=== PATIENT | male | born 1940 | race Caucasian/White ===

== ENCOUNTER 2020-05-16 08:26 | Outpatient (REF) | payer MEDICARE, SELFPAY ==
[2020-05-16 11:14] LABS: MANUAL DIFF FLAG NO
[2020-05-16 11:29] LABS: Basophils Percent Auto 0.6 % (0-2); Eosinophils Absolute Auto 0.1 X10*3/uL (0.0-0.4); Eosinophils Percent Auto 0.9 % (0-4); Hematocrit 43.1 % (42-52); Hemoglobin 14.4 g/dl (14.0-18.0); Imm Gran Abs Auto 0.02 X10*3/uL (0.00-0.03); Imm Gran Pct Auto 0.3 % (0.0-0.4); Lymphocytes Absolute Auto 1.7 X10*3/uL (1.2-4.9); Lymphocytes Percent Auto 24.9 % (20-40); Mean Corpuscular HGB Conc 33.4 g/dl (31.0-36.0); Mean Corpuscular Hemoglobin 29.8 pg (27.0-33.0); Mean Corpuscular Volume 89.2 fL (80-98); Mean Platelet Volume 11.1 fL (9.4-12.4); Monocytes Absolute Auto 0.8 X10*3/uL (0.1-1.2); Monocytes Percent Auto 11.5 % (2-11); Neutrophils Absolute Auto 4.2 X10*3/uL (2.0-8.3); Neutrophils Percent Auto 61.8 % (45-73); Platelet Count 245 X10*3/uL (160-400); Red Blood Count 4.83 X10*6/uL (4.60-5.80); Red Cell Distribution Width 13.3 % (11.0-16.0); White Blood Count 6.9 X10*3/uL (4.8-10.8)
[2020-05-16 11:38] LABS: Glucose Urine UA NEG (NEG); Leukocyte Esterase Urine NEG (NEG); Nitrite Urine NEG (NEG); Urine Blood NEG (NEG); Urine Ketones 15 MG/DL (NEG); Urine Protein NEG (NEG-TRACE)
[2020-05-16 11:43] LABS: Appearance Urine CLEAR; Color Urine YELLOW
[2020-05-16 11:52] LABS: RBC Urine 0 /HPF (0); WBC Urine 0 /HPF (0-4)
[2020-05-16 11:56] LABS: Alanine Aminotransferase 28 U/L (0-40); Albumin Level 4.3 g/dL (3.5-5.0); Alkaline Phosphatase 64 U/L (39-117); Anion Gap 12 (12-20); Aspartate Amino Transferase 24 U/L (5-37); Bilirubin Total 0.8 mg/dL (0.0-1.0); Blood Urea Nitrogen 17 mg/dL (9-16); Calcium 9.1 mg/dL (8.4-10.2); Carbon Dioxide 28 mmol/L (22-29); Chloride 97 mmol/L (96-108); Cholesterol 128 mg/dL; Estimated Glomerular Filt Rate > 60; Glucose Fasting 154 mg/dL (60-99); HDL Cholesterol 54 mg/dL; LDL Cholesterol Calculated 61 mg/dl; Potassium 4.8 mmol/l (3.3-5.1); Sodium 132 mmol/L (135-145); Total Protein 6.7 g/dL (6.5-8.0); Triglycerides 68 mg/dL
[2020-05-16 11:59] LABS: Creatinine Urine 95.65 mg/dL; Microalbum/Creatinine Ratio Ur 5.2 ug/mg cr
[2020-05-16 12:07] LABS: Thyroid Stimulating Hormone 1.84 uIU/mL (0.32-4.0)
== END 2020-05-16 08:27 | disposition home or self-care (01) ==
LOC: HO.HMGCLDS 08:26
PROVIDERS: PCP Internal Medicine; Visit Provider Internal Medicine
DX: E10.9 Type 1 diabetes mellitus without complications (principal); I10 Essential (primary) hypertension; N40.0 Benign prostatic hyperplasia without lower urinary tract symptoms
CPT/HCPCS: 36415; 80053; 80061; 81001; 82043; 84153; 84443; 85025

== ENCOUNTER → 2020-06-13 08:19 | Outpatient (BNVA) | payer MEDICARE, SELFPAY | PROVIDERS: PCP Internal Medicine; Visit Provider Internal Medicine Endocrinology, Diabetes & Metabolism | DX: E10.42 Type 1 diabetes mellitus with diabetic polyneuropathy (principal); E11.3299 Type 2 diabetes mellitus with mild nonproliferative diabetic retinopathy without macular edema, unspecified eye; E78.5 Hyperlipidemia, unspecified; E87.1 Hypo-osmolality and hyponatremia; I10 Essential (primary) hypertension | CPT/HCPCS: 82947; 99212 ==

== ENCOUNTER 2020-08-28 09:17 | Outpatient (REF) | payer MEDICARE, SELFPAY ==
--- NOTE | 2020-08-28 09:30 | EMG_ITS ---
Bilateral median and ulnar motor and sensory studies were performed. Bilateral radial sensory studies were performed and paraspinal muscles were tested. IMPRESSION: 1. Moderately severe bilateral median neuropathy across carpal tunnel. 2. 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 3. Underlying sensory motor axonal peripheral neuropathy. MD GIL Larios/NITISH / [id number]
== END 2020-08-28 09:18 | disposition home or self-care (01) ==
LOC: HO.NEURO 09:17
PROVIDERS: PCP Internal Medicine; Visit Provider Internal Medicine
DX: G56.03 Carpal tunnel syndrome, bilateral upper limbs (principal)
CPT/HCPCS: 95886; 95911

== ENCOUNTER → 2020-10-14 08:30 | Outpatient (BNVA) | payer MEDICARE, SELFPAY | PROVIDERS: PCP Internal Medicine; Visit Provider Internal Medicine Endocrinology, Diabetes & Metabolism | DX: E11.3299 Type 2 diabetes mellitus with mild nonproliferative diabetic retinopathy without macular edema, unspecified eye (principal); E10.42 Type 1 diabetes mellitus with diabetic polyneuropathy; I10 Essential (primary) hypertension; E78.5 Hyperlipidemia, unspecified; E87.1 Hypo-osmolality and hyponatremia | CPT/HCPCS: 82947; 99212 ==

== ENCOUNTER 2020-10-14 09:24 | Outpatient (REF) | payer MEDICARE, SELFPAY ==
[2020-10-14 10:40] LABS: Alanine Aminotransferase 29 U/L (0-40); Alkaline Phosphatase 79 U/L (39-117); Anion Gap 15 (12-20); Aspartate Amino Transferase 22 U/L (5-37); Bilirubin Total 0.9 mg/dL (0.0-1.0); Blood Urea Nitrogen 17 mg/dL (9-16); Calcium 9.6 mg/dL (8.4-10.2); Carbon Dioxide 25 mmol/L (22-29); Chloride 102 mmol/L (96-108); Estimated Glomerular Filt Rate > 60; Glucose Random 165 mg/dL (60-115); Potassium 4.7 mmol/L (3.3-5.1); Sodium 137 mmol/L (135-145); Total Protein 6.4 g/dL (6.5-8.0)
[2020-10-14 10:53] LABS: Microalbumin Urine < 5.0 mg/L; Protein/Creatinine Ratio, Ur 0.08 (<0.2); Total Protein Urine Random 9 mg/dL (<12)
== END 2020-10-14 09:25 | disposition home or self-care (01) ==
LOC: HO.10HDL 09:24
PROVIDERS: Visit Provider Internal Medicine Endocrinology, Diabetes & Metabolism
DX: E10.9 Type 1 diabetes mellitus without complications (principal)
CPT/HCPCS: 36415; 80053; 82043; 84156

== ENCOUNTER → 2021-01-13 08:48 | Outpatient (BNVA) | payer MEDICARE, SELFPAY | PROVIDERS: PCP Internal Medicine; Visit Provider Internal Medicine Endocrinology, Diabetes & Metabolism | DX: E10.3293 Type 1 diabetes mellitus with mild nonproliferative diabetic retinopathy without macular edema, bilateral (principal); E10.42 Type 1 diabetes mellitus with diabetic polyneuropathy; I10 Essential (primary) hypertension; E78.5 Hyperlipidemia, unspecified; Z79.4 Long term (current) use of insulin; Z96.41 Presence of insulin pump (external) (internal) | CPT/HCPCS: 82947; 99212 ==

== ENCOUNTER 2021-02-04 08:27 | Outpatient (REF) | payer MEDICARE, SELFPAY ==
[2021-02-04 11:16] LABS: MANUAL DIFF FLAG NO
[2021-02-04 11:24] LABS: Basophils Absolute Auto 0.1 X10*3/uL (0.0-0.2); Basophils Percent Auto 0.7 % (0-2); Eosinophils Absolute Auto 0.1 X10*3/uL (0.0-0.4); Eosinophils Percent Auto 1.5 % (0-4); Hematocrit 41.9 % (42-52); Imm Gran Abs Auto 0.02 X10*3/uL (0.00-0.03); Imm Gran Pct Auto 0.3 % (0.0-0.4); Lymphocytes Absolute Auto 2.2 X10*3/uL (1.2-4.9); Lymphocytes Percent Auto 30.3 % (20-40); Mean Corpuscular HGB Conc 33.4 g/dl (31.0-36.0); Mean Corpuscular Hemoglobin 29.4 pg (27.0-33.0); Mean Corpuscular Volume 87.8 fL (80-98); Mean Platelet Volume 11.4 fL (9.4-12.4); Monocytes Absolute Auto 0.9 X10*3/uL (0.1-1.2); Monocytes Percent Auto 11.8 % (2-11); Neutrophils Absolute Auto 4.1 X10*3/uL (2.0-8.3); Neutrophils Percent Auto 55.4 % (45-73); Platelet Count 218 X10*3/uL (160-400); Red Blood Count 4.77 X10*6/uL (4.60-5.80); Red Cell Distribution Width 13.2 % (11.0-16.0); White Blood Count 7.4 X10*3/uL (4.8-10.8)
[2021-02-04 11:27] LABS: Glucose Urine UA NEG (NEG); Leukocyte Esterase Urine NEG (NEG); Nitrite Urine NEG (NEG); Urine Blood NEG (NEG); Urine Ketones NEG (NEG); Urine Protein NEG (NEG-TRACE)
[2021-02-04 11:32] LABS: Appearance Urine CLEAR; Color Urine YELLOW
[2021-02-04 11:35] LABS: Alanine Aminotransferase 26 U/L (0-40); Alkaline Phosphatase 74 U/L (39-117); Anion Gap 13 (12-20); Aspartate Amino Transferase 22 U/L (5-37); Bilirubin Total 0.8 mg/dL (0.0-1.0); Blood Urea Nitrogen 20 mg/dL (9-16); Calcium 9.1 mg/dL (8.4-10.2); Carbon Dioxide 25 mmol/L (22-29); Chloride 98 mmol/L (96-108); Cholesterol 111 mg/dL; Estimated Glomerular Filt Rate > 60; Glucose Fasting 166 mg/dL (60-99); HDL Cholesterol 44 mg/dL; LDL Cholesterol Calculated 53 mg/dl; Potassium 4.5 mmol/L (3.3-5.1); Sodium 131 mmol/L (135-145); Total Protein 6.5 g/dL (6.5-8.0); Triglycerides 70 mg/dL
[2021-02-04 11:54] LABS: RBC Urine 0-2 /HPF (0); WBC Urine 0 /HPF (0-4)
[2021-02-04 11:55] LABS: Estimated Average Glucose 183 mg/dL
[2021-02-04 11:57] LABS: Thyroid Stimulating Hormone 2.42 uIU/mL (0.32-4.0); Vitamin D 25-OH Total 41.9 ng/mL (>30)
[2021-02-04 12:02] LABS: Creatinine Urine 74.05 mg/dL; Microalbumin Urine < 5.0 mg/L
== END 2021-02-04 08:28 | disposition home or self-care (01) ==
LOC: HO.HMGCLDS 08:27
PROVIDERS: PCP Internal Medicine; Visit Provider Internal Medicine
DX: E10.9 Type 1 diabetes mellitus without complications (principal); I10 Essential (primary) hypertension; N40.0 Benign prostatic hyperplasia without lower urinary tract symptoms
CPT/HCPCS: 36415; 80053; 80061; 81001; 82043; 82306; 83036; 84443; 85025

== ENCOUNTER 2021-05-03 21:45 | Emergency (ER) | payer MEDICARE, SELFPAY ==
--- NOTE | ~2021-05-03 | XR_ITS ---
EXAMINATION: XR CHEST CLINICAL INFORMATION: Dizziness. Nausea. COMPARISON: Most recent chest radiograph dated 06/16/2018. TECHNIQUE: Frontal view of the chest was obtained. FINDINGS: No new airspace consolidation. No pleural effusion or pneumothorax. Stable cardiomediastinal silhouette. XR/XR chest 1V IMPRESSION: No acute cardiopulmonary findings.
--- NOTE | ~2021-05-03 | CT_ITS ---
EXAMINATION: CT HEAD WITHOUT CONTRAST CLINICAL INFORMATION: Dizziness, headache, nausea and vomiting. COMPARISON: CT brain dated 12/10/2016. TECHNIQUE: Contiguous axial imaging was performed from the skull base to vertex without intravenous administration of contrast. This CT examination was performed using dose optimization techniques as appropriate, variously including the following: *Automated exposure control. *Adjustment of mA and/or kV according to patient size (this includes techniques or standardized protocols for targeted exams where dose is matched to indication/reason for exam; i.e. extremities or head). *Use of iterative reconstruction technique. DLP: 696 mGy-cm FINDINGS: There is no evidence of acute intracranial hemorrhage or territorial infarction. No abnormal mass effect or midline shift is seen. [id number] matter differentiation is well preserved. No extra-axial fluid collections are identified. The ventricles are normal in size. There is no abnormal attenuation within the brain parenchyma. The osseous structures and soft tissues are normal. Complete opacification of the right maxillary sinus is unchanged. Otherwise, the mastoid air cells and visualized portions of the paranasal sinuses are well aerated. CT/CT head/brain wo con IMPRESSION: No acute intracranial hemorrhage or mass effect.
[2021-05-03 21:57] VITALS: BP 167/64; PULSE 60; RESP 18; TEMP 36.7; O2SAT 99; BMI 29.0
--- NOTE | 2021-05-03 22:25 | ECG_ITS ---
Test Reason : WEAK Blood Pressure : / mmHG Vent. Rate : 060 BPM Atrial Rate : 060 BPM P-R Int : 218 ms QRS Dur : 090 ms QT Int : 458 ms P-R-T Axes : -12 -60 086 degrees QTc Int : 458 ms Sinus rhythm with 1st degree A-V block Left axis deviation Nonspecific T wave abnormality Abnormal ECG When compared with ECG of 10-DEC-2016 00:28, T wave amplitude has decreased in Anterolateral leads Referred By: Jenn Metcalf Electronically Signed By:PRIETO MCRAE MD
--- NOTE | 2021-05-03 22:54 | ED.GENADULT ---
HPI - General Adult General Chief complaint: General Medical Stated complaint: dehyration Time Seen by Provider: 05/03/21 22:17 Source: patient Mode of arrival: ambulatory History of Present Illness HPI narrative: 80-year-old male with a past medical history of diabetes, hyperlipidemia, hypertension, presenting to the ED complaining of dizziness described as eyes moving back and forth worse with position changes, headache, nausea, vomiting, & generalized fatigue/weakness since this morning. Reports unable to tolerate p.o. without vomiting. Admits to similar symptoms in the past when he was dehydrated. Denies fever, chills, chest pain, shortness of breath, vision change/loss, numbness, tingling, weakness, abdominal pain Related Data Home Medications Medication Instructions Recorded Confirmed amlodipine 5 mg tablet 5 mg PO DAILY 06/13/20 01/13/21 atorvastatin 40 mg tablet 40 mg PO DAILY 06/13/20 01/13/21 finasteride 5 mg tablet 5 mg PO DAILY 06/13/20 01/13/21 sertraline 50 mg tablet 50 mg PO DAILY 06/13/20 01/13/21 losartan 50 mg tablet 50 mg PO DAILY tab 10/14/20 01/13/21 tamsulosin 0.4 mg capsule 0.4 mg PO DAILY cap 10/14/20 01/13/21 hydrochlorothiazide 25 mg tablet 25 mg PO QAM 01/13/21 01/13/21 Previous Rx's Medication Instructions Recorded Lyumjev U-100 Insulin 100 unit/mL See Rx Instructions SUBCUT DAILY 01/13/21 subcutaneous solution (insulin 90 Days #90 ml NS [facility]) meclizine 25 mg tablet 25 mg PO TID PRN #14 tab 05/04/21 Allergies Allergy/AdvReac Type Severity Reaction Status Date / Time penicillin V Allergy Unknown Rash Verified 05/03/21 23:02 Penicillins [PENICILLINS] Allergy Unknown UNKNOWN Verified 05/03/21 23:02 Review of Systems Review of Systems: Constitutional: No Fever, No Chills, + Fatigue, + Malaise ENT/Mouth: No Ear Pain, No Nasal Congestion, No Hoarseness, No sore throat Eyes: No Eye Pain, No Swelling, No Redness, No Vision Changes Cardiovascular: No Chest Pain, No SOB, No Edema, No Palpitations Respiratory: No Cough, No Sputum, No Dyspnea Gastrointestinal: + Nausea, + Vomiting, No Diarrhea, No Constipation, No Abdominal pain Genitourinary: No Dysuria, No Urinary Frequency, No Hematuria, No Urinary Incontinence, No Urgency, No Flank Pain Musculoskeletal: No joint pain, No Myalgias, No Joint Swelling Skin: No Skin Lesions, No rash Neuro: + Weakness, No Numbness, No Paresthesias, No Loss of Consciousness, + Dizziness, + Headache Yes all other systems are reviewed and are negative Neurologic: Denies Abnormal speech present COUNT INCLUDES THE [facility] Past Medical History Attestation statement: The following information was validated with the patient. 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 Dyslipidemia Hypertension Hyponatremia Mild non proliferative diabetic retinopathy Surgical History (Updated 06/12/20 @ 09:20 by Cristel Holland LPN) Hx of cataract removal with insertion of prosthetic lens Hx of hand surgery Hx of right inguinal hernia repair Family History Family History (Updated 06/12/20 @ 09:18 by Cristel Holland LPN) Father CVD (cardiovascular disease) Mother Hypertension Maternal Grandmother Diabetes Social History Social History (Updated 06/12/20 @ 09:18 by Cristel Holland LPN) Advance Directives: No Advance Directives Information Provided: No Advance Directives on File: No Physical Exam Vital Signs: Vital Signs: Last Vital Signs Temp 98.0 F 05/03/21 21:57 Pulse 67 05/04/21 00:26 Resp 18 05/03/21 21:57 BP 124/52 L 05/04/21 00:26 Pulse Ox 99 05/03/21 21:57 Body Mass Index 29.0 Const: General: cooperative Orientation/consciousness: patient oriented x3 Limitations: no limitations HENMT: Head: Yes normal to inspection Ears: hearing grossly normal bilaterally General nose exam: Normal external nose present Face and sinus: Yes normal facial exam Eyes: General: appearance normal, both eyes and all related structures Pupils: Equal, round and reactive pupils present EOM: EOMs intact bilaterally Neck: Neck: Yes normal visual inspection and Yes no meningeal signs Resp: Effort & Inspection: normal respiratory effort Auscultation: clear to auscultation bilaterally, no rales, no rhonchi and no wheezes Cardio: Rate: regular rate Heart sounds: S1 normal heart sound present and S2 normal heart sound present GI: Inspection: Yes normal to inspection Palpation (GI): Soft to palpation, nontender, no guarding and not rigid Skin: Rashes: no rashes Wounds: no wounds Neuro: General: patient oriented x3, tone normal, moves all extremities, no meningeal signs, no focal motor deficits and CN's II-XI intact bilaterally Cranial nerves: Yes CN's II-XII intact bilaterally, Yes Equal, round and reactive pupils present, Yes Bilaterally intact EOM present and Yes Nystagmus not present Cognition (Neuro): normal cognition Speech: No Abnormal speech present Gait exam (Neuro): Normal gait present Motor exam (neuro): 5/5 motor strength present throughout, Pronator motor function not present and no tremor noted Coordination: [id number]-ug-[id number] test normal Romberg Test: Negative Extrem: General: Yes normal to inspection and Yes no pedal edema Course Course Course Narrative: 2340--mild leukocytosis of 11.4, acute on chronic hyponatremia, labs otherwise unremarkable. Glucose 221 -Troponin 12.3 > will obtain 3 hour repeat XR chest 1V IMPRESSION: No acute cardiopulmonary findings CT head/brain wo con IMPRESSION: No acute intracranial hemorrhage or mass effect. -0015--On re-evaluation patient reports symptomatic improvement. Will try ambulation trial -orthostatic vital signs negative. UA negative -0111--repeat troponin equivocal, CO unlikely. Patient ambulated safely and ED with steady gait without dizziness. On re-evaluation patient reports symptomatic improvement, asymptomatic now, denies dizziness at present. Discussed with patient worrisome signs and symptoms and strict return precautions including needed follow-up with PCP/ENT. Will send Meclizine to pharmacy as needed. He verbalized understanding feel safe for discharge home at this time Medical Decision Making MDM Narrative Medical decision making narrative: 80-year-old male with a past medical history of diabetes, hyperlipidemia, hypertension, presenting to the ED complaining of dizziness described as eyes moving back and forth worse with position changes, headache, nausea, vomiting, & generalized fatigue/weakness since this morning. On exam vital signs stable, NAD, dizziness elicited on position change/sitting up, no focal neuro deficits, lungs CTA, no pedal edema. Concern for BPPV vs ?CVA > patient is not tPA candidate as is out of the window and low NIHSS. Concern for metabolic abnormalities, rule out ACS vs hyper or hypoglycemia Plan: EKG, labs, UA, CXR, head CT, IVF, symptomatic treatment, re-evaluate Lab Data Result diagrams: 05/03/21 22:54 05/03/21 22:54 Labs: Lab Results 05/03/21 05/03/21 05/03/21 Range/Units 22:54 22:54 22:54 WBC 11.4 H (4.8-10.8) X10*3/uL RBC 4.67 (4.60-5.80) X10*6/uL Hgb 14.2 (14.0-18.0) g/dl Hct 40.4 L (42.0-52.0) % MCV 86.5 (80.0-98.0) fL MCH 30.4 (27.0-33.0) pg MCHC 35.1 (31.0-36.0) g/dl RDW 12.8 (11.0-16.0) % Plt Count 199 (160-400) X10*3/uL MPV 10.7 (9.4-12.4) fL Immature Gran % (Auto) 0.3 (0.0-0.4) % Neut % (Auto) 86.5 H (45-73) % Lymph % (Auto) 7.7 L (20-40) % [place] % (Auto) 5.2 (2-11) % Eos % (Auto) 0.1 (0-4) % Baso % (Auto) 0.2 (0-2) % Lymph # (Auto) 0.9 L (1.2-4.9) X10*3/uL [place] # (Auto) 0.6 (0.1-1.2) X10*3/uL Eos # (Auto) 0.0 (0.0-0.4) X10*3/uL Baso # (Auto) 0.0 (0.0-0.2) X10*3/uL Abs Immat Gran (auto) 0.03 (0.00-0.03) X10*3/uL Absolute Neuts (auto) 9.89 H (2.0-8.3) x10*3/uL Absolute Nucleated RBC 0.000 (0.0-0.012) X10*3/uL Nucleated RBC % (auto) 0.0 (0.0-0.2) /100WBC Sodium 130 L (135-145) mmol/L Potassium 3.9 (3.3-5.1) mmol/L Chloride 95 L (96-108) mmol/L Carbon Dioxide 24 (22-29) mmol/L Anion Gap 15 (12-20) BUN 14 (9-16) mg/dL Creatinine 0.78 (0.5-1.4) mg/dL Estim Creat Clear Calc 77.0 Estimated GFR > 60 POC Glucose (60-115) mg/dL Random Glucose 237 H D (60-115) mg/dL Calcium 9.0 (8.4-10.2) mg/dL Magnesium 1.9 (1.6-2.6) mg/dL Total Bilirubin 0.9 (0.0-1.0) mg/dL Direct Bilirubin 0.3 (0.0-0.5) mg/dL AST 24 (5-37) U/L ALT 25 (0-40) U/L Alkaline Phosphatase 67 (39-117) U/L Troponin I High Sens 12.3 (<3.5-35.0) ng/L Total Protein 6.5 (6.5-8.0) g/dL Albumin 4.0 (3.5-5.0) g/dL Urine Color Urine Appearance Urine pH (5.0-8.0) Ur Specific [place] (1.005-1.025) Urine Protein (NEG-TRACE) MG/DL Urine Glucose (UA) (NEG) MG/DL Urine Ketones (NEG) MG/DL Urine Blood (NEG) Urine Nitrite (NEG) Ur Leukocyte Esterase (NEG) 05/03/21 05/04/21 05/04/21 Range/Units 22:55 00:35 00:35 WBC (4.8-10.8) X10*3/uL RBC (4.60-5.80) X10*6/uL Hgb (14.0-18.0) g/dl Hct (42.0-52.0) % MCV (80.0-98.0) fL MCH (27.0-33.0) pg MCHC (31.0-36.0) g/dl RDW (11.0-16.0) % Plt Count (160-400) X10*3/uL MPV (9.4-12.4) fL Immature Gran % (Auto) (0.0-0.4) % Neut % (Auto) (45-73) % Lymph % (Auto) (20-40) % [place] % (Auto) (2-11) % Eos % (Auto) (0-4) % Baso % (Auto) (0-2) % Lymph # (Auto) (1.2-4.9) X10*3/uL [place] # (Auto) (0.1-1.2) X10*3/uL Eos # (Auto) (0.0-0.4) X10*3/uL Baso # (Auto) (0.0-0.2) X10*3/uL Abs Immat Gran (auto) (0.00-0.03) X10*3/uL Absolute Neuts (auto) (2.0-8.3) x10*3/uL Absolute Nucleated RBC (0.0-0.012) X10*3/uL Nucleated RBC % (auto) (0.0-0.2) /100WBC Sodium (135-145) mmol/L Potassium (3.3-5.1) mmol/L Chloride (96-108) mmol/L Carbon Dioxide (22-29) mmol/L Anion Gap (12-20) BUN (9-16) mg/dL Creatinine (0.5-1.4) mg/dL Estim Creat Clear Calc Estimated GFR POC Glucose 221 H (60-115) mg/dL Random Glucose (60-115) mg/dL Calcium (8.4-10.2) mg/dL Magnesium (1.6-2.6) mg/dL Total Bilirubin (0.0-1.0) mg/dL Direct Bilirubin (0.0-0.5) mg/dL AST (5-37) U/L ALT (0-40) U/L Alkaline Phosphatase (39-117) U/L Troponin I High Sens 13.4 (<3.5-35.0) ng/L Total Protein (6.5-8.0) g/dL Albumin (3.5-5.0) g/dL Urine Color YELLOW Urine Appearance CLEAR Urine pH 6.0 (5.0-8.0) Ur Specific [place] 1.025 (1.005-1.025) Urine Protein NEG (NEG-TRACE) MG/DL Urine Glucose (UA) 100 H (NEG) MG/DL Urine Ketones 40 (NEG) MG/DL Urine Blood NEG (NEG) Urine Nitrite NEG (NEG) Ur Leukocyte Esterase NEG (NEG) ECG Data Attestation: I personally reviewed and interpreted this ECG as follows: Prior ECG tracings: available for review Interpretation: EKG sinus rhythm with 1st degree AV block. Rate of 60. Nonischemic-no STEMI. QTC 458 Discharge Plan Discharge Clinical Impression: Dizziness Nausea & vomiting Qualifiers: Vomiting type: unspecified Vomiting Intractability: non-intractable Qualified Code(s): R11.2 - Nausea with vomiting, unspecified Patient Disposition: Home, Self-Care Instructions: Acute Nausea and Vomiting (ED), Dizziness (ED) Additional Instructions: Your blood work was reassuring You head CT and chest x-ray were unremarkable Meclizine will help with dizziness, take as needed Please follow-up with her primary care doctor in the next 1-2 days If her symptoms persist, recur, you develop headache, persistent nausea/vomiting, chest pain or shortness of breath, or visual changes please return to the ED Prescriptions: New meclizine 25 mg tablet 25 mg PO TID PRN (Reason: dizziness) Qty: 14 RF: 0 No Action finasteride 5 mg tablet 5 mg PO DAILY RF: 0 amlodipine 5 mg tablet 5 mg PO DAILY RF: 0 sertraline 50 mg tablet 50 mg PO DAILY RF: 0 atorvastatin 40 mg tablet 40 mg PO DAILY RF: 0 losartan 50 mg tablet 50 mg PO DAILY RF: 0 tamsulosin 0.4 mg capsule 0.4 mg PO DAILY RF: 0 hydrochlorothiazide 25 mg tablet 25 mg PO QAM RF: 0 Lyumjev U-100 Insulin 100 unit/mL solution See Rx Instructions subcut DAILY 90 Days Qty: 90 RF: 2 Referrals: Srinivasa Vasquez MD, DO [Primary Care Provider] - 2 days Julio Henson [Physician] - 5 days
[2021-05-03 22:59] LABS: Glucose, Whole Blood 221 mg/dL (60-115)
[2021-05-03] MEDS: ondansetron HCL 4 MG/2 ML VIAL IVPUSH (23:02)
[2021-05-03] MEDS: 0.9 % Sodium Chloride 1,000 ML 999 ML IVCONT (23:03)
[2021-05-03] MEDS: Meclizine HCl 25 MG TABLET PO (23:03)
[2021-05-03 23:04] LABS: MANUAL DIFF FLAG NO
[2021-05-03 23:05] LABS: Basophils Percent Auto 0.2 % (0-2); Eosinophils Percent Auto 0.1 % (0-4); Hematocrit 40.4 % (42.0-52.0); Hemoglobin 14.2 g/dl (14.0-18.0); Imm Gran Abs Auto 0.03 X10*3/uL (0.00-0.03); Imm Gran Pct Auto 0.3 % (0.0-0.4); Lymphocytes Absolute Auto 0.9 X10*3/uL (1.2-4.9); Lymphocytes Percent Auto 7.7 % (20-40); Mean Corpuscular HGB Conc 35.1 g/dl (31.0-36.0); Mean Corpuscular Hemoglobin 30.4 pg (27.0-33.0); Mean Corpuscular Volume 86.5 fL (80.0-98.0); Mean Platelet Volume 10.7 fL (9.4-12.4); Monocytes Absolute Auto 0.6 X10*3/uL (0.1-1.2); Monocytes Percent Auto 5.2 % (2-11); Neutrophils Absolute Auto 9.89 x10*3/uL (2.0-8.3); Neutrophils Percent Auto 86.5 % (45-73); Platelet Count 199 X10*3/uL (160-400); Red Blood Count 4.67 X10*6/uL (4.60-5.80); Red Cell Distribution Width 12.8 % (11.0-16.0); White Blood Count 11.4 X10*3/uL (4.8-10.8)
[2021-05-03 23:24] LABS: Alanine Aminotransferase 25 U/L (0-40); Alkaline Phosphatase 67 U/L (39-117); Anion Gap 15 (12-20); Aspartate Amino Transferase 24 U/L (5-37); Bilirubin Direct 0.3 mg/dL (0.0-0.5); Bilirubin Total 0.9 mg/dL (0.0-1.0); Blood Urea Nitrogen 14 mg/dL (9-16); Carbon Dioxide 24 mmol/L (22-29); Chloride 95 mmol/L (96-108); Estimated Glomerular Filt Rate > 60; Glucose Random 237 mg/dL (60-115); Magnesium 1.9 mg/dL (1.6-2.6); Potassium 3.9 mmol/L (3.3-5.1); Sodium 130 mmol/L (135-145); Total Protein 6.5 g/dL (6.5-8.0); Troponin-I High Sensitivity 12.3 ng/L (<3.5-35.0)
[2021-05-04 00:26] VITALS: BP 124/52; BP 136/55; BP 141/60; PULSE 60; PULSE 65; PULSE 67
[2021-05-04 00:45] LABS: Appearance Urine CLEAR; Color Urine YELLOW; Glucose Urine UA 100 MG/DL (NEG); Leukocyte Esterase Urine NEG (NEG); Nitrite Urine NEG (NEG); Specific Gravity - Urine 1.025 (1.005-1.025); Urine Blood NEG (NEG); Urine Ketones 40 MG/DL (NEG); Urine Protein NEG (NEG-TRACE)
[2021-05-04 01:01] LABS: Troponin-I High Sensitivity 13.4 ng/L (<3.5-35.0)
== END 2021-05-04 01:35 | disposition home or self-care (01) ==
PROVIDERS: Physician Assistant; Emergency Provider Internal Medicine; PCP Internal Medicine
DX: R42 Dizziness and giddiness (principal); R11.2 Nausea with vomiting, unspecified; E10.9 Type 1 diabetes mellitus without complications; I10 Essential (primary) hypertension; E78.5 Hyperlipidemia, unspecified; Z79.899 Other long term (current) drug therapy; Z79.4 Long term (current) use of insulin
CPT/HCPCS: 36415; 70450; 71045; 80048; 80076; 81003; 82947; 83735; 84484; 85025; 93005; 96361; 96374; 99284; J2405

== ENCOUNTER → 2021-05-20 10:00 | Outpatient (BNVA) | payer MEDICARE, SELFPAY | PROVIDERS: PCP Internal Medicine; Visit Provider Nurse Practitioner Gerontology | DX: E10.3293 Type 1 diabetes mellitus with mild nonproliferative diabetic retinopathy without macular edema, bilateral (principal); E10.42 Type 1 diabetes mellitus with diabetic polyneuropathy; E66.3 Overweight; E78.5 Hyperlipidemia, unspecified; I10 Essential (primary) hypertension | CPT/HCPCS: 82947; 83036; 99212 ==

== ENCOUNTER → 2021-06-16 07:52 | Outpatient (BNVA) | payer MEDICARE, SELFPAY | PROVIDERS: PCP Internal Medicine; Visit Provider Registered Nurse Diabetes Educator | DX: E10.42 Type 1 diabetes mellitus with diabetic polyneuropathy (principal); Z96.41 Presence of insulin pump (external) (internal); Z79.4 Long term (current) use of insulin | CPT/HCPCS: 99211 ==

== ENCOUNTER → 2021-07-14 07:57 | Outpatient (BNVA) | payer MEDICARE, SELFPAY | PROVIDERS: PCP Internal Medicine; Visit Provider Registered Nurse Diabetes Educator | DX: E10.42 Type 1 diabetes mellitus with diabetic polyneuropathy (principal); Z79.4 Long term (current) use of insulin; Z96.41 Presence of insulin pump (external) (internal) | CPT/HCPCS: 99211 ==

== ENCOUNTER → 2021-08-14 07:57 | Outpatient (BNVA) | payer MEDICARE, SELFPAY | PROVIDERS: PCP Internal Medicine; Visit Provider Registered Nurse Diabetes Educator | DX: E10.42 Type 1 diabetes mellitus with diabetic polyneuropathy (principal); Z79.4 Long term (current) use of insulin; Z96.41 Presence of insulin pump (external) (internal) | CPT/HCPCS: 99211 ==

== ENCOUNTER → 2021-09-04 08:47 | Outpatient (BNVA) | payer MEDICARE, SELFPAY | PROVIDERS: PCP Internal Medicine; Visit Provider Nurse Practitioner Gerontology | DX: E10.42 Type 1 diabetes mellitus with diabetic polyneuropathy (principal); E10.3293 Type 1 diabetes mellitus with mild nonproliferative diabetic retinopathy without macular edema, bilateral; E78.5 Hyperlipidemia, unspecified; E66.3 Overweight; I10 Essential (primary) hypertension; Z79.4 Long term (current) use of insulin; Z96.41 Presence of insulin pump (external) (internal); Z68.28 Body mass index [BMI] 28.0-28.9, adult | CPT/HCPCS: 82947; 83036; 99212 ==

== ENCOUNTER → 2021-09-21 07:59 | Outpatient (BNVA) | payer MEDICARE, SELFPAY | PROVIDERS: PCP Internal Medicine; Visit Provider Registered Nurse Diabetes Educator | DX: E10.42 Type 1 diabetes mellitus with diabetic polyneuropathy (principal); Z79.4 Long term (current) use of insulin; Z46.81 Encounter for fitting and adjustment of insulin pump | CPT/HCPCS: 99211 ==

== ENCOUNTER 2021-10-14 07:57 | Outpatient (REF) | payer MEDICARE, SELFPAY ==
[2021-10-14 11:15] LABS: MANUAL DIFF FLAG NO
[2021-10-14 11:30] LABS: Basophils Absolute Auto 0.1 X10*3/uL (0.0-0.2); Basophils Percent Auto 0.6 % (0-2); Eosinophils Absolute Auto 0.1 X10*3/uL (0.0-0.4); Hematocrit 41.5 % (42.0-52.0); Hemoglobin 13.9 g/dl (14.0-18.0); Imm Gran Abs Auto 0.03 X10*3/uL (0.00-0.03); Imm Gran Pct Auto 0.4 % (0.0-0.4); Lymphocytes Percent Auto 25.9 % (20-40); Mean Corpuscular HGB Conc 33.5 g/dl (31.0-36.0); Mean Corpuscular Hemoglobin 29.9 pg (27.0-33.0); Mean Corpuscular Volume 89.2 fL (80.0-98.0); Mean Platelet Volume 11.6 fL (9.4-12.4); Monocytes Absolute Auto 0.9 X10*3/uL (0.1-1.2); Monocytes Percent Auto 11.8 % (2-11); Neutrophils Absolute Auto 4.6 x10*3/uL (2.0-8.3); Neutrophils Percent Auto 60.3 % (45-73); Platelet Count 212 X10*3/uL (160-400); Red Blood Count 4.65 X10*6/uL (4.60-5.80); Red Cell Distribution Width 13.3 % (11.0-16.0); White Blood Count 7.7 X10*3/uL (4.8-10.8)
[2021-10-14 11:57] LABS: Alanine Aminotransferase 22 U/L (0-40); Albumin Level 3.9 g/dL (3.5-5.0); Alkaline Phosphatase 69 U/L (39-117); Anion Gap 13 (12-20); Aspartate Amino Transferase 19 U/L (5-37); Bilirubin Total 1.1 mg/dL (0.0-1.0); Blood Urea Nitrogen 20 mg/dL (9-16); Calcium 9.7 mg/dL (8.4-10.2); Carbon Dioxide 26 mmol/L (22-29); Chloride 102 mmol/L (96-108); Cholesterol 114 mg/dL; Estimated Glomerular Filt Rate > 60; Glucose Fasting 105 mg/dL (60-99); HDL Cholesterol 45 mg/dL; LDL Cholesterol Calculated 55 mg/dl; Potassium 4.7 mmol/L (3.3-5.1); Sodium 136 mmol/L (135-145); Total Protein 6.5 g/dL (6.5-8.0); Triglycerides 73 mg/dL
[2021-10-14 12:06] LABS: Creatinine Urine 73.25 mg/dL; Microalbumin Urine < 5.0 mg/L
[2021-10-14 12:15] LABS: Estimated Average Glucose 183 mg/dL
[2021-10-14 12:21] LABS: Thyroid Stimulating Hormone 2.81 uIU/mL (0.32-4.0); Vitamin D 25-OH Total 38.4 ng/mL (>30)
[2021-10-14 18:59] LABS: Appearance Urine CLEAR; Color Urine YELLOW; Glucose Urine UA NEG (NEG); Leukocyte Esterase Urine NEG (NEG); Nitrite Urine NEG (NEG); Specific Gravity - Urine 1.015 (1.005-1.025); Urine Blood NEG (NEG); Urine Ketones NEG (NEG); Urine Protein NEG (NEG-TRACE)
[2021-10-14 19:04] LABS: RBC Urine 0 /HPF (0); WBC Urine 0 /HPF (0-4)
== END 2021-10-14 07:58 | disposition home or self-care (01) ==
LOC: HO.HMGCLDS 07:57
PROVIDERS: PCP Internal Medicine; Visit Provider Internal Medicine
DX: E10.9 Type 1 diabetes mellitus without complications (principal); I10 Essential (primary) hypertension
CPT/HCPCS: 36415; 80053; 80061; 81001; 82043; 82306; 83036; 84443; 85025

== ENCOUNTER → 2021-12-07 08:22 | Outpatient (BNVA) | payer MEDICARE, SELFPAY | PROVIDERS: PCP Internal Medicine; Visit Provider Nurse Practitioner Gerontology | DX: E10.3293 Type 1 diabetes mellitus with mild nonproliferative diabetic retinopathy without macular edema, bilateral (principal); E10.42 Type 1 diabetes mellitus with diabetic polyneuropathy; I10 Essential (primary) hypertension; E78.5 Hyperlipidemia, unspecified; E66.3 Overweight; Z79.4 Long term (current) use of insulin; Z68.29 Body mass index [BMI] 29.0-29.9, adult; Z96.41 Presence of insulin pump (external) (internal) | CPT/HCPCS: 82947; 99212 ==

== ENCOUNTER → 2022-01-25 07:55 | Outpatient (BNVA) | payer MEDICARE, SELFPAY | PROVIDERS: PCP Internal Medicine; Visit Provider Registered Nurse Diabetes Educator | DX: Z46.81 Encounter for fitting and adjustment of insulin pump (principal); E10.42 Type 1 diabetes mellitus with diabetic polyneuropathy | CPT/HCPCS: 99211 ==

== ENCOUNTER → 2022-03-22 07:57 | Outpatient (BNVA) | payer MEDICARE, SELFPAY | PROVIDERS: PCP Internal Medicine; Visit Provider Registered Nurse Diabetes Educator | DX: Z46.81 Encounter for fitting and adjustment of insulin pump (principal); E10.42 Type 1 diabetes mellitus with diabetic polyneuropathy | CPT/HCPCS: 99211 ==

== ENCOUNTER → 2022-04-08 10:51 | Outpatient (BNVA) | payer MEDICARE, SELFPAY | PROVIDERS: PCP Internal Medicine; Visit Provider Internal Medicine Endocrinology, Diabetes & Metabolism | DX: Z46.81 Encounter for fitting and adjustment of insulin pump (principal); E10.3293 Type 1 diabetes mellitus with mild nonproliferative diabetic retinopathy without macular edema, bilateral; Z79.4 Long term (current) use of insulin | CPT/HCPCS: 82947; 83036; 99212 ==

== ENCOUNTER 2022-04-15 07:53 | Outpatient (REF) | payer MEDICARE, SELFPAY ==
[2022-04-15 10:57] LABS: MANUAL DIFF FLAG NO
[2022-04-15 11:10] LABS: Basophils Absolute Auto 0.1 X10*3/uL (0.0-0.2); Basophils Percent Auto 0.7 % (0-2); Eosinophils Absolute Auto 0.1 X10*3/uL (0.0-0.4); Eosinophils Percent Auto 1.7 % (0-4); Hematocrit 43.1 % (42.0-52.0); Hemoglobin 14.4 g/dl (14.0-18.0); Imm Gran Abs Auto 0.02 X10*3/uL (0.00-0.03); Imm Gran Pct Auto 0.3 % (0.0-0.4); Lymphocytes Absolute Auto 2.4 X10*3/uL (1.2-4.9); Lymphocytes Percent Auto 33.9 % (20-40); Mean Corpuscular HGB Conc 33.4 g/dl (31.0-36.0); Mean Corpuscular Hemoglobin 29.3 pg (27.0-33.0); Mean Corpuscular Volume 87.8 fL (80.0-98.0); Mean Platelet Volume 11.2 fL (9.4-12.4); Monocytes Absolute Auto 0.9 X10*3/uL (0.1-1.2); Monocytes Percent Auto 13.1 % (2-11); Neutrophils Absolute Auto 3.5 x10*3/uL (2.0-8.3); Neutrophils Percent Auto 50.3 % (45-73); Platelet Count 209 X10*3/uL (160-400); Red Blood Count 4.91 X10*6/uL (4.60-5.80); Red Cell Distribution Width 13.2 % (11.0-16.0)
[2022-04-15 11:19] LABS: Estimated Average Glucose 174 mg/dL; Hemoglobin A1c % 7.7 %
[2022-04-15 11:48] LABS: Alanine Aminotransferase 23 U/L (0-40); Alkaline Phosphatase 67 U/L (39-117); Anion Gap 14 (12-20); Aspartate Amino Transferase 24 U/L (5-37); Bilirubin Total 0.8 mg/dL (0.0-1.0); Blood Urea Nitrogen 21 mg/dL (9-16); Calcium 9.2 mg/dL (8.4-10.2); Carbon Dioxide 26 mmol/L (22-29); Chloride 98 mmol/L (96-108); Cholesterol 123 mg/dL; Estimated Glomerular Filt Rate > 60; Glucose Fasting 161 mg/dL (60-99); HDL Cholesterol 46 mg/dL; LDL Cholesterol Calculated 60 mg/dl; Potassium 4.3 mmol/L (3.3-5.1); Sodium 134 mmol/L (135-145); Total Protein 6.4 g/dL (6.5-8.0); Triglycerides 85 mg/dL
== END 2022-04-15 07:54 | disposition home or self-care (01) ==
LOC: HO.HMGCLDS 07:53
PROVIDERS: PCP Internal Medicine; Visit Provider Internal Medicine
DX: E10.9 Type 1 diabetes mellitus without complications (principal); I10 Essential (primary) hypertension
CPT/HCPCS: 36415; 80053; 80061; 83036; 85025

== ENCOUNTER 2022-04-17 09:06 | Outpatient (REF) | payer MEDICARE, SELFPAY ==
[2022-04-17 11:49] LABS: Appearance Urine Clear; Color Urine Yellow; Glucose Urine UA Negative (Negative); Leukocyte Esterase Urine Negative (Negative); Nitrite Urine Negative (Negative); Specific Gravity - Urine 1.015 (1.005-1.025); Urine Blood Negative (Negative); Urine Ketones Negative (Negative); Urine Protein Negative (Neg-Trace)
[2022-04-17 11:55] LABS: Bacteria Urine None Seen (None Seen); Hyaline Casts Urine 0-2 /LPF (0-2); RBC Urine 0-2 /HPF (0-2); Squamous Epithelial Cell Urine 0-2 /HPF (0-2); WBC Urine 0-5 /HPF (0-5)
[2022-04-17 12:21] LABS: Creatinine Urine 82.17 mg/dL; Microalbum/Creatinine Ratio Ur 12.1 ug/mg cr
== END 2022-04-17 09:07 | disposition home or self-care (01) ==
LOC: HO.HMGCLDS 09:06
PROVIDERS: PCP Internal Medicine; Visit Provider Internal Medicine
DX: E10.9 Type 1 diabetes mellitus without complications (principal)
CPT/HCPCS: 81001; 82043

== ENCOUNTER → 2022-05-24 07:55 | Outpatient (BNVA) | payer MEDICARE, SELFPAY | PROVIDERS: PCP Internal Medicine; Visit Provider Registered Nurse Diabetes Educator | DX: Z46.81 Encounter for fitting and adjustment of insulin pump (principal); E10.42 Type 1 diabetes mellitus with diabetic polyneuropathy; Z79.4 Long term (current) use of insulin | CPT/HCPCS: 99211 ==

== ENCOUNTER 2022-06-02 04:46 | Emergency (ER) | payer MEDICARE, SELFPAY ==
--- NOTE | ~2022-06-02 | CT_ITS ---
EXAMINATION: NONCONTRAST HEAD CT NONCONTRAST CERVICAL SPINE CT INDICATION INFORMATION: Fall with pain COMPARISON: 05/03/2021 TECHNIQUE: Separate noncontrast CT examinations of the head and cervical spine were performed. Coronal head CT images and coronal and sagittal cervical spine images were created at the technologist workstation. DLP: 1259 mGy-cm DOSE LOWERING TECHNIQUES: This CT examination was performed using dose optimization techniques as appropriate, variously including the following: - Automated exposure control - Adjustment of mA and/or kV according to patient size (this includes techniques or standardized protocols for targeted exams were dose is matched to indication/reason for exam; i.e. extremities or head) - Use of iterative reconstruction technique FINDINGS: Head: There is no evidence of acute intracranial hemorrhage or territorial infarction. No abnormal mass-effect or midline shift is seen. Thomas to white matter differentiation is well preserved. No extra-axial fluid collections are identified. The ventricles are normal in size. Mild volume loss is noted. No acute fracture is seen. Posterior left scalp soft tissue swelling is noted. The mastoid air cells are well-aerated. There is chronic complete opacification of the right maxillary sinus. There is also opacification of the left frontal sinus and anterior ethmoid air cells which is new from prior. Cervical spine: There is anatomic alignment of the vertebral bodies and posterior elements. Vertebral body heights are maintained. There is disc space narrowing throughout the mid and lower cervical spine with associated endplate osteophytes. There is degenerative change at the atlantodens articulation. No evidence of acute fracture. No prevertebral soft tissue swelling. Visualized portions of the lung apices are unremarkable. The thyroid gland is unremarkable. CT/CT cervical spine wo IV con IMPRESSION: HEAD: No acute intracranial findings. Posterior left scalp soft tissue swelling. CERVICAL SPINE: No acute findings identified. Degenerative changes as noted above.
--- NOTE | 2022-06-02 06:13 | ED.FALL ---
HPI - Fall General Chief Complaint: Fall <Felix Thurman MD - Last Filed: 06/02/22 17:39> Time Seen by Provider: 06/02/22 05:50 <Felix Thurman MD - Last Filed: 06/02/22 17:39> Source: patient and family <Felix Thurman MD - Last Filed: 06/02/22 17:39> Mode of arrival: EMS <Felix Thurman MD - Last Filed: 06/02/22 17:39> Limitations: no limitations <Felix Thurman MD - Last Filed: 06/02/22 17:39> History of Present Illness HPI Narrative: Patient history of diabetes, hypertension on insulin pump woke up from the sleep as cell phone alarm went off for low blood sugar recheck it was 70 patient had some apple juice ate some pancakes went to bathroom and passed out later on it was noticed that his blood sugar was less than 40 patient hit his head to the ground has lasted her top of the head. Patient denies any chest pain or palpitation recheck blood sugar was more than 100 <Felix Thurman MD - Last Filed: 06/02/22 17:39> Related Data Home Medications: Home Medications Medication Instructions Recorded Confirmed atorvastatin 40 mg tablet 40 mg PO DAILY 06/13/20 05/20/21 finasteride 5 mg tablet 5 mg PO DAILY 06/13/20 09/04/21 sertraline 50 mg tablet 50 mg PO DAILY 06/13/20 05/20/21 losartan 50 mg tablet 50 mg PO DAILY 10/14/20 09/04/21 tamsulosin 0.4 mg capsule 0.4 mg PO DAILY 10/14/20 05/20/21 hydrochlorothiazide 25 mg tablet 25 mg PO QAM 01/13/21 09/04/21 cholecalciferol (vitamin D3) 50 50 mcg PO DAILY 05/20/21 09/04/21 mcg (2,000 unit) capsule multivitamin 1 tab PO DAILY 05/20/21 05/20/21 blood-glucose meter,continuous 04/08/22 (Dexcom G6 Renal Case Manager misc) blood-glucose sensor (Dexcom G6 04/08/22 Sensor device) blood-glucose transmitter (Dexcom 04/08/22 G6 Transmitter device) Previous Rx's Medication Instructions Recorded meclizine 25 mg tablet 25 mg PO TID PRN dizziness #14 tabs 05/04/21 lancets 28 gauge (FreeStyle #200 ea 05/20/21 Lancets) blood sugar diagnostic (FreeStyle #300 ea 05/21/21 Lite Strips) blood-glucose meter (FreeStyle #1 ea 05/21/21 Lite Meter kit) Linn U-100 Insulin 100 unit/mL See Rx Instructions subcut DAILY 12/08/21 subcutaneous solution (insulin 90 days #90 mL lispro-[facility]) <Felix Thurman MD - Last Filed: 06/02/22 17:39> Allergies/Adverse Reactions: Allergies Allergy/AdvReac Type Severity Reaction Status Date / Time penicillin V Allergy Unknown Rash Verified 04/08/22 11:01 Penicillins [PENICILLINS] Allergy Unknown UNKNOWN Verified 04/08/22 11:01 <Felix Thurman MD - Last Filed: 06/02/22 17:39> Review of Systems Review of Systems: Yes all other systems are reviewed and are negative <Felix Thurman MD - Last Filed: 06/02/22 17:39> [facility] Past Medical History Medical History: Medical History Diabetes type 1, controlled Diabetic polyneuropathy associated with type 1 diabetes mellitus Dyslipidemia Hypertension Hyponatremia Mild non proliferative diabetic retinopathy Overweight <Felix Thurman MD - Last Filed: 06/02/22 17:39> Surgical History: Surgical History Hx of cataract removal with insertion of prosthetic lens Hx of hand surgery Hx of right inguinal hernia repair <Felix Thurman MD - Last Filed: 06/02/22 17:39> Family History Family History: Family History Father CVD (cardiovascular disease) Mother Hypertension Maternal Grandmother Diabetes <Felix Thurman MD - Last Filed: 06/02/22 17:39> Social History Social History: Social History Household Members: Spouse Alcohol intake: current Alcohol intake frequency: a few times a week Alcohol type: wine Patient Tobacco Use Status: Never used Tobacco Advance Directives: No Advance Directives Information Provided: Yes <Felix Thurman MD - Last Filed: 06/02/22 17:39> Physical Exam Vital Signs: Vital Signs: Last Vital Signs Pulse 69 06/02/22 09:07 Resp 16 06/02/22 09:07 BP 121/46 L 06/02/22 09:07 Pulse Ox 95 06/02/22 09:07 O2 Del Method 06/02/22 09:07 <Felix Thurman MD - Last Filed: 06/02/22 17:39> Vital Signs: Last Vital Signs Pulse 69 06/02/22 09:07 Resp 16 06/02/22 09:07 BP 121/46 L 06/02/22 09:07 Pulse Ox 95 06/02/22 09:07 O2 Del Method 06/02/22 09:07 <Christina Andrew NP - Last Filed: 06/02/22 17:22> Appearance: Alert. Oriented X3. No acute distress. Eyes: PERRLA, No Nystagmus HEENT: Pharynx normal. Oral Mucosa moist cervical collar in place 5 cm laceration at the top of the occipital area Neck: Normal inspection. Neck supple. CVS: Normal heart rate and rhythm. Pulses normal. Respiratory: No respiratory distress. Equal air entry bilateral, no wheezing/rales/rhonchi Abdomen: Soft and nontender. Bowel sounds are present, no mass palpable, no CVA tenderness Skin: Skin warm and dry. Normal skin color. Normal skin turgor. Extremities: No lower extremity edema. No calf tenderness Neuro: Oriented X 3. No motor deficit. No sensory deficit.No cerebellar signs , cranial nerves II-XII intact <Felix Thurman MD - Last Filed: 06/02/22 17:39> Procedures Laceration Laceration 1: Site: scalp (posterior) <Christina Andrew NP - Last Filed: 06/02/22 17:22> Side (If applicable): left <Christina Andrew NP - Last Filed: 06/02/22 17:22> Description: irregular and clean <Christina Andrew NP - Last Filed: 06/02/22 17:22> Depth: simple, single layer <Christina Andrew PHOTOVOLTAIC SOLAR CELL DESIGNER - Last Filed: 06/02/22 17:22> Local Anesthetic: lidocaine 1% <Christina Andrew PHOTOVOLTAIC SOLAR CELL DESIGNER - Last Filed: 06/02/22 17:22> Skin layer closed with: nylon <Christina Andrew PHOTOVOLTAIC SOLAR CELL DESIGNER - Last Filed: 06/02/22 17:22> Size (cm): 3-0 (3) and 5-0 (2) <Christina Andrew PHOTOVOLTAIC SOLAR CELL DESIGNER - Last Filed: 06/02/22 17:22> Number of sutures: 5 <Christina Andrew PHOTOVOLTAIC SOLAR CELL DESIGNER - Last Filed: 06/02/22 17:22> Technique: simple, interrupted <Christina Andrew PHOTOVOLTAIC SOLAR CELL DESIGNER - Last Filed: 06/02/22 17:22> Number of sutures: 2 <Christina Andrew PHOTOVOLTAIC SOLAR CELL DESIGNER - Last Filed: 06/02/22 17:22> MDM - Fall MDM Narrative Medical decision making narrative: Patient diabetic on insulin pump had hypoglycemic episode felt dizzy and passed out fell improved after glucose during stay patient alert oriented x3 no focal deficit CT head and C-spine negative labs are stable will discharge patient home <Felix Thurman MD - Last Filed: 06/02/22 17:39> Lab Data Attestation: I reviewed the patient's lab results. <Felix Thurman MD - Last Filed: 06/02/22 17:39> Result diagrams: : 06/02/22 05:10 06/02/22 05:10 <Felix Thurman MD - Last Filed: 06/02/22 17:39> Labs: Lab Results 06/02/22 06/02/22 06/02/22 Range/Units 05:10 05:10 05:10 WBC 9.9 (4.8-10.8) X10*3/uL RBC 4.48 L (4.60-5.80) X10*6/uL Hgb 13.5 L (14.0-18.0) g/dl Hct 39.4 L (42.0-52.0) % MCV 87.9 (80.0-98.0) fL MCH 30.1 (27.0-33.0) pg MCHC 34.3 (31.0-36.0) g/dl RDW 13.2 (11.0-16.0) % Plt Count 188 (160-400) X10*3/uL MPV 11.0 (9.4-12.4) fL Immature Gran % (Auto) 0.5 H (0.0-0.4) % Neut % (Auto) 67.0 (45-73) % Lymph % (Auto) 19.7 L (20-40) % Hood % (Auto) 11.3 H (2-11) % Eos % (Auto) 1.0 (0-4) % Baso % (Auto) 0.5 (0-2) % Lymph # (Auto) 1.9 (1.2-4.9) X10*3/uL Hood # (Auto) 1.1 (0.1-1.2) X10*3/uL Eos # (Auto) 0.1 (0.0-0.4) X10*3/uL Baso # (Auto) 0.1 (0.0-0.2) X10*3/uL Abs Immat Gran (auto) 0.05 H (0.00-0.03) X10*3/uL Absolute Neuts (auto) 6.6 (2.0-8.3) x10*3/uL Absolute Nucleated RBC 0.000 (0.0-0.012) X10*3/uL Nucleated RBC % (auto) 0.0 (0.0-0.2) /100WBC Sodium 138 (135-145) mmol/L Potassium 4.7 (3.3-5.1) mmol/L Chloride 103 (96-108) mmol/L Carbon Dioxide 22 (22-29) mmol/L Anion Gap 18 (12-20) BUN 19 H (9-16) mg/dL Creatinine 0.84 (0.5-1.4) mg/dL Estim Creat Clear Calc TNP Estimated GFR > 60 POC Glucose 151 H (60-115) mg/dL Random Glucose 135 H D (60-115) mg/dL Calcium 9.3 (8.4-10.2) mg/dL Total Bilirubin 0.8 (0.0-1.0) mg/dL AST 28 (5-37) U/L ALT 22 (0-40) U/L Alkaline Phosphatase 64 (39-117) U/L Total Protein 6.6 (6.5-8.0) g/dL Albumin 3.8 (3.5-5.0) g/dL <Felix Thurman MD - Last Filed: 06/02/22 17:39> Lab Results 06/02/22 06/02/22 06/02/22 Range/Units 05:10 05:10 05:10 WBC 9.9 (4.8-10.8) X10*3/uL RBC 4.48 L (4.60-5.80) X10*6/uL Hgb 13.5 L (14.0-18.0) g/dl Hct 39.4 L (42.0-52.0) % MCV 87.9 (80.0-98.0) fL MCH 30.1 (27.0-33.0) pg MCHC 34.3 (31.0-36.0) g/dl RDW 13.2 (11.0-16.0) % Plt Count 188 (160-400) X10*3/uL MPV 11.0 (9.4-12.4) fL Immature Gran % (Auto) 0.5 H (0.0-0.4) % Neut % (Auto) 67.0 (45-73) % Lymph % (Auto) 19.7 L (20-40) % Hood % (Auto) 11.3 H (2-11) % Eos % (Auto) 1.0 (0-4) % Baso % (Auto) 0.5 (0-2) % Lymph # (Auto) 1.9 (1.2-4.9) X10*3/uL Hood # (Auto) 1.1 (0.1-1.2) X10*3/uL Eos # (Auto) 0.1 (0.0-0.4) X10*3/uL Baso # (Auto) 0.1 (0.0-0.2) X10*3/uL Abs Immat Gran (auto) 0.05 H (0.00-0.03) X10*3/uL Absolute Neuts (auto) 6.6 (2.0-8.3) x10*3/uL Absolute Nucleated RBC 0.000 (0.0-0.012) X10*3/uL Nucleated RBC % (auto) 0.0 (0.0-0.2) /100WBC Sodium 138 (135-145) mmol/L Potassium 4.7 (3.3-5.1) mmol/L Chloride 103 (96-108) mmol/L Carbon Dioxide 22 (22-29) mmol/L Anion Gap 18 (12-20) BUN 19 H (9-16) mg/dL Creatinine 0.84 (0.5-1.4) mg/dL Estim Creat Clear Calc TNP Estimated GFR > 60 POC Glucose 151 H (60-115) mg/dL Random Glucose 135 H D (60-115) mg/dL Calcium 9.3 (8.4-10.2) mg/dL Total Bilirubin 0.8 (0.0-1.0) mg/dL AST 28 (5-37) U/L ALT 22 (0-40) U/L Alkaline Phosphatase 64 (39-117) U/L Total Protein 6.6 (6.5-8.0) g/dL Albumin 3.8 (3.5-5.0) g/dL <Christina Andrew NP - Last Filed: 06/02/22 17:22> Discharge Plan Discharge Clinical Impression: Head injury, Hypoglycemia, Laceration of scalp <Felix Thurman MD - Last Filed: 06/02/22 17:39> Patient Disposition: Home, Self-Care <Felix Thurman MD - Last Filed: 06/02/22 17:39> Instructions: Laceration (ED), Hypoglycemia in a Person with Diabetes (ED), Head Injury (ED) <Felix Thurman MD - Last Filed: 06/02/22 17:39> Additional Instructions: Suture removal in 10 days Local care as advised Watch your diet and blood sugar as advised <Felix Thurman MD - Last Filed: 06/02/22 17:39> Prescriptions: No Action (DME) FreeStyle Lite Strips Strip See Rx Instructions .ROUTE .MEDSUPPLY Qty: 300 3RF Rx Instructions: As directed three times a day (DME) blood-glucose meter [FreeStyle Lite Meter] Kit See Rx Instructions .ROUTE .MEDSUPPLY Qty: 1 0RF Rx Instructions: As directed 3 x/day Lyumjev U-100 Insulin 100 unit/mL solution See Rx Instructions subcut DAILY 90 Days Qty: 90 2RF Rx Instructions: Up to 100 units via insulin pump subcut daily; meclizine 25 mg tablet 25 mg PO TID PRN (Reason: dizziness) Qty: 14 0RF finasteride 5 mg tablet 5 mg PO DAILY sertraline 50 mg tablet 50 mg PO DAILY atorvastatin 40 mg tablet 40 mg PO DAILY losartan 50 mg tablet 50 mg PO DAILY tamsulosin 0.4 mg capsule 0.4 mg PO DAILY hydrochlorothiazide 25 mg tablet 25 mg PO QAM multivitamin Tablet 1 tab PO DAILY cholecalciferol (vitamin D3) 50 mcg (2,000 unit) capsule 50 mcg PO DAILY (DME) lancets [FreeStyle Lancets] 28 gauge misc See Rx Instructions .ROUTE .MEDSUPPLY Qty: 200 11RF Rx Instructions: 4 times a day (DME) Dexcom G6 Renal Case Manager Misc See Rx Instructions .ROUTE Rx Instructions: As directed (DME) Dexcom G6 Sensor Device See Rx Instructions .ROUTE Rx Instructions: As directed (DME) Dexcom G6 Transmitter Device See Rx Instructions .ROUTE Rx Instructions: As directed <Felix Thurman MD - Last Filed: 06/02/22 17:39> Interventions: ED Discharge Assessment Last Done: 06/02/22 09:33 <Felix Thurman MD - Last Filed: 06/02/22 17:39> Discharge Date/Time: 06/02/22 09:33 <Felix Thurman MD - Last Filed: 06/02/22 17:39>
[2022-06-02 06:20] LABS: MANUAL DIFF FLAG NO
[2022-06-02 06:34] LABS: Basophils Absolute Auto 0.1 X10*3/uL (0.0-0.2); Basophils Percent Auto 0.5 % (0-2); Eosinophils Absolute Auto 0.1 X10*3/uL (0.0-0.4); Hematocrit 39.4 % (42.0-52.0); Hemoglobin 13.5 g/dl (14.0-18.0); Imm Gran Abs Auto 0.05 X10*3/uL (0.00-0.03); Imm Gran Pct Auto 0.5 % (0.0-0.4); Lymphocytes Absolute Auto 1.9 X10*3/uL (1.2-4.9); Lymphocytes Percent Auto 19.7 % (20-40); Mean Corpuscular HGB Conc 34.3 g/dl (31.0-36.0); Mean Corpuscular Hemoglobin 30.1 pg (27.0-33.0); Mean Corpuscular Volume 87.9 fL (80.0-98.0); Monocytes Absolute Auto 1.1 X10*3/uL (0.1-1.2); Monocytes Percent Auto 11.3 % (2-11); Neutrophils Absolute Auto 6.6 x10*3/uL (2.0-8.3); Platelet Count 188 X10*3/uL (160-400); Red Blood Count 4.48 X10*6/uL (4.60-5.80); Red Cell Distribution Width 13.2 % (11.0-16.0); White Blood Count 9.9 X10*3/uL (4.8-10.8)
[2022-06-02 06:53] VITALS: BP 140/55; PULSE 60; RESP 16; O2SAT 97
[2022-06-02 06:54] LABS: Glucose, Whole Blood 151 mg/dL (60-115)
[2022-06-02 07:10] LABS: Alanine Aminotransferase 22 U/L (0-40); Albumin Level 3.8 g/dL (3.5-5.0); Alkaline Phosphatase 64 U/L (39-117); Anion Gap 18 (12-20); Aspartate Amino Transferase 28 U/L (5-37); Bilirubin Total 0.8 mg/dL (0.0-1.0); Blood Urea Nitrogen 19 mg/dL (9-16); Calcium 9.3 mg/dL (8.4-10.2); Carbon Dioxide 22 mmol/L (22-29); Chloride 103 mmol/L (96-108); Estimated Glomerular Filt Rate > 60; Glucose Random 135 mg/dL (60-115); Potassium 4.7 mmol/L (3.3-5.1); Sodium 138 mmol/L (135-145); Total Protein 6.6 g/dL (6.5-8.0)
[2022-06-02 09:07] VITALS: BP 121/46; PULSE 69; RESP 16; O2SAT 95
--- NOTE | 2022-06-02 12:13 | ECG_ITS ---
Test Reason : SYNCOPE Blood Pressure : / mmHG Vent. Rate : 054 BPM Atrial Rate : 054 BPM P-R Int : 228 ms QRS Dur : 090 ms QT Int : 484 ms P-R-T Axes : 000 018 083 degrees QTc Int : 458 ms Sinus bradycardia with 1st degree A-V block Otherwise normal ECG When compared to the previous EKG of No significant changes seen Referred By: Felix Thurman Electronically Signed By:Garry Mendez
== END 2022-06-02 09:33 | disposition home or self-care (01) ==
PROVIDERS: Emergency Provider Internal Medicine
DX: E10.649 Type 1 diabetes mellitus with hypoglycemia without coma (principal); S01.01XA Laceration without foreign body of scalp, initial encounter; S09.90XA Unspecified injury of head, initial encounter; W17.89XA Other fall from one level to another, initial encounter; I10 Essential (primary) hypertension; E78.5 Hyperlipidemia, unspecified; Y93.9 Activity, unspecified; Y92.039 Unspecified place in apartment as the place of occurrence of the external cause; Y99.9 Unspecified external cause status; Z79.4 Long term (current) use of insulin; Z96.41 Presence of insulin pump (external) (internal); Z79.02 Long term (current) use of antithrombotics/antiplatelets; Z79.899 Other long term (current) drug therapy
CPT/HCPCS: 12002; 36415; 70450; 72125; 80053; 82947; 85025; 93005; 99282; 99284

== ENCOUNTER → 2022-07-14 09:01 | Outpatient (BNVA) | payer MEDICARE, SELFPAY | PROVIDERS: PCP Internal Medicine; Visit Provider Internal Medicine Endocrinology, Diabetes & Metabolism | DX: E10.3293 Type 1 diabetes mellitus with mild nonproliferative diabetic retinopathy without macular edema, bilateral (principal) | CPT/HCPCS: 82947; 83036; 99212 ==

== ENCOUNTER 2022-08-17 08:36 | Outpatient (REF) | payer MEDICARE, SELFPAY ==
[2022-08-17 11:28] LABS: MANUAL DIFF FLAG NO
[2022-08-17 11:29] LABS: Basophils Absolute Auto 0.1 X10*3/uL (0.0-0.2); Basophils Percent Auto 0.9 % (0-2); Eosinophils Absolute Auto 0.2 X10*3/uL (0.0-0.4); Eosinophils Percent Auto 2.2 % (0-4); Hematocrit 41.1 % (42.0-52.0); Hemoglobin 13.9 g/dl (14.0-18.0); Imm Gran Abs Auto 0.02 X10*3/uL (0.00-0.03); Imm Gran Pct Auto 0.3 % (0.0-0.4); Lymphocytes Absolute Auto 2.2 X10*3/uL (1.2-4.9); Lymphocytes Percent Auto 32.1 % (20-40); Mean Corpuscular HGB Conc 33.8 g/dl (31.0-36.0); Mean Corpuscular Hemoglobin 29.9 pg (27.0-33.0); Mean Corpuscular Volume 88.4 fL (80.0-98.0); Mean Platelet Volume 11.3 fL (9.4-12.4); Monocytes Absolute Auto 0.9 X10*3/uL (0.1-1.2); Monocytes Percent Auto 12.6 % (2-11); Neutrophils Absolute Auto 3.6 x10*3/uL (2.0-8.3); Neutrophils Percent Auto 51.9 % (45-73); Platelet Count 216 X10*3/uL (160-400); Red Blood Count 4.65 X10*6/uL (4.60-5.80); White Blood Count 6.9 X10*3/uL (4.8-10.8)
[2022-08-17 12:03] LABS: Alanine Aminotransferase 25 U/L (0-40); Albumin Level 3.8 g/dL (3.5-5.0); Alkaline Phosphatase 81 U/L (39-117); Anion Gap 15 (12-20); Aspartate Amino Transferase 21 U/L (5-37); Bilirubin Total 0.7 mg/dL (0.0-1.0); Blood Urea Nitrogen 20 mg/dL (9-16); Calcium 9.4 mg/dL (8.4-10.2); Carbon Dioxide 26 mmol/L (22-29); Chloride 99 mmol/L (96-108); Estimated Glomerular Filt Rate > 60; Glucose Random 166 mg/dL (60-115); Potassium 4.8 mmol/L (3.3-5.1); Sodium 135 mmol/L (135-145); Total Protein 6.1 g/dL (6.5-8.0)
== END 2022-08-17 08:37 | disposition home or self-care (01) ==
LOC: HO.HMGCLDS 08:36
PROVIDERS: PCP Internal Medicine; Visit Provider Internal Medicine
DX: E10.9 Type 1 diabetes mellitus without complications (principal); I10 Essential (primary) hypertension; N40.0 Benign prostatic hyperplasia without lower urinary tract symptoms; F41.9 Anxiety disorder, unspecified; R06.02 Shortness of breath
CPT/HCPCS: 36415; 80053; 85025

== ENCOUNTER → 2022-11-01 11:02 | Outpatient (BNVA) | payer MEDICARE, SELFPAY | PROVIDERS: PCP Internal Medicine; Visit Provider Registered Nurse Diabetes Educator | DX: Z46.81 Encounter for fitting and adjustment of insulin pump (principal); E10.42 Type 1 diabetes mellitus with diabetic polyneuropathy | CPT/HCPCS: 99211 ==

== ENCOUNTER → 2022-11-16 13:41 | Outpatient (BNVA) | payer MEDICARE, SELFPAY | PROVIDERS: PCP Internal Medicine; Visit Provider Internal Medicine Endocrinology, Diabetes & Metabolism | DX: E10.42 Type 1 diabetes mellitus with diabetic polyneuropathy (principal); E10.3293 Type 1 diabetes mellitus with mild nonproliferative diabetic retinopathy without macular edema, bilateral; E78.5 Hyperlipidemia, unspecified; Z79.4 Long term (current) use of insulin; Z96.41 Presence of insulin pump (external) (internal); Z46.81 Encounter for fitting and adjustment of insulin pump; Z96.1 Presence of intraocular lens | CPT/HCPCS: 82947; 83036; 99212 ==

== ENCOUNTER 2022-12-28 12:37 | Outpatient (REF) | payer MEDICARE, SELFPAY ==
[2022-12-28 14:15] LABS: MANUAL DIFF FLAG NO
[2022-12-28 14:23] LABS: Basophils Absolute Auto 0.1 X10*3/uL (0.0-0.2); Basophils Percent Auto 0.8 % (0-2); Eosinophils Absolute Auto 0.1 X10*3/uL (0.0-0.4); Eosinophils Percent Auto 0.6 % (0-4); Hematocrit 41.6 % (42.0-52.0); Hemoglobin 13.6 g/dl (14.0-18.0); Imm Gran Abs Auto 0.02 X10*3/uL (0.00-0.03); Imm Gran Pct Auto 0.2 % (0.0-0.4); Lymphocytes Absolute Auto 2.1 X10*3/uL (1.2-4.9); Lymphocytes Percent Auto 23.8 % (20-40); Mean Corpuscular HGB Conc 32.7 g/dl (31.0-36.0); Mean Corpuscular Hemoglobin 29.8 pg (27.0-33.0); Mean Platelet Volume 11.6 fL (9.4-12.4); Monocytes Absolute Auto 0.8 X10*3/uL (0.1-1.2); Monocytes Percent Auto 9.7 % (2-11); Neutrophils Absolute Auto 5.6 x10*3/uL (2.0-8.3); Neutrophils Percent Auto 64.9 % (45-73); Platelet Count 227 X10*3/uL (160-400); Red Blood Count 4.57 X10*6/uL (4.60-5.80); Red Cell Distribution Width 13.6 % (11.0-16.0); White Blood Count 8.6 X10*3/uL (4.8-10.8)
[2022-12-28 14:26] LABS: Appearance Urine Clear; Color Urine Yellow; Glucose Urine UA Negative (Negative); Leukocyte Esterase Urine Negative (Negative); Nitrite Urine Negative (Negative); PH 5.5 (5.0-9.0); Specific Gravity - Urine 1.025 (1.005-1.025); Urine Blood Negative (Negative); Urine Ketones Trace mg/dL (Negative); Urine Protein Negative (Neg-Trace)
[2022-12-28 14:35] LABS: Alanine Aminotransferase 24 U/L (0-40); Albumin Level 3.9 g/dL (3.5-5.0); Alkaline Phosphatase 70 U/L (39-117); Anion Gap 13 (12-20); Aspartate Amino Transferase 23 U/L (5-37); Bilirubin Total 0.8 mg/dL (0.0-1.0); Blood Urea Nitrogen 25 mg/dL (9-16); C Reactive Protein < 0.10 mg/dL (< or = 0.50); Carbon Dioxide 27 mmol/L (22-29); Chloride 106 mmol/L (96-108); Estimated Glomerular Filt Rate > 60; Glucose Random 246 mg/dL (60-115); Potassium 4.9 mmol/L (3.3-5.1); Sodium 141 mmol/L (135-145); Total Protein 6.5 g/dL (6.5-8.0)
[2022-12-28 15:04] LABS: Erythrocyte Sedimentation Rate 6 MM/HR (0-15)
[2022-12-28 15:23] LABS: Estimated Average Glucose 186 mg/dL; Hemoglobin A1c % 8.1 %
[2022-12-30 10:03] LABS: Lyme Abs Screen <0.90 index
== END 2022-12-28 12:38 | disposition home or self-care (01) ==
LOC: HO.HMGCLDS 12:37
PROVIDERS: PCP Internal Medicine; Visit Provider Internal Medicine
DX: E10.9 Type 1 diabetes mellitus without complications (principal); I10 Essential (primary) hypertension; N40.0 Benign prostatic hyperplasia without lower urinary tract symptoms; F41.9 Anxiety disorder, unspecified; R41.3 Other amnesia
CPT/HCPCS: 36415; 80053; 81003; 83036; 85025; 85652; 86140; 86617; 86618

== ENCOUNTER 2022-12-31 18:58 | Outpatient (REF) | payer MEDICARE, SELFPAY | END 2022-12-31 18:59 | disposition home or self-care (01) | LOC: HO.MRI 18:58 | PROVIDERS: PCP Internal Medicine; Visit Provider Internal Medicine | DX: R46.89 Other symptoms and signs involving appearance and behavior (principal); R41.3 Other amnesia | CPT/HCPCS: 70551 ==

== ENCOUNTER 2023-01-31 16:25 | Emergency (ER) | payer MEDICARE, SELFPAY ==
--- NOTE | ~2023-01-31 | XR_ITS ---
EXAMINATION: CHEST 2 VIEWS CLINICAL INFORMATION: pain. COMPARISON: 05/03/2021. TECHNIQUE: PA and lateral views of the chest obtained. FINDINGS: The lungs are well expanded. No focal infiltrate, effusion, edema, or pneumothorax. Cardiac and mediastinal silhouettes are within normal limits for technique. No acute bony abnormality seen XR/XR chest 2V IMPRESSION: No evidence of acute disease
--- NOTE | ~2023-01-31 | CT_ITS ---
EXAMINATION: CT HEAD WITHOUT CONTRAST CLINICAL INFORMATION: Trauma COMPARISON: CT 06/02/2022 TECHNIQUE: Contiguous axial imaging was performed from the skull base to vertex without intravenous administration of contrast. This CT examination was performed using dose optimization techniques as appropriate, variously including the following: *Automated exposure control *Adjustment of mA and/or kV according to patient size (this includes techniques or standardized protocols for targeted exams where dose is matched to indication/reason for exam; i.e. extremities or head) *Use of iterative reconstruction technique DLP: 620 mGy-cm FINDINGS: There is no evidence of acute intracranial hemorrhage or territorial infarction. No abnormal mass effect or midline shift is seen. Thomas to white matter differentiation is well preserved. No extra-axial fluid collections are identified. Mild cerebral volume loss with sulcal and ventricular prominence.. There is dilatation of the ventricles, appearing asymmetrically prominent as compared to the sulci. This overall appears similar as compared to the prior CT of 06/02/2022. Redemonstrated is complete right maxillary and left frontal and anterior ethmoid sinus opacification.Mastoid air cells are well-aerated. No acute calvarial fracture. Left posterior scalp soft tissue swelling/soft tissue hematoma. CT/CT head/brain wo IV con IMPRESSION: No CT evidence of acute intracranial hemorrhage or edematous territorial infarction. Cerebral volume loss. Ventricular prominence, appearing similar as compared to previous, with possible component of normal pressure hydrocephalus, clinically correlate. Redemonstrated is complete right maxillary and left frontal sinus opacification.
[2023-01-31 16:47] LABS: Glucose, Whole Blood 89 mg/dL (60-115)
[2023-01-31 16:51] VITALS: BP 148/71; BP 167/56; PULSE 50; PULSE 56; RESP 16; TEMP 36.5; O2SAT 95; BMI 27.5
--- NOTE | 2023-01-31 16:53 | ECG_ITS ---
Test Reason : PAIN Blood Pressure : / mmHG Vent. Rate : 053 BPM Atrial Rate : 053 BPM P-R Int : 214 ms QRS Dur : 084 ms QT Int : 474 ms P-R-T Axes : -01 -48 049 degrees QTc Int : 444 ms Sinus bradycardia with 1st degree A-V block with occasional Premature ventricular complexes Left axis deviation Abnormal ECG When compared with ECG of 02-JUN-2022 05:18, Premature ventricular complexes are now Present Referred By: Chester Hitchcock Electronically Signed By:ILIA ARELLANO
--- NOTE | 2023-01-31 17:20 | ED.GENADULT ---
HPI - General Adult General Chief complaint: Fall Stated complaint: fall w/ head strike Time Seen by Provider: 01/31/23 16:34 Source: patient, EMS, RN notes reviewed and old records reviewed Mode of arrival: ambulatory Limitations: no limitations History of Present Illness HPI narrative: 82-year-old male past medical history significant for type 1 diabetes presents for evaluation after a reported syncopal episode Patient reports he does not remember the last few hours He remembers having a shake when he woke up for breakfast early this morning 89 out for a late breakfast/lunch around noon with his He murmurs any had a [place] roll and to eggs over easy He remembers after he got home he went outside to work in the yard He does number what time this was but he was found around 4:00 p.m. via by standard on a sidewalk about 1/4 mi away from his house He had a laceration to the back of his head. Per EMS the patient's glucometer was lagging that he was hypoglycemic several times in the last half an hour before he was found The patient reports he was unaware of this EMS found the patient's blood glucose to be 100 and he was given some oral glucagon. On arrival to the emergency department his blood sugar was 89 He denies any recent changes to his insulin Related Data Home Medications Medication Instructions Recorded Confirmed atorvastatin 40 mg tablet 40 mg PO DAILY 06/13/20 07/14/22 finasteride 5 mg tablet 5 mg PO DAILY 06/13/20 07/14/22 sertraline 50 mg tablet 50 mg PO DAILY 06/13/20 07/14/22 losartan 50 mg tablet 50 mg PO DAILY 10/14/20 07/14/22 tamsulosin 0.4 mg capsule 0.4 mg PO DAILY 10/14/20 07/14/22 hydrochlorothiazide 25 mg tablet 25 mg PO QAM 01/13/21 07/14/22 cholecalciferol (vitamin D3) 50 50 mcg PO DAILY 05/20/21 07/14/22 mcg (2,000 unit) capsule multivitamin 1 tab PO DAILY 05/20/21 07/14/22 blood-glucose meter,continuous 04/08/22 07/14/22 (Sojeans G6 Rehabilitation Program Coordinator) blood-glucose sensor (Sojeans G6 04/08/22 07/14/22 Sensor device) blood-glucose transmitter (Dexcom 04/08/22 07/14/22 G6 Transmitter device) donepezil 10 mg tablet 10 mg PO DAILY 07/14/22 07/14/22 memantine 10 mg tablet 10 mg PO BID 11/16/22 Previous Rx's Medication Instructions Recorded meclizine 25 mg tablet 25 mg PO TID PRN dizziness #14 tabs 05/04/21 lancets 28 gauge (FreeStyle #200 ea 05/20/21 Lancets) blood sugar diagnostic (FreeStyle #300 ea 05/21/21 Lite Strips) blood-glucose meter (FreeStyle #1 ea 05/21/21 Lite Meter kit) Lyumjev U-100 Insulin 100 unit/mL See Rx Instructions subcut DAILY 12/09/22 subcutaneous solution (insulin 90 days #90 mL lispro-[facility]) Allergies Allergy/AdvReac Type Severity Reaction Status Date / Time penicillin V Allergy Unknown Rash Verified 09/16/22 16:03 Penicillins [PENICILLINS] Allergy Unknown UNKNOWN Verified 09/16/22 16:03 Review of Systems Constitutional: Constitutional: Denies chills, Denies fever(s) and Denies headache(s) Eyes: Eyes: Denies blurry vision ENT: Denies headache(s) and Denies neck pain Cardiovascular: Cardiovascular: Denies chest pain and Denies dyspnea Respiratory: Respiratory: Denies cough and Denies dyspnea Gastrointestinal: Gastrointestinal: Denies abdominal pain, Denies nausea and Denies vomiting Musculoskeletal: Musculoskeletal: Denies back pain and Denies neck pain Integumentary/Breasts: Skin/Breast: Reports wounds Neurologic: Denies headache(s) Psychiatric: Psychiatric: Denies anxiety [facility] Past Medical History Medical History Diabetes type 1, controlled Diabetic polyneuropathy associated with type 1 diabetes mellitus Dyslipidemia Hypertension Hyponatremia Mild non proliferative diabetic retinopathy Overweight Surgical History Hx of cataract removal with insertion of prosthetic lens Hx of hand surgery Hx of right inguinal hernia repair Family History Family History Father CVD (cardiovascular disease) Mother Hypertension Maternal Grandmother Diabetes Social History Social History Household Members: Spouse Alcohol intake: current Alcohol intake frequency: a few times a week Alcohol type: wine Patient Tobacco Use Status: Never used Tobacco Smoked in Last 30 Days: No Use of substances other than those prescribed or required for medical reasons: No Advance Directives: No Advance Directives Information Provided: No Physical Exam ED Vital Signs: Vital Signs - 24 hr 01/31/23 16:51 01/31/23 19:19 01/31/23 19:20 Temperature 97.7 F Pulse Rate 50 51 54 Respiratory Rate 16 Blood Pressure 167/56 H 180/56 H 161/51 H Pulse Oximetry 95 Oxygen Delivery Method Room Air 01/31/23 19:22 Temperature Pulse Rate 52 Respiratory Rate Blood Pressure 172/63 H Pulse Oximetry Oxygen Delivery Method BMI result Body Mass Index 27.5 Const General: healthy appearing, comfortable, no acute distress, alert and awake Nutritional Appearance: well nourished Orientation/consciousness: patient oriented x3 HENMT Other: Patient has a skin tear to the left occipital scalp. He has a small, 1 cm linear laceration in the center of the skin tear. There is minimal active bleeding Eyes Eyelids: Yes eyelids normal Conjunctivae: conjunctivae normal Sclerae: sclerae normal Corneas: corneas normal Pupils: Equal, round and reactive pupils present EOM: EOMs intact bilaterally Neck Neck: Yes full ROM Resp Effort & Inspection: normal respiratory effort, able to speak in complete sentences and not labored Cardio Rate: regular rate Rhythm: regular rhythm GI Inspection: No distended Palpation (GI): Soft to palpation, not firm, nontender, no guarding and not rigid Auscultation: normoactive bowel sounds Skin General skin exam: no rashes or lesions noted and elasticity normal Neuro General: patient oriented x3 Cranial nerves: Yes CN's II-XII intact bilaterally, Yes Equal, round and reactive pupils present and Yes Bilaterally intact EOM present Cognition (Neuro): normal cognition Extrem Other: Moving all extremities well without any obvious deformities Course Reevaluation(s) Reevaluation #1: Patient is low risk for serious outcome via separate discussed syncope rules. Will get orthostatics as he reports feeling slightly dizzy. However his workup was largely unremarkable. Source of his syncope was likely hypoglycemia Time: 19:05 Procedures Laceration Laceration 1: Site: scalp Side (If applicable): left Size (cm): 1 Description: linear (With surrounding abrasion) Pre-repair: wound explored Skin layer closed with: other (Dermabond adhesive tissue) Medical Decision Making Medical Decision Making [facility] Narrative: 82-year-old male history of type 1 diabetes, hyponatremia presents for evaluation of a syncopal episode. He was found the street about 1/4 mi from his home. 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 The patient states that he then remembers that he walked down the street to cut a vine that was hanging over a sidewalk. He still does not remember how he ended up on the ground. It is likely that his blood sugar was low based on his glucometer readings and that his sugar was only 89 on arrival despite receiving general glucagon. Will follow closely. Will get a CT scan of brain given the head trauma get an EKG and labs. Differential Diagnosis Differential Diagnoses: The differential diagnosis associated with the presentation includes Syncope Hyperglycemia Orthostasis Intracranial hemorrhage Calvarial fracture Lab Data [facility] Lab Attestation statement: I reviewed the patient's lab results. No leukocytosis, very mild anemia with a normal hemoglobin and a slightly low hematocrit of 40.9. Sodium just below normal at 134 with a potassium of 5.2. Chloride and CO2 normal, BUN just above normal at 27. Creatinine normal at 0.96. 01/31/23 17:16 01/31/23 17:16 Labs: Lab Results 01/31/23 01/31/23 01/31/23 Range/Units 16:43 17:16 17:16 WBC 9.9 (4.8-10.8) X10*3/uL RBC 4.63 (4.60-5.80) X10*6/uL Hgb 14.0 (14.0-18.0) g/dl Hct 40.9 L (42.0-52.0) % MCV 88.3 (80.0-98.0) fL MCH 30.2 (27.0-33.0) pg MCHC 34.2 (31.0-36.0) g/dl RDW 13.2 (11.0-16.0) % Plt Count 207 (160-400) X10*3/uL MPV 11.5 (9.4-12.4) fL Immature Gran % (Auto) 0.9 H (0.0-0.4) % Neut % (Auto) 69.9 (45-73) % Lymph % (Auto) 16.5 L (20-40) % [place] % (Auto) 11.4 H (2-11) % Eos % (Auto) 0.9 (0-4) % Baso % (Auto) 0.4 (0-2) % Lymph # (Auto) 1.6 (1.2-4.9) X10*3/uL [place] # (Auto) 1.1 (0.1-1.2) X10*3/uL Eos # (Auto) 0.1 (0.0-0.4) X10*3/uL Baso # (Auto) 0.0 (0.0-0.2) X10*3/uL Abs Immat Gran (auto) 0.09 H (0.00-0.03) X10*3/uL Absolute Neuts (auto) 6.9 (2.0-8.3) x10*3/uL Absolute Nucleated RBC 0.000 (0.0-0.012) X10*3/uL Nucleated RBC % (auto) 0.0 (0.0-0.2) /100WBC Sodium 134 L (135-145) mmol/L Potassium 5.2 H (3.3-5.1) mmol/L Chloride 101 (96-108) mmol/L Carbon Dioxide 23 (22-29) mmol/L Anion Gap 15 (12-20) BUN 27 H (9-16) mg/dL Creatinine 0.96 (0.5-1.4) mg/dL Estim Creat Clear Calc 58.3 Estimated GFR > 60 POC Glucose 89 (60-115) mg/dL Random Glucose 126 H (60-115) mg/dL Calcium 9.7 (8.4-10.2) mg/dL Total Bilirubin 0.4 (0.0-1.0) mg/dL AST 23 (5-37) U/L ALT 21 (0-40) U/L Alkaline Phosphatase 64 (39-117) U/L Troponin I High Sens (<3.5-35.0) ng/L Total Protein 6.9 (6.5-8.0) g/dL Albumin 4.0 (3.5-5.0) g/dL Lipase 35 (8-78) U/L Urine Color Urine Appearance Urine pH (5.0-9.0) Ur Specific [place] (1.005-1.025) Urine Protein (Neg-Trace) mg/dL Urine Glucose (UA) (Negative) mg/dL Urine Ketones (Negative) mg/dL Urine Blood (Negative) Urine Nitrite (Negative) Ur Leukocyte Esterase (Negative) Urine RBC (0-2) /HPF Urine WBC (0-5) /HPF Ur Squamous Epith Cells (0-2) /HPF Urine Bacteria (None Seen) Hyaline Casts (0-2) /LPF 01/31/23 01/31/23 Range/Units 17:16 18:39 WBC (4.8-10.8) X10*3/uL RBC (4.60-5.80) X10*6/uL Hgb (14.0-18.0) g/dl Hct (42.0-52.0) % MCV (80.0-98.0) fL MCH (27.0-33.0) pg MCHC (31.0-36.0) g/dl RDW (11.0-16.0) % Plt Count (160-400) X10*3/uL MPV (9.4-12.4) fL Immature Gran % (Auto) (0.0-0.4) % Neut % (Auto) (45-73) % Lymph % (Auto) (20-40) % [place] % (Auto) (2-11) % Eos % (Auto) (0-4) % Baso % (Auto) (0-2) % Lymph # (Auto) (1.2-4.9) X10*3/uL [place] # (Auto) (0.1-1.2) X10*3/uL Eos # (Auto) (0.0-0.4) X10*3/uL Baso # (Auto) (0.0-0.2) X10*3/uL Abs Immat Gran (auto) (0.00-0.03) X10*3/uL Absolute Neuts (auto) (2.0-8.3) x10*3/uL Absolute Nucleated RBC (0.0-0.012) X10*3/uL Nucleated RBC % (auto) (0.0-0.2) /100WBC Sodium (135-145) mmol/L Potassium (3.3-5.1) mmol/L Chloride (96-108) mmol/L Carbon Dioxide (22-29) mmol/L Anion Gap (12-20) BUN (9-16) mg/dL Creatinine (0.5-1.4) mg/dL Estim Creat Clear Calc Estimated GFR POC Glucose (60-115) mg/dL Random Glucose (60-115) mg/dL Calcium (8.4-10.2) mg/dL Total Bilirubin (0.0-1.0) mg/dL AST (5-37) U/L ALT (0-40) U/L Alkaline Phosphatase (39-117) U/L Troponin I High Sens 8.3 (<3.5-35.0) ng/L Total Protein (6.5-8.0) g/dL Albumin (3.5-5.0) g/dL Lipase (8-78) U/L Urine Color Yellow Urine Appearance Clear Urine pH 7.0 (5.0-9.0) Ur Specific [place] 1.020 (1.005-1.025) Urine Protein Negative (Neg-Trace) mg/dL Urine Glucose (UA) Negative (Negative) mg/dL Urine Ketones Negative (Negative) mg/dL Urine Blood Negative (Negative) Urine Nitrite Negative (Negative) Ur Leukocyte Esterase Negative (Negative) Urine RBC 0-2 (0-2) /HPF Urine WBC 0-5 (0-5) /HPF Ur Squamous Epith Cells 0-2 (0-2) /HPF Urine Bacteria None Seen (None Seen) Hyaline Casts 0-2 (0-2) /LPF Independent Interpretation I performed an independent interpretation of an: EKG (Sinus rhythm with first-degree AV block with a rate of 53 beats per minute. Unchanged from previous May of 2022) and CT Scan (No acute intracranial hemorrhage) Radiology Impression Discussion of test interpretation with radiology: I have reviewed the radiologist's reading. (Sinusitis without evidence of acute intracranial hemorrhage) Discharge Plan Discharge Clinical Impression: Syncope, Laceration of scalp Patient Disposition: Home, Self-Care Instructions: Laceration (ED), Syncope (ED) Additional Instructions: Your workup in the emergency from today was reassuring. Your syncopal episode was likely related to low blood sugar Your CT scan of your brain did not show any severe traumatic injuries Your blood work did not show any significant abnormalities to explain your symptoms today You had Dermabond glue applied to a wound to the back of her scalp to help prevent further bleeding Follow-up with your primary doctor Prescriptions: No Action (DME) FreeStyle Lite Strips Strip See Rx Instructions .ROUTE .MEDSUPPLY Qty: 300 3RF Rx Instructions: As directed three times a day (DME) blood-glucose meter [FreeStyle Lite Meter] Kit See Rx Instructions .ROUTE .MEDSUPPLY Qty: 1 0RF Rx Instructions: As directed 3 x/day Lyumjev U-100 Insulin 100 unit/mL solution See Rx Instructions subcut DAILY 90 Days Qty: 90 2RF Rx Instructions: Up to 100 units via insulin pump subcut daily; meclizine 25 mg tablet 25 mg PO TID PRN (Reason: dizziness) Qty: 14 0RF finasteride 5 mg tablet 5 mg PO DAILY sertraline 50 mg tablet 50 mg PO DAILY atorvastatin 40 mg tablet 40 mg PO DAILY losartan 50 mg tablet 50 mg PO DAILY tamsulosin 0.4 mg capsule 0.4 mg PO DAILY hydrochlorothiazide 25 mg tablet 25 mg PO QAM multivitamin Tablet 1 tab PO DAILY cholecalciferol (vitamin D3) 50 mcg (2,000 unit) capsule 50 mcg PO DAILY (DME) lancets [FreeStyle Lancets] 28 gauge misc See Rx Instructions .ROUTE .MEDSUPPLY Qty: 200 11RF Rx Instructions: 4 times a day memantine 10 mg tablet 10 mg PO BID (DME) Dexcom G6 Rehabilitation Program Coordinator Misc See Rx Instructions .Route Rx Instructions: As directed (DME) Dexcom G6 Sensor Device See Rx Instructions .Route Rx Instructions: As directed (DME) Dexcom G6 Transmitter Device See Rx Instructions .Route Rx Instructions: As directed donepezil 10 mg tablet 10 mg PO DAILY
[2023-01-31 17:39] LABS: MANUAL DIFF FLAG NO
[2023-01-31 17:55] LABS: Alanine Aminotransferase 21 U/L (0-40); Alkaline Phosphatase 64 U/L (39-117); Anion Gap 15 (12-20); Aspartate Amino Transferase 23 U/L (5-37); Bilirubin Total 0.4 mg/dL (0.0-1.0); Blood Urea Nitrogen 27 mg/dL (9-16); Calcium 9.7 mg/dL (8.4-10.2); Carbon Dioxide 23 mmol/L (22-29); Chloride 101 mmol/L (96-108); Creatinine Clr Calc Pharmacy 58.3; Estimated Glomerular Filt Rate > 60; Glucose Random 126 mg/dL (60-115); Lipase 35 U/L (8-78); Potassium 5.2 mmol/L (3.3-5.1); Sodium 134 mmol/L (135-145); Total Protein 6.9 g/dL (6.5-8.0)
[2023-01-31 18:02] LABS: Troponin-I High Sensitivity 8.3 ng/L (<3.5-35.0)
--- OUTSIDE RECORDS SUMMARY | 2023-01-31 18:03 | XMS_ITS ---
Author Name Srinivasa Vasquez Address [address], [place] [id number] Organization Srinivasa Vasquez DO [facility] Address [address], [place] [id number] Care Team Providers Care Roll Scale Man Name Role Phone Srinivasa Vasquez Unavailable [phone] PROBLEMS Type Condition ICD9-CM Code HZY85-DL Code Onset Dates Condition Status SNOMED Code Problem Benign prostatic hyperplasia without lower urinary tract symptoms, prostatic enlargement of unspecified morphology N40.0 Active 608807834 Problem Essential hypertension I10 Active 09413641 Problem Type 1 diabetes mellitus without complication E10.9 Active 295307129 Problem Difficulty balancing when standing R26.89 Active 804268972 Problem Memory loss R41.3 Active 44768915 Problem SOB (shortness of breath) on exertion R06.02 Active 693389981 Problem Right inguinal hernia K40.90 Active 543594845 Problem Anxiety F41.9 Active 76794725 Problem Bilateral carpal tunnel syndrome G56.03 Active [id number] 28691 ALLERGIES Substance Reaction Event Type Date Status Penicillin rash Drug Allergy Jan, Active ENCOUNTERS Encounter Location Date Diagnosis Srinivasa Vasquez DO, [facility] [address], [place] [id number] Jan, Srinivasa Vasquez DO, [address] [id number] Jan, Behavioral change R46.89 ; Memory loss R41.3 ; Difficulty balancing when standing R26.89 ; Type 1 diabetes mellitus without complication E10.9 ; Essential hypertension I10 ; Benign prostatic hyperplasia without lower urinary tract symptoms, prostatic enlargement of unspecified morphology N40.0 and Anxiety F41.9 Srinivasa Vasquez DO, [address] [id number] Jan, Srinivasa Vasquez DO, [address] [id number] Dec, Srinivasa Vasquez DO, [address] [id number] Dec, Behavioral change R46.89 ; Type 1 diabetes mellitus without complication E10.9 ; Essential hypertension I10 ; Benign prostatic hyperplasia without lower urinary tract symptoms, prostatic enlargement of unspecified morphology N40.0 ; Anxiety F41.9 and Memory loss R41.3 Srinivasa Vasquez DO, [address] [id number] Dec, Srinivasa Vasquez DO [address] [id number] Dec, Srinivasa Vasquez DO, [address] [id number] Dec, Benign prostatic hyperplasia without lower urinary tract symptoms, prostatic enlargement of unspecified morphology N40.0 Srinivasa Vasquez DO, [address] [id number] Oct, Type 1 diabetes mellitus without complication E10.9 ; Essential hypertension I10 ; Benign prostatic hyperplasia without lower urinary tract symptoms, prostatic enlargement of unspecified morphology N40.0 ; Anxiety F41.9 ; Memory loss R41.3 and Difficulty balancing when standing R26.89 Srinivasa Vasquez DO, [address] [id number] Oct, Srinivasa Vasquez DO, [address] [id number] Oct, Srinivasa Vasquez DO [address] [id number] Oct, Srinivasa Vasquez DO [address] [id number] Oct, Srinivasa Vasquez DO [address] [id number] Jul, Type 1 diabetes mellitus without complication E10.9 ; Essential hypertension I10 ; Benign prostatic hyperplasia without lower urinary tract symptoms, prostatic enlargement of unspecified morphology N40.0 ; SOB (shortness of breath) on exertion R06.02 ; Anxiety F41.9 and Difficulty balancing R29.818 Srinivasa Vasquez DO, [address] [id number] May, Srinivasa Vasquez DO, [address] [id number] Apr, Type 1 diabetes mellitus without complication E10.9 ; Essential hypertension I10 ; Benign prostatic hyperplasia without lower urinary tract symptoms, prostatic enlargement of unspecified morphology N40.0 ; Anxiety F41.9 ; Difficulty balancing when standing R26.89 and Memory loss R41.3 Srinivasa Vasquez DO, [address] [id number] Apr, Type 1 diabetes mellitus without complication E10.9 Srinivasa Vasquez DO [address] [id number] November, Srinivasa Vasquez DO [address] [id number] Oct, Type 1 diabetes mellitus without complication E10.9 ; Essential hypertension I10 ; Benign prostatic hyperplasia without lower urinary tract symptoms, prostatic enlargement of unspecified morphology N40.0 and Anxiety F41.9 Srinivasa Vasquez DO, [address] [id number] Oct, Type 1 diabetes mellitus without complication E10.9 and Essential hypertension I10 Srinivasa Vasquez DO [address] [id number] Sep, Srinivasa Vasquez DO [address] [id number] Aug, Srinivasa Vasquez DO [address] [id number] May, Srinivasa Vasquez DO [address] [id number] Apr, Encounter for general adult medical examination without abnormal findings Z00.00 ; Type 1 diabetes mellitus without complication E10.9 ; Essential hypertension I10 ; Benign prostatic hyperplasia without lower urinary tract symptoms, prostatic enlargement of unspecified morphology N40.0 and Anxiety F41.9 Srinivasa Vasquez DO [address] [id number] Mar, Srinivasa Vasquez DO [address] [id number] Feb, Srinivasa Vasquez DO, [facility] [address], [place] [id number] Feb, Type 1 diabetes mellitus without complication E10.9 ; Essential hypertension I10 ; Benign prostatic hyperplasia without lower urinary tract symptoms, prostatic enlargement of unspecified morphology N40.0 and Anxiety F41.9 Srinivasa Vasquez DO, [address] [id number] Dec, Type 1 diabetes mellitus without complication E10.9 ; Essential hypertension I10 and Benign prostatic hyperplasia without lower urinary tract symptoms, prostatic enlargement of unspecified morphology N40.0 Srinivasa Vasquez DO, [address] [id number] Oct, Srinivasa Vasquez DO, [address] [id number] Oct, Srinivasa Vasquez DO, [address] [id number] Sep, Srinivasa Vasquez DO, [address] [id number] Aug, Type 1 diabetes mellitus without complication E10.9 ; Benign prostatic hyperplasia without lower urinary tract symptoms, prostatic enlargement of unspecified morphology N40.0 ; Essential hypertension I10 and Anxiety F41.9 Srinivasa Vasquez DO, [address] [id number] Jul, Bilateral carpal tunnel syndrome G56.03 Srinivasa Vasquez DO, [address] [id number] Jul, Bilateral carpal tunnel syndrome G56.03 Srinivasa Vasquez DO, [address] [id number] May, Type 1 diabetes mellitus without complication E10.9 ; Essential hypertension I10 ; Anxiety F41.9 and Benign prostatic hyperplasia without lower urinary tract symptoms, prostatic enlargement of unspecified morphology N40.0 Srinivasa Vasquez DO, [address] [id number] May, Type 1 diabetes mellitus without complication E10.9 ; Essential hypertension I10 and Benign prostatic hyperplasia without lower urinary tract symptoms, prostatic enlargement of unspecified morphology N40.0 Srinivasa Vasquez DO, [address] [id number] Feb, Type 1 diabetes mellitus without complication E10.9 Srinivasa Vasquez DO, [address] [id number] Dec, Srinivasa Vasquez DO, [address] [id number] November, Type 1 diabetes mellitus without complication E10.9 ; Essential hypertension I10 ; Benign prostatic hyperplasia without lower urinary tract symptoms, prostatic enlargement of unspecified morphology N40.0 and Anxiety F41.9 Srinivasa Vasquez DO [address] [id number] November, Srinivasa Vasquez DO [address] [id number] Aug, Type 1 diabetes mellitus without complication E10.9 ; Benign prostatic hyperplasia without lower urinary tract symptoms, prostatic enlargement of unspecified morphology N40.0 ; Essential hypertension I10 ; Anxiety F41.9 and Encounter for general adult medical examination without abnormal findings Z00.00 Srinivasa Vasquez DO [address] [id number] Jul, Benign prostatic hyperplasia without lower urinary tract symptoms, prostatic enlargement of unspecified morphology N40.0 Srinivasa Vasquez DO [address] [id number] May, Srinivasa Vasquez DO, [address] [id number] Apr, Encounter for general adult medical examination without abnormal findings Z00.00 ; Type 1 diabetes mellitus without complication E10.9 ; Essential hypertension I10 ; Benign prostatic hyperplasia without lower urinary tract symptoms, prostatic enlargement of unspecified morphology N40.0 and Anxiety F41.9 Srinivasa Vasquez DO [address] [id number] Apr, Srinivasa Vasquez DO [address] [id number] Mar, Srinivasa Vasquez DO [address] [id number] Mar, Anxiety F41.9 and Benign prostatic hyperplasia without lower urinary tract symptoms, prostatic enlargement of unspecified morphology N40.0 Srinivasa Vasquez DO [address] [id number] Feb, Srinivasa Vasquez DO [address] [id number] Oct, Type 1 diabetes mellitus without complication E10.9 ; Essential hypertension I10 ; Anxiety F41.9 and Benign prostatic hyperplasia without lower urinary tract symptoms, prostatic enlargement of unspecified morphology N40.0 Srinivasa Vasquez DO, [address] [id number] Oct, Type 1 diabetes mellitus without complication E10.9 Srinivasa Vasquez DO, [address] [id number] Aug, Srinivasa Vasquez DO, [address] [id number] Jul, Type 1 diabetes mellitus without complication E10.9 Srinivasa Vasquez DO, [address] [id number] Jul, Srinivasa Vasquez DO, [address] [id number] Jul, Anxiety F41.9 ; Type 1 diabetes mellitus without complication E10.9 ; Essential hypertension I10 and Benign prostatic hyperplasia without lower urinary tract symptoms, prostatic enlargement of unspecified morphology N40.0 Srinivasa Vasquez DO, [address] [id number] Jul, Srinivasa Vasquez DO, [address] [id number] Jul, Type 1 diabetes mellitus without complication E10.9 ; Essential hypertension I10 and Benign prostatic hyperplasia without lower urinary tract symptoms, prostatic enlargement of unspecified morphology N40.0 Srinivasa Vasquez DO, [address] [id number] Jun, Srinivasa Vasquez DO, [address] [id number] Jun, Type 1 diabetes mellitus without complication E10.9 ; Essential hypertension I10 ; Benign prostatic hyperplasia without lower urinary tract symptoms, prostatic enlargement of unspecified morphology N40.0 ; Anxiety F41.9 ; Right inguinal hernia K40.90 and SOB (shortness of breath) on exertion R06.02 Srinivasa Vasquez DO, [address] [id number] Jun, Type 1 diabetes mellitus without complication E10.9 and Essential hypertension I10 Srinivasa Vasquez DO, [address] [id number] Apr, Srinivasa Vasquez DO, [address] [id number] Apr, Type 1 diabetes mellitus without complication E10.9 ; Essential hypertension I10 ; Benign prostatic hyperplasia without lower urinary tract symptoms, prostatic enlargement of unspecified morphology N40.0 and Stiffness of right shoulder joint M25.611 Srinivasa Vasquez DO, [address] [id number] Feb, Srinivasa Vasquez DO, [address] [id number] Feb, Srinivasa Vasquez DO, [address] [id number] Jan, Type 1 diabetes mellitus without complication E10.9 ; Essential hypertension I10 and Benign prostatic hyperplasia without lower urinary tract symptoms, prostatic enlargement of unspecified morphology N40.0 Srinivasa Vasquez DO, [address] [id number] Dec, Srinivasa Vasquez DO [address] [id number] November, Srinivasa Vasquez DO, [address] [id number] Oct, Srinivasa Vasquez DO [address] [id number] Oct, Srinivasa Vasquez DO, [address] [id number] Oct, Weight loss R63.4 ; Type 1 diabetes mellitus without complication E10.9 ; Essential hypertension I10 and Benign prostatic hyperplasia without lower urinary tract symptoms, prostatic enlargement of unspecified morphology N40.0 Srinivasa Vasquez DO, [address] [id number] Oct, Srinivasa Vasquez DO [address] [id number] Sep, Srinivasa Vasquez DO [address] [id number] Jul, Srinivasa Vasquez DO, [address] [id number] Jul, Srinivasa Vasquez DO, [address] [id number] Jun, Encounter for general adult medical examination without abnormal findings Z00.00 ; Type 1 diabetes mellitus without complication E10.9 ; Essential hypertension I10 and Benign prostatic hyperplasia without lower urinary tract symptoms, prostatic enlargement of unspecified morphology N40.0 Srinivasa Vasquez DO, [address] [id number] Jun, Srinivasa Vasquez DO [address] [id number] Jun, Type 1 diabetes mellitus without complication E10.9 Srinivasa Vasquez DO, [address] [id number] May, Srinivasa Vasquez DO, [address] [id number] May, Srinivasa Vasquez DO, [address] [id number] May, Srinivasa Vasquez DO, [address] [id number] May, Srinivasa Vasquez DO, [address] [id number] Apr, Srinivasa Vasquez DO, [address] [id number] Apr, Srinivasa Vasquez DO, [address] [id number] Apr, Srinivasa Vasquez DO, [address] [id number] Apr, Type 1 diabetes mellitus without complication E10.9 ; Essential hypertension I10 and Benign prostatic hyperplasia without lower urinary tract symptoms, prostatic enlargement of unspecified morphology N40.0 Srinivasa Vasquez DO, [address] [id number] Apr, Srinivasa Vasquez DO, [address] [id number] Apr, Srinivasa Vasquez DO, [address] [id number] Mar, Type 1 diabetes mellitus without complication E10.9 ; Essential hypertension I10 and Benign prostatic hyperplasia without lower urinary tract symptoms, prostatic enlargement of unspecified morphology N40.0 Srinivasa Vasquez DO, [address] [id number] Mar, Srinivasa Vasquez DO, [address] [id number] Mar, Srinivasa Vasquez DO, [address] [id number] Feb, Srinivasa Vasquez DO, [address] [id number] Feb, Srinivasa Vasquez DO, [address] [id number] Feb, Srinivasa Vasquez DO, [address] [id number] Jan, Essential hypertension I10 Srinivasa Vasquez DO, [address] [id number] Jan, Essential hypertension I10 Srinivasa Vasquez DO, [address] [id number] Jan, Benign prostatic hyperplasia without lower urinary tract symptoms, prostatic enlargement of unspecified morphology N40.0 Srinivasa Vasquez DO, [address] [id number] Jan, Type 1 diabetes mellitus without complication E10.9 Srinivasa Vasquez DO, [address] [id number] Dec, Type 1 diabetes mellitus without complication E10.9 ; Essential hypertension I10 and Benign prostatic hyperplasia without lower urinary tract symptoms, prostatic enlargement of unspecified morphology N40.0 Srinivasa Vasquez DO, [address] [id number] Dec, Type 1 diabetes mellitus without complication E10.9 ; Essential hypertension I10 and Benign prostatic hyperplasia without lower urinary tract symptoms, prostatic enlargement of unspecified morphology N40.0 Srinivasa Vasquez DO, [address] [id number] November, Essential hypertension I10 Srinivasa Vasquez DO, [address] [id number] Jul, Srinivasa Vasquez DO, [address] [id number] Jun, Type 1 diabetes mellitus without complication E10.9 ; Essential hypertension I10 and Benign prostatic hyperplasia without lower urinary tract symptoms, prostatic enlargement of unspecified morphology N40.0 Srinivasa Vasquez DO, [address] [id number] May, Type 1 diabetes mellitus without complication E10.9 Srinivasa Vasquez DO, [address] [id number] Mar, Type 1 diabetes mellitus without complication E10.9 ; Essential hypertension I10 ; Benign prostatic hyperplasia without lower urinary tract symptoms, prostatic enlargement of unspecified morphology N40.0 and Bronchitis J40 Srinivasa Vasquez DO, [address] [id number] Mar, Srinivasa Vasquez DO, [address] [id number] Mar, Type 1 diabetes mellitus without complication E10.9 and Essential hypertension I10 Srinivasa Vasquez DO [address] [id number] Mar, Srinivasa Vasquez DO, [address] [id number] Mar, Srinivasa Kole OscarPedro DO, [address] [id number] Feb, Bronchitis J40 Srinivasa Oscarman DO, [address] [id number] Feb, Srinivasa Kole OscarPedro DO, [address] [id number] Feb, Srinivasa Oscarman DO, [address] [id number] Feb, Srinivasa Kole OscarPedro DO, [address] [id number] Jan, Srinivasa Oscarman DO, [address] [id number] Jan, Srinivasa Oscarman DO, [address] [id number] November, Srinivasa Vasquez DO, [address] [id number] November, Type 1 diabetes mellitus without complication E10.9 Srinivasa Oscarman DO, [address] [id number] November, Type 1 diabetes mellitus without complication E10.9 ; Essential hypertension I10 and Benign prostatic hyperplasia without lower urinary tract symptoms, prostatic enlargement of unspecified morphology N40.0 Srinivasa Vasquez DO, [address] [id number] November, Srinivasa Vasquez DO, [address] [id number] Sep, Srinivasa Vasquez DO, [address] [id number] Sep, Srinivasa Oscarman DO, [address] [id number] Sep, Srinivasa Oscarman DO, [address] [id number] Sep, Abnormal chest x-ray R93.8 Srinivasa Vasuqez DO, [address] [id number] Aug, Type 1 diabetes mellitus without complication E10.9 ; Essential hypertension I10 ; Benign prostatic hyperplasia without lower urinary tract symptoms, prostatic enlargement of unspecified morphology N40.0 and WRAY (dyspnea on exertion) R06.09 Srinivasa Vasquez DO, [address] [id number] May, Type 1 diabetes mellitus without complication E10.9 ; Essential hypertension I10 and Benign prostatic hyperplasia without lower urinary tract symptoms, prostatic enlargement of unspecified morphology N40.0 Srinivasa Vasquez DO [address] [id number] Apr, Type 1 diabetes mellitus without complication E10.9 Srinivasa Vasquez DO [address] [id number] Feb, Srinivasa Vasquez DO [address] [id number] Feb, Diabetes mellitus Type I 250.01 Srinivasa Vasquez DO [address] [id number] Feb, Diabetes mellitus Type I 250.01 ; Hypertension 401.9 ; Hamstring tightness of both lower extremities 728.9 ; Erectile dysfunction 607.84 and Benign prostatic hypertrophy 600.00 Srinivasa Vasquez DO [address] [id number] Dec, Srinivasa Vasquez DO [address] [id number] Dec, Srinivasa Vasquez DO [address] [id number] November, Diabetes mellitus Type I 250.01 Srinivasa Vasquez DO [address] [id number] November, Diabetes mellitus Type I 250.01 Srinivasa Vasquez DO [address] [id number] Oct, Srinivasa Vasquez DO [address] [id number] Oct, Diabetes mellitus Type I 250.01 ; Hypertension 401.9 ; Decreased hearing 389.9 ; Hamstring tightness of both lower extremities 728.9 and Erectile dysfunction 607.84 Srinivasa Vasquez DO [address] [id number] Sep, Srinivasa Vasquez DO [address] [id number] Jul, Routine general medical examination at a health care facility V70.0 ; Diabetes mellitus Type I 250.01 and Hypertension 401.9 Srinivasa Vasquez DO [address] [id number] Jul, Srinivasa Vasquez DO [address] [id number] Jun, Hypertension 401.9 and Diabetes mellitus Type I 250.01 Srinivasa Vasquez DO, [facility] [address], [place] [id number] Mar, Diabetes mellitus Type I 250.01 and Hypertension 401.9 Srinivasa Vasquez DO, [facility] [address], [place] [id number] Feb, Acute bronchitis 466.0 ; Diabetes mellitus Type I 250.01 and Hypertension 401.9 Srinivasa Vasquez DO, [facility] [address], [place] [id number] Feb, Srinivasa Vasquez DO, [facility] [address] [place] [id number] Jan, Diabetes mellitus Type I 250.01 and Hypertension 401.9 Srinivasa Vasquez DO, [address] [id number] Jan, Srinivasa Vasquez DO, [address] [id number] November, Srinivasa Vasquez DO, [address] [id number] Oct, Srinivasa Vasquez DO, [facility] [address] [place] [address] [id number] Oct, Diabetes mellitus Type I 250.01 and Hypertension 401.9 Srinivasa Vasquez DO, [address] [id number] Jul, Srinivasa Vasquez DO, [facility] [address], [place] [id number] Jul, Diabetes mellitus Type I 250.01 ; Hypertension 401.9 and Sarcoidosis of lung 135 Srinivasa Vasquez DO, [facility] [address], [place] [id number] Apr, Diabetes mellitus Type I 250.01 ; Hypertension 401.9 and Sarcoidosis of lung 135 IMMUNIZATIONS Vaccine Route Administration Date Status Influenza High Dose IM Intramuscular Feb 18, 2020 Admi nistered Shingrix Unknown Jun 19, 2019 Administered COVID-19 Pfizer BioNTech Unknown Aug 06, 2020 Adm inistered Influnza High Dose Quad Unknown Apr 16, 2021 Admi nistered COVID-19 Pfizer Bivalent Unknown Apr 07, 2022 Adm inistered Influenza High Dose IM Intramuscular Mar 14, 2017 Adm inistered Influnza High Dose Quad Unknown Apr 09, 2022 Admi nistered Influenza High Dose IM Intramuscular Mar 10, 2018 Adm inistered COVID-19 Pfizer BioNTech Unknown October 26, 2021 A dministered Influenza High Dose IM Intramuscular Apr 09, 2019 Admi nistered Influenza Unknown Apr 26, 2013 Administered COVID-19 Pfizer BioNTech Unknown Apr 01, 2021 Ad ministered Shingrix Unknown Mar 07, 2019 Administered COVID-19 Pfizer BioNTech Unknown Aug 27, 2020 Adm inistered Influenza High Dose IM Intramuscular Apr 03, 2016 Admi nistered PCV 13 IM Intramuscular May 13, 2015 Administere d TDaP IM Intramuscular Apr 08, 2015 Administere d Influenza High Dose IM Intramuscular Apr 08, 2015 Admi nistered Zoster Vaccine Unknown October 03, 2006 Administere d Pneumococcal - PPSV23 Unknown January 09, 2007 Admin istered Td (adult) Unknown Jun 03, 2006 Administered Influenza Unknown Mar 20, 2014 Administered SOCIAL HISTORY Qualifiers Date Never Smoker REASON FOR REFERRAL FUNCTIONAL STATUS PLAN OF CARE Activity Details VITAL SIGNS Weight 192 lbs 2023-01-26 Weight 186 lbs 2022-12-28 Weight 182 lbs 2022-10-26 Weight 188 lbs 2022-07-21 Weight 187 lbs 2022-04-21 Weight 185 lbs 2021-10-21 Weight 183 lbs 2021-04-21 Weight 180 lbs 2021-02-11 Weight 177 lbs 2020-08-22 Weight 178 lbs 2020-05-23 Weight 177 lbs 2019-11-20 Weight 179 lbs 2019-08-07 Weight 180 lbs 2019-04-23 Weight 172 lbs 2018-10-18 Weight 164 lbs 2018-07-18 Weight 170 lbs 2018-06-13 Weight 167 lbs 2018-04-03 Weight 170 lbs 2018-01-06 Weight 173 lbs 2017-10-04 Weight 180 lbs 2017-06-24 Weight 181 lbs 2017-03-31 Weight 181 lbs 2016-12-22 Weight 180 lbs 2016-06-23 Weight 179 lbs 2016-03-23 Weight 181 lbs 2016-03-03 Weight 183 lbs 2015-11-14 Weight 185 lbs 2015-09-01 Weight 186 lbs 2015-05-13 Weight 185 lbs 2015-02-04 Weight 181 lbs 2014-10-07 Weight 178 lbs 2014-07-08 Weight 181 lbs 2014-03-26 Weight 181 lbs 2014-02-08 Weight 182 lbs 2013-10-22 Weight 181 lbs 2013-07-18 Weight 182 lbs 2013-05-03 Height 66.25 in 2023-01-26 Height 66.25 in 2022-12-28 Height 66.25 in 2022-10-26 Height 66.25 in 2022-07-21 Height 66.25 in 2022-04-21 Height 66.25 in 2021-10-21 Height 66.25 in 2021-04-21 Height 69 in 2021-02-11 Height 66.75 in 2020-08-22 Height 66.75 in 2020-05-23 Height 66.75 in 2019-11-20 Height 66.75 in 2019-08-07 Height 66.75 in 2019-04-23 Height 67 in 2018-10-18 Height 67 in 2018-07-18 Height 67 in 2018-06-13 Height 67 in 2018-04-03 Height 67 in 2018-01-06 Height 67 in 2017-10-04 Height 67 in 2017-06-24 Height 67.25 in 2017-03-31 Height 67.25 in 2016-12-22 Height 67.25 in 2016-06-23 Height 67.25 in 2016-03-23 Height 67.25 in 2016-03-03 Height 67.25 in 2015-11-14 Height 67.25 in 2015-09-01 Height 67.25 in 2015-05-13 Height 67.25 in 2015-02-04 Height 67.25 in 2014-10-07 Height 67.25 in 2014-07-08 Height 67.25 in 2014-03-26 Height 67.25 in 2014-02-08 Height N/A in 2013-10-22 Height N/A in 2013-07-18 Height 67.25 in 2013-05-03 BMI 30.75 kg/m2 2023-01-26 BMI 29.79 kg/m2 2022-12-28 BMI 29.15 kg/m2 2022-10-26 BMI 30.11 kg/m2 2022-07-21 BMI 29.95 kg/m2 2022-04-21 BMI 29.63 kg/m2 2021-10-21 BMI 29.31 kg/m2 2021-04-21 BMI 26.58 kg/m2 2021-02-11 BMI 27.93 kg/m2 2020-08-22 BMI 28.08 kg/m2 2020-05-23 BMI 27.93 kg/m2 2019-11-20 BMI 28.24 kg/m2 2019-08-07 BMI 28.40 kg/m2 2019-04-23 BMI 26.94 kg/m2 2018-10-18 BMI 25.68 kg/m2 2018-07-18 BMI 26.62 kg/m2 2018-06-13 BMI 26.15 kg/m2 2018-04-03 BMI 26.62 kg/m2 2018-01-06 BMI 27.09 kg/m2 2017-10-04 BMI 28.19 kg/m2 2017-06-24 BMI 28.14 kg/m2 2017-03-31 BMI 28.14 kg/m2 2016-12-22 BMI 27.98 kg/m2 2016-06-23 BMI 27.82 kg/m2 2016-03-23 BMI 28.14 kg/m2 2016-03-03 BMI 28.45 kg/m2 2015-11-14 BMI 28.76 kg/m2 2015-09-01 BMI 28.91 kg/m2 2015-05-13 BMI 28.76 kg/m2 2015-02-04 BMI 28.14 kg/m2 2014-10-07 BMI 27.67 kg/m2 2014-07-08 BMI 28.14 kg/m2 2014-03-26 BMI 28.14 kg/m2 2014-02-08 BMI 28.29 kg/m2 2013-10-22 BMI 28.14 kg/m2 2013-07-18 BMI 28.29 kg/m2 2013-05-03 Heart Rate 64 /min 2021-02-11 Blood pressure systolic 120 mm Hg Blood pressure diastolic 62 mm Hg 2023-01 MEDICATIONS Medication Instructions Dosage Frequency Start Date End Date Duration Status PreserVision AREDS 2 - Orally Twice a day 1 capsule 12h Active Sertraline HCl 50 MG Orally Once a day 1 tablet 24h Active Losartan Potassium 50 MG Orally Twice a day 1 tablet 12h Active Tamsulosin HCl 0.4 MG Orally Once a day 2 capsules 24h Active Finasteride 5 MG Orally Once a day 1 tablet 24h Active Albuterol Sulfate HFA 108 (90 Base) MCG/ACT Inhalation every 4 hrs 1 puff as needed 4h Active Atorvastatin Calcium 40 MG Orally Once a day 1 tablet 24h Active hydroCHLOROthiazide 25 MG Orally Once a day 1 tablet in the morning 24h Active Vitamin D (Cholecalciferol) 50 MCG (2000 UT) Orally Once a day 1 capsule 24h Active Glucagon Emergency 1 MG Injection Once as directed Feb, Active PROCEDURES Procedure Date Ordered Result Body Site DOC MEDS VERIFIED W/PT OR RE Mar 23, 2016 -ELECTROCARDIOGRAM, COMPLETE Jul 21, 2022 FLU IMMUNIZE ORDER/ADMIN Sep 01, 2015 HG A1C LEVEL 7.0-9.0% Jun 23, 2016 BMI<30 AND >=22 CALC & DOCU October 22, 2013 HG A1C LEVEL 7.0-9.0% December 22, 2016 DOC MEDS VERIFIED W/PT OR RE Jun 13, 2018 DOC MEDS VERIFIED W/PT OR RE Apr 08, 2017 FLU IMMUNIZE ORDER/ADMIN Apr 03, 2018 COLORECTAL CA SCREEN DOC REV Feb 08, 2014 DOC MEDS VERIFIED W/PT OR RE Mar 03, 2016 HG A1C LEVEL 7.0-9.0% Mar 31, 2017 DOC MEDS VERIFIED W/PT OR RE November 14, 2015 FLU IMMUNIZE ORDER/ADMIN October 04, 2017 FLU IMMUNIZE ORDER/ADMIN Mar 26, 2014 DOC MEDS VERIFIED W/PT OR RE Jul 18, 2018 HG A1C LEVEL 7.0-9.0% Jul 08, 2014 HG A1C LEVEL 7.0-9.0% October 07, 2014 Imms Admin May 13, 2015 DOC MEDS VERIFIED W/PT OR RE January 06, 2018 BMI<30 AND >=22 CALC & DOCU December 22, 2016 TOBACCO NON-USER Jul 08, 2014 LDL-C <100 MG/DL Mar 26, 2014 TOBACCO NON-USER Jun 23, 2016 COLORECTAL CA SCREEN DOC REV December 22, 2016 BMI<30 AND >=22 CALC & DOCU May 13, 2015 FLU IMMUNIZE ORDER/ADMIN Jun 24, 2017 HG A1C LEVEL 7.0-9.0% Feb 04, 2015 FLU IMMUNIZE ORDER/ADMIN Jun 23, 2016 PNEUMOC IMM ORDER/ADMIN October 04, 2017 FLU IMMUNIZE ORDER/ADMIN Jul 08, 2014 PNEUMOC IMM ORDER/ADMIN Mar 31, 2017 DOC MEDS VERIFIED W/PT OR RE October 22, 2013 FLU IMMUNIZE ORDER/ADMIN Mar 31, 2017 TOBACCO NON-USER October 22, 2013 TOBACCO NON-USER December 22, 2016 TOBACCO NON-USER Jun 24, 2017 COLORECTAL CA SCREEN DOC REV October 07, 2014 DOC MEDS VERIFIED W/PT OR RE May 13, 2015 BMI<30 AND >=22 CALC & DOCU Mar 26, 2014 TOBACCO NON-USER May 13, 2015 LDL-C <100 MG/DL Jul 08, 2014 DOC MEDS VERIFIED W/PT OR RE December 22, 2016 FLU IMMUNIZE ORDER/ADMIN October 07, 2014 PNEUMOC IMM ORDER/ADMIN Mar 26, 2014 DOC MEDS VERIFIED W/PT OR RE Feb 08, 2014 PNEUMOC IMM ORDER/ADMIN Apr 03, 2018 PNEUMOC IMM ORDER/ADMIN Sep 01, 2015 TOBACCO NON-USER January 06, 2018 TOBACCO NON-USER Jul 18, 2018 FLU IMMUNIZE ORDER/ADMIN May 13, 2015 DOC MEDS VERIFIED W/PT OR RE Mar 26, 2014 TOBACCO NON-USER Apr 03, 2018 BMI<30 AND >=22 CALC & DOCU Jun 23, 2016 LDL-C <100 MG/DL October 22, 2013 TOBACCO NON-USER October 04, 2017 BMI<30 AND >=22 CALC & DOCU Jun 24, 2017 PNEUMOC IMM ORDER/ADMIN December 22, 2016 BMI<30 AND >=22 CALC & DOCU Feb 08, 2014 DOC MEDS VERIFIED W/PT OR RE October 04, 2017 TOBACCO NON-USER Feb 04, 2015 FLU IMMUNIZE ORDER/ADMIN December 22, 2016 BMI<30 AND >=22 CALC & DOCU Sep 01, 2015 COLORECTAL CA SCREEN DOC REV Jun 23, 2016 DOC MEDS VERIFIED W/PT OR RE Apr 03, 2018 BMI<30 AND >=22 CALC & DOCU Jul 08, 2014 BMI<30 AND >=22 CALC & DOCU October 07, 2014 HG A1C LEVEL 7.0-9.0% October 22, 2013 PNEUMOCOCCAL VACC 13 FATMATA IM May 13, 2015 ANNUAL [facility] VST; PERSNL PPS INIT Jul 08, 2014 DOC MEDS VERIFIED W/PT OR RE Sep 01, 2015 TOBACCO NON-USER Mar 26, 2014 DOC MEDS VERIFIED W/PT OR RE October 07, 2014 TOBACCO NON-USER Mar 31, 2017 DOC MEDS VERIFIED W/PT OR RE Jul 08, 2014 PNEUMOC IMM ORDER/ADMIN May 13, 2015 FLU IMMUNIZE ORDER/ADMIN October 22, 2013 DOC MEDS VERIFIED W/PT OR RE Jun 23, 2016 BMI<30 AND >=22 CALC & DOCU Mar 31, 2017 HG A1C LEVEL 7.0-9.0% Mar 26, 2014 PNEUMOC IMM ORDER/ADMIN October 07, 2014 TOBACCO NON-USER Feb 08, 2014 PNEUMOC IMM ORDER/ADMIN Jun 23, 2016 BMI<30 AND >=22 CALC & DOCU Apr 03, 2018 HG A1C LEVEL 7.0-9.0% May 13, 2015 PNEUMOC IMM ORDER/ADMIN Jun 24, 2017 BMI<30 AND >=22 CALC & DOCU Feb 04, 2015 COLORECTAL CA SCREEN DOC REV Mar 26, 2014 BMI<30 AND >=22 CALC & DOCU October 04, 2017 COLORECTAL CA SCREEN DOC REV Sep 01, 2015 DOC MEDS VERIFIED W/PT OR RE Jun 24, 2017 TOBACCO NON-USER October 07, 2014 TOBACCO NON-USER Sep 01, 2015 COLORECTAL CA SCREEN DOC REV May 13, 2015 HG A1C LEVEL 7.0-9.0% Jun 24, 2017 DOC MEDS VERIFIED W/PT OR RE Feb 04, 2015 ANNUAL [facility] VST; PPS SUBSQT VST Jun 24, 2017 DOC MEDS VERIFIED W/PT OR RE Mar 31, 2017 COLORECTAL CA SCREEN DOC REV Jun 24, 2017 RESULTS Name Result Date Reference Range MR head/brain wo con 2022-12-31 Complete Blood Count Auto Diff 2022-12-28 White Blood Count 8.6 4.8-10.8 Red Blood Count 4.57 4.60-5.80 Hemoglobin 13.6 14.0-18.0 Hematocrit 41.6 42.0-52.0 Mean Corpuscular Volume 91.0 80.0 -98.0 Mean Corpuscular Hemoglobin 29.8 27.0-33.0 Mean Corpuscular HGB Conc 32.7 31 .0-36.0 Red Cell Distribution Width 13.6 11.0-16.0 Platelet Count 227 160-400 Mean Platelet Volume 11.6 9.4-12. 4 Neutrophils Percent Auto 64.9 45- 73 Imm Gran Pct Auto 0.2 0.0-0.4 Lymphocytes Percent Auto 23.8 20- 40 Monocytes Percent Auto 9.7 2-11 Eosinophils Percent Auto 0.6 0-4 Basophils Percent Auto 0.8 0-2 NRBC Pct Auto 0.0 0.0-0.2 Neutrophils Absolute Auto 5.6 2. 0-8.3 Imm Gran Abs Auto 0.02 0.00-0.03 Lymphocytes Absolute Auto 2.1 1. 2-4.9 Monocytes Absolute Auto 0.8 0.1- 1.2 Eosinophils Absolute Auto 0.1 0. 0-0.4 Basophils Absolute Auto 0.1 0.0- 0.2 NRBC Abs Auto 0.000 0.0-0.012 Erythrocyte Sedimentation Rate 2022-12-28 Erythrocyte Sedimentation Rate 6 0-15 Urinalysis 2022-12-28 Color Urine Yellow Appearance Urine Clear PH 5.5 5.0-9.0 Glucose Urine UA Negative Negative Urine Blood Negative Negative Specific [place] - Urine 1.025 1.0 05-1.025 Urine Protein Negative Neg-Trace Urine Ketones Trace Negative Nitrite Urine Negative Negative Leukocyte Esterase Urine Negative Neg ative Comprehensive Met. Panel 2022-12-28 Sodium 141 135-145 Potassium 4.9 3.3-5.1 Chloride 106 96-108 Carbon Dioxide 27 22-29 Anion Gap 13 12-20 Blood Urea Nitrogen 25 9-16 Creatinine 0.84 0.5-1.4 Estimated Glomerular Filt Rate >60 Glucose Random 246 60-115 Calcium 10.0 8.4-10.2 Bilirubin Total 0.8 0.0-1.0 Aspartate Amino Transferase 23 5-37 Alanine Aminotransferase 24 0-4 0 Total Protein 6.5 6.5-8.0 Albumin Level 3.9 3.5-5.0 Alkaline Phosphatase 70 39-117 C Reactive Protein 2022-12-28 C Reactive Protein < 0.10 < or = 0. 50 Lyme IgG/IgM w/reflex to WB 2022-12-28 Lyme Abs Screen <0.90 Lyme Blot TNP Hemoglobin A1c 2022-12-28 Hemoglobin A1c % 8.1 Estimated Average Glucose 186 Glucose, Whole Blood 2022-11-16 Glucose, Whole Blood 244 60-115 Complete Blood Count Auto Diff 2022-08-17 White Blood Count 6.9 4.8-10.8 Red Blood Count 4.65 4.60-5.80 Hemoglobin 13.9 14.0-18.0 Hematocrit 41.1 42.0-52.0 Mean Corpuscular Volume 88.4 80.0 -98.0 Mean Corpuscular Hemoglobin 29.9 27.0-33.0 Mean Corpuscular HGB Conc 33.8 31 .0-36.0 Red Cell Distribution Width 13.0 11.0-16.0 Platelet Count 216 160-400 Mean Platelet Volume 11.3 9.4-12. 4 Neutrophils Percent Auto 51.9 45- 73 Imm Gran Pct Auto 0.3 0.0-0.4 Lymphocytes Percent Auto 32.1 20- 40 Monocytes Percent Auto 12.6 2-11 Eosinophils Percent Auto 2.2 0-4 Basophils Percent Auto 0.9 0-2 NRBC Pct Auto 0.0 0.0-0.2 Neutrophils Absolute Auto 3.6 2. 0-8.3 Imm Gran Abs Auto 0.02 0.00-0.03 Lymphocytes Absolute Auto 2.2 1. 2-4.9 Monocytes Absolute Auto 0.9 0.1- 1.2 Eosinophils Absolute Auto 0.2 0. 0-0.4 Basophils Absolute Auto 0.1 0.0- 0.2 NRBC Abs Auto 0.000 0.0-0.012 Comprehensive Met. Panel 2022-08-17 Sodium 135 135-145 Potassium 4.8 3.3-5.1 Chloride 99 96-108 Carbon Dioxide 26 22-29 Anion Gap 15 12-20 Blood Urea Nitrogen 20 9-16 Creatinine 0.83 0.5-1.4 Estimated Glomerular Filt Rate >60 Glucose Random 166 60-115 Calcium 9.4 8.4-10.2 Bilirubin Total 0.7 0.0-1.0 Aspartate Amino Transferase 21 5-37 Alanine Aminotransferase 25 0-4 0 Total Protein 6.1 6.5-8.0 Albumin Level 3.8 3.5-5.0 Alkaline Phosphatase 81 39-117 Electrocardiogram (EKG) - IH 2022-07-21 Glucose, Whole Blood 2022-07-14 Glucose, Whole Blood 158 60-115 Urinalysis and Microscopic 2022-04-17 Color Urine Yellow Appearance Urine Clear PH 6.0 5.0-9.0 Glucose Urine UA Negative Negative Urine Blood Negative Negative Specific [place] - Urine 1.015 1.0 05-1.025 Urine Protein Negative Neg-Trace Urine Ketones Negative Negative Nitrite Urine Negative Negative Leukocyte Esterase Urine Negative Neg ative RBC Urine 0-2 0-2 WBC Urine 0-5 0-5 Squamous Epithelial Cell Urine 0-2 0-2 Bacteria Urine None Seen None Seen Hyaline Casts Urine 0-2 0-2 Microalbumin, Random 2022-04-17 Creatinine Urine 82.17 Microalbumin Urine 10.0 Microalbum/Creatinine Ratio Ur 12.1 Complete Blood Count Auto Diff 2022-04-15 White Blood Count 7.0 4.8-10.8 Red Blood Count 4.91 4.60-5.80 Hemoglobin 14.4 14.0-18.0 Hematocrit 43.1 42.0-52.0 Mean Corpuscular Volume 87.8 80.0 -98.0 Mean Corpuscular Hemoglobin 29.3 27.0-33.0 Mean Corpuscular HGB Conc 33.4 31 .0-36.0 Red Cell Distribution Width 13.2 11.0-16.0 Platelet Count 209 160-400 Mean Platelet Volume 11.2 9.4-12. 4 Neutrophils Percent Auto 50.3 45- 73 Imm Gran Pct Auto 0.3 0.0-0.4 Lymphocytes Percent Auto 33.9 20- 40 Monocytes Percent Auto 13.1 2-11 Eosinophils Percent Auto 1.7 0-4 Basophils Percent Auto 0.7 0-2 NRBC Pct Auto 0.0 0.0-0.2 Neutrophils Absolute Auto 3.5 2. 0-8.3 Imm Gran Abs Auto 0.02 0.00-0.03 Lymphocytes Absolute Auto 2.4 1. 2-4.9 Monocytes Absolute Auto 0.9 0.1- 1.2 Eosinophils Absolute Auto 0.1 0. 0-0.4 Basophils Absolute Auto 0.1 0.0- 0.2 NRBC Abs Auto 0.000 0.0-0.012 Comprehensive [place]. Panel Fast 2022-04-15 Sodium 134 135-145 Potassium 4.3 3.3-5.1 Chloride 98 96-108 Carbon Dioxide 26 22-29 Anion Gap 14 12-20 Blood Urea Nitrogen 21 9-16 Creatinine 0.84 0.5-1.4 Estimated Glomerular Filt Rate >60 Glucose Fasting 161 60-99 Calcium 9.2 8.4-10.2 Bilirubin Total 0.8 0.0-1.0 Aspartate Amino Transferase 24 5-37 Alanine Aminotransferase 23 0-4 0 Total Protein 6.4 6.5-8.0 Albumin Level 4.0 3.5-5.0 Alkaline Phosphatase 67 39-117 Lipid Panel 2022-04-15 Triglycerides 85 Cholesterol 123 LDL Cholesterol Calculated 60 HDL Cholesterol 46 Hemoglobin A1c 2022-04-15 Hemoglobin A1c % 7.7 Estimated Average Glucose 174 Glucose, Whole Blood 2022-04-08 Glucose, Whole Blood 174 60-115 Glucose, Whole Blood 2021-12-07 Glucose, Whole Blood 217 60-115 Complete Blood Count Auto Diff 2021-10-14 White Blood Count 7.7 4.8-10.8 Red Blood Count 4.65 4.60-5.80 Hemoglobin 13.9 14.0-18.0 Hematocrit 41.5 42.0-52.0 Mean Corpuscular Volume 89.2 80.0 -98.0 Mean Corpuscular Hemoglobin 29.9 27.0-33.0 Mean Corpuscular HGB Conc 33.5 31 .0-36.0 Red Cell Distribution Width 13.3 11.0-16.0 Platelet Count 212 160-400 Mean Platelet Volume 11.6 9.4-12. 4 Neutrophils Percent Auto 60.3 45- 73 Imm Gran Pct Auto 0.4 0.0-0.4 Lymphocytes Percent Auto 25.9 20- 40 Monocytes Percent Auto 11.8 2-11 Eosinophils Percent Auto 1.0 0-4 Basophils Percent Auto 0.6 0-2 NRBC Pct Auto 0.0 0.0-0.2 Neutrophils Absolute Auto 4.6 2. 0-8.3 Imm Gran Abs Auto 0.03 0.00-0.03 Lymphocytes Absolute Auto 2.0 1. 2-4.9 Monocytes Absolute Auto 0.9 0.1- 1.2 Eosinophils Absolute Auto 0.1 0. 0-0.4 Basophils Absolute Auto 0.1 0.0- 0.2 NRBC Abs Auto 0.000 0.0-0.012 Urinalysis and Microscopic 2021-10-14 Color Urine YELLOW Appearance Urine CLEAR PH 6.0 5.0-8.0 Glucose Urine UA NEG NEG Urine Blood NEG NEG Specific [place] - Urine 1.015 1.0 05-1.025 Urine Protein NEG NEG-TRACE Urine Ketones NEG NEG Nitrite Urine NEG NEG Leukocyte Esterase Urine NEG NEG RBC Urine 0 0 WBC Urine 0 0-4 Squamous Epithelial Cell Urine NONE Bacteria Urine NONE Comprehensive [place]. Panel Fast 2021-10-14 Sodium 136 135-145 Potassium 4.7 3.3-5.1 Chloride 102 96-108 Carbon Dioxide 26 22-29 Anion Gap 13 12-20 Blood Urea Nitrogen 20 9-16 Creatinine 0.81 0.5-1.4 Estimated Glomerular Filt Rate >60 Glucose Fasting 105 60-99 Calcium 9.7 8.4-10.2 Bilirubin Total 1.1 0.0-1.0 Aspartate Amino Transferase 19 5-37 Alanine Aminotransferase 22 0-4 0 Total Protein 6.5 6.5-8.0 Albumin Level 3.9 3.5-5.0 Alkaline Phosphatase 69 39-117 Lipid Panel 2021-10-14 Triglycerides 73 Cholesterol 114 LDL Cholesterol Calculated 55 HDL Cholesterol 45 Vitamin D 25-OH Total 2021-10-14 Vitamin D 25-OH Total 38.4 >30 Thyroid Stimulating Hormone 2021-10-14 Thyroid Stimulating Hormone 2.81 0.32-4.0 Microalbumin, Random 2021-10-14 Creatinine Urine 73.25 Microalbumin Urine < 5.0 Microalbum Creatinine Ratio Ur TNP Hemoglobin A1c 2021-10-14 Hemoglobin A1c % 8.0 Estimated Average Glucose 183 Glucose, Whole Blood 2021-09-04 Glucose, Whole Blood 350 60-115 Glucose, Whole Blood 2021-05-20 Glucose, Whole Blood 139 60-115 Troponin-I High Sensitivity 2021-05-04 Troponin-I High Sensitivity 13.4 <3.5-35.0 UA CC w/rflx Micro + Cult 2021-05-04 Color Urine YELLOW Appearance Urine CLEAR PH 6.0 5.0-8.0 Glucose Urine UA 100 NEG Urine Blood NEG NEG Specific [place] - Urine 1.025 1.0 05-1.025 Urine Protein NEG NEG-TRACE Urine Ketones 40 NEG Nitrite Urine NEG NEG Leukocyte Esterase Urine NEG NEG Complete Blood Count Auto Diff 2021-05-03 White Blood Count 11.4 4.8-10.8 Red Blood Count 4.67 4.60-5.80 Hemoglobin 14.2 14.0-18.0 Hematocrit 40.4 42.0-52.0 Mean Corpuscular Volume 86.5 80.0 -98.0 Mean Corpuscular Hemoglobin 30.4 27.0-33.0 Mean Corpuscular HGB Conc 35.1 31 .0-36.0 Red Cell Distribution Width 12.8 11.0-16.0 Platelet Count 199 160-400 Mean Platelet Volume 10.7 9.4-12. 4 Neutrophils Percent Auto 86.5 45- 73 Imm Gran Pct Auto 0.3 0.0-0.4 Lymphocytes Percent Auto 7.7 20- 40 Monocytes Percent Auto 5.2 2-11 Eosinophils Percent Auto 0.1 0-4 Basophils Percent Auto 0.2 0-2 NRBC Pct Auto 0.0 0.0-0.2 Neutrophils Absolute Auto 9.89 2. 0-8.3 Imm Gran Abs Auto 0.03 0.00-0.03 Lymphocytes Absolute Auto 0.9 1. 2-4.9 Monocytes Absolute Auto 0.6 0.1- 1.2 Eosinophils Absolute Auto 0.0 0. 0-0.4 Basophils Absolute Auto 0.0 0.0- 0.2 NRBC Abs Auto 0.000 0.0-0.012 Liver Panel 2021-05-03 Bilirubin Total 0.9 0.0-1.0 Bilirubin Direct 0.3 0.0-0.5 Aspartate Amino Transferase 24 5-37 Alanine Aminotransferase 25 0-4 0 Total Protein 6.5 6.5-8.0 Albumin Level 4.0 3.5-5.0 Alkaline Phosphatase 67 39-117 Basic Metabolic Panel 2021-05-03 Sodium 130 135-145 Potassium 3.9 3.3-5.1 Chloride 95 96-108 Carbon Dioxide 24 22-29 Anion Gap 15 12-20 Blood Urea Nitrogen 14 9-16 Creatinine 0.78 0.5-1.4 Creatinine Clr Calc Pharmacy 77.0 Estimated Glomerular Filt Rate >60 Glucose Random 237 60-115 Calcium 9.0 8.4-10.2 Magnesium 2021-05-03 Magnesium 1.9 1.6-2.6 Troponin-I High Sensitivity 2021-05-03 Troponin-I High Sensitivity 12.3 <3.5-35.0 Glucose, Whole Blood 2021-05-03 Glucose, Whole Blood 221 60-115 Complete Blood Count Auto Diff 2021-02-04 White Blood Count 7.4 4.8-10.8 Red Blood Count 4.77 4.60-5.80 Hemoglobin 14.0 14.0-18.0 Hematocrit 41.9 42-52 Mean Corpuscular Volume 87.8 80-9 8 Mean Corpuscular Hemoglobin 29.4 27.0-33.0 Mean Corpuscular HGB Conc 33.4 31 .0-36.0 Red Cell Distribution Width 13.2 11.0-16.0 Platelet Count 218 160-400 Mean Platelet Volume 11.4 9.4-12. 4 Neutrophils Percent Auto 55.4 45- 73 Imm Gran Pct Auto 0.3 0.0-0.4 Lymphocytes Percent Auto 30.3 20- 40 Monocytes Percent Auto 11.8 2-11 Eosinophils Percent Auto 1.5 0-4 Basophils Percent Auto 0.7 0-2 NRBC Pct Auto 0.0 0.0-0.2 Neutrophils Absolute Auto 4.1 2. 0-8.3 Imm Gran Abs Auto 0.02 0.00-0.03 Lymphocytes Absolute Auto 2.2 1. 2-4.9 Monocytes Absolute Auto 0.9 0.1- 1.2 Eosinophils Absolute Auto 0.1 0. 0-0.4 Basophils Absolute Auto 0.1 0.0- 0.2 NRBC Abs Auto 0.000 0.0-0.012 Urinalysis and Microscopic 2021-02-04 Color Urine YELLOW Appearance Urine CLEAR PH 6.0 5.0-8.0 Glucose Urine UA NEG NEG Urine Blood NEG NEG Specific [place] - Urine 1.010 1.0 05-1.025 Urine Protein NEG NEG-TRACE Urine Ketones NEG NEG Nitrite Urine NEG NEG Leukocyte Esterase Urine NEG NEG RBC Urine 0-2 0 WBC Urine 0 0-4 Squamous Epithelial Cell Urine NONE Bacteria Urine NONE Comprehensive [place]. Panel Fast 2021-02-04 Sodium 131 135-145 Potassium 4.5 3.3-5.1 Chloride 98 96-108 Carbon Dioxide 25 22-29 Anion Gap 13 12-20 Blood Urea Nitrogen 20 9-16 Creatinine 0.92 0.5-1.4 Estimated Glomerular Filt Rate >60 Glucose Fasting 166 60-99 Calcium 9.1 8.4-10.2 Bilirubin Total 0.8 0.0-1.0 Aspartate Amino Transferase 22 5-37 Alanine Aminotransferase 26 0-4 0 Total Protein 6.5 6.5-8.0 Albumin Level 4.0 3.5-5.0 Alkaline Phosphatase 74 39-117 Lipid Panel 2021-02-04 Triglycerides 70 Cholesterol 111 LDL Cholesterol Calculated 53 HDL Cholesterol 44 Vitamin D 25-OH Total 2021-02-04 Vitamin D 25-OH Total 41.9 >30 Thyroid Stimulating Hormone 2021-02-04 Thyroid Stimulating Hormone 2.42 0.32-4.0 Microalbumin, Random 2021-02-04 Creatinine Urine 74.05 Microalbumin Urine < 5.0 Microalbum Creatinine Ratio Ur TNP Hemoglobin A1c 2021-02-04 Hemoglobin A1c % 8.0 Estimated Average Glucose 183 Glucose, Whole Blood 2021-01-13 Glucose, Whole Blood 166 60-115 Glucose, Whole Blood 2020-10-14 Glucose, Whole Blood 141 60-115 HEMOGLOBIN A1C 2020-03-14 HEMOGLOBIN A1C POC 7.5 LIPOPROTEIN FRACTIONATION (LIPID PANEL) 2 CHOLESTEROL 123 TRIGLYCERIDE 83 HDL 49 LDL CALCULATED 58 FREE T4 (FT4) 2019-09-03 FREE T4 1.07 0.71-1.85 HEMATOCRIT (HCT) 2019-09-03 HEMATOCRIT 43.7 42-52 HEMOGLOBIN (HGB) 2019-09-03 HEMOGLOBIN 14.8 14.0-18.0 LDL CHOLESTEROL (DIRECT) 2019-09-03 LDL CHOLESTEROL (DIRECT) 54 <10 0 PROFILE, RANDOM 2019-09-03 NA 141 135-145 K 5.1 3.3-5.1 CL 102 96-108 CO2 29 22-29 ANION GAP 15 12-20 GLUCOSE,RANDOM 146 60-115 BUN 23 9-16 CREATININE 0.85 0.5-1.4 ESTIMATED GFR >60 PROTEIN, TOTAL 6.8 6.5-8.0 ALBUMIN 4.4 3.5-5.0 BILIRUBIN, TOTAL 0.6 0.0-1.0 CALCIUM 10.2 8.4-10.2 ALK. PHOS. 76 39-117 GOT 20 5-37 GPT 25 0-40 TSH (THYROID STIMULATING HORMONE) 2019-09 TSH 1.90 0.32-4.0 VITAMIN D 25-OH TOTAL 2019-09-03 VITAMIN D 25-OH TOTAL 37.9 >30 HEMOGLOBIN A1C 2019-09-03 HEMOGLOBIN A1C POC 7.3 LIPOPROTEIN FRACTIONATION (LIPID PANEL) 2 CHOLESTEROL 122 TRIGLYCERIDE 58 HDL 54 LDL CALCULATED 57 CBC w DIFF 2019-05-01 WBC 6.7 4.8-10.8 ABSOLUTE NEUTROPHIL COUNT 4.1 2. 2-7.9 RBC 4.72 4.60-5.80 HEMOGLOBIN 14.5 14.0-18.0 HEMATOCRIT 42.2 42-52 MCV 89.3 80-98 MCH 30.8 27.0-33.0 MCHC 34.5 31.0-36.0 PLATELET COUNT 227 160-400 RDW 12.1 11.0-16.0 NEUTROPHILS 61.0 45-73 LYMPHOCYTES 25.6 20-40 MONOCYTES 10.3 2-11 EOSINOPHILS 1.9 0-4 BASOPHILS 1.1 0-2 MICROALBUMIN, RANDOM 2019-05-01 MICALB/CRE RATIO RANDOM URINE Test not performed MICROALBUMIN, RANDOM URINE < 5.0 CREATININE, RANDOM URINE 51.39 PROFILE, FASTING 2019-05-01 NA 137 135-145 K 5.3 3.3-5.1 CL 100 96-108 CO2 29 22-29 ANION GAP 13 12-20 FASTING BLOOD SUGAR 144 60-99 BUN 19 9-16 CREATININE 0.84 0.5-1.4 ESTIMATED GFR >60 PROTEIN, TOTAL 6.6 6.5-8.0 ALBUMIN 4.3 3.5-5.0 BILIRUBIN, TOTAL 0.8 0.0-1.0 CALCIUM 9.7 8.4-10.2 ALK. PHOS. 78 39-117 GOT 23 5-37 GPT 30 0-40 HEMOGLOBIN A1C 2019-03-06 HEMOGLOBIN A1C POC 7.3 HEMOGLOBIN A1C 2018-11-23 HEMOGLOBIN A1C POC 7.3 HEMOGLOBIN A1C (GLYCOHEMOGLOBIN) HEMOGLOBIN A1C % (HH) 7.2 ESTIMATED AVG GLUCOSE 160 BASIC METABOLIC PROFILE FAST 2018-10-10 NA 140 135-145 K 4.5 3.3-5.1 CL 105 96-108 CO2 26 22-29 ANION GAP 14 12-20 FASTING BLOOD SUGAR 117 60-99 BUN 20 9-16 CREATININE 0.83 0.5-1.4 ESTIMATED GFR >60 CALCIUM 9.4 8.4-10.2 PSA, TOTAL 2018-08-01 PSA, TOTAL 2.36 <0.05-4.00 HEMOGLOBIN A1C (GLYCOHEMOGLOBIN) HEMOGLOBIN A1C % (HH) 8.5 ESTIMATED AVG GLUCOSE 197 ELECTROLYTES 2018-07-13 NA 130 135-145 K 4.8 3.3-5.1 CL 97 96-108 CO2 23 22-29 ANION GAP 15 12-20 GLUCOSE,WHOLE BLOOD 2018-07-13 GLUCOSE,WHOLE BLOOD 329 60-115 HEMOGLOBIN A1C (GLYCOHEMOGLOBIN) HEMOGLOBIN A1C % (HH) 8.2 ESTIMATED AVG GLUCOSE 189 LIPOPROTEIN FRACTIONATION (LIPID PANEL) 2 CHOLESTEROL 115 TRIGLYCERIDE 60 HDL 49 LDL CALCULATED 54 CBC w DIFF 2018-07-11 WBC 7.5 4.8-10.8 ABSOLUTE NEUTROPHIL COUNT 4.6 2. 2-7.9 RBC 4.77 4.60-5.80 HEMOGLOBIN 14.7 14.0-18.0 HEMATOCRIT 42.7 42-52 MCV 89.6 80-98 MCH 30.9 27.0-33.0 MCHC 34.5 31.0-36.0 PLATELET COUNT 224 160-400 RDW 11.6 11.0-16.0 NEUTROPHILS 61.5 45-73 LYMPHOCYTES 25.7 20-40 MONOCYTES 10.8 2-11 EOSINOPHILS 1.1 0-4 BASOPHILS 0.9 0-2 MICROALBUMIN, RANDOM 2018-07-11 MICALB/CRE RATIO RANDOM URINE 6.3 MICROALBUMIN, RANDOM URINE 6.0 CREATININE, RANDOM URINE 94.24 PROFILE, FASTING 2018-07-11 NA 128 135-145 K 4.5 3.3-5.1 CL 95 96-108 CO2 23 22-29 ANION GAP 15 12-20 FASTING BLOOD SUGAR 246 60-99 BUN 14 9-16 CREATININE 0.90 0.5-1.4 ESTIMATED GFR >60 PROTEIN, TOTAL 6.3 6.5-8.0 ALBUMIN 4.0 3.5-5.0 BILIRUBIN, TOTAL 1.0 0.0-1.0 CALCIUM 9.0 8.4-10.2 ALK. PHOS. 71 39-117 GOT 19 5-37 GPT 27 0-40 TSH (THYROID STIMULATING HORMONE) 2018-07 TSH 2.22 0.32-4.0 URINALYSIS + MICROSCOPIC 2018-07-11 COLOR YELLOW APPEARANCE,(UA) CLEAR SPECIFIC GRAVITY 1.010 1.005-1.025 LEUKOCYTES NEG NEG NITRITE NEG NEG PROTEIN,QUALITATIVE NEG NEG - TR RISHABH PH 7.0 5.0-8.0 URINE BLOOD NEG NEG KETONES 15 NEG GLUCOSE NEG NEG MICROSCOPIC WBC 0 0-4 MICROSCOPIC RBC 0 0 EPITHELIAL CELLS NONE BACTERIA NONE MUCUS 1+ CHEST 2 VIEWS [id number] 2018-06-17 BASIC METABOLIC PROFILE RANDOM 2018-05-24 NA 136 135-145 K 5.0 3.3-5.1 CL 100 96-108 CO2 29 22-29 ANION GAP 12 12-20 GLUCOSE,RANDOM 238 60-115 BUN 21 9-16 CREATININE 0.96 0.5-1.4 ESTIMATED GFR >60 CALCIUM 9.9 8.4-10.2 HEMOGLOBIN A1C (GLYCOHEMOGLOBIN) HEMOGLOBIN A1C % (HH) 7.3 ESTIMATED AVG GLUCOSE 163 LIPOPROTEIN FRACTIONATION (LIPID PANEL) 2 CHOLESTEROL 132 TRIGLYCERIDE 78 HDL 52 LDL CALCULATED 65 BASIC METABOLIC PROFILE FAST 2018-03-21 NA 135 135-145 K 4.9 3.3-5.1 CL 101 96-108 CO2 24 22-29 ANION GAP 15 12-20 FASTING BLOOD SUGAR 239 60-99 BUN 18 9-16 CREATININE 0.92 0.5-1.4 ESTIMATED GFR >60 CALCIUM 9.7 8.4-10.2 MICROALBUMIN, RANDOM 2018-03-21 MICALB/CRE RATIO RANDOM URINE 6.1 MICROALBUMIN, RANDOM URINE 7.0 CREATININE, RANDOM URINE 113.69 HEMOGLOBIN A1C 2018-01-25 HEMOGLOBIN A1C POC 7.8 BASIC METABOLIC PROFILE FAST 2017-12-15 NA 138 135-145 K 4.2 3.3-5.1 CL 105 96-108 CO2 23 22-29 ANION GAP 14 1220 FASTING BLOOD SUGAR 142 60-99 BUN 15 9-16 CREATININE 0.83 0.5-1.4 ESTIMATED GFR >60 CALCIUM 9.4 8.4-10.2 C-PEPTIDE 2017-12-15 C-PEPTIDE <0.10 0.80-3.85 GLUTAMIC ACID DECARBOXYLASE AB (JAMIE) 2017 GLUTAMIC ACID DECARBOXYLASE AB 63 <5 HEMOGLOBIN A1C (GLYCOHEMOGLOBIN) HEMOGLOBIN A1C % (HH) 8.4 ESTIMATED AVG GLUCOSE 194 LIPOPROTEIN FRACTIONATION (LIPID PANEL) 2 CHOLESTEROL 149 TRIGLYCERIDE 97 HDL 52 LDL CALCULATED 78 CBC w DIFF 2017-10-04 WBC 10.7 4.8-10.8 ABSOLUTE NEUTROPHIL COUNT 7.9 2. 2-7.9 RBC 4.72 4.60-5.80 HEMOGLOBIN 14.5 14.0-18.0 HEMATOCRIT 43.4 42-52 MCV 91.9 80-98 MCH 30.8 27.0-33.0 MCHC 33.5 31.0-36.0 PLATELET COUNT 235 160-400 RDW 13.2 11.0-16.0 NEUTROPHILS 73.7 45-73 LYMPHOCYTES 15.6 20-40 MONOCYTES 9.2 2-11 EOSINOPHILS 0.8 0-4 BASOPHILS 0.7 0-2 CRP 2017-10-04 CRP 0.33 < OR = 0.50 LIPASE 2017-10-04 LIPASE 25 8-78 MICROALBUMIN, RANDOM 2017-10-04 MICALB/CRE RATIO RANDOM URINE 5.4 MICROALBUMIN, RANDOM URINE 9.0 CREATININE, RANDOM URINE 166.13 PROFILE, FASTING 2017-10-04 NA 136 135-145 K 5.0 3.3-5.1 CL 100 96-108 CO2 23 22-29 ANION GAP 18 12-20 FASTING BLOOD SUGAR 290 60-99 BUN 18 9-16 CREATININE 1.02 0.5-1.4 ESTIMATED GFR >60 PROTEIN, TOTAL 6.5 6.5-8.0 ALBUMIN 4.2 3.5-5.0 BILIRUBIN, TOTAL 0.9 0.0-1.0 CALCIUM 9.8 8.4-10.2 ALK. PHOS. 71 39-117 GOT 22 5-37 GPT 33 0-40 PSA, TOTAL 2017-10-04 PSA, TOTAL 2.99 <0.05-4.00 SED RATE (ESR) 2017-10-04 SED RATE 2 0-15 TSH (THYROID STIMULATING HORMONE) 2017-10 TSH 1.91 0.32-4.0 URINALYSIS + MICROSCOPIC 2017-10-04 COLOR YELLOW APPEARANCE,(UA) CLEAR SPECIFIC GRAVITY 1.025 1.005-1.025 LEUKOCYTES NEG NEG NITRITE NEG NEG PROTEIN,QUALITATIVE NEG NEG - TR RISHABH PH 6.0 5.0-8.0 URINE BLOOD NEG NEG KETONES 40 NEG GLUCOSE 250 NEG MICROSCOPIC WBC 0 0-4 MICROSCOPIC RBC 0-2 0 EPITHELIAL CELLS NONE BACTERIA NONE MUCUS 4+ NUC GASTRIC ANTRUM EMPTYING 2017-08-02 HEMOGLOBIN A1C (GLYCOHEMOGLOBIN) HEMOGLOBIN A1C % (HH) 7.7 ESTIMATED AVG GLUCOSE 174 PROFILE, FASTING 2017-06-21 NA 135 135-145 K 5.1 3.3-5.1 CL 101 96-108 CO2 24 22-29 ANION GAP 15 12-20 FASTING BLOOD SUGAR 251 60-99 BUN 16 9-16 CREATININE 0.93 0.5-1.4 ESTIMATED GFR >60 PROTEIN, TOTAL 6.5 6.5-8.0 ALBUMIN 4.0 3.5-5.0 BILIRUBIN, TOTAL 1.0 0.0-1.0 CALCIUM 9.2 8.4-10.2 ALK. PHOS. 77 39-117 GOT 23 5-37 GPT 28 0-40 HEMOGLOBIN A1C (GLYCOHEMOGLOBIN) HEMOGLOBIN A1C % (HH) 7.9 ESTIMATED AVG GLUCOSE 180 LIPOPROTEIN FRACTIONATION (LIPID PANEL) CHOLESTEROL 123 TRIGLYCERIDE 55 HDL 45 LDL CALCULATED 67 CBC w DIFF 2017-03-22 WBC 7.2 4.8-10.8 ABSOLUTE NEUTROPHIL COUNT 4.4 2. 2-7.9 RBC 4.80 4.60-5.80 HEMOGLOBIN 14.9 14.0-18.0 HEMATOCRIT 44.0 42-52 MCV 91.6 80-98 MCH 31.1 27.0-33.0 MCHC 33.9 31.0-36.0 PLATELET COUNT 206 160-400 RDW 12.7 11.0-16.0 NEUTROPHILS 61.4 45-73 LYMPHOCYTES 24.4 20-40 MONOCYTES 11.1 2-11 EOSINOPHILS 2.3 0-4 BASOPHILS 0.9 0-2 MICROALBUMIN, RANDOM 2017-03-22 MICALB/CRE RATIO RANDOM URINE 8.3 MICROALBUMIN, RANDOM URINE 9.0 CREATININE, RANDOM URINE 107.19 PROFILE, FASTING 2017-03-22 NA 136 135-145 K 4.7 3.3-5.1 CL 105 96-108 CO2 25 22-29 ANION GAP 11 12-20 FASTING BLOOD SUGAR 244 60-99 BUN 22 9-16 CREATININE 0.95 0.5-1.4 ESTIMATED GFR >60 PROTEIN, TOTAL 6.1 6.5-8.0 ALBUMIN 3.8 3.5-5.0 BILIRUBIN, TOTAL 0.7 0.0-1.0 CALCIUM 9.6 8.4-10.2 ALK. PHOS. 78 39-117 GOT 18 5-37 GPT 19 0-40 PSA, TOTAL 2017-03-22 PSA, TOTAL 2.61 <0.05-4.00 TSH (THYROID STIMULATING HORMONE) 2017-03 TSH 2.08 0.32-4.0 URINALYSIS + MICROSCOPIC 2017-03-22 COLOR YELLOW APPEARANCE,(UA) CLEAR SPECIFIC GRAVITY 1.020 1.005-1.025 LEUKOCYTES NEG NEG NITRITE NEG NEG PROTEIN,QUALITATIVE NEG NEG - TR RISHABH PH 6.0 5.0-8.0 URINE BLOOD NEG NEG KETONES NEG NEG GLUCOSE 250 NEG MICROSCOPIC WBC 0 0-4 MICROSCOPIC RBC 0 0 EPITHELIAL CELLS NONE BACTERIA NONE VITAMIN D 25-OH TOTAL 2017-03-22 VITAMIN D 25-OH TOTAL 30.0 >30 [address] SINUS NO CONTRAST 2017-01-31 GLUCOSE,WHOLE BLOOD 2016-12-10 GLUCOSE,WHOLE BLOOD 226 60-115 CBC w DIFF 2016-12-10 WBC 13.6 4.8-10.8 ABSOLUTE NEUTROPHIL COUNT 11.0 2. 2-7.9 RBC 5.10 4.60-5.80 HEMOGLOBIN 15.5 14.0-18.0 HEMATOCRIT 46.1 42-52 MCV 90.4 80-98 MCH 30.4 27.0-33.0 MCHC 33.6 31.0-36.0 PLATELET COUNT 242 160-400 RDW 12.4 11.0-16.0 NEUTROPHILS 81.4 45-73 LYMPHOCYTES 11.8 20-40 MONOCYTES 5.6 2-11 EOSINOPHILS 0.2 0-4 BASOPHILS 0.9 0-2 CHEM 7 PROFILE 2016-12-10 NA 139 135-145 K 5.0 3.3-5.1 CL 105 96-108 CO2 26 22-29 ANION GAP 13 12-20 GLUCOSE,RANDOM 99 60-115 BUN 19 9-16 CREATININE 0.84 0.5-1.4 ESTIMATED GFR >60 ESTIMATED CrCl 75.9 CPK 2016-12-10 CPK 101 38-174 ETHANOL 2016-12-10 ETHANOL < 10 LIVER PROFILE 2016-12-10 PROTEIN, TOTAL 6.8 6.5-8.0 ALBUMIN 4.3 3.5-5.0 BILIRUBIN, TOTAL 0.5 0.0-1.0 BILIRUBIN, DIRECT 0.2 0.0-0.5 ALK. PHOS. 70 39-117 GOT 20 5-37 GPT 24 0-40 MAGNESIUM 2016-12-10 MAGNESIUM 2.5 1.6-2.6 PARTIAL THROMBOPLASTIN TIME (PTT) 2016-12 PARTIAL THROMBOPLASTIN TIME 33.3 24.2-37.7 PROTHROMBIN TIME (PT, INR) 2016-12-10 INTERNATIONAL NORM. RATIO 0.9 SE E NOTE PROTHROMBIN TIME 10.9 10.1-13.8 URINALYSIS - CLEAN CATCH (UA) 2016-12-10 COLOR YELLOW APPEARANCE,(UA) CLEAR SPECIFIC GRAVITY >= 1.030 1.005-1.025 LEUKOCYTES NEG NEG NITRITE NEG NEG PROTEIN,QUALITATIVE NEG NEG - TR RISHABH PH 5.5 5.0-8.0 URINE BLOOD NEG NEG KETONES 15 NEG GLUCOSE NEG NEG GLUCOSE,WHOLE BLOOD 2016-12-10 GLUCOSE,WHOLE BLOOD 91 60-115 TROPONIN-I 2016-12-10 TROPONIN-I < 0.03 < [address]03 CT BRAIN NO CONTRAST 2016-12-10 XR CHEST 1 VIEW 2016-12-10 HEMOGLOBIN A1C (GLYCOHEMOGLOBIN) HEMOGLOBIN A1C % (HH) 7.5 ESTIMATED AVG GLUCOSE 169 LIPOPROTEIN FRACTIONATION (LIPID PANEL) 2 CHOLESTEROL 124 TRIGLYCERIDE 62 HDL 47 LDL CALCULATED 65 CBC w DIFF 2016-12-14 WBC 7.3 4.8-10.8 ABSOLUTE NEUTROPHIL COUNT 4.2 2. 2-7.9 RBC 4.87 4.60-5.80 HEMOGLOBIN 15.0 14.0-18.0 HEMATOCRIT 43.5 42-52 MCV 89.4 80-98 MCH 30.8 27.0-33.0 MCHC 34.4 31.0-36.0 PLATELET COUNT 218 160-400 RDW 12.5 11.0-16.0 NEUTROPHILS 56.7 45-73 LYMPHOCYTES 29.4 20-40 MONOCYTES 10.5 2-11 EOSINOPHILS 2.4 0-4 BASOPHILS 1.1 0-2 MICROALBUMIN, RANDOM 2016-12-14 MICALB/CRE RATIO RANDOM URINE 12.9 MICROALBUMIN, RANDOM URINE 12.0 CREATININE, RANDOM URINE 92.88 PROFILE, FASTING 2016-12-14 NA 134 135-145 K 4.6 3.3-5.1 CL 105 96-108 CO2 22 22-29 ANION GAP 12 12-20 FASTING BLOOD SUGAR 255 60-99 BUN 16 9-16 CREATININE 0.87 0.5-1.4 ESTIMATED GFR >60 PROTEIN, TOTAL 6.1 6.5-8.0 ALBUMIN 3.8 3.5-5.0 BILIRUBIN, TOTAL 0.9 0.0-1.0 CALCIUM 8.9 8.4-10.2 ALK. PHOS. 67 39-117 GOT 22 5-37 GPT 25 0-40 PSA, TOTAL 2016-12-14 PSA, TOTAL 2.98 <0.05-4.00 TSH (THYROID STIMULATING HORMONE) 2016-12 TSH 2.48 0.32-4.0 URINALYSIS + MICROSCOPIC 2016-12-14 COLOR YELLOW APPEARANCE,(UA) HAZY SPECIFIC GRAVITY 1.015 1.005-1.025 LEUKOCYTES NEG NEG NITRITE NEG NEG PROTEIN,QUALITATIVE NEG NEG - TR RISHABH PH 6.0 5.0-8.0 URINE BLOOD NEG NEG KETONES NEG NEG GLUCOSE NEG NEG MICROSCOPIC WBC 0 0-4 MICROSCOPIC RBC 0-2 0 EPITHELIAL CELLS NONE BACTERIA NONE VITAMIN D 25-OH TOTAL 2016-12-14 VITAMIN D 25-OH TOTAL 29.7 >30 Diabetic eye exam HEMOGLOBIN A1C (GLYCOHEMOGLOBIN) HEMOGLOBIN A1C % (HH) 7.3 ESTIMATED AVG GLUCOSE 163 CHEST 2 VIEWS [id number] 2016-03-26 CRP 2016-03-25 CRP < 0.30 < OR = 0.50 GLUCOSE,RANDOM 2016-03-25 GLUCOSE,RANDOM 121 60-115 HEMOGLOBIN A1C (GLYCOHEMOGLOBIN) HEMOGLOBIN A1C % (HH) 8.1 ESTIMATED AVG GLUCOSE 186 LIPOPROTEIN FRACTIONATION (LIPID PANEL) 2 CHOLESTEROL 135 TRIGLYCERIDE 70 HDL 46 LDL CALCULATED 75 CBC w DIFF 2016-03-16 WBC 8.2 4.8-10.8 ABSOLUTE NEUTROPHIL COUNT 5.4 2. 2-7.9 RBC 4.82 4.60-5.80 HEMOGLOBIN 14.5 14.0-18.0 HEMATOCRIT 42.9 42-52 MCV 88.8 80-98 MCH 30.0 27.0-33.0 MCHC 33.7 31.0-36.0 PLATELET COUNT 327 160-400 RDW 12.6 11.0-16.0 NEUTROPHILS 66.7 45-73 LYMPHOCYTES 23.8 20-40 MONOCYTES 7.1 2-11 EOSINOPHILS 1.6 0-4 BASOPHILS 0.8 0-2 MICROALBUMIN, RANDOM 2016-03-16 MICALB/CRE RATIO RANDOM URINE 10.3 MICROALBUMIN, RANDOM URINE 7.0 CREATININE, RANDOM URINE 67.74 PROFILE, FASTING 2016-03-16 NA 133 135-145 K 4.8 3.3-5.1 CL 100 96-108 CO2 23 22-29 ANION GAP 15 12-20 FASTING BLOOD SUGAR 388 60-99 BUN 19 9-16 CREATININE 0.93 0.5-1.4 ESTIMATED GFR >60 PROTEIN, TOTAL 6.0 6.5-8.0 ALBUMIN 3.9 3.5-5.0 BILIRUBIN, TOTAL 1.1 0.0-1.0 CALCIUM 9.0 8.4-10.2 ALK. PHOS. 79 39-117 GOT 15 5-37 GPT 15 0-40 CHEST 2 VIEWS [id number] 2016-03-04 CBC w DIFF 2016-03-04 WBC 12.1 4.8-10.8 ABSOLUTE NEUTROPHIL COUNT 8.7 2. 2-7.9 RBC 4.98 4.60-5.80 HEMOGLOBIN 14.4 14.0-18.0 HEMATOCRIT 43.0 42-52 MCV 86.3 80-98 MCH 28.9 27.0-33.0 MCHC 33.5 31.0-36.0 PLATELET COUNT 305 160-400 RDW 12.3 11.0-16.0 NEUTROPHILS 72.4 45-73 LYMPHOCYTES 15.0 20-40 MONOCYTES 9.0 2-11 EOSINOPHILS 2.5 0-4 BASOPHILS 1.1 0-2 CRP 2016-03-04 CRP 17.72 < OR = 0.50 PROFILE, RANDOM 2016-03-04 NA 138 135-145 K 4.3 3.3-5.1 CL 102 96-108 CO2 27 22-29 ANION GAP 13 12-20 GLUCOSE,RANDOM 196 60-115 BUN 13 9-16 CREATININE 0.78 0.5-1.4 ESTIMATED GFR >60 PROTEIN, TOTAL 6.5 6.5-8.0 ALBUMIN 3.8 3.5-5.0 BILIRUBIN, TOTAL 0.4 0.0-1.0 CALCIUM 9.5 8.4-10.2 ALK. PHOS. 111 39-117 GOT 22 5-37 GPT 29 0-40 HEMOGLOBIN A1C (GLYCOHEMOGLOBIN) HEMOGLOBIN A1C % (HH) 7.5 ESTIMATED AVG GLUCOSE 169 US ABD 2015-12-05 MYOCARDIAL PERF MULTIPLE [id number] 2015-10-08 BRAIN NATRIURETIC PEPTIDE (BNP) 2015-09-03 8 BRAIN NATRIURETIC PEPTIDE 55 < 100 HEMOGLOBIN A1C (GLYCOHEMOGLOBIN) HEMOGLOBIN A1C % (HH) 8.1 ESTIMATED AVG GLUCOSE 186 FASTING BLOOD SUGAR (FBS, GLUCOSE) 3-08 FASTING BLOOD SUGAR 130 60-99 MICROALBUMIN, RANDOM 2015-09-09 MICALB/CRE RATIO RANDOM URINE 7.7 MICROALBUMIN, RANDOM URINE 10.0 CREATININE, RANDOM URINE 128.26 URINALYSIS + MICROSCOPIC 2015-09-09 COLOR YELLOW APPEARANCE,(UA) HAZY SPECIFIC GRAVITY 1.015 1.005-1.025 LEUKOCYTES NEG NEG NITRITE NEG NEG PROTEIN,QUALITATIVE NEG NEG - TR RISHABH PH 6.0 5.0-8.0 URINE BLOOD NEG NEG KETONES NEG NEG GLUCOSE 100 NEG MICROSCOPIC WBC 0 0-4 MICROSCOPIC RBC 0-2 0 EPITHELIAL CELLS NONE BACTERIA NONE CASTS NONE MUCUS TRACE CT CHEST WITH CONTRAST 2015-09-11 CHEST 2 VIEWS [id number] 2015-09-04 PFT WITH DLCO Echocardiogram Ejection Fraction LIPOPROTEIN FRACTIONATION (LIPID PANEL) 2 016-02-23 CHOLESTEROL 129 TRIGLYCERIDE 65 HDL 49 LDL 67 CBC w DIFF 2015-08-26 WBC 8.1 4.8-10.8 ABSOLUTE NEUTROPHIL COUNT 5.4 2. 2-7.9 RBC 4.98 4.60-5.80 HEMOGLOBIN 15.3 14.0-18.0 HEMATOCRIT 45.5 42-52 MCV 91.3 80-98 MCH 30.8 27.0-33.0 MCHC 33.8 31.0-36.0 PLATELET COUNT 229 160-400 RDW 13.1 11.0-16.0 NEUTROPHILS 66.7 45-73 LYMPHOCYTES 24.7 20-40 MONOCYTES 6.5 2-11 EOSINOPHILS 1.2 0-4 BASOPHILS 0.9 0-2 PROFILE, FASTING 2015-08-26 NA 137 135-145 K 4.5 3.3-5.1 CL 102 96-108 CO2 26 22-29 ANION GAP 14 12-20 FASTING BLOOD SUGAR 222 60-99 BUN 15 9-16 CREATININE 0.8 0.5-1.4 ESTIMATED GFR >60 PROTEIN, TOTAL 6.1 6.5-8.0 ALBUMIN 4.0 3.5-5.0 BILIRUBIN, TOTAL 0.6 0.0-1.0 CALCIUM 9.3 8.4-10.2 ALK. PHOS. 79 39-117 GOT 16 5-37 GPT 18 0-40 PSA, TOTAL 2015-08-26 PSA, TOTAL 2.88 <0.05-4.00 VITAMIN D 25-OH TOTAL 2015-08-26 VITAMIN D 25-OH TOTAL 46.8 >30 HEMOGLOBIN A1C (GLYCOHEMOGLOBIN) HEMOGLOBIN A1C % (HH) 7.2 ESTIMATED AVG GLUCOSE 160 MICROALBUMIN, RANDOM 2015-05-06 MICALB/CRE RATIO RANDOM URINE 6.8 MICROALBUMIN, RANDOM URINE 8.0 CREATININE, RANDOM URINE 116.63 HEMOGLOBIN A1C (GLYCOHEMOGLOBIN) HEMOGLOBIN A1C % (HH) 7.9 ESTIMATED AVG GLUCOSE 180 HEMOGLOBIN A1C (GLYCOHEMOGLOBIN) HEMOGLOBIN A1C % (HH) 8.0 ESTIMATED AVG GLUCOSE 183 PROFILE, FASTING 2014-10-01 NA 137 135-145 K 5.4 3.3-5.1 CL 103 96-108 CO2 23 22-29 ANION GAP 16 12-20 FASTING BLOOD SUGAR 144 60-99 BUN 15 9-16 CREATININE 0.85 0.5-1.4 ESTIMATED GFR >60 PROTEIN, TOTAL 6.4 6.5-8.0 ALBUMIN 3.9 3.5-5.0 BILIRUBIN, TOTAL 0.7 0.0-1.0 CALCIUM 9.6 8.4-10.2 ALK. PHOS. 73 39-117 GOT 20 5-37 GPT 21 0-40 HEMOGLOBIN A1C (GLYCOHEMOGLOBIN) HEMOGLOBIN A1C % (HH) 8.2 ESTIMATED AVG GLUCOSE 189 LIPOPROTEIN FRACTIONATION (LIPID PANEL) 2 CHOLESTEROL 119 TRIGLYCERIDE 47 HDL 47 LDL 63 CBC w DIFF 2014-06-25 WBC 8.2 4.8-10.8 ABSOLUTE NEUTROPHIL COUNT 5.2 2. 2-7.9 RBC 4.80 4.60-5.80 HEMOGLOBIN 14.3 14.0-18.0 HEMATOCRIT 42.1 42-52 MCV 87.6 80-98 MCH 29.8 27.0-33.0 MCHC 34.0 31.0-36.0 PLATELET COUNT 198 160-400 RDW 12.3 11.0-16.0 NEUTROPHILS 63.4 45-73 LYMPHOCYTES 24.2 20-40 MONOCYTES 10.8 2-11 EOSINOPHILS 0.8 0-4 BASOPHILS 0.9 0-2 MICROALBUMIN, RANDOM 2014-06-25 MICROALBUMIN, RANDOM URINE 9.8 MICROALBUMIN, RANDOM URINE 12.0 CREATININE, RANDOM URINE 122.23 PROFILE, FASTING 2014-06-25 NA 139 135-145 K 5.2 3.3-5.1 CL 103 96-108 CO2 27 22-29 ANION GAP 14 12-20 FASTING BLOOD SUGAR 176 60-99 BUN 17 9-16 CREATININE 0.77 0.5-1.4 ESTIMATED GFR >60 PROTEIN, TOTAL 6.3 6.5-8.0 ALBUMIN 3.9 3.5-5.0 BILIRUBIN, TOTAL 0.9 0.0-1.0 CALCIUM 9.3 8.4-10.2 ALK. PHOS. 75 39-117 GOT 20 5-37 GPT 17 0-40 TSH (THYROID STIMULATING HORMONE) 2014-06 TSH 1.86 0.32-4.0 URINALYSIS + MICROSCOPIC 2014-06-25 COLOR YELLOW APPEARANCE,(UA) CLEAR SPECIFIC GRAVITY 1.025 1.005-1.025 LEUKOCYTES NEG NEG NITRITE NEG NEG PROTEIN,QUALITATIVE NEG NEG - TR RISHABH PH 6.0 5.0-8.0 URINE BLOOD NEG NEG KETONES 15 NEG GLUCOSE NEG NEG MICROSCOPIC WBC 0 0-4 MICROSCOPIC RBC 0 0 EPITHELIAL CELLS NONE BACTERIA NONE RENAL EPITHELIAL CELLS NONE CASTS NONE HEMOGLOBIN A1C (GLYCOHEMOGLOBIN) HEMOGLOBIN A1C % (HH) 8.1 ESTIMATED AVG GLUCOSE 186 LIPOPROTEIN FRACTIONATION (LIPID PANEL) 2 CHOLESTEROL 135 TRIGLYCERIDE 81 HDL 52 LDL 67 CBC w DIFF 2014-03-05 WBC 7.2 4.8-10.8 ABSOLUTE NEUTROPHIL COUNT 3.6 2. 2-7.9 RBC 4.91 4.60-5.80 HEMOGLOBIN 14.9 14.0-18.0 HEMATOCRIT 43.6 42-52 MCV 88.8 80-98 MCH 30.3 27.0-33.0 MCHC 34.2 31.0-36.0 PLATELET COUNT 217 160-400 RDW 12.5 11.0-16.0 NEUTROPHILS 50.5 45-73 LYMPHOCYTES 35.8 20-40 MONOCYTES 9.4 2-11 EOSINOPHILS 3.0 0-4 BASOPHILS 1.3 0-2 MICROALBUMIN, RANDOM 2014-03-05 MICROALBUMIN, RANDOM URINE 6.1 MICROALBUMIN, RANDOM URINE 8.0 CREATININE, RANDOM URINE 130.01 PROFILE, FASTING 2014-03-05 NA 137 135-145 K 4.5 3.3-5.1 CL 103 96-108 CO2 27 22-29 ANION GAP 12 12-20 FASTING BLOOD SUGAR 240 60-99 BUN 21 9-16 CREATININE 0.86 0.5-1.4 ESTIMATED GFR >60 PROTEIN, TOTAL 6.2 6.5-8.0 ALBUMIN 3.8 3.5-5.0 BILIRUBIN, TOTAL 0.9 0.0-1.0 CALCIUM 9.2 8.4-10.2 ALK. PHOS. 69 39-117 GOT 15 <3-37 GPT 19 <6-40 TSH (THYROID STIMULATING HORMONE) 2014-03 TSH 2.03 0.32-4.0 URINALYSIS + MICROSCOPIC 2014-03-05 COLOR YELLOW APPEARANCE,(UA) CLEAR SPECIFIC GRAVITY 1.025 1.005-1.025 LEUKOCYTES NEG NEG NITRITE NEG NEG PROTEIN,QUALITATIVE NEG NEG - TR RISHABH PH 6.0 5.0-8.0 URINE BLOOD NEG NEG KETONES NEG NEG GLUCOSE NEG NEG MICROSCOPIC WBC 0-2 0-4 MICROSCOPIC RBC 0-2 0 EPITHELIAL CELLS NONE BACTERIA NONE RENAL EPITHELIAL CELLS NONE CASTS NONE GI BIOPSY 2013-12-26 G.I. BIOPSY Colonoscopy HEMOGLOBIN A1C (GLYCOHEMOGLOBIN) HEMOGLOBIN A1C % (HH) 7.6 ESTIMATED AVG GLUCOSE 171 LIPOPROTEIN FRACTIONATION (LIPID PANEL) 2 CHOLESTEROL 134 TRIGLYCERIDE 71 HDL 51 LDL 69 CBC w DIFF 2013-06-19 WBC 6.4 4.8-10.8 ABSOLUTE NEUTROPHIL COUNT 3.1 2. 2-7.9 RBC 5.02 4.60-5.80 HEMOGLOBIN 14.8 14.0-18.0 HEMATOCRIT 43.1 42-52 MCV 85.7 80-98 MCH 29.5 27.0-33.0 MCHC 34.4 31.0-36.0 PLATELET COUNT 250 160-400 RDW 12.0 11.0-16.0 NEUTROPHILS 48.3 45-73 LYMPHOCYTES 36.3 20-40 MONOCYTES 11.8 2-11 EOSINOPHILS 2.4 0-4 BASOPHILS 1.2 0-2 MICROALBUMIN, RANDOM 2013-06-19 MICROALBUMIN, RANDOM URINE 5.7 MICROALBUMIN, RANDOM URINE 9.0 CREATININE, RANDOM URINE 155.24 PROFILE, FASTING 2013-06-19 NA 138 135-145 K 4.4 3.3-5.1 CL 103 96-108 CO2 26 22-29 ANION GAP 13 12-20 FASTING BLOOD SUGAR 159 60-99 BUN 17 9-16 CREATININE 0.84 0.5-1.4 ESTIMATED GFR >60 PROTEIN, TOTAL 6.5 6.5-8.0 ALBUMIN 4.0 3.5-5.0 BILIRUBIN, TOTAL 1.3 0.0-1.0 CALCIUM 9.4 8.4-10.2 ALK. PHOS. 75 39-117 GOT 21 <3-37 GPT 22 <6-40 TSH (THYROID STIMULATING HORMONE) 2013-06 TSH 2.98 0.32-4.0 URINALYSIS + MICROSCOPIC 2013-06-19 COLOR YELLOW APPEARANCE,(UA) CLEAR SPECIFIC GRAVITY 1.025 1.005-1.025 LEUKOCYTES NEG NEG NITRITE NEG NEG PROTEIN,QUALITATIVE NEG NEG - TR RISHABH PH 5.5 5.0-8.0 URINE BLOOD TRACE NEG KETONES 15 NEG GLUCOSE NEG NEG MICROSCOPIC WBC 0 0-4 MICROSCOPIC RBC 0-2 0 EPITHELIAL CELLS NONE BACTERIA NONE RENAL EPITHELIAL CELLS NONE CASTS NONE MUCUS TRACE COLOR YELLOW APPEARANCE,(UA) CLEAR SPECIFIC GRAVITY 1.025 1.005-1.025 LEUKOCYTES NEG NEG NITRITE NEG NEG PROTEIN,QUALITATIVE NEG NEG - TR RISHABH PH 5.5 5.0-8.0 URINE BLOOD TRACE NEG KETONES 15 NEG GLUCOSE NEG NEG MICROSCOPIC WBC 0 0-4 MICROSCOPIC RBC 0-2 0 EPITHELIAL CELLS NONE BACTERIA NONE RENAL EPITHELIAL CELLS NONE CASTS NONE MUCUS TRACE VITAMIN D 25-OH TOTAL 2013-06-19 VITAMIN D 25-OH TOTAL 43.2 >30 REASON FOR VISIT 2 month f/u, FYI, 1 month f/u, Follow up Behavioral change, Memory loss, FYI only, FYI, behavioral change, Needs call back from office, Needs call back from MD, Refill, Follow up type I diabetes mellitus, now on an insulin pump and CGM, hypertension, physical, Message, Needs call back from MD, Needs call back from office, Needs call back from MD, Follow up type I diabetes mellitus, now on an insulin pump and CGM, Anxiety, Needs call back from MD, 6 month f/u, Follow up type I diabetes mellitus,now on an insulin pump and CGM, Message, Refill and message, 6 month f/u, Follow up type I diabetesmellitus, now on an insulin pump and CGM, Message, Needs call back from MD, Needs call back from MD, Message, annual visit, Needs call back from MD, Needs call back from office, Follow up type I diabetes mellitus, now on an insulin pump and CGM, Message, Refill and message, Needs call back from MD,Needs call back from MD, 3 month f/u, Follow up type I diabetes mellitus, now on an insulin pump, benign prostatic hyperplasia (BPH), Anxiety, Message, Needs call back from MD, 6 month f/u, Follow uptype I diabetes mellitus, now on an insulin pump, Message, Refill, swelling, left foot, Message, 3 month f/u, Follow up type I diabetes mellitus, now on an insulin pump, Needs call back from MD, Follow up type I diabetes mellitus, now on an insulin pump, benign prostatic hyperplasia (BPH), 3 month f/u, Refill, Needs call back from MD, physical, annual visit, Needs call back from office, Needs call back from MD, Refills, 3 month f/u, Follow up type I diabetes mellitus, Message, Needs call back from MD, Message, Refills, Follow up type I diabetes mellitus, benign prostatic hyperplasia (BPH), Needs call back from MD, Needs call back from office, Message to self, anxiety, Message, nutrition follow up, 3 month f/u, Follow up type I diabetes mellitus, nutrition follow up, Refills, Follow up type I diabetes mellitus, nutrition follow, nutrition follow up, Nutrition follow up, FYI, Needs call back from MD, weight loss, Follow up type I diabetes mellitus, Message, 6 month f/u, nutrition followup, Nutrition follow up, Message, annual visit, Nutrition follow up, Message, nutr follow up, Messag e, Message, nutrition, Met with patient again today. Please see full note in patient docs section, Pt going to consider a dexcom sensor, Understands the need to check fingersticks 4x/day; more than that will result in inadequate supplies but less could affect the coverage of the dexcom sensor, nutrition follow up, Follow up DM nutrition visit, nutrition assessment, Follow up type I diabetes mellitus, Message, Nutrition follow up at [address] [place] [address] drive, Follow up type I diabetes mellitus, 3 month f/u, Initial Nutrition Assessment, DM/nutrition eval, Nurse navigation visit, Message, diabetic/nutritional counseling, Refill, Refills, Refill, Refill, Follow up type I diabetes mellitus, Message, Refills, Refill, Follow up type I diabetes mellitus, 3 month f/u, Message, Follow up type I diabetes mellitus, Message, Message, Refills, Refill, URI, cough, Needs call back from MD, Needs call back from office, 3 month f/u, Refill, Message, Refills, Refill, Message, Follow up type I diabetes mellitus, hypertension, Refills, 3 month f/u, Echocardiogram Results, Needs call back from MD, Needs call back from MD, Follow up type I diabetes mellitus, hypertension, 3 month f/u, 3 month f/u, Follow up type I diabetes mellitus, Message, Refill and message, Message, Follow up type I diabetes mellitus, Refills, Message, refill, refill, Needs referral, 3 month f/u, Follow up type I diabetes mellitus, Needs call back from office, 3 month f/u, annual visit, Follow up type I diabetes mellitus, hypertension, Refills, Message, Follow up type I diabetes mellitus, hypertension, urgent visit, wants to see you, Message, Refills, Needs call back from MD, refills, f/u visit, f/u visit, new patient Insurance Providers Health Insurance Type Health Plan Insurance Address Health Plan Insurance Phone Health Plan Insurance Name Health Plan Coverage Dates Member ID Patient Relationship to Subscriber Patient Address Patient Phone Patient Name Patient Date of Subscriber ID Subscriber Name Subscriber Date of Group No BLUE CROSS BLUE CARD [address] [facility] [address] BLUE CROSS BLUE CARD self Beni loredo [id number] [employer] [address] [facility] [address] Access Plus self Beni loredo [id number] [id number] [employer]ET[employer] [address] [facility] [address] [employer] self Beni loredo [id number] [employer] [address] [facility] [address] [employer] self Beni loredo [id number] MEDICARE [address] [place] [address] MEDICARE self Beni loredo [id number]
[2023-01-31 18:44] LABS: Basophils Percent Auto 0.4 % (0-2); Eosinophils Absolute Auto 0.1 X10*3/uL (0.0-0.4); Eosinophils Percent Auto 0.9 % (0-4); Hematocrit 40.9 % (42.0-52.0); Imm Gran Abs Auto 0.09 X10*3/uL (0.00-0.03); Imm Gran Pct Auto 0.9 % (0.0-0.4); Lymphocytes Absolute Auto 1.6 X10*3/uL (1.2-4.9); Lymphocytes Percent Auto 16.5 % (20-40); Mean Corpuscular HGB Conc 34.2 g/dl (31.0-36.0); Mean Corpuscular Hemoglobin 30.2 pg (27.0-33.0); Mean Corpuscular Volume 88.3 fL (80.0-98.0); Mean Platelet Volume 11.5 fL (9.4-12.4); Monocytes Absolute Auto 1.1 X10*3/uL (0.1-1.2); Monocytes Percent Auto 11.4 % (2-11); Neutrophils Absolute Auto 6.9 x10*3/uL (2.0-8.3); Neutrophils Percent Auto 69.9 % (45-73); Platelet Count 207 X10*3/uL (160-400); Red Blood Count 4.63 X10*6/uL (4.60-5.80); Red Cell Distribution Width 13.2 % (11.0-16.0); White Blood Count 9.9 X10*3/uL (4.8-10.8)
[2023-01-31 18:57] LABS: Appearance Urine Clear; Color Urine Yellow; Glucose Urine UA Negative (Negative); Leukocyte Esterase Urine Negative (Negative); Nitrite Urine Negative (Negative); Urine Blood Negative (Negative); Urine Ketones Negative (Negative); Urine Protein Negative (Neg-Trace)
[2023-01-31 19:02] LABS: Bacteria Urine None Seen (None Seen); Hyaline Casts Urine 0-2 /LPF (0-2); RBC Urine 0-2 /HPF (0-2); Squamous Epithelial Cell Urine 0-2 /HPF (0-2); WBC Urine 0-5 /HPF (0-5)
[2023-01-31 19:19] VITALS: BP 180/56; PULSE 51
[2023-01-31 19:20] VITALS: BP 161/51; PULSE 54
[2023-01-31 19:22] VITALS: BP 172/63; PULSE 52
== END 2023-01-31 19:35 | disposition home or self-care (01) ==
PROVIDERS: Physician Assistant; Emergency Provider Internal Medicine; PCP Internal Medicine
DX: R55 Syncope and collapse (principal); S01.01XA Laceration without foreign body of scalp, initial encounter; W19.XXXA Unspecified fall, initial encounter; E87.1 Hypo-osmolality and hyponatremia; E10.9 Type 1 diabetes mellitus without complications; I10 Essential (primary) hypertension; E78.5 Hyperlipidemia, unspecified; Y93.9 Activity, unspecified; Y92.410 Unspecified street and highway as the place of occurrence of the external cause; Y99.9 Unspecified external cause status; Z79.4 Long term (current) use of insulin; Z79.899 Other long term (current) drug therapy
CPT/HCPCS: 12001; 36415; 70450; 71046; 80053; 81001; 82947; 83690; 84484; 85025; 93005; 99284

== ENCOUNTER → 2023-01-31 16:53 | Outpatient (BNV) | payer MEDICARE, SELFPAY | PROVIDERS: Emergency Provider Internal Medicine; PCP Internal Medicine; Visit Provider Internal Medicine | DX: I44.0 Atrioventricular block, first degree (principal); R94.31 Abnormal electrocardiogram [ECG] [EKG] | CPT/HCPCS: 93010 ==

== ENCOUNTER 2023-02-07 10:53 | Outpatient (AMB) | payer MEDICARE, SELFPAY ==
--- NOTE | 2023-02-07 11:33 | MHC.AMDMED ---
Intake Intake Visit Reasons: DM Allergies penicillin V Allergy (Unknown, Verified 09/16/22 16:03) Rash Penicillins [PENICILLINS] Allergy (Unknown, Verified 09/16/22 16:03) UNKNOWN HPI Comprehensive Diabetes Asmnt Most Recent Diabetes Results: Creatinine 0.96 mg/dL (0.5-1.4) 01/31/23 Blood Urea Nitrogen 27 mg/dL (9-16) H 01/31/23 Sodium 134 mmol/L (135-145) L 01/31/23 Potassium 5.2 mmol/L (3.3-5.1) H 01/31/23 Chloride 101 mmol/L (96-108) 01/31/23 Carbon Dioxide 23 mmol/L (22-29) 01/31/23 Calcium 9.7 mg/dL (8.4-10.2) 01/31/23 AST 23 U/L (5-37) 01/31/23 ALT 21 U/L (0-40) 01/31/23 Total Protein 6.9 g/dL (6.5-8.0) 01/31/23 Albumin 4.0 g/dL (3.5-5.0) 01/31/23 PFSH Medical History Diabetes type 1, controlled Diabetic polyneuropathy associated with type 1 diabetes mellitus Dyslipidemia Hypertension Hyponatremia Mild non proliferative diabetic retinopathy Overweight Surgical History Hx of cataract removal with insertion of prosthetic lens Hx of hand surgery Hx of right inguinal hernia repair Family History Father CVD (cardiovascular disease) Mother Hypertension Maternal Grandmother Diabetes Social History Household Members: Spouse Alcohol intake: current Alcohol intake frequency: a few times a week Alcohol type: wine Patient Tobacco Use Status: Never used Tobacco Assessment & Plan Assessment & Plan (1) Diabetic polyneuropathy associated with type 1 diabetes mellitus: Code(s): E10.42 - Type 1 diabetes mellitus with diabetic polyneuropathy Plan: Patient presents for pump training for control IQ with Dexcom G6 The following topics were reviewed today: - Inserting infusion set or Pod site rotation - setting alerts and alarms on pump, cellphone, and cellphone in follow joby Patient's is concerned because she gets alerts on patient's glucose is over 300 mg/dL, patient has high alerts off on both cellphone and in insulin pump ??? High Alert: off ??? Low Alert: 80 mg/dl? ?patient's average glucose in the last 2 weeks 172 mg/dL ?patient above target 35% ?at target 64% ?below target 1% Patient continues to have postprandial hyperglycemia after lunch and supper.? Reviewed with patient the importance of accurate carb counting, also using exercise to assist with hyperglycemia. Patient reports he recently fell during a hard work and has a scrape on the back of his head. Patient denies this is related to hypoglycemia Evening insulin to carb ratio changed see below Patient given the opportunity to ask questions about pump function Setting verified by [facility] Changes made to settings at today's Basal rate(s) (units/hour) : 12 Am? to 4 AM? 0.4 units / hr?? ?4 AM to 7:30 AM? 0.375units / hr 7:30 AM? to 9 AM ? 0.5 units / hr 9 AM to 5 PM? 0.7 units / hr 5 PM to 9 PM? 0.6.5 units / hr 9 PM to 12 AM 0.6 units / hr Bolus setting Insulin Carbohydrate Ratio (s) 12 AM? to 9 AM ? 1:7 9 AM to 12 PM? 1:5 12 PM? to 5 PM?1:5.5? ?5 PM to 9 PM? ? 1:6.5 New ?5 PM to 7 PM? ? 1:6 9 PM to 12 AM? 1:8 Coding Level of Care Code Est Pt Level 1 (04404) Diagnoses Diabetic polyneuropathy associated with type 1 diabetes mellitus E10.42
== END 2023-02-07 11:45 | disposition home or self-care (01) ==
PROVIDERS: PCP Internal Medicine; Visit Provider Registered Nurse Diabetes Educator
DX: E10.42 Type 1 diabetes mellitus with diabetic polyneuropathy (principal)

== ENCOUNTER → 2023-02-07 10:53 | Outpatient (BNVA) | payer MEDICARE, SELFPAY | PROVIDERS: Visit Provider Registered Nurse Diabetes Educator | DX: Z46.81 Encounter for fitting and adjustment of insulin pump (principal); E10.42 Type 1 diabetes mellitus with diabetic polyneuropathy | CPT/HCPCS: 99211 ==

== ENCOUNTER → 2023-02-09 10:58 | Outpatient (REF) | payer MEDICARE, SELFPAY | LOC: HO.SL 10:58 | PROVIDERS: PCP Internal Medicine; Visit Provider Psychiatry & Neurology Neurology | DX: G47.33 Obstructive sleep apnea (adult) (pediatric) (principal) | CPT/HCPCS: 95806 ==

== ENCOUNTER → 2023-02-09 19:00 | Outpatient (BNV) | payer MEDICARE, SELFPAY | PROVIDERS: PCP Internal Medicine; Visit Provider Internal Medicine | DX: G47.33 Obstructive sleep apnea (adult) (pediatric) (principal) | CPT/HCPCS: 95806 ==

== ENCOUNTER 2023-03-10 09:00 | Outpatient (AMB) | payer MEDICARE, SELFPAY ==
--- NOTE | 2023-03-10 09:02 | MHC.OFFVIS ---
Intake Vital Signs 03/10/23 09:09 Height 5 ft 8 in Weight 194 lb 3.636 oz BMI 29.5 BP 128/82 Blood Pressure Location Rt brachial Position Sitting Pulse 59 Pulse Source Pulse Oximeter Intake Visit Reasons: DM Intake Note: Patient presents today to follow up on Type Diabetes Mellitus. Patient receives DME supplies through: Last Diabetic Eye exam: 07/2022 Last Podiatry Visit: 07/2022 Random Glucose:148 mg/dl HgA1C:7.9% General Intern Required: No Accompanied by: Self / Same As Patient Allergies penicillin V Allergy (Unknown, Verified 03/10/23 09:11) Rash Penicillins [PENICILLINS] Allergy (Unknown, Verified 03/10/23 09:11) UNKNOWN Medication List - Last Reconciled 03/10/23 by Srinivasa Walker MD atorvastatin 40 mg PO DAILY blood sugar diagnostic (FreeStyle Lite Strips) As directed three times a day blood-glucose meter (FreeStyle Lite Meter kit) As directed 3 x/day blood-glucose meter,continuous (Dexcom G6 Steel Heater) As directed blood-glucose sensor (Dexcom G6 Sensor device) As directed blood-glucose transmitter (Dexcom G6 Transmitter device) As directed cholecalciferol (vitamin D3) 50 mcg PO DAILY donepezil 5 mg PO DAILY finasteride 5 mg PO DAILY hydrochlorothiazide 25 mg PO QAM lancets (FreeStyle Lancets) 4 times a day losartan 50 mg PO DAILY Lyumjev U-100 Insulin (insulin lispro-aabc) Up to 100 units via insulin pump subcut daily; 90 days NS multivitamin 1 tab PO DAILY sertraline 50 mg PO DAILY tamsulosin 0.4 mg PO DAILY HPI HPI Comments History of Present Illness Details Patient is 82-year-old male with DM type 1 diagnosed in his 20s who presents for management of diabetes. his sensor integrated with his pump so that he may use control IQ. 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 Past medical history: Dm1, HTN, Dyslipidemia Micro and macrovascular complications: + retinopathy, + neuropathy, Diabetes medications: Lyumjev via pump Tandem Control IQ (Control IQ in use 97%) Total daily insulin use is 46.3 units per day 41% basal 8% correction bolus Cartridge/tubing change every 3.7 days. Site/cannula change every 3.7 days Pump settings Basal rate(s) (units/hour) : 12 Am? to 4 AM? 0.4 units / hr?? ?4 AM to 7:30 AM? 0.375units / hr 7:30 AM? to 9 AM ? 0.5 units / hr 9 AM to 5 PM? 0.7 units / hr 5 PM to 9 PM? 0.6.5 units / hr 9 PM to 12 AM 0.6 units / hr Bolus setting Insulin Carbohydrate Ratio (s) 12 AM? to 9 AM ? 1:7 9 AM to 12 PM? 1:5 12 PM? to 5 PM?1:5.5? ?5 PM to 7 PM? ? 1:6.0 7 OM to 9 PM 1 :6.5 9 PM to 12 AM? 1:8 CGM: 93% in use <80mg/dl, <1% 80-180, 56% >180, 13.7 days in use. , 173 bg average GMI of 7,4. 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/2022 Saw optho : saw 09/3022 Laboratory Tests 09/04/21 10/14/21 10/14/21 08:33 08:10 08:10 Creatinine 0.81 Estimated GFR > 60 Hgb A1c (Clinic) 8.4 H Hemoglobin A1c % Triglycerides 73 Cholesterol 114 LDL Cholesterol, C alc 55 HDL Cholesterol 45 25-OH Vitamin D To figueroa 38.4 TSH 2.81 Microalb/Creat Rat io TNP 10/14/21 08:10 Creatinine Estimated GFR Hgb A1c (Clinic) Hemoglobin A1c % 8.0 Triglycerides Cholesterol LDL Cholesterol, C alc HDL Cholesterol 25-OH Vitamin D To figueroa TSH Microalb/Creat Rat io 05/20/21 10:34 Hgb A1c (Clinic) 7.9 H 02/04/21 02/04/21 02/04/21 08:35 08:35 08:35 Creatinine Estimated GFR Hemoglobin A1c % 8.0 Triglycerides 70 Cholesterol 111 LDL Cholesterol, C alc 53 HDL Cholesterol 44 25-OH Vitamin D To figueroa 41.9 TSH 2.42 Microalb/Creat Rat io TNP 05/03/21 22:54 Creatinine 0.78 Estimated GFR > 60 Hemoglobin A1c % Triglycerides Cholesterol LDL Cholesterol, C alc HDL Cholesterol 25-OH Vitamin D To figueroa TSH Microalb/Creat Rat io PFSH Medical History Diabetes type 1, controlled Diabetic polyneuropathy associated with type 1 diabetes mellitus Dyslipidemia Hypertension Hyponatremia Mild non proliferative diabetic retinopathy Overweight Surgical History Hx of right inguinal hernia repair Hx of cataract removal with insertion of prosthetic lens Hx of hand surgery Family History Father CVD (cardiovascular disease) Mother Hypertension Maternal Grandmother Diabetes Social History Household Members: Spouse Alcohol intake: current Alcohol intake frequency: a few times a week Alcohol type: wine Patient Tobacco Use Status: Never used Tobacco Physical Exam Vital Signs: Last Vital Signs Pulse 59 03/10/23 09:09 BP 128/82 03/10/23 09:09 BMI result Body Mass Index 29.5 Absence of Cushingoid features. Absence of acromegalic features. Neck exam reveals nl size thyroid about 15 gms. No thyroid nodules palpable. No carotid bruits present. Lungs CTA. Heart S1 S2, Reg R/R. No M/R/ G. Skin exam reveals absence of vitiligo or acanthosis nigricans. Abdominal exam reveals Soft NT/ND with NA BS. No organomegaly present. Extrem Other: Visual exam of foot performed. No ulcerations or open lesions. No onchomycosis, no callouses.Pulses 2 + distally. Sensation intact to monofilament exam. Vibratory sensation sensed 10 seconds is decresed right, 10 seconds in left with 128 Hz tuning fork Results AMB Hemoglobin A1c AMB Hemoglobin A1c 7.9 % Last Edit by Goldie Majano on 03/10/23 09:44 Results Reviewed Results Reviewed: 03/10/23 09:18 Glucose, Whole Blood Routine Laboratory Last Values Glucose (Clinic) 148 mg/dL (60-115) H 03/10/23 09:18 Hgb A1c (Clinic) 7.9 % (4.0-6.0) H 03/10/23 09:27 Assessment & Plan Assessment & Plan (1) Diabetes type 1, controlled: Code(s): E10.9 - Type 1 diabetes mellitus without complications Qualifiers: Diabetes mellitus complication detail: with diabetic retinopathy Diabetes mellitus complication status: with ophthalmic complications Diabetes mellitus macular edema: without macular edema Diabetic retinopathy severity: with mild nonproliferative retinopathy Laterality: bilateral Qualified Code(s): E10.3293 - Type 1 diabetes mellitus with mild nonproliferative diabetic retinopathy without macular edema, bilateral Plan: This is an 82-year-old white male with a history of type 1 diabetes being controlled with a T-slim X 2 control IQ with Dexcom with good improved glycemic control and known microvascular complications namely neuropathy and retinopathy. Plan is to continue present management . Patient is a optimal glycemic control considering his age and comorbidities. Will check lipid profile. Also, patient had complained about neuropathic numbness in lower extremities I gave him information regarding Metanx and natural food FDA approved treatment for diabetic neuropathic pain. He is going to get back to me about this. Orders: Orders Lipid Panel Today E10.9 - Type 1 diabetes mellitus without complications AMB Hemoglobin A1c Today E10.9 - Type 1 diabetes mellitus without complications Coding Level of Care Code Est Pt Level 4 (36486) Diagnoses Controlled type 1 diabetes mellitus with both eyes affected by mild nonproliferative retinopathy without macular edema E10.3293 Diabetes mellitus complication detail: with diabetic retinopathy Diabetes mellitus complication status: with ophthalmic complications Diabetes mellitus macular edema: without macular edema Diabetic retinopathy severity: with mild nonproliferative retinopathy Laterality: bilateral
[2023-03-10 09:09] VITALS: BP 128/82; PULSE 59; BMI 29.5
[2023-03-10 09:22] LABS: Glucose, Whole Blood 148 mg/dL (60-115)
== END 2023-03-10 09:43 | disposition home or self-care (01) ==
PROVIDERS: PCP Internal Medicine; Visit Provider Internal Medicine Endocrinology, Diabetes & Metabolism
DX: E10.9 Type 1 diabetes mellitus without complications (principal); E10.3293 Type 1 diabetes mellitus with mild nonproliferative diabetic retinopathy without macular edema, bilateral
CPT/HCPCS: 99214

== ENCOUNTER → 2023-03-10 09:00 | Outpatient (BNVA) | payer MEDICARE, SELFPAY | PROVIDERS: PCP Internal Medicine; Visit Provider Internal Medicine Endocrinology, Diabetes & Metabolism | DX: E10.9 Type 1 diabetes mellitus without complications (principal); E10.42 Type 1 diabetes mellitus with diabetic polyneuropathy; E10.3293 Type 1 diabetes mellitus with mild nonproliferative diabetic retinopathy without macular edema, bilateral; Z79.4 Long term (current) use of insulin; Z96.41 Presence of insulin pump (external) (internal) | CPT/HCPCS: 82947; 83036; 99212 ==

== ENCOUNTER 2023-04-25 14:29 | Outpatient (AMB) | payer MEDICARE, SELFPAY ==
[2023-04-25 14:33] VITALS: BP 110/64; PULSE 54; O2SAT 95; BMI 29.2
--- NOTE | 2023-04-25 14:33 | A.OFFVIS_ITS ---
Intake Vital Signs 04/25/23 14:33 Height 5 ft 8 in Weight 192 lb BMI 29.2 BP 110/64 Blood Pressure Location Lt brachial Position Sitting Pulse 54 Pulse Source Pulse Oximeter Pulse Oximetry (%) 95 Oxygen Delivery Method Room Air Intake Visit Reasons: Obstructive sleep apnea Intake Note: pt is here for as new patient follow up of sleep study and would like to discuss results. 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 Allergies penicillin V Allergy (Unknown, Verified 04/25/23 15:44) Rash Penicillins [PENICILLINS] Allergy (Unknown, Verified 04/25/23 15:44) UNKNOWN Medication List - Last Reconciled 04/25/23 by Mckayla Elizabeth MD atorvastatin 40 mg PO DAILY blood sugar diagnostic (FreeStyle Lite Strips) As directed three times a day blood-glucose meter (FreeStyle Lite Meter kit) As directed 3 x/day blood-glucose meter,continuous (Dexcom G6 Vascular Neurologist) As directed blood-glucose sensor (Dexcom G6 Sensor device) As directed blood-glucose transmitter (Dexcom G6 Transmitter device) As directed cholecalciferol (vitamin D3) 50 mcg PO DAILY donepezil 5 mg PO DAILY finasteride 5 mg PO DAILY hydrochlorothiazide 25 mg PO QAM lancets (FreeStyle Lancets) 4 times a day losartan 50 mg PO DAILY Lyumjev U-100 Insulin (insulin lispro-[facility]) Up to 100 units via insulin pump subcut daily; 90 days NS multivitamin 1 tab PO DAILY sertraline 50 mg PO DAILY tamsulosin 0.4 mg PO DAILY Do you need a note to return to daycare/school/sports/work: No HPI Obstructive sleep apnea HPI Details 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 He had a recent home-based, sleep study which has shown that he has rather severe obstructive sleep apnea, and needs the treatment. Thus he was referred to be seen by me. The patient tells me that he sleeps well and he does not feel that he has any sleep problem. This he has hard time to understand how could he have sleep apnea. He say is his has noticed that he snores during sleep, He denies any excessive daytime sleepiness. He also has not been overly obese, though lately he has gained some weight especially in the belly. His BMI is in the range of 28-30. 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 He was treated with triple therapy for 1 year. 1 cushion maker hand had told him at that javier e that he may have sarcoidosis, but it was not performed by any test. Anyway he never had any active symptoms of pulmonary tuberculosis. He completed the treatment for 1 year and after that has been okay. He retired about 10 years ago and had moved to this [place] area. Since about a year ago he was having some memory impairment, and has been under care of neurologist Dr.M.Ali Marks . He treated him for Alzheimer disease , with Donepezil 10 mg daily and he had significant improvement, Then a 2nd drug was added( he does not know the name of ) which caused lot of side effects. He became somewhat confused and with some behavior changes. . Thus the 2nd drug was stopped Sleep study was ordered by Dr. Marks , which was done only a few weeks ago. PMH. Includes longstanding diabetes mellitus, type 1, and he has been insulin dependent. Now he is on insulin pump He also has BPH with nocturia , about twice per. Night which wakes him up He has chronic depression and is on sertraline 50 mg daily He is also being treated for mild hypertension and hyperlipidemia, [facility], [facility] Medical History (Updated 04/25/23 @ 16:12 by Mckayla Elizabeth MD) ODILIA (obstructive sleep apnea) Retrognathia Overweight Hyponatremia Dyslipidemia Hypertension Diabetic polyneuropathy associated with type 1 diabetes mellitus Mild non proliferative diabetic retinopathy Diabetes type 1, controlled Surgical History Hx of right inguinal hernia repair Hx of cataract removal with insertion of prosthetic lens Hx of hand surgery Family History Father CVD (cardiovascular disease) Mother Hypertension Maternal Grandmother Diabetes Social History Household Members: Spouse Alcohol intake: current Alcohol intake frequency: a few times a week Alcohol type: wine Patient Tobacco Use Status: Never used Tobacco Review of Systems Const Denies body aches, Denies chills, Denies fatigue, Denies fever(s) and Denies headache(s) Eyes Denies blurry vision, Denies irritation, Denies itchy eyes and Denies loss of vision ENT Denies dysphagia, Denies vertigo, Denies headache(s), Denies epistaxis, Denies nasal congestion, Denies nasal discharge, Denies nasal obstruction and Denies sinus pain Card Denies chest pain, Denies rapid heart rate, Denies irregular heart rhythm, Denies dyspnea on exertion and Denies slow heart rate Resp Reports as per HPI and Denies dyspnea on exertion GI Denies bloating, Denies change in bowel habits, Denies change in stool character, Denies dysphagia, Denies heartburn, Reports nausea and Denies vomiting Reports nocturia and Denies urinary incontinence Musc Denies abnormal gait, Denies back pain, Denies myalgias, Denies arthralgias, Denies muscle weakness and Denies stiffness Skin/Breast Reports system reviewed and no additional complaints, except as documented Neuro Denies abnormal gait, Denies vertigo, Denies headache(s), Denies focal weakness, Denies loss of vision, Reports memory loss, Denies restless legs and Denies tremor(s) Psych Reports depression and Reports memory loss Endo Reports no additional complaints, Denies fatigue and Reports other (Insulin- dependent diabetes mellitus) Franklyn/Lymph Reports no additional complaints Aller/Immun Reports no additional complaints and Denies itchy eyes Physical Exam Vital Signs: Last Vital Signs Pulse 54 04/25/23 14:33 BP 110/64 04/25/23 14:33 Pulse Ox 95 04/25/23 14:33 Oxygen Delivery Method Room Air 04/25/23 14:33 BMI result Body Mass Index 29.2 Generally healthy looking, he is only says moderately overweight Const General: healthy appearing, comfortable, no acute distress, alert and awake Orientation/consciousness: patient oriented x3 HEENT Head: Yes normal to inspection General nose exam: No nasal polyps present and No nasal discharge present Face and sinus: Yes sinuses nontender Mouth: oropharynx abnormals (Tongue is placed back, oropharynx is narrow, Mallampati class 4) Teeth and gingiva: other (RETROGANTHIA of the lower jaw ( overbite ) ) Throat: Yes posterior oropharynx normal Eyes General: appearance normal, both eyes and all related structures Neck Neck: Yes normal visual inspection, Yes no lymphadenopathy, Yes trachea midline, Yes no JVD and Yes other (Neck circumference 16-1/2 inch) Thyroid: Thyroid normal Chest Chest palpation & inspection: normal inspection of the chest, normal palpation of entire chest wall and no tenderness Resp Effort & Inspection: normal respiratory effort Auscultation: clear to auscultation bilaterally, no crackles and no wheezes Cardio Palpation: normal PMI Rate: regular rate Rhythm: regular rhythm Heart sounds: no gallops and no murmurs Peripheral pulses: Peripheral pulses 2+ throughout GI Palpation (GI): Soft to palpation, nontender, No hepatosplenomegaly present and no masses Auscultation: normal bowel sounds Back/Spine/Pelvis Thoracic/Lumbar Spine: thoracic and lumbar spine normal to inspection Skin General skin exam: no rashes or lesions noted Neuro General: patient oriented x3 and no focal motor deficits Cranial nerves: Yes CN's II-XII intact bilaterally Extrem General: Yes normal to inspection, Yes no clubbing, cyanosis or edema and Yes no calf tenderness Psych Appearance: grossly normal and well kempt Speech and movement: Normal speech and movement present Results Reviewed Results Reviewed: CHEST X-RAY ON 01/31/2023, WAS REPORTED TO BE NORMAL. NO RESIDUAL SCAR OR CALCIFICIFICATION WAS DESCRIBED . HOME-BASED SLEEP STUDY ON 02/09/2023 . IS GROSSLY ABNORMAL TOTAL SLEEP TIME AHI 32, SUPINE POSITION AHI 49 LATERAL POSITION AHI 24 SNORING FOR 15% OF THE SLEEP TIME. 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 I pointed it out to him and he tells me that yes he is aware of the fact that he has had an overbite. This is a chronic fixed defect and would not be correctable. Code(s): M26.19 - Other specified anomalies of jaw-cranial base relationship (2) ODILIA (obstructive sleep apnea): Comment: Patient does have obstructive sleep apnea which is relatively severe with total sleep time AHI 32. Because of this the severity, he should be on a definite it treatment. The gold standard treatment at this time would be says use of CPAP. We had a lengthy discussion, and finally he did understand that he does have obstructive sleep apnea, contributed by his chronic Xiao dental defect and moderate obesity. He was reluctant to accept the treatment. However after full explanation, and when I told him that this may be contributing to his memory loss, depression, and poor control of diabetes mellitus, he agreed to try CPAP With the condition that if he does not find any benefit from the use of CPAP he would like to discontinue it. I a.m. ordering CPAP with Auto Pap mode , pressure setting 6-20 cm, using his soft full face mask . He is mouth breather, and hence the nasal mask would not be good for him. Advised that it will benefit if he loses little bit weight such as about 5-10 lb . He will be checked in 6 weeks ( about 4 weeks after he starts using the CPAP ) Code(s): G47.33 - Obstructive sleep apnea (adult) (pediatric) Coding Level of Care Code New Pt Level 4 (70813) Diagnoses Retrognathia M26.19 ODILIA (obstructive sleep apnea) G47.33
== END 2023-04-25 15:36 | disposition home or self-care (01) ==
PROVIDERS: PCP Internal Medicine; Referring Provider Internal Medicine; Visit Provider Internal Medicine
DX: G47.33 Obstructive sleep apnea (adult) (pediatric) (principal); M26.19 Other specified anomalies of jaw-cranial base relationship
CPT/HCPCS: 99214

== ENCOUNTER → 2023-04-25 14:29 | Outpatient (BNVA) | payer MEDICARE, SELFPAY | PROVIDERS: PCP Internal Medicine; Visit Provider Internal Medicine | DX: G47.33 Obstructive sleep apnea (adult) (pediatric) (principal); M26.19 Other specified anomalies of jaw-cranial base relationship | CPT/HCPCS: 99212 ==

== ENCOUNTER 2023-05-25 08:34 | Outpatient (REF) | payer MEDICARE, SELFPAY ==
[2023-05-25 11:58] LABS: MANUAL DIFF FLAG NO
[2023-05-25 12:02] LABS: Appearance Urine Clear; Color Urine Yellow; Glucose Urine UA Negative (Negative); Leukocyte Esterase Urine Negative (Negative); Nitrite Urine Negative (Negative); PH 5.5 (5.0-9.0); Urine Blood Negative (Negative); Urine Ketones Negative (Negative); Urine Protein Negative (Neg-Trace)
[2023-05-25 12:05] LABS: Bacteria Urine None Seen (None Seen); Hyaline Casts Urine 0-2 /LPF (0-2); RBC Urine 0-2 /HPF (0-2); Squamous Epithelial Cell Urine 0-2 /HPF (0-2); WBC Urine 0-5 /HPF (0-5)
[2023-05-25 12:13] LABS: Basophils Absolute Auto 0.1 X10*3/uL (0.0-0.2); Basophils Percent Auto 0.7 % (0-2); Eosinophils Absolute Auto 0.2 X10*3/uL (0.0-0.4); Eosinophils Percent Auto 2.4 % (0-4); Hematocrit 41.2 % (42.0-52.0); Hemoglobin 13.4 g/dl (14.0-18.0); Imm Gran Abs Auto 0.02 X10*3/uL (0.00-0.03); Imm Gran Pct Auto 0.3 % (0.0-0.4); Lymphocytes Absolute Auto 1.8 X10*3/uL (1.2-4.9); Lymphocytes Percent Auto 26.4 % (20-40); Mean Corpuscular HGB Conc 32.5 g/dl (31.0-36.0); Mean Corpuscular Hemoglobin 29.5 pg (27.0-33.0); Mean Corpuscular Volume 90.7 fL (80.0-98.0); Mean Platelet Volume 11.5 fL (9.4-12.4); Monocytes Percent Auto 14.8 % (2-11); Neutrophils Absolute Auto 3.8 x10*3/uL (2.0-8.3); Neutrophils Percent Auto 55.4 % (45-73); Platelet Count 198 X10*3/uL (160-400); Red Blood Count 4.54 X10*6/uL (4.60-5.80); Red Cell Distribution Width 13.7 % (11.0-16.0); White Blood Count 6.9 X10*3/uL (4.8-10.8)
[2023-05-25 12:20] LABS: Estimated Average Glucose 174 mg/dL; Hemoglobin A1c % 7.7 % (<6.0)
[2023-05-25 12:26] LABS: Alanine Aminotransferase 24 U/L (0-40); Alkaline Phosphatase 70 U/L (39-117); Anion Gap 10 (12-20); Aspartate Amino Transferase 23 U/L (5-37); Bilirubin Total 0.5 mg/dL (0.0-1.0); Blood Urea Nitrogen 26 mg/dL (9-16); Calcium 9.6 mg/dL (8.4-10.2); Carbon Dioxide 28 mmol/L (22-29); Chloride 105 mmol/L (96-108); Cholesterol 115 mg/dL (<200); Estimated Glomerular Filt Rate > 60; Glucose Fasting 109 mg/dL (60-99); HDL Cholesterol 51 mg/dL (>40); LDL Cholesterol Calculated 54 mg/dL (<100); Potassium 4.4 mmol/L (3.3-5.1); Sodium 139 mmol/L (135-145); Total Protein 6.8 g/dL (6.5-8.0); Triglycerides 52 mg/dL (<150)
[2023-05-25 12:34] LABS: Creatinine Urine 127.84 mg/dL
== END 2023-05-25 08:35 | disposition home or self-care (01) ==
LOC: HO.HMGCLDS 08:34
PROVIDERS: PCP Internal Medicine; Visit Provider Internal Medicine
DX: E10.9 Type 1 diabetes mellitus without complications (principal); I10 Essential (primary) hypertension; N40.0 Benign prostatic hyperplasia without lower urinary tract symptoms
CPT/HCPCS: 36415; 80053; 80061; 81001; 82043; 82570; 83036; 85025

== ENCOUNTER 2023-06-09 11:20 | Outpatient (AMB) | payer MEDICARE, SELFPAY ==
--- NOTE | 2023-06-09 11:24 | A.OFFVIS_ITS ---
Intake Vital Signs 06/09/23 11:27 Height 5 ft 8 in Weight 191 lb BMI 29.0 BP 130/50 L Blood Pressure Location Lt brachial Position Sitting Pulse 62 Pulse Source Pulse Oximeter Pulse Oximetry (%) 97 Oxygen Delivery Method Room Air Intake Visit Reasons: Obstructive sleep apnea Intake Note: pt is here for follow up of starting cpap, his machine is still saying 10-20 events a night,will he have to use this his whole life? 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 Allergies penicillin V Allergy (Unknown, Verified 06/09/23 11:51) Rash Penicillins [PENICILLINS] Allergy (Unknown, Verified 06/09/23 11:51) UNKNOWN Medication List - Last Reconciled 06/09/23 by Mckayla Elizabeth MD atorvastatin 40 mg PO DAILY blood sugar diagnostic (FreeStyle Lite Strips) As directed three times a day blood-glucose meter (FreeStyle Lite Meter kit) As directed 3 x/day blood-glucose meter,continuous (Dexcom G6 Analytical Clerk) As directed blood-glucose sensor (Dexcom G6 Sensor device) As directed blood-glucose transmitter (Dexcom G6 Transmitter device) As directed cholecalciferol (vitamin D3) 50 mcg PO DAILY donepezil 5 mg PO DAILY finasteride 5 mg PO DAILY hydrochlorothiazide 25 mg PO QAM lancets (FreeStyle Lancets) 4 times a day losartan 50 mg PO DAILY Lyumjev U-100 Insulin (insulin lispro-aabc) Up to 100 units via insulin pump subcut daily; 90 days NS multivitamin 1 tab PO DAILY sertraline 50 mg PO DAILY tamsulosin 0.4 mg PO DAILY Do you need a note to return to daycare/school/sports/work: No HPI Obstructive sleep apnea HPI Details THIS 82 YEARS OLD GENTLEMAN RELATIVELY YOUNGER LOOKING, RECENTLY DIAGNOSED TO HAVE OBSTRUCTIVE SLEEP APNEA HAS BEEN STARTED ON CPAP THERAPY. HE LOVES HIS CPAP DEVICE, AND LIKES TO USE FULL FACE MASK ( DREAM WEAR ) WHICH IS QUITE COMFORTABLE. HE SLEEPS MUCH BETTER, AT LEAST 6 HOURS PER NIGHT, WAKES UP MORE REFRESHED., AND DENIES ANY DAYTIME SLEEPINESS OR FATIGUE. HE CHECKS THE COMPLIANCE DATA ON A DAILY BASIS AND SEES THAT MACHINE HAS RECORDED SOME EVENTS, HE WAS CONCERNED ABOUT THIS BUT AFTER I EXPLAINED TO HIM HE FEELS FINE. HIS COMPLIANCE DATA SHOWS THAT HE DOES HAVE SOME DEGREE OF TREATMENT EMERGENT CENTRAL EVENTS, BUT THEY ARE NOT SIGNIFICANT. HE CONTINUES TO BE WELL MOTIVATED TO USE THE CPAP EVERY NIGHT. 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 Mild non proliferative diabetic retinopathy Diabetes type 1, controlled Surgical History Hx of right inguinal hernia repair Hx of cataract removal with insertion of prosthetic lens Hx of hand surgery Family History Father CVD (cardiovascular disease) Mother Hypertension Maternal Grandmother Diabetes Social History Household Members: Spouse Alcohol intake: current Alcohol intake frequency: a few times a week Alcohol type: wine Patient Tobacco Use Status: Never used Tobacco Review of Systems Const Denies body aches, Denies chills, Denies fatigue, Denies fever(s) and Denies headache(s) Eyes Denies blurry vision, Denies irritation, Denies itchy eyes and Denies loss of vision ENT Denies dysphagia, Denies vertigo, Denies headache(s), Denies epistaxis, Denies nasal congestion, Denies nasal discharge, Denies nasal obstruction and Denies sinus pain Card Denies chest pain, Denies rapid heart rate, Denies irregular heart rhythm, Denies dyspnea on exertion and Denies slow heart rate Resp Reports as per HPI and Denies dyspnea on exertion GI Denies bloating, Denies change in bowel habits, Denies change in stool character, Denies dysphagia, Denies heartburn, Reports nausea and Denies vomiting Reports nocturia and Denies urinary incontinence Musc Denies abnormal gait, Denies back pain, Denies myalgias, Denies arthralgias, Denies muscle weakness and Denies stiffness Skin/Breast Reports system reviewed and no additional complaints, except as documented Neuro Denies abnormal gait, Denies vertigo, Denies headache(s), Denies focal weakness, Denies loss of vision, Reports memory loss, Denies restless legs and Denies tremor(s) Psych Reports depression and Reports memory loss Endo Reports no additional complaints, Denies fatigue and Reports other (Insulin- dependent diabetes mellitus) Franklyn/Lymph Reports no additional complaints Aller/Immun Reports no additional complaints and Denies itchy eyes Physical Exam Vital Signs: Last Vital Signs Pulse 62 06/09/23 11:27 BP 130/50 L 06/09/23 11:27 Pulse Ox 97 06/09/23 11:27 Oxygen Delivery Method Room Air 06/09/23 11:27 BMI result Body Mass Index 29.0 Generally healthy looking, he is only says moderately overweight Const General: healthy appearing, comfortable, no acute distress, alert and awake Orientation/consciousness: patient oriented x3 HEENT Head: Yes normal to inspection General nose exam: No nasal polyps present and No nasal discharge present Face and sinus: Yes sinuses nontender Mouth: oropharynx abnormals (Tongue is placed back, oropharynx is narrow, Mallampati class 4) Teeth and gingiva: other (RETROGANTHIA of the lower jaw ( overbite ) ) Throat: Yes posterior oropharynx normal Eyes General: appearance normal, both eyes and all related structures Neck Neck: Yes normal visual inspection, Yes no lymphadenopathy, Yes trachea midline, Yes no JVD and Yes other (Neck circumference 16-1/2 inch) Thyroid: Thyroid normal Chest Chest palpation & inspection: normal inspection of the chest, normal palpation of entire chest wall and no tenderness Resp Effort & Inspection: normal respiratory effort Auscultation: clear to auscultation bilaterally, no crackles and no wheezes Cardio Palpation: normal PMI Rate: regular rate Rhythm: regular rhythm Heart sounds: no gallops and no murmurs Peripheral pulses: Peripheral pulses 2+ throughout GI Palpation (GI): Soft to palpation, nontender, No hepatosplenomegaly present and no masses Auscultation: normal bowel sounds Back/Spine/Pelvis Thoracic/Lumbar Spine: thoracic and lumbar spine normal to inspection Skin General skin exam: no rashes or lesions noted Neuro General: patient oriented x3 and no focal motor deficits Cranial nerves: Yes CN's II-XII intact bilaterally Extrem General: Yes normal to inspection, Yes no clubbing, cyanosis or edema and Yes no calf tenderness Psych Appearance: grossly normal and well kempt Speech and movement: Normal speech and movement present Results Reviewed Results Reviewed: COMPLIANCE REPORT IS REVIEWED. HE HAS USED 90% OF THE NIGHTS, MISSED USING A FEW NIGHTS BECAUSE [place] WAS [place]. AVERAGE USAGE 6 HOURS 56 MINUTES PER NIGHT. PRESSURE USED MOSTLY 14-16 CM. . THERE IS NO SIGNIFICANT AIR LEAK RESIDUAL AHI IS STILL 15.1, ABOUT HALF OF THAT IS DUE TO TREATMENT EMERGENT CENTRAL APNEAS , I EXPLAINED TO HIM THAT THIS WILL RESOLVE SLOWLY. Assessment & Plan Assessment & Plan (1) ODILIA (obstructive sleep apnea): Comment: OBSTRUCTIVE SLEEP APNEA, SEVERE, RESPONDING VERY WELL TO THE USE OF CPAP. HE IS VERY COMPLIANT AND DEFINITELY BENEFITING. SLEEP QUALITY AND QUANTITY OR BOTH IMPROVED AND HE DENIES. ANY DAYTIME SLEEPINESS I EXPLAINED TO HIM THE FINDINGS OF COMPLIANCE REPORT, COMMENDED HIM FOR GOOD USAGE. EXPLAINED THAT THE CENTRAL APNEAS OR EXPECTED TO RESOLVE SLOWLY. 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 I pointed it out to him and he tells me that yes he is aware of the fact that he has had an overbite. This is a chronic fixed defect and would not be correctable. Code(s): M26.19 - Other specified anomalies of jaw-cranial base relationship Plan: ABOVE Coding Level of Care Code Est Pt Level 3 (76713) Diagnoses ODILIA (obstructive sleep apnea) G47.33 Retrognathia M26.19
[2023-06-09 11:27] VITALS: BP 130/50; PULSE 62; O2SAT 97; BMI 29.0
== END 2023-06-09 11:50 | disposition home or self-care (01) ==
PROVIDERS: PCP Internal Medicine; Visit Provider Internal Medicine
DX: G47.33 Obstructive sleep apnea (adult) (pediatric) (principal); M26.19 Other specified anomalies of jaw-cranial base relationship
CPT/HCPCS: 99213

== ENCOUNTER → 2023-06-09 11:20 | Outpatient (BNVA) | payer MEDICARE, SELFPAY | PROVIDERS: PCP Internal Medicine; Visit Provider Internal Medicine | DX: G47.33 Obstructive sleep apnea (adult) (pediatric) (principal); M26.19 Other specified anomalies of jaw-cranial base relationship | CPT/HCPCS: 99212 ==

== ENCOUNTER 2023-09-06 10:57 | Outpatient (AMB) | payer MEDICARE, SELFPAY ==
--- NOTE | 2023-09-06 11:02 | MHC.OFFVIS ---
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 HIS HOME-BASED SLEEP STUDY ON 02/09/2023, SHOWED SEVERE OBSTRUCTIVE SLEEP APNEA, WITH TOTAL SLEEP TIME AHI 32. IT WAS P.O. OBSTRUCTIVE SLEEP APNEA. HE IS BEING TREATED FOR MIXED SLEEP APNEA, WITH AUTO PAP MODE. FOLLOWING THE USE OF CPAP DEVICE, HE CLAIMS THAT HIS SLEEP HAS DEFINITELY IMPROVED. HE CAN SLEEP AT LEAST 6 HOURS EVERY NIGHT UN-INTERRUPTED, AND HE DENIES DAYTIME SLEEPINESS THE COMPLIANCE REPORTS SHOW THAT HE HAS TREATMENT EMERGENT CENTRAL SLEEP APNEA, IN ADDITION TO RESIDUAL OBSTRUCTIVE COMPONENT. HE STILL HAS HIGH RESIDUAL AHI OF 15-16 PER HOUR. HE IS WELL EDUCATED, HE WANTS TO KNOW THE REASON, AND WE HAD A GOOD DISCUSSION TODAY. Allergies penicillin V Allergy (Unknown, Verified 09/06/23 11:44) Rash Penicillins [PENICILLINS] Allergy (Unknown, Verified 09/06/23 11:44) UNKNOWN Medication List - Last Reconciled 09/06/23 by Mckayla Elizabeth MD atorvastatin 40 mg PO DAILY blood sugar diagnostic (FreeStyle Lite Strips) As directed three times a day blood-glucose meter (FreeStyle Lite Meter kit) As directed 3 x/day blood-glucose meter,continuous (Dexcom G6 Control Room Supervisor) As directed blood-glucose sensor (Dexcom G6 Sensor device) As directed blood-glucose transmitter (Dexcom G6 Transmitter device) As directed cholecalciferol (vitamin D3) 50 mcg PO DAILY donepezil 5 mg PO DAILY finasteride 5 mg PO DAILY hydrochlorothiazide 25 mg PO QAM insulin pump cart,auto,BT-cntr (Omnipod 5 G6 Intro Kit (Gen 5) subcutaneous cartridge with controller) As directed lancets (FreeStyle Lancets) 4 times a day losartan 50 mg PO DAILY Lyumjev U-100 Insulin (insulin lispro-aabc) Up to 100 units via insulin pump subcut daily; 90 days NS multivitamin 1 tab PO DAILY sertraline 50 mg PO DAILY tamsulosin 0.4 mg PO DAILY Do you need a note to return to daycare/school/sports/work: No [facility] Medical History (Updated 09/06/23 @ 11:52 by Mckayla Elizabeth MD) Central sleep apnea ODILIA (obstructive sleep apnea) Retrognathia Overweight Hyponatremia Dyslipidemia Hypertension Diabetic polyneuropathy associated with type 1 diabetes mellitus Mild non proliferative diabetic retinopathy Diabetes type 1, controlled Surgical History Hx of right inguinal hernia repair Hx of cataract removal with insertion of prosthetic lens Hx of hand surgery Family History Father CVD (cardiovascular disease) Mother Hypertension Maternal Grandmother Diabetes Social History Household Members: Spouse Alcohol intake: current Alcohol intake frequency: a few times a week Alcohol type: wine Patient Tobacco Use Status: Never used Tobacco Review of Systems Const Denies body aches, Denies chills, Denies fatigue, Denies fever(s) and Denies headache(s) Eyes Denies blurry vision, Denies irritation, Denies itchy eyes and Denies loss of vision ENT Denies dysphagia, Denies vertigo, Denies headache(s), Denies epistaxis, Denies nasal congestion, Denies nasal discharge, Denies nasal obstruction and Denies sinus pain Card Denies chest pain, Denies rapid heart rate, Denies irregular heart rhythm, Denies dyspnea on exertion and Denies slow heart rate Resp Reports as per HPI and Denies dyspnea on exertion GI Denies bloating, Denies change in bowel habits, Denies change in stool character, Denies dysphagia, Denies heartburn, Reports nausea and Denies vomiting Reports nocturia and Denies urinary incontinence Musc Denies abnormal gait, Denies back pain, Denies myalgias, Denies arthralgias, Denies muscle weakness and Denies stiffness Skin/Breast Reports system reviewed and no additional complaints, except as documented Neuro Denies abnormal gait, Denies vertigo, Denies headache(s), Denies focal weakness, Denies loss of vision, Reports memory loss, Denies restless legs and Denies tremor(s) Psych Reports depression and Reports memory loss Endo Reports no additional complaints, Denies fatigue and Reports other (Insulin-dependent diabetes mellitus) Franklyn/Lymph Reports no additional complaints Aller/Immun Reports no additional complaints and Denies itchy eyes Physical Exam Vital Signs: Last Vital Signs Pulse 60 09/06/23 11:03 Resp 14 09/06/23 11:03 BP 130/62 09/06/23 11:03 Pulse Ox 98 09/06/23 11:03 Oxygen Delivery Method Room Air 09/06/23 11:03 BMI result Body Mass Index 36.7 Generally healthy looking, he is only says moderately overweight Const General: healthy appearing, comfortable, no acute distress, alert and awake Orientation/consciousness: patient oriented x3 HEENT Head: Yes normal to inspection General nose exam: No nasal polyps present and No nasal discharge present Face and sinus: Yes sinuses nontender Mouth: oropharynx abnormals (Tongue is placed back, oropharynx is narrow, Mallampati class 4) Teeth and gingiva: other (RETROGANTHIA of the lower jaw ( overbite ) ) Throat: Yes posterior oropharynx normal Eyes General: appearance normal, both eyes and all related structures Neck Neck: Yes normal visual inspection, Yes no lymphadenopathy, Yes trachea midline, Yes no JVD and Yes other (Neck circumference 16-1/2 inch) Thyroid: Thyroid normal Chest Chest palpation & inspection: normal inspection of the chest, normal palpation of entire chest wall and no tenderness Resp Effort & Inspection: normal respiratory effort Auscultation: clear to auscultation bilaterally, no crackles and no wheezes Cardio Palpation: normal PMI Rate: regular rate Rhythm: regular rhythm Heart sounds: no gallops and no murmurs Peripheral pulses: Peripheral pulses 2+ throughout GI Palpation (GI): Soft to palpation, nontender, No hepatosplenomegaly present and no masses Auscultation: normal bowel sounds Back/Spine/Pelvis Thoracic/Lumbar Spine: thoracic and lumbar spine normal to inspection Skin General skin exam: no rashes or lesions noted Neuro General: patient oriented x3 and no focal motor deficits Cranial nerves: Yes CN's II-XII intact bilaterally Extrem General: Yes normal to inspection, Yes no clubbing, cyanosis or edema and Yes no calf tenderness Psych Appearance: grossly normal and well kempt Speech and movement: Normal speech and movement present Results Reviewed Results Reviewed: COMPLIANCE REPORT FOR THE LAST 30 NIGHTS, SHOWS THAT HE HAS USED 28/30 NIGHTS, 93%. AVERAGE USE IT PER NIGHT. 6 HOURS 50 MINUTES PRESSURE USED MOSTLY 15-17 CM. RESIDUAL AHI 16 , MOSTLY DUE TO RESIDUAL OBSTRUCTIVE HYPOPNEAS. HE DOES HAVE CENTRAL APNEAS 9.1 PER HOUR, MOSTLY TREATMENT EMERGENT Assessment & Plan Assessment & Plan (1) ODILIA (obstructive sleep apnea): Comment: OBSTRUCTIVE SLEEP APNEA, SEVERE, RESPONDING VERY WELL TO THE USE OF CPAP. HE IS VERY COMPLIANT AND DEFINITELY BENEFITING. SLEEP QUALITY AND QUANTITY OR BOTH IMPROVED AND HE DENIES. ANY DAYTIME SLEEPINESS HE STILL HAS SIGNIFICANT RESIDUAL OBSTRUCTIVE EVENTS, WITH AHI 16. Code(s): G47.33 - Obstructive sleep apnea (adult) (pediatric) Plan: I DISCUSSED WITH HIM THE FINDINGS OF COMPLIANCE REPORT. I TOLD HIM THAT EVEN THOUGH HE STILL HAS SOME RESIDUAL OBSTRUCTIVE ACTIVITY, CLINICALLY HE IS DOING MUCH BETTER. BECAUSE OF RESIDUAL ACTIVITY I THINK , WE SHOULD CHANGE HIS PRESSURE SETTING TO A BILEVEL PRESSURE.( 20/12 ) AND THEN MONITOR THE RESULTS. 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 I pointed it out to him and he tells me that yes he is aware of the fact that he has had an overbite. This is a chronic fixed defect and would not be correctable. Code(s): M26.19 - Other specified anomalies of jaw-cranial base relationship Plan: ABOVE (3) Central sleep apnea: Comment: HE HAS TREATMENT EMERGENT CENTRAL SLEEP APNEA WITH CENTRAL APNEA INDEX 9.1. Code(s): G47.31 - Primary central sleep apnea Plan: HOPEFULLY CHANGING TO BIPAP SETTING, WE CAN MINIMIZE THE CENTRAL SLEEP APNEA., AND IF IT DOES NOT WORK THEN WE MAY HAVE TO GO TO ASV MODE. Coding Level of Care Code Est Pt Level 3 (51513) Diagnoses ODILIA (obstructive sleep apnea) G47.33 Retrognathia M26.19 Central sleep apnea G47.31
[2023-09-06 11:03] VITALS: BP 130/62; PULSE 60; RESP 14; O2SAT 98; BMI 36.7
== END 2023-09-06 11:39 | disposition home or self-care (01) ==
PROVIDERS: PCP Internal Medicine; Visit Provider Internal Medicine
DX: G47.33 Obstructive sleep apnea (adult) (pediatric) (principal); M26.19 Other specified anomalies of jaw-cranial base relationship; G47.31 Primary central sleep apnea
CPT/HCPCS: 99213

== ENCOUNTER → 2023-09-06 10:57 | Outpatient (BNVA) | payer MEDICARE, SELFPAY | PROVIDERS: PCP Internal Medicine; Visit Provider Internal Medicine | DX: G47.33 Obstructive sleep apnea (adult) (pediatric) (principal); G47.31 Primary central sleep apnea; M26.19 Other specified anomalies of jaw-cranial base relationship | CPT/HCPCS: 99212 ==

== ENCOUNTER → 2023-11-18 19:30 | Outpatient (REF) | payer MEDICARE, SELFPAY | LOC: HO.SL 19:30 | PROVIDERS: PCP Internal Medicine; Visit Provider Internal Medicine | DX: G47.33 Obstructive sleep apnea (adult) (pediatric) (principal); G47.31 Primary central sleep apnea | CPT/HCPCS: 95811 ==

== ENCOUNTER 2023-11-23 07:42 | Outpatient (REF) | payer MEDICARE, SELFPAY ==
[2023-11-23 10:11] LABS: MANUAL DIFF FLAG NO
[2023-11-23 10:21] LABS: Appearance Urine Clear; Color Urine Yellow; Glucose Urine UA Negative (Negative); Leukocyte Esterase Urine Trace (Negative); Nitrite Urine Negative (Negative); PH 6.5 (5.0-9.0); UMIC TRIGGER UA YES; Urine Blood Negative (Negative); Urine Ketones Negative (Negative); Urine Protein Negative (Neg-Trace)
[2023-11-23 10:22] LABS: Basophils Absolute Auto 0.1 X10*3/uL (0.0-0.2); Basophils Percent Auto 0.7 % (0-2); Eosinophils Absolute Auto 0.1 X10*3/uL (0.0-0.4); Eosinophils Percent Auto 1.3 % (0-4); Hemoglobin 13.6 g/dl (14.0-18.0); Imm Gran Abs Auto 0.02 X10*3/uL (0.00-0.03); Imm Gran Pct Auto 0.3 % (0.0-0.4); Lymphocytes Absolute Auto 2.6 X10*3/uL (1.2-4.9); Lymphocytes Percent Auto 37.4 % (20-40); Mean Corpuscular HGB Conc 33.2 g/dl (31.0-36.0); Mean Corpuscular Hemoglobin 29.8 pg (27.0-33.0); Mean Corpuscular Volume 89.9 fL (80.0-98.0); Mean Platelet Volume 11.6 fL (9.4-12.4); Monocytes Absolute Auto 0.9 X10*3/uL (0.1-1.2); Monocytes Percent Auto 12.6 % (2-11); Neutrophils Absolute Auto 3.3 x10*3/uL (2.0-8.3); Neutrophils Percent Auto 47.7 % (45-73); Platelet Count 217 X10*3/uL (160-400); Red Blood Count 4.56 X10*6/uL (4.60-5.80); Red Cell Distribution Width 13.5 % (11.0-16.0); White Blood Count 6.9 X10*3/uL (4.8-10.8)
[2023-11-23 10:24] LABS: Bacteria Urine None Seen (None Seen); Hyaline Casts Urine 0-2 /LPF (0-2); RBC Urine 0-2 /HPF (0-2); Squamous Epithelial Cell Urine 0-2 /HPF (0-2); WBC Urine 0-5 /HPF (0-5)
[2023-11-23 10:56] LABS: Estimated Average Glucose 180 mg/dL; Hemoglobin A1c % 7.9 % (<6.0)
[2023-11-23 11:10] LABS: Alanine Aminotransferase 39 U/L (0-40); Albumin Level 3.9 g/dL (3.5-5.0); Alkaline Phosphatase 76 U/L (39-117); Anion Gap 14 (12-20); Aspartate Amino Transferase 32 U/L (5-37); Bilirubin Total 0.9 mg/dL (0.0-1.0); Blood Urea Nitrogen 19 mg/dL (9-16); Calcium 9.5 mg/dL (8.4-10.2); Carbon Dioxide 24 mmol/L (22-29); Chloride 104 mmol/L (96-108); Cholesterol 108 mg/dL (<200); Estimated Glomerular Filt Rate > 60; Glucose Fasting 164 mg/dL (60-99); HDL Cholesterol 48 mg/dL (>40); LDL Cholesterol Calculated 50 mg/dL (<100); Potassium 4.5 mmol/L (3.3-5.1); Sodium 137 mmol/L (135-145); Thyroid Stimulating Hormone 3.18 uIU/mL (0.32-4.0); Total Protein 6.6 g/dL (6.5-8.0); Triglycerides 52 mg/dL (<150)
[2023-11-23 11:12] LABS: Creatinine Urine 109.46 mg/dL; Microalbum/Creatinine Ratio Ur 8.2 ug/mg cr (<30)
== END 2023-11-23 07:43 | disposition home or self-care (01) ==
LOC: HO.HMGCLDS 07:42
PROVIDERS: PCP Internal Medicine; Visit Provider Internal Medicine
DX: E10.9 Type 1 diabetes mellitus without complications (principal); I10 Essential (primary) hypertension
CPT/HCPCS: 36415; 80053; 80061; 81001; 82043; 82570; 83036; 84443; 85025

== ENCOUNTER 2023-12-08 11:17 | Outpatient (AMB) | payer MEDICARE, SELFPAY ==
[2023-12-08 11:22] VITALS: BP 140/70; PULSE 77; O2SAT 97; BMI 29.8
--- NOTE | 2023-12-08 11:22 | A.OFFVIS_ITS ---
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 Allergies penicillin V Allergy (Unknown, Verified 12/08/23 11:27) Rash Penicillins [PENICILLINS] Allergy (Unknown, Verified 12/08/23 11:27) UNKNOWN Medication List - Last Reconciled 12/08/23 by Mckayla Elizabeth MD atorvastatin 40 mg PO DAILY blood sugar diagnostic (FreeStyle Lite Strips) As directed three times a day blood-glucose meter (FreeStyle Lite Meter kit) As directed 3 x/day blood-glucose meter,continuous (Dexcom G6 Production Machine Shop Supervisor) As directed blood-glucose sensor (Dexcom G6 Sensor device) As directed blood-glucose transmitter (Dexcom G6 Transmitter device) As directed cholecalciferol (vitamin D3) 50 mcg PO DAILY donepezil 5 mg PO DAILY finasteride 5 mg PO DAILY hydrochlorothiazide 25 mg PO QAM insulin pump cart,auto,BT-cntr (Omnipod 5 G6 Intro Kit (Gen 5) subcutaneous cartridge with controller) As directed lancets (FreeStyle Lancets) 4 times a day losartan 50 mg PO DAILY Lyumjev U-100 Insulin (insulin lispro-aabc) Up to 100 units via insulin pump subcut daily; 90 days NS multivitamin 1 tab PO DAILY sertraline 50 mg PO DAILY tamsulosin 0.4 mg PO DAILY Do you need a note to return to daycare/school/sports/work: No HPI HPI Obstructive sleep apnea: Details: MR. 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 LATELY HE HAS DEVELOPED TREATMENT EMERGENT CENTRAL SLEEP APNEA. HE SLEEPS WELL WITH THE CPAP, WAKES UP REFRESHED, AND DENIES ANY EXTRA DAYTIME SLEEPINESS. HOWEVER HIS COMPLIANCE REPORT , WELL LAURA ON HIS IPHONE, HAD BEEN INDICATING LOT OF .CENTRAL SLEEP APNEA FINALLY HE HAS UNDERGONE CPAP TITRATION, IN THE SLEEP LAB. AND CENTRAL SLEEP APNEA COULD NOT BE ELIMINATED WITH CPAP OR BIPAP MODE, BUT RESPONDED WELL TO ASV MODE. HE IS HERE TO DISCUSS THE FINDINGS OF THE SLEEP STUDY AND MOVE ON TO THE [facility] MO DE OF TREATMENT. [facility] Medical History Central sleep apnea ODILIA (obstructive sleep apnea) Retrognathia Overweight Hyponatremia Dyslipidemia Hypertension Diabetic polyneuropathy associated with type 1 diabetes mellitus Mild non proliferative diabetic retinopathy Diabetes type 1, controlled Surgical History Hx of right inguinal hernia repair Hx of cataract removal with insertion of prosthetic lens Hx of hand surgery Family History Father CVD (cardiovascular disease) Mother Hypertension Maternal Grandmother Diabetes Social History Household Members: Spouse Alcohol intake: current Alcohol intake frequency: a few times a week Alcohol type: wine Patient Tobacco Use Status: Never used Tobacco Review of Systems Const Denies body aches, Denies chills, Denies fatigue, Denies fever(s) and Denies headache(s) Eyes Denies blurry vision, Denies irritation, Denies itchy eyes and Denies loss of vision ENT Denies dysphagia, Denies vertigo, Denies headache(s), Denies epistaxis, Denies nasal congestion, Denies nasal discharge, Denies nasal obstruction and Denies sinus pain Card Denies chest pain, Denies rapid heart rate, Denies irregular heart rhythm, Denies dyspnea on exertion and Denies slow heart rate Resp Reports as per HPI and Denies dyspnea on exertion GI Denies bloating, Denies change in bowel habits, Denies change in stool character, Denies dysphagia, Denies heartburn, Reports nausea and Denies vomi ting Reports nocturia and Denies urinary incontinence Musc Denies abnormal gait, Denies back pain, Denies myalgias, Denies arthralgias, Denies muscle weakness and Denies stiffness Skin/Breast Reports system reviewed and no additional complaints, except as documented Neuro Denies abnormal gait, Denies vertigo, Denies headache(s), Denies focal weakness, Denies loss of vision, Reports memory loss, Denies restless legs and Denies tremor(s) Psych Reports depression and Reports memory loss Endo Reports no additional complaints, Denies fatigue and Reports other (Insulin- dependent diabetes mellitus) Franklyn/Lymph Reports no additional complaints Aller/Immun Reports no additional complaints and Denies itchy eyes Physical Exam Generally healthy looking, he is only says moderately overweight Const General: healthy appearing, comfortable, no acute distress, alert and awake Orientation/consciousness: patient oriented x3 HEENT Head: Yes normal to inspection General nose exam: No nasal polyps present and No nasal discharge present Face and sinus: Yes sinuses nontender Mouth: oropharynx abnormals (Tongue is placed back, oropharynx is narrow, Mallampati class 4) Teeth and gingiva: other (RETROGANTHIA of the lower jaw ( overbite ) ) Throat: Yes posterior oropharynx normal Eyes General: appearance normal, both eyes and all related structures Neck Neck: Yes normal visual inspection, Yes no lymphadenopathy, Yes trachea midline, Yes no JVD and Yes other (Neck circumference 16-1/2 inch) Thyroid: Thyroid normal Chest Chest palpation & inspection: normal inspection of the chest, normal palpation of entire chest wall and no tenderness Resp Effort & Inspection: normal respiratory effort Auscultation: clear to auscultation bilaterally, no crackles and no wheezes Cardio Palpation: normal PMI Rate: regular rate Rhythm: regular rhythm Heart sounds: no gallops and no murmurs Peripheral pulses: Peripheral pulses 2+ throughout GI Palpation (GI): Soft to palpation, nontender, No hepatosplenomegaly present and no masses Auscultation: normal bowel sounds Back/Spine/Pelvis Thoracic/Lumbar Spine: thoracic and lumbar spine normal to inspection Skin General skin exam: no rashes or lesions noted Neuro General: patient oriented x3 and no focal motor deficits Cranial nerves: Yes CN's II-XII intact bilaterally Extrem General: Yes normal to inspection, Yes no clubbing, cyanosis or edema and Yes no calf tenderness Psych Appearance: grossly normal and well kempt Speech and movement: Normal speech and movement present Assessment & Plan Assessment & Plan (1) ODILIA (obstructive sleep apnea): Comment: OBSTRUCTIVE SLEEP APNEA, SEVERE, RESPONDING VERY WELL TO THE USE OF CPAP. HE IS VERY COMPLIANT AND DEFINITELY BENEFITING. SLEEP QUALITY AND QUANTITY OR BOTH IMPROVED AND HE DENIES ANY DAYTIME SLEEPINESS HE STILL HAS SIGNIFICANT RESIDUAL OBSTRUCTIVE EVENTS, WITH AHI 16. Code(s): G47.33 - Obstructive sleep apnea (adult) (pediatric) Category: Medical Plan: BECAUSE OF SIGNIFICANT RESIDUAL APNEA COUNT, AHI HIGH 16, HE HAD A CPAP TITRATION STUDY IN THE SLEEP LAB, WHICH HAS SHOWN TREATMENT EMERGENT CENTRAL SLEEP APNEA. DISCUSSED UNDER THE CENTRAL SLEEP APNEA. (2) Central sleep apnea: Comment: HE HAS TREATMENT EMERGENT CENTRAL SLEEP APNEA WITH CENTRAL APNEA INDEX 9.1., AND TOTAL RESIDUAL AHI OF 16. Code(s): G47.31 - Primary central sleep apnea Category: Medical Plan: CPAP TITRATION IN THE SLEEP LAB REQUIRED ASV MODE, WHICH WAS EFFECTIVE AND ELIMINATED THE OBSTRUCTIVE WELL CENTRAL APNEAS. NEW CPAP DEVICE WITH ASV MODE HAS BEEN ORDERED. 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 I pointed it out to him and he tells me that yes he is aware of the fact that he has had an overbite. This is a chronic fixed defect and would not be correctable. Code(s): M26.19 - Other specified anomalies of jaw-cranial base relationship Category: Medical Plan: THIS DEFECT CAN NOT BE CORRECTED. THAT IS WHY HE IS GOING TO NEED NIVS FOR REST OF HIS LIFE. Coding Level of Care Code Est Pt Level 3 (73821) Diagnoses ODILIA (obstructive sleep apnea) G47.33 Central sleep apnea G47.31 Retrognathia M26.19
== END 2023-12-08 11:55 | disposition home or self-care (01) ==
PROVIDERS: PCP Internal Medicine; Visit Provider Internal Medicine
DX: G47.33 Obstructive sleep apnea (adult) (pediatric) (principal); G47.31 Primary central sleep apnea; M26.19 Other specified anomalies of jaw-cranial base relationship
CPT/HCPCS: 99213

== ENCOUNTER → 2023-12-08 11:17 | Outpatient (BNVA) | payer MEDICARE, SELFPAY | PROVIDERS: PCP Internal Medicine; Visit Provider Internal Medicine | DX: G47.33 Obstructive sleep apnea (adult) (pediatric) (principal); G47.31 Primary central sleep apnea; M26.19 Other specified anomalies of jaw-cranial base relationship | CPT/HCPCS: 99212 ==

== ENCOUNTER 2024-01-09 06:27 | Day surgery (SDC) | payer MEDICARE, SELFPAY ==
[2024-01-09 06:39] VITALS: BMI 29.9
[2024-01-09 06:45] VITALS: BP 164/51; PULSE 47; RESP 15; TEMP 36.1; O2SAT 98
[2024-01-09 07:04] LABS: Glucose, Whole Blood 185 mg/dL (60-115)
[2024-01-09] MEDS: Lactated Ringers 1,000 ML 50 ML IVCONT (07:07)
--- NOTE | 2024-01-09 07:09 | HO.ANESPROP2 ---
HPI - Anesthesia Eval Consult details Narrative: 83 yo M presenting for colonoscopy. HR in the 40s-50s in pre-op. Reports having low HR at baseline. [facility] Active Problems Active Problems: All Active Problems Encounter for removal of sutures (Acute) Central sleep apnea (Acute) ODILIA (obstructive sleep apnea) (Acute) Retrognathia (Acute) Overweight (Acute) Hyponatremia (Acute) Dyslipidemia (Acute) Hypertension (Acute) Diabetic polyneuropathy associated with type 1 diabetes mellitus (Acute) Mild non proliferative diabetic retinopathy (Acute) Diabetes type 1, controlled (Acute) Past Medical History Medical History Central sleep apnea ODILIA (obstructive sleep apnea) Retrognathia Overweight Hyponatremia Dyslipidemia Hypertension Diabetic polyneuropathy associated with type 1 diabetes mellitus Mild non proliferative diabetic retinopathy Diabetes type 1, controlled Family History Family History Father CVD (cardiovascular disease) Mother Hypertension Maternal Grandmother Diabetes Family history of problems with anesthesia: No Surgical History Surgical History (Updated 01/09/24 @ 06:38 by Licha Bennett RN) History of esophagogastroduodenoscopy (EGD) H/O colonoscopy Hx of right inguinal hernia repair Hx of cataract removal with insertion of prosthetic lens Hx of hand surgery History of Problems with Anesthesia: No Social History Social History Household Members: Spouse Alcohol intake: current Alcohol intake frequency: a few times a week Alcohol type: wine Patient Tobacco Use Status: Never used Tobacco Use of substances other than those prescribed or required for medical reasons: No Are you DNR?: No Advance Directives: No Advance Directives Information Provided: Yes Meds Allergies Allergy/AdvReac Type Severity Reaction Status Date / Time penicillin V Allergy Unknown Rash Verified 01/09/24 06:38 Penicillins [PENICILLINS] Allergy Unknown UNKNOWN Verified 01/09/24 06:38 Active Medications: Current Medications Lactated Ringer's (Lr) 1,000 mls @ 50 mls/hr IVCONT .Q20H CAROLE Last Admin: 01/09/24 07:07 Dose: 50 mls/hr Sodium Biphosphate/Sodium Phosphate (Sodium Phosphate,[place]-Dibasic 133 Ml Enema) 133 ml SD ONCE PRN PRN Reason: Poor Colonoscopy Prep Results Home Medications ?Medication ?Instructions ?Recorded ?Confirmed ?Last Taken ?Type atorvastatin 40 mg tablet 40 mg PO DAILY 06/13/20 01/09/24 Unknown History finasteride 5 mg tablet 5 mg PO DAILY 06/13/20 01/09/24 Unknown History sertraline 50 mg tablet 50 mg PO DAILY 06/13/20 01/09/24 Unknown History losartan 50 mg tablet 50 mg PO DAILY 10/14/20 01/09/24 Unknown History tamsulosin 0.4 mg capsule 0.4 mg PO DAILY 10/14/20 01/09/24 Unknown History hydrochlorothiazide 25 mg tablet 25 mg PO QAM 01/13/21 01/09/24 Unknown History cholecalciferol (vitamin D3) 50 50 mcg PO DAILY 05/20/21 01/09/24 Unknown History mcg (2,000 unit) capsule multivitamin 1 tab PO DAILY 05/20/21 01/09/24 Unknown History blood-glucose meter,continuous 04/08/22 01/09/24 Unknown History (Dexcom G6 Cattle And Wheat Farmer) blood-glucose sensor (Dexcom G6 04/08/22 01/09/24 Unknown History Sensor device) blood-glucose transmitter (Dexcom 04/08/22 01/09/24 Unknown History G6 Transmitter device) donepezil 10 mg tablet 5 mg PO DAILY 03/10/23 01/09/24 Unknown History insulin pump cartridge,automated #1 ea 09/06/23 01/09/24 Unknown History dose,BT with controller subcutaneous (Omnipod 5 G6 Intro Kit (Gen 5) subcutaneous cartridge with controller) Exam Exam Date and Time: January 09, 2024704 Height,Weight and Vital Signs: Height 5 ft 7 in Weight 86.545 kg Last Vital Signs Temp 97.0 F 01/09/24 06:45 Pulse 47 L 01/09/24 06:45 Resp 15 01/09/24 06:45 BP 164/51 H 01/09/24 06:45 Pulse Ox 98 01/09/24 06:45 O2 Del Method Room Air 01/09/24 06:45 Pertinent Lab Results Pertinent Lab Results: Laboratory Tests 01/09/24 06:54 POC Glucose 185 H Airway Mallampati Class: II TM Dist: <=3cm Neck ROM: Full Loose/Missing/Broken Teeth: No (patient denies loose or missing teeth) Heart: S1S2 Lungs: CTAB Assessment and Plan Assessment Anesthesia Assessment: Anesthesia Plan Discussed and Chart Reviewed Final Anesthetic Review Family History of Problems with Anesthesia: No History of Problems with Anesthesia: No NPO: Yes ASA Class: III Final Preanesthetic Review: No Changes in Pt Med Stat, Meds/Allgs Chart Reviewed, Consent Obtained/Reviewed and Anes Risks/Benef Reviewed Patient Risk: Intermediate Procedure Risk: Low Anesthetic Plan Anesthetic Plan: MAC: and Agree w/ Assess. and Plan Disposition: Standard PACU
[2024-01-09 08:30] VITALS: BP 109/48; PULSE 45; RESP 16; TEMP 36.3; O2SAT 97
[2024-01-09 08:35] VITALS: BP 105/46; PULSE 45; RESP 16; O2SAT 96
--- NOTE | 2024-01-09 08:36 | PM.OP ---
Brief Operative Note Date of Service: 01/09/24 Pre-op diagnosis: Change in BM's Post-op diagnosis: other (Diverticulosis) Procedure: Colonoscopy to the cecum Surgeon: Srinivasa Kuo MD Anesthesia: MAC Was an Sharepoint Application Architect used for this Procedure?: No Estimated blood loss (mL): 0 Pathology: none sent Condition: stable Disposition: PACU
[2024-01-09 08:40] VITALS: BP 106/48; PULSE 48; RESP 18; O2SAT 97
[2024-01-09 08:45] VITALS: BP 130/53; PULSE 50; RESP 18; TEMP 36.9; O2SAT 97
[2024-01-09 09:00] VITALS: BP 130/58; PULSE 50; RESP 18; TEMP 36.6; O2SAT 97
--- NOTE | 2024-01-09 09:30 | OP_ITS ---
DATE OF SERVICE: 01/09/2024 SURGEON: Srinivasa Kuo MD INDICATIONS: The patient presents for evaluation of change in bowel habits and family history of rectal cancer. Full consent has been obtained from him for this, including risks of bleeding and perforation. PREOPERATIVE DIAGNOSIS: POSTOPERATIVE DIAGNOSIS: PROCEDURE PERFORMED: Colonoscopy to the cecum. ESTIMATED BLOOD LOSS: COMPLICATIONS: ANESTHESIA: Monitored anesthesia care. ASSISTANTS: SPECIMENS: PREOPERATIVE DIAGNOSES: Change in bowel habits and family history of rectal cancer. POSTOPERATIVE DIAGNOSES: Change in bowel habits and family history of rectal cancer, diverticulosis, and internal hemorrhoids. DESCRIPTION OF PROCEDURE: The patient was placed in the left lateral decubitus position. The digital rectal exam revealed no abnormalities. The Olympus video pediatric colonoscope was entered into the rectum and advanced easily to the cecum. Once in the cecum, I did identify normal-appearing cecal pouch with appendiceal orifice and a normal-appearing ileocecal valve. The entire cecum and ileocecal valve appeared normal. There was transillumination of light deep in the right lower quadrant. The scope was then slowly withdrawn assessing all mucosal surfaces carefully. Preparation was excellent. I did not visualize any sign of polyps, colitis, nor angiodysplasia. There was a mild amount of sigmoid diverticulosis. In the rectum, scope was retroflexed visualizing internal hemorrhoids, but no other pathology. The rectal mucosa appeared normal. Scope was straightened and withdrawn from the patient. He tolerated the procedure well and was returned to the recovery area in stable condition. IMPRESSION: 1. Diverticulosis. 2. Internal hemorrhoids. PLAN: Given today's negative exam and his age, I do not think he would not need any further screening colonoscopies. He does describe occasional episodes of urgency, but describes that as occurring only about once every couple of weeks. The rest of the time, his bowel movements are normal. At this point, I did advise him to observe things and try to avoid any particular foods that bother him. I did advise him to increase Imodium as needed. He will see me on a p.r.n. basis. This has been discussed with his . MD GUILLERMO [place]/NITISH / [phone]
--- NOTE | 2024-01-09 10:10 | PC.NURSE ---
24hr update documented on paper
== END 2024-01-09 09:40 | disposition home or self-care (01) ==
PROVIDERS: PCP Internal Medicine; Visit Provider Internal Medicine
PROC: 0DJD8ZZ Inspection of Lower Intestinal Tract, Via Natural or Artificial Opening Endoscopic (ICD-10-PCS; CPT 45378; principal; 2024-01-09 07:30)
DX: K57.30 Diverticulosis of large intestine without perforation or abscess without bleeding (principal); K64.8 Other hemorrhoids; R19.4 Change in bowel habit; Z80.0 Family history of malignant neoplasm of digestive organs; Z86.010 Personal history of colon polyps; E10.9 Type 1 diabetes mellitus without complications; I10 Essential (primary) hypertension; E78.5 Hyperlipidemia, unspecified; G47.33 Obstructive sleep apnea (adult) (pediatric); Z96.41 Presence of insulin pump (external) (internal); Z79.4 Long term (current) use of insulin; Z79.02 Long term (current) use of antithrombotics/antiplatelets; Z79.899 Other long term (current) drug therapy
CPT/HCPCS: G0105; 82947; J2704

== ENCOUNTER → 2024-01-26 20:30 | Outpatient (REF) | payer MEDICARE, SELFPAY | LOC: HO.SL 20:30 | PROVIDERS: Visit Provider Internal Medicine | DX: G47.33 Obstructive sleep apnea (adult) (pediatric) (principal); G47.31 Primary central sleep apnea | CPT/HCPCS: 95810 ==

== ENCOUNTER → 2024-01-26 22:58 | Outpatient (BNV) | payer MEDICARE, SELFPAY | PROVIDERS: Visit Provider Internal Medicine | DX: G47.33 Obstructive sleep apnea (adult) (pediatric) (principal); G47.31 Primary central sleep apnea | CPT/HCPCS: 95810 ==

== ENCOUNTER 2024-02-09 10:53 | Outpatient (AMB) | payer MEDICARE, SELFPAY ==
[2024-02-09 11:02] VITALS: BP 124/59; PULSE 55; O2SAT 95; BMI 29.0
--- NOTE | 2024-02-09 11:02 | A.OFFVIS_ITS ---
Vital Signs 02/09/24 11:02 Height 5 ft 8 in Weight 191 lb BMI 29.0 BP 124/59 L Blood Pressure Location Lt brachial Position Sitting Pulse 55 Pulse Source Doppler Pulse Oximetry (%) 95 Oxygen Delivery Method Room Air Intake Visit Reasons: Obstructive sleep apnea Intake Note: Patient is here today for sleep study results and treatment . Allergies penicillin V Allergy (Unknown, Verified 02/09/24 14:24) Rash Penicillins [PENICILLINS] Allergy (Unknown, Verified 02/09/24 14:24) UNKNOWN Medication List - Last Reconciled 02/09/24 by Mckayla Elizabeth MD atorvastatin 40 mg PO DAILY blood sugar diagnostic (FreeStyle Lite Strips) As directed three times a day blood-glucose meter (FreeStyle Lite Meter kit) As directed 3 x/day blood-glucose meter,continuous (Dexcom G6 Web Communications Specialist) As directed blood-glucose sensor (Dexcom G6 Sensor device) As directed blood-glucose transmitter (Dexcom G6 Transmitter device) As directed cholecalciferol (vitamin D3) 50 mcg PO DAILY donepezil 5 mg PO DAILY finasteride 5 mg PO DAILY hydrochlorothiazide 25 mg PO QAM insulin pump cart,auto,BT-cntr (Omnipod 5 G6 Intro Kit (Gen 5) subcutaneous cartridge with controller) As directed lancets (FreeStyle Lancets) 4 times a day losartan 50 mg PO DAILY Lyumjev U-100 Insulin (insulin lispro-aabc) Up to 100 units via insulin pump subcut daily; 90 days NS multivitamin 1 tab PO DAILY sertraline 50 mg PO DAILY tamsulosin 0.4 mg PO DAILY Do you need a note to return to daycare/school/sports/work: No HPI HPI Obstructive sleep apnea: Details: 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 He is a known case of mixed sleep apnea. We have tried to treat him with planed CPAP therapy which failed. Then he was tried on BiPAP therapy which also failed, because he continue to have lot of residual central apnea events. He continues to have excessive daytime sleepiness and fatigue. Sleep remains somewhat fragmented. He also has cognitive impairment which continues to bother him, in spite of taking Donepezil 10 mg daily, and he is also on sertraline 50 mg daily. RECENTLY HE UNDERWENT CPAP TITRATION WITH ASV MODE, AND IT DID ELIMINATE ALL HIS OBSTRUCTIVE WELL CENTRAL APNEAS. HE COMES HERE TODAY TO DISCUSS THE RESULTS AND TO DISCUSS ABOUT THE NEXT STEP. [facility] Medical History Central sleep apnea ODILIA (obstructive sleep apnea) Retrognathia Overweight Hyponatremia Dyslipidemia Hypertension Diabetic polyneuropathy associated with type 1 diabetes mellitus Mild non proliferative diabetic retinopathy Diabetes type 1, controlled Surgical History History of esophagogastroduodenoscopy (EGD) H/O colonoscopy Hx of right inguinal hernia repair Hx of cataract removal with insertion of prosthetic lens Hx of hand surgery Family History Father CVD (cardiovascular disease) Mother Hypertension Maternal Grandmother Diabetes Social History Household Members: Spouse Alcohol intake: current Alcohol intake frequency: a few times a week Alcohol type: wine Patient Tobacco Use Status: Never used Tobacco Review of Systems Const Denies body aches, Denies chills, Denies fatigue, Denies fever(s) and Denies headache(s) Eyes Denies blurry vision, Denies irritation, Denies itchy eyes and Denies loss of vision ENT Denies dysphagia, Denies vertigo, Denies headache(s), Denies epistaxis, Denies nasal congestion, Denies nasal discharge, Denies nasal obstruction and Denies sinus pain Card Denies chest pain, Denies rapid heart rate, Denies irregular heart rhythm, Denies dyspnea on exertion and Denies slow heart rate Resp Reports as per HPI and Denies dyspnea on exertion GI Denies bloating, Denies change in bowel habits, Denies change in stool character, Denies dysphagia, Denies heartburn, Reports nausea and Denies vomiting Reports nocturia and Denies urinary incontinence Musc Denies abnormal gait, Denies back pain, Denies myalgias, Denies arthralgias, Denies muscle weakness and Denies stiffness Skin/Breast Reports system reviewed and no additional complaints, except as documented Neuro Denies abnormal gait, Denies vertigo, Denies headache(s), Denies focal weakness, Denies loss of vision, Reports memory loss, Denies restless legs and Denies tremor(s) Psych Reports depression and Reports memory loss Endo Reports no additional complaints, Denies fatigue and Reports other (Insulin- dependent diabetes mellitus) Franklyn/Lymph Reports no additional complaints Aller/Immun Reports no additional complaints and Denies itchy eyes Physical Exam Vital Signs: Last Vital Signs Pulse 55 02/09/24 11:02 BP 124/59 L 02/09/24 11:02 Pulse Ox 95 02/09/24 11:02 Oxygen Delivery Method Room Air 02/09/24 11:02 BMI result Body Mass Index 29.0 Generally healthy looking, he is only says moderately overweight Const General: healthy appearing, comfortable, no acute distress, alert and awake Orientation/consciousness: patient oriented x3 HEENT Head: Yes normal to inspection General nose exam: No nasal polyps present and No nasal discharge present Face and sinus: Yes sinuses nontender Mouth: oropharynx abnormals (Tongue is placed back, oropharynx is narrow, Mallampati class 4) Teeth and gingiva: other (RETROGANTHIA of the lower jaw ( overbite ) ) Throat: Yes posterior oropharynx normal Eyes General: appearance normal, both eyes and all related structures Neck Neck: Yes normal visual inspection, Yes no lymphadenopathy, Yes trachea midline, Yes no JVD and Yes other (Neck circumference 16-1/2 inch) Thyroid: Thyroid normal Chest Chest palpation & inspection: normal inspection of the chest, normal palpation of entire chest wall and no tenderness Resp Effort & Inspection: normal respiratory effort Auscultation: clear to auscultation bilaterally, no crackles and no wheezes Cardio Palpation: normal PMI Rate: regular rate Rhythm: regular rhythm Heart sounds: no gallops and no murmurs Peripheral pulses: Peripheral pulses 2+ throughout GI Palpation (GI): Soft to palpation, nontender, No hepatosplenomegaly present and no masses Auscultation: normal bowel sounds Back/Spine/Pelvis Thoracic/Lumbar Spine: thoracic and lumbar spine normal to inspection Skin General skin exam: no rashes or lesions noted Neuro General: patient oriented x3 and no focal motor deficits Cranial nerves: Yes CN's II-XII intact bilaterally Extrem General: Yes normal to inspection, Yes no clubbing, cyanosis or edema and Yes no calf tenderness Psych Appearance: grossly normal and well kempt Speech and movement: Normal speech and movement present Results Reviewed Results Reviewed: CPAP TITRATION STUDY WITH THE ASV MODE WAS REVIEWED WITH THE PATIENT THE OPTIMAL RESULTS WERE OBTAINED WITH IPAP OF 12, EPAP OF 7 CM AND MAXIMUM PRESSURE 15 CM MINIMUM PRESSURE 3 CM. ALL EXPLAINED TO THE PATIENT AND HE UNDERSTANDS WELL. Assessment & Plan Assessment & Plan (1) ODILIA (obstructive sleep apnea): Comment: OBSTRUCTIVE SLEEP APNEA, SEVERE, RESPONDING VERY WELL TO THE USE OF CPAP. HE IS VERY COMPLIANT BUT CONTINUES TO HAVE RESIDUAL APNEAS AND CONTINUES TO HAVE DAYTIME SLEEPINESS. HE HAD CPAP TITRATION WITH ASV MODE WITH GOOD RESULTS. Code(s): G47.33 - Obstructive sleep apnea (adult) (pediatric) Category: Medical Plan: PATIENT WILL BE STARTED ON ASV MODE VENTILATORY SUPPORT. WITH IPAP 12/EPAP 7 ,PS MINIMAL 3 AND MAXIMUM 15 CMS (2) Central sleep apnea: Comment: HE HAS TREATMENT EMERGENT CENTRAL SLEEP APNEA WITH CENTRAL APNEA INDEX 9.1., AND TOTAL RESIDUAL AHI OF 16. NOW WITH THE USE OF ASV MODE ALL THE CENTRAL WELL OBSTRUCTIVE EVENTS WERE ELIMINATED. 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 I pointed it out to him and he tells me that yes he is aware of the fact that he has had an overbite. This is a chronic fixed defect and would not be correctable. Code(s): M26.19 - Other specified anomalies of jaw-cranial base relationship Category: Medical Plan: PATIENT HAS BEEN EDUCATED ABOUT ALL THIS . Coding Level of Care Code Tele Est Pt Level 3 (45895) Diagnoses ODILIA (obstructive sleep apnea) G47.33 Central sleep apnea G47.31 Retrognathia M26.19
== END 2024-02-09 11:28 | disposition home or self-care (01) ==
PROVIDERS: PCP Internal Medicine; Visit Provider Internal Medicine
DX: G47.33 Obstructive sleep apnea (adult) (pediatric) (principal); G47.31 Primary central sleep apnea; M26.19 Other specified anomalies of jaw-cranial base relationship
CPT/HCPCS: 99213

== ENCOUNTER → 2024-02-09 10:53 | Outpatient (BNVA) | payer MEDICARE, SELFPAY | PROVIDERS: PCP Internal Medicine; Visit Provider Internal Medicine | CPT/HCPCS: 99212 ==

== ENCOUNTER 2024-04-18 14:42 | Outpatient (AMB) | payer MEDICARE, SELFPAY ==
[2024-04-18 14:54] VITALS: BP 120/62; PULSE 56; O2SAT 96; BMI 28.9
--- NOTE | 2024-04-18 14:54 | A.OFFVIS_ITS ---
Vital Signs 04/18/24 14:54 Height 5 ft 8 in Weight 190 lb BMI 28.9 BP 120/62 Blood Pressure Location Lt brachial Position Sitting Pulse 56 Pulse Source Pulse Oximeter Pulse Oximetry (%) 96 Oxygen Delivery Method Room Air Intake Visit Reasons: jaiden Intake Note: pt is here for follow up and states he is feeling better with ventilator. pt is having an issue with air blowing out the side of the mask, full face mask. Environmental Economist Required: No Allergies penicillin V Allergy (Unknown, Verified 04/18/24 15:03) Rash Penicillins [PENICILLINS] Allergy (Unknown, Verified 04/18/24 15:03) UNKNOWN Medication List - Last Reconciled 04/18/24 by Mckayla Elizabeth MD atorvastatin 40 mg PO DAILY blood sugar diagnostic (FreeStyle Lite Strips) As directed three times a day blood-glucose meter (FreeStyle Lite Meter kit) As directed 3 x/day blood-glucose meter,continuous (Dexcom G6 Top Lift Nailer) As directed blood-glucose sensor (Dexcom G6 Sensor device) As directed blood-glucose transmitter (Dexcom G6 Transmitter device) As directed cholecalciferol (vitamin D3) 50 mcg PO DAILY donepezil 10 mg PO DAILY finasteride 5 mg PO DAILY hydrochlorothiazide 25 mg PO QAM insulin pump cart,auto,BT-cntr (Omnipod 5 G6 Intro Kit (Gen 5) subcutaneous cartridge with controller) As directed lancets (FreeStyle Lancets) 4 times a day losartan 50 mg PO DAILY Lyumjev U-100 Insulin (insulin lispro-aabc) Up to 100 units via insulin pump subcut daily; 90 days NS multivitamin 1 tab PO DAILY sertraline 50 mg PO DAILY tamsulosin 0.4 mg PO DAILY Do you need a note to return to daycare/school/sports/work: No HPI HPI jaiden: Details: 83 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 HE HAS COMPLEX SLEEP APNEA, WHICH COULD NOT BE TREATED WITH ROUTINE CPAP THERAPY. SO WE HAD TO PUT HIM ON HOME RESPIRATOR WITH ASV MODE. HE IS VERY HAPPY WITH THE ASV RESPIRATOR, USING FULLFACE MASK ( DREAMWEAR ) HE SLEEPS MUCH BETTER AND WAKES UP MORE REFRESHED. ONLY PROBLEM IS THAT HE DOES HAVE SOME AIR LEAK AT NIGHT, WITH SWISHING SOUND. HE TOLD ME TODAY THAT BACK IN 1999 WHEN HE WAS IN [place], HE WAS TREATED FOR ATYPICAL MYCOBACTERIUM COMPLEX. BIOPSY OF A MASK IN LEFT LOWER LOBE WAS POSITIVE FOR GRANULOMA, AND FINAL CULTURES INDICATED THAT THIS WAS MYCOBACTERIUM COMPLEX. HE WAS TREATED WITH TRIPLE THERAPY FOR 1 YEAR. HE NEVER HAD ANY ACTIVE SYMPTOMS LIKE COUGH OR EXPECTORATION. HE HAS HAD SHORTNESS OF BREATH ON EXERTION ALL ALONG. NOW IT IS SOMEWHAT MORE PROMINENT AND HE LIKES TO HAVE PULMONARY FUNCTION TEST FOR EVALUATION. [facility] Medical History (Updated 04/18/24 @ 15:39 by Mckayla Elizabeth MD) Dyspnea on exertion Central sleep apnea JAIDEN (obstructive sleep apnea) Retrognathia Overweight Hyponatremia Dyslipidemia Hypertension Diabetic polyneuropathy associated with type 1 diabetes mellitus Mild non proliferative diabetic retinopathy Diabetes type 1, controlled Surgical History History of esophagogastroduodenoscopy (EGD) H/O colonoscopy Hx of right inguinal hernia repair Hx of cataract removal with insertion of prosthetic lens Hx of hand surgery Family History Father CVD (cardiovascular disease) Mother Hypertension Maternal Grandmother Diabetes Social History Household Members: Spouse Alcohol intake: current Alcohol intake frequency: a few times a week Alcohol type: wine Patient Tobacco Use Status: Never used Tobacco Review of Systems Const Denies body aches, Denies chills, Denies fatigue, Denies fever(s) and Denies headache(s) Eyes Denies blurry vision, Denies irritation, Denies itchy eyes and Denies loss of vision ENT Denies dysphagia, Denies vertigo, Denies headache(s), Denies epistaxis, Denies nasal congestion, Denies nasal discharge, Denies nasal obstruction and Denies sinus pain Card Denies chest pain, Denies rapid heart rate, Denies irregular heart rhythm, Denies dyspnea on exertion and Denies slow heart rate Resp Reports as per HPI and Denies dyspnea on exertion GI Denies bloating, Denies change in bowel habits, Denies change in stool character, Denies dysphagia, Denies heartburn, Reports nausea and Denies vomiting Reports nocturia and Denies urinary incontinence Musc Denies abnormal gait, Denies back pain, Denies myalgias, Denies arthralgias, Denies muscle weakness and Denies stiffness Skin/Breast Reports system reviewed and no additional complaints, except as documented Neuro Denies abnormal gait, Denies vertigo, Denies headache(s), Denies focal weakness, Denies loss of vision, Reports memory loss, Denies restless legs and Denies tremor(s) Psych Reports depression and Reports memory loss Endo Reports no additional complaints, Denies fatigue and Reports other (Insulin- dependent diabetes mellitus) Franklyn/Lymph Reports no additional complaints Aller/Immun Reports no additional complaints and Denies itchy eyes Physical Exam Vital Signs: Last Vital Signs Pulse 56 04/18/24 14:54 BP 120/62 04/18/24 14:54 Pulse Ox 96 04/18/24 14:54 Oxygen Delivery Method Room Air 04/18/24 14:54 BMI result Body Mass Index 28.9 Generally healthy looking, he is only says moderately overweight Const General: healthy appearing, comfortable, no acute distress, alert and awake Orientation/consciousness: patient oriented x3 HEENT Head: Yes normal to inspection General nose exam: No nasal polyps present and No nasal discharge present Face and sinus: Yes sinuses nontender Mouth: oropharynx abnormals (Tongue is placed back, oropharynx is narrow, Mallampati class 4) Teeth and gingiva: other (RETROGANTHIA of the lower jaw ( overbite ) ) Throat: Yes posterior oropharynx normal Eyes General: appearance normal, both eyes and all related structures Neck Neck: Yes normal visual inspection, Yes no lymphadenopathy, Yes trachea midline, Yes no JVD and Yes other (Neck circumference 16-1/2 inch) Thyroid: Thyroid normal Chest Chest palpation & inspection: normal inspection of the chest, normal palpation of entire chest wall and no tenderness Resp Effort & Inspection: normal respiratory effort Auscultation: clear to auscultation bilaterally, no crackles and no wheezes Cardio Palpation: normal PMI Rate: regular rate Rhythm: regular rhythm Heart sounds: no gallops and no murmurs Peripheral pulses: Peripheral pulses 2+ throughout GI Palpation (GI): Soft to palpation, nontender, No hepatosplenomegaly present and no masses Auscultation: normal bowel sounds Back/Spine/Pelvis Thoracic/Lumbar Spine: thoracic and lumbar spine normal to inspection Skin General skin exam: no rashes or lesions noted Neuro General: patient oriented x3 and no focal motor deficits Cranial nerves: Yes CN's II-XII intact bilaterally Extrem General: Yes normal to inspection, Yes no clubbing, cyanosis or edema and Yes no calf tenderness Psych Appearance: grossly normal and well kempt Speech and movement: Normal speech and movement present Results Reviewed Results Reviewed: COMPLIANCE REPORT IS REVIEWED AND INDICATES THAT HE HAS BEEN USING 20/20 NIGHTS, 100%. AVERAGE USAGE PER NIGHT 6 HOURS 45 MINUTES. THERE IS SOME AIR LEAK, MAXIMUM 47.7 L/MINUTE. RESIDUAL AHI 8.6. THIS IS STILL SOMEWHAT HIGH BUT MUCH IMPROVED COMPARED TO PREVIOUS REPORTS WHEN HE WAS ON CPAP THERAPY. Assessment & Plan Assessment & Plan (1) Central sleep apnea: Comment: HE HAS TREATMENT EMERGENT CENTRAL SLEEP APNEA WITH CENTRAL APNEA INDEX 9.1., AND TOTAL RESIDUAL AHI OF 16. NOW WITH THE USE OF ASV MODE ALL THE CENTRAL WELL OBSTRUCTIVE EVENTS WERE ELIMINATED. SYMPTOM MEDICALLY HE IS DOING MUCH BETTER WITH THE CURRENT TREATMENT. Code(s): G47.31 - Primary central sleep apnea Category: Medical Plan: ADVISED TO CONTINUE USING THE ASV MODE RESPIRATOR EVERY NIGHT (2) JAIDEN (obstructive sleep apnea): Comment: OBSTRUCTIVE SLEEP APNEA, SEVERE, RESPONDING VERY WELL TO THE USE OF CPAP. HE IS VERY COMPLIANT BUT CONTINUES TO HAVE RESIDUAL APNEAS AND CONTINUES TO HAVE DAYTIME SLEEPINESS. HE HAD CPAP TITRATION WITH ASV MODE WITH GOOD RESULTS. Code(s): G47.33 - Obstructive sleep apnea (adult) (pediatric) Category: Medical Plan: CONTINUE TO USE THE ASV MODE, WITH THE SETTING FOLLOWS. 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 I pointed it out to him and he tells me that yes he is aware of the fact that he has had an overbite. This is a chronic fixed defect and would not be correctable. Code(s): M26.19 - Other specified anomalies of jaw-cranial base relationship Category: Medical Plan: NO TREATMENT NEEDED FOR THIS ISSUE (4) Dyspnea on exertion: Comment: TREATED FOR PULMONARY TUBERCULOSIS IN YEAR 1999. HE HAS HAD MILD DYSPNEA ON EXERTION SINCE THEN. CLAIMS THAT HIS WRAY IS SLIGHTLY INCREASED FROM BEFORE. Code(s): R06.09 - Other forms of dyspnea Category: Medical Plan: COMPLETE PULMONARY FUNCTION TEST FOR EVALUATION Orders: Orders PFT pulmonary function test Today G47.31 - Primary central sleep apnea, G47.33 - Obstructive sleep apnea (adult) (pediatric), R06.09 - Other forms of dyspnea Coding Level of Care Code Est Pt Level 3 (53492) Diagnoses Central sleep apnea G47.31 JAIDEN (obstructive sleep apnea) G47.33 Retrognathia M26.19 Dyspnea on exertion R06.09
== END 2024-04-18 15:31 | disposition home or self-care (01) ==
PROVIDERS: PCP Internal Medicine; Visit Provider Internal Medicine
DX: G47.31 Primary central sleep apnea (principal); G47.33 Obstructive sleep apnea (adult) (pediatric); M26.19 Other specified anomalies of jaw-cranial base relationship; R06.09 Other forms of dyspnea
CPT/HCPCS: 99213

== ENCOUNTER → 2024-04-18 14:42 | Outpatient (BNVA) | payer MEDICARE, SELFPAY | PROVIDERS: PCP Internal Medicine; Visit Provider Internal Medicine | DX: G47.33 Obstructive sleep apnea (adult) (pediatric) (principal); G47.31 Primary central sleep apnea; M26.19 Other specified anomalies of jaw-cranial base relationship; R06.09 Other forms of dyspnea | CPT/HCPCS: 99212 ==

== ENCOUNTER 2024-06-06 11:02 | Outpatient (REF) | payer MEDICARE, SELFPAY ==
--- NOTE | 2024-06-06 11:05 | PFT_ITS ---
Flows: FEV1: 76 % of predicted at 1.93 L FVC: 90 % of predicted at 3.07 L FEV1/FVC: 63 % Bronchodilator response: Absent Volumes: Total lung capacity: 75 % of predicted at 4.78 L Residual volume: 61 % of predicted at 1.55 L Slow vital capacity: 89 % of predicted at 3.24 L Expiratory reserve volume: 67 % of predicted at 0.71 L Diffusion capacity: Mildly decreased, corrects to normal after adjustment for alveolar ventilation. Impression: Combined moderate obstructive and restrictive ventilatory defects with no bronchodilator response present. Combination of restrictive ventilatory defect and decreased diffusion capacity suggests underlying pulmonary parenchymal disease. Clinical correlation is advised. MTDD
[2024-06-06 11:56] VITALS: PULSE 58; O2SAT 98
--- OUTSIDE RECORDS SUMMARY | 2024-06-12 17:55 | XMS_ITS ---
Author Organization [facility] Address [address] [place] [address] Care Team Providers Care Shift Superintendent Name Role Phone Srinivasa Vasquez DO Primary Care Provider Unavail able Srinivasa Kuo Unavailable [phone] REASON FOR VISIT family history of colon cancer PROBLEMS Problem Type ICD Code Onset Dates Problem Status W/U Status Risk SNOMED Code Notes Problem Diverticulosis of large intestine without perforation or abscess without bleeding (K57.30) Active confirmed Diverticul ar disease of colon ([id number]) Encounters Encounter Location Date Provider Diagnosis [facility] [place] Outpatient [address] [place] [phone] 01/09/2024 Srinivasa Kuo Change in bowel doan bits R19.4 ; Family history of colon cancer Z80.0 ; Diverticulosis of large intestine without perforation or abscess without bleeding K57.30 and Other hemorrhoids K64.8 ASSESSMENTS Encounter Date Diagnosis Assessment Notes Treatment Notes Treatment Clinical Notes 01/09/2024 Change in bowel habits (ICD-10 - R19.4) 01/09/2024 Family history of colon cancer (ICD-10 - Z80.0) 01/09/2024 Diverticulosis of large intestine without perforation or abscess without bleeding (ICD-10 - K57.30) 01/09/2024 Other hemorrhoids (ICD-10 - K64.8) PLAN OF TREATMENT No Information
--- OUTSIDE RECORDS SUMMARY | 2024-06-12 17:55 | XMS_ITS ---
Author Organization Srinivasa Vasquez DO, [facility] Address [address] [place], [place] [id number] Care Team Providers Care Diathermy Equipment Repairer Name Role Phone PedroSrinivasa velez Primary Care Provider REASON FOR VISIT Refills MEDICATIONS Medication SIG (Take, Route, Fr equency, Duration) Notes Start Date End Date Status Tamsulosin HCl 0.4 MG 2 capsules Orally Once a day for 90 days Active Encounters Encounter Location Date Provider Diagnosis Srinivasa Vasquez DO, FACP [address] [place], [place] [phone] 05/15/2024 Srinivasa Vasquez Benign prostatic hyperplasia without lower urinary tract symptoms, prostatic enlargement of unspecified morphology N40.0 ASSESSMENTS Encounter Date Diagnosis Assessment Notes Treatment Notes Treatment Clinical Notes 05/15/2024 Benign prostatic hyperplasia without lower urinary tract symptoms, prostatic enlargement of unspecified morphology (ICD-10 - N40.0) PLAN OF TREATMENT Medication Medication Name Sig Start Date Stop Date Notes Tamsulosin HCl 0.4 MG 2 capsules Orally Once a day for 90 days Next Appt Details Provider Name:Srinivasa parker, 11/06/2024 10:30:00 AM, [address] [place], [place], [phone],
--- OUTSIDE RECORDS SUMMARY | 2024-06-12 17:55 | XMS_ITS ---
Author Organization Srinivasa Vasquez DO, FACP Address [address] [place], [place] [id number] Care Team Providers Care Vest Presser Name Role Phone Pedro Srinivasa Primary Care Provider ALLERGIES Allergen (clinical drug ingredient) Drug/Non Drug Allergy documented on EMR Reaction Allergy Type Onset Date Status memantine Memantine mari Drug Allergy Active Penicillin rash Drug Allergy Active REASON FOR VISIT 6 month f/u, Follow up type I diabetes mellitus, now on an insulin pump and CGM, hypertension MEDICATIONS Medication SIG (Take, Route, Frequency, Duration) Notes Start Date End Date Status Losartan Potassium 50 MG 1 tablet Orally Twice a day Active hydroCHLOROthiazide 25 MG 1 tablet in th e morning Orally Once a day Active Finasteride 5 MG 1 tablet Orally Once a day Active Atorvastatin Calcium 40 MG 1 tablet Oral ly Once a day Active Tamsulosin HCl 0.4 MG 2 capsules Orally Once a day Active Albuterol Sulfate HFA 108 (9 0 Base) MCG/ACT 1 puff as needed Inhalation every 4 hrs Active PreserVision AREDS 2 - 1 capsule Orally Twice a day Active Glucagon Emergency 1 MG as directed Inje ction Once 02/10/2017 Active Donepezil HCl 10 MG 1 tablet at bedtime Orally Once a day Active Vitamin D (Cholecalciferol) 50 MCG (2000 UT) 1 capsule Orally Once a day Active Sertraline HCl 50 MG 1 tablet Orally Onc e a day Active SOCIAL HISTORY Tobacco Use: Social History Observation Description Date Details (start date - stop date) Never Smoker NA - NA Sex Assigned At : Social History Observation Description Sex Assigned At Unknown Tobacco Use/Smoking Question Answer Notes Patient is a nonsmoker Additional Findings: Tobacco Non-User Cu rrent non-smoker, currently using no form of tobacco Alcohol Screen Question Answer Notes Did you have a drink contain ing alcohol in the past year? Yes How often did you have a dri nk containing alcohol in the past year? 2 to 4 times a month (2 points) How many drinks did you have on a typical day when you were drinking in the past year? 1 or 2 drinks (0 point) How often did you have 6 or more drinks on one occasion in the past year? Never (0 point) Points 2 Interpretation Negative VITAL SIGNS BMI 30.91 kg/m2 11/29/2023 Blood pressure systolic 124 mm Hg 11/29/19 24 Blood pressure diastolic 54 mm Hg 024 Height 66.25 in 11/29/2023 Weight 193 lbs 11/29/2023 Encounters Encounter Location Date Provider Diagnosis Srinivasa Vasquez DO, [address] [phone] 11/29/2023 Srinivasa Vasquez Type 1 diabetes mellitus without complication E10.9 ; Essential hypertension I10 ; Benign prostatic hyperplasia without lower urinary tract symptoms, prostatic enlargement of unspecified morphology N40.0 ; Anxiety F41.9 and Memory loss R41.3 ASSESSMENTS Encounter Date Diagnosis Assessment Notes Treatment Notes Treatment Clinical Notes 11/29/2023 Type 1 diabetes mellitus without complication (ICD-10 - E10.9) Insulin pump/CGM. Follow up with Endocrinology; Dr. Gamino 11/29/2023 Essential hypertension (ICD-10 - I10) 11/29/2023 Benign prostatic hyperplasia without lower urinary tract symptoms, prostatic enlargement of unspecified morphology (ICD-10 - N40.0) 11/29/2023 Anxiety (ICD-10 - F41.9) 11/29/2023 Memory loss (ICD-10 - R41.3) PLAN OF TREATMENT Medication Medication Name Sig Start Date Stop Date Notes Losartan Potassium 50 MG 1 tablet Orally Twice a day hydroCHLOROthiazide 25 MG 1 tablet in th e morning Orally Once a day Finasteride 5 MG 1 tablet Orally Once a day Atorvastatin Calcium 40 MG 1 tablet Oral ly Once a day Tamsulosin HCl 0.4 MG 2 capsules Orally Once a day Albuterol Sulfate HFA 108 (9 0 Base) MCG/ACT 1 puff as needed Inhalation every 4 hrs PreserVision AREDS 2 - 1 capsule Orally Twice a day Glucagon Emergency 1 MG as directed Inje ction Once 02/10/2017 Donepezil HCl 10 MG 1 tablet at bedtime Orally Once a day Vitamin D (Cholecalciferol) 50 MCG (1999) 1 capsule Orally Once a day Sertraline HCl 50 MG 1 tablet Orally Onc e a day Treatment Notes Assessment Notes Type 1 diabetes mellitus without complic ation Insulin pump/CGM. Follow up with Endocrinology; Dr. Gamino Next Appt Details Follow Up: 6 Months, Reason: follow up visit Provider Name:Srinivasa parker, 11/06/2024 10:30:00 AM, [address] [place] [address], [phone], Progress Notes * Examination Category Sub-Category Detail Notes General Examination GENERAL APPEARANCE: in no ac [place] distress, well developed, well nourished HEAD: normocephalic, atrau matic HEART: no murmurs, regular rate and rhythm, S1, S2 normal LUNGS: clear to auscultatio n bilaterally ABDOMEN: normal, bowel sounds present, soft, nontender, nondistended SKIN: warm and dry EXTREMITIES: no edema PSYCH: alert, oriented, cog nitive function intact
--- OUTSIDE RECORDS SUMMARY | 2024-06-12 17:55 | XMS_ITS ---
Author Organization [facility] Address [address] [place] [address] Care Team Providers Care Jack Setter Name Role Phone Srinivasa Vasquez DO Primary Care Provider Unavail able Srinivasa Kuo Unavailable [phone] REASON FOR VISIT fm hx of colon ca,change in bowels Encounters Encounter Location Date Provider Diagnosis [facility] [place] [address], [place] [phone] 12/26/2023 Srinivasa Kuo PLAN OF TREATMENT No Information
--- OUTSIDE RECORDS SUMMARY | 2024-06-12 17:55 | XMS_ITS ---
Author Organization Srinivasa Vasquez DO, FACP Address [address] [place], [place] [phone] Care Team Providers Care Truck Caterer Name Role Phone Pedro Srinivasa Primary Care [...] Duration) Notes Start Date End Date Status hydroCHLOROthiazide 25 MG 1 tablet in th e morning Orally Once a day Active Losartan Potassium 50 MG 1 tablet Orally Twice a day Active Atorvastatin Calcium 40 MG 1 tablet Oral ly Once a day Active Albuterol Sulfate HFA 108 (9 0 Base) MCG/ACT 1 puff as needed Inhalation every 4 hrs Active Glucagon Emergency 1 MG as directed Inje ction Once 02/10/2017 Active Donepezil HCl 10 MG 1 tablet Orally Once a day Active Finasteride 5 MG 1 tablet Orally Once a day Active PreserVision AREDS 2 - 1 capsule Orally Twice a day Active Vitamin D (Cholecalciferol) 50 MCG (2000 UT) 1 capsule Orally Once a day Active Sertraline HCl 50 MG 1 tablet Orally Onc e a day Active Tamsulosin HCl 0.4 MG 2 capsules Orally Once a day Active SOCIAL HISTORY Tobacco Use: [...] Points 2 Interpretation Negative VITAL SIGNS BMI 31.23 kg/m2 05/09/2024 Blood pressure systolic 118 mm Hg 05/09/20 24 Blood pressure diastolic 50 mm Hg 024 Height 66.25 in 05/09/2024 Weight 195 lbs 05/09/2024 Encounters Encounter Location Date Provider Diagnosis Srinivasa Vasquez DO, [address] [phone] 05/09/2024 Srinivasa Vasquez Type 1 diabetes mellitus without complication E10.9 ; Essential hypertension I10 ; Benign prostatic hyperplasia without lower urinary tract symptoms, prostatic enlargement of unspecified morphology N40.0 ; Anxiety F41.9 and Memory loss R41.3 ASSESSMENTS Encounter Date Diagnosis Assessment Notes Treatment Notes Treatment Clinical Notes 05/09/2024 Type 1 diabetes mellitus without complication (ICD-10 - E10.9) Insulin pump/CGM 05/09/2024 Essential hypertension (ICD-10 - I10) 05/09/2024 Benign prostatic hyperplasia without lower urinary tract symptoms, prostatic enlargement of unspecified morphology (ICD-10 - N40.0) 05/09/2024 Anxiety (ICD-10 - F41.9) 05/09/2024 Memory loss (ICD-10 - R41.3) PLAN OF TREATMENT Medication Medication Name Sig Start Date Stop Date Notes hydroCHLOROthiazide 25 MG 1 tablet in th e morning Orally Once a day Losartan Potassium 50 MG 1 tablet Orally Twice a day Atorvastatin Calcium 40 MG 1 tablet Oral ly Once a day Albuterol Sulfate HFA 108 (9 0 Base) MCG/ACT 1 puff as needed Inhalation every 4 hrs Glucagon Emergency 1 MG as directed Inje ction Once 02/10/2017 Donepezil HCl 10 MG 1 tablet Orally Once a day Finasteride 5 MG 1 tablet Orally Once a day PreserVision AREDS 2 - 1 capsule Orally Twice a day Vitamin D (Cholecalciferol) 50 MCG (1999 UT) 1 capsule Orally Once a day Sertraline HCl 50 MG 1 tablet Orally Onc e a day Tamsulosin HCl 0.4 MG 2 capsules Orally Once a day Treatment Notes Assessment Notes Type 1 diabetes mellitus without complic ation Insulin pump/CGM Next Appt Details Follow Up: 6 Months, Reason: follow up visit Provider Name:Srinivasa parker, 11/06/2024 10:30:00 AM, [address] [place] [address], [phone], Progress Notes * Examination Category Sub-Category Detail Notes General Examination GENERAL APPEARANCE: in no ac [place] distress, well developed, well nourished HEAD: normocephalic, atrau matic HEART: no murmurs, regular rate and rhythm, S1, S2 normal LUNGS: clear to auscultatio n bilaterally ABDOMEN: normal, bowel sounds present, soft, nontender, nondistended SKIN: warm and dry EXTREMITIES: no edema PSYCH: alert, oriented, cog nitive function intact
--- OUTSIDE RECORDS SUMMARY | 2024-06-12 17:55 | XMS_ITS | Patient Health Record ---
Author Organization Srinivasa Vasquez DO, FACP Address [address], [place] [id number] Care Team Providers Care Inspection Machine Tender Name Role Phone PedroSrinivasa velez Primary Care Provider [phone] ALLERGIES Allergen (clinical drug ingredient) Drug/Non Drug Allergy documented on EMR Reaction Allergy Type Onset Date Status memantine Memantine mari Drug Allergy Active Penicillin rash Drug Allergy Active RESULTS Component Value Reference Range Notes Urinalysis and Microscopic Reviewed date:11/23/2023 10:58:13 AM Interpretation:Abnormal Performing Lab:[facility] [place], [address] [place] [phone] Notes/Report: Color Urine Yellow Appearance Urine Clear PH 6.5 5.0-9.0 Glucose Urine UA Negative Negative mg/dL Urine Blood Negative Negative Specific [place] - Urine 1.020 1.005-1.025 Urine Protein Negative Neg-Trace mg/dL Urine Ketones Negative Negative mg/dL Nitrite Urine Negative Negative Leukocyte Esterase Urine Trace Negative RBC Urine 0-2 0-2 /HPF WBC Urine 0-5 0-5 /HPF Squamous Epithelial Cell Urine 0-2 0-2 /HPF Bacteria Urine None Seen None Seen Hyaline Casts Urine 0-2 0-2 /LPF Microalbumin, Random Reviewed date:11/23/2023 12:03:36 PM Interpretation:Normal Performing Lab:[facility] [place], [address] [place] [phone] Notes/Report: Creatinine Urine 109.46 Microalbumin Urine 9.0 Microalbum/Creatinine Ratio Ur 8.2 <30 ug/mg cr Albumin/Creatinine Ratio Reference Ranges: Normal: < 30 ug/mg creatinine Microalbuminuria: 30 - 300 ug/mg creatinine Clinical Albuminuria: > 300 ug/mg creatinine Hemoglobin A1c Reviewed date:11/23/2023 10:58:29 AM Interpretation:Abnormal Performing Lab:[facility] [place], [address] [place] [phone] Notes/Report: Hemoglobin A1c % 7.9 <6.0 % Hemoglobin A1C Reference Range Adults: 4.8 - 6.0 % Non diabetic: < 6.0 % Goal: < 7.0 % Additional Action Suggested: > 8.0 % Note: Hemoglobin A1c results are invalid for patients with abnormal amounts of HbF. Blood transfusions may impact the HbA1c concentration in the patient sample. Estimated Average Glucose 180 eAG = Estimated average glucose which is %A1C expressed as average glucose, using the formula of the T2F-Odefxcn Average Glucose study (ADAG), Diabetes Care, Vol.31,#8, 2007 Complete Blood Count Auto Di ff Reviewed date:11/23/2023 10:58:13 AM Interpretation:Abnormal Performing Lab:[facility] [place], [address] [place] [phone] Notes/Report: White Blood Count 6.9 4.8-10.8 X10*3/uL Red Blood Count 4.56 4.60-5.80 X10*6/uL Hemoglobin 13.6 14.0-18.0 g/dl Hematocrit 41.0 42.0-52.0 % Mean Corpuscular Volume 89.9 80.0-98.0 fL Mean Corpuscular Hemoglobin 29.8 27.0-33.0 pg Mean Corpuscular HGB Conc 33.2 31.0-36.0 g/dl Red Cell Distribution Width 13.5 11.0-16.0 % Platelet Count 217 160-400 X10*3/uL Mean Platelet Volume 11.6 9.4-12.4 fL Neutrophils Percent Auto 47.7 45-73 % Imm Gran Pct Auto 0.3 0.0-0.4 % Lymphocytes Percent Auto 37.4 20-40 % Monocytes Percent Auto 12.6 2-11 % Eosinophils Percent Auto 1.3 0-4 % Basophils Percent Auto 0.7 0-2 % NRBC Pct Auto 0.0 0.0-0.2 /100WBC Neutrophils Absolute Auto 3.3 2.0-8.3 x10*3/u L Imm Gran Abs Auto 0.02 0.00-0.03 X10*3/uL Lymphocytes Absolute Auto 2.6 1.2-4.9 X10*3/u L Monocytes Absolute Auto 0.9 0.1-1.2 X10*3/uL Eosinophils Absolute Auto 0.1 0.0-0.4 X10*3/u L Basophils Absolute Auto 0.1 0.0-0.2 X10*3/uL NRBC Abs Auto 0.000 0.0-0.012 X10*3/uL Comprehensive [place]. Panel Fa st Reviewed date:11/23/2023 12:03:36 PM Interpretation:Abnormal Performing Lab:[facility] [place], [address] [place] [phone] Notes/Report: Sodium 137 135-145 mmol/L Potassium 4.5 3.3-5.1 mmol/L Chloride 104 96-108 mmol/L Carbon Dioxide 24 22-29 mmol/L Anion Gap 14 12-20 Blood Urea Nitrogen 19 9-16 mg/dL Creatinine 0.77 0.5-1.4 mg/dL Estimated Glomerular Filt Rate > 60 NOTE: For -[place]el[place] individuals, multiply the result by 1.210. Chronic Kidney Disease: Estimated GFR < 60 mL/min/1.73m2 Severe Kidney Disease: Estimated GFR < 15 mL/min/1.73m2 Glucose Fasting 164 60-99 mg/dL A fasting glucose of 126 mg/dl or greater on more than one occasion is considered diagnostic of diabetes. Calcium 9.5 8.4-10.2 mg/dL Bilirubin Total 0.9 0.0-1.0 mg/dL Aspartate Amino Transferase 32 5-37 U/L Alanine Aminotransferase 39 0-40 U/L Total Protein 6.6 6.5-8.0 g/dL Albumin Level 3.9 3.5-5.0 g/dL Alkaline Phosphatase 76 39-117 U/L Lipid Panel Reviewed date:11/23/2023 12:03:36 PM Interpretation:Normal Performing Lab:[facility] [place], [address] [place] [phone] Notes/Report: Triglycerides 52 <150 mg/dL Desirable Triglyceride: less than 150 mg/dL Borderline High Triglyceride 150-199 mg/dL High Triglyceride: 200-499 mg/dL Very High Triglyceride: greater than or equal to 5OO mg/dL Cholesterol 108 <200 mg/dL Desirable Cholesterol: less than 200 mg/dL Borderline High Cholesterol: 200-239 mg/dL High Cholesterol: greater than 239 mg/dL LDL Cholesterol Calculated 50 <100 mg/dL Desirable LDL: less than 100 mg/dL Near Optimal/Above Optimal LDL: 110-129 mg/dL Borderline High LDL: 130-159 mg/dL High LDL: 160-189 mg/dL Very High LDL: greater than or equal to 190 mg/dL HDL Cholesterol 48 >40 mg/dL Desirable HDL: greater than 40 mg/dL Note: This HDL assay may give artificially low results in patients with liver disease. Thyroid Stimulating Hormone Reviewed date:11/23/2023 12:03:36 PM Interpretation:Normal Performing Lab:[facility] [place], [address] [place] [phone] Notes/Report: Thyroid Stimulating Hormone 3.18 0.32-4.0 uIU/ mL Note: A sustained TSH level above 2.5 uIU/mL may warrant further investigation. TSH 3rd Generation ([facility]) Glucose, Whole Blood Reviewed date:01/09/2024 08:34:21 AM Interpretation:Abnormal Performing Lab:[facility] [place], [address] [place] [phone] Notes/Report: Glucose, Whole Blood 185 60-115 mg/dL METER # : [id number] REASON FOR REFERRAL No Information MEDICATIONS Medication SIG (Take, Route, Frequency, Duration) Notes Start Date End Date Status Donepezil HCl 10 MG 1 tablet Orally Once a day Active Finasteride 5 MG 1 tablet Orally Once a day Active PreserVision AREDS 2 - 1 capsule Orally Twice a day Active Vitamin D (Cholecalciferol) 50 MCG (1999 UT) 1 capsule Orally Once a day Active Sertraline HCl 50 MG 1 tablet Orally e a day Active hydroCHLOROthiazide 25 MG 1 tablet in e morning Orally Once a day for 90 days Active Losartan Potassium 50 MG 1 tablet Orally Twice a day Active Atorvastatin Calcium 40 MG 1 tablet Oral ly Once a day Active Albuterol Sulfate HFA 108 (9 0 Base) MCG/ACT 1 puff as needed Inhalation every 4 hrs Active Glucagon Emergency 1 MG as directed Inje ction Once 02/10/2017 Active Tamsulosin HCl 0.4 MG 2 capsules Orally Once a day for 90 days Active IMMUNIZATIONS Vaccine Route Administration Date Status Comme nts Influenza Unknown 04/26/2013 Administered Influenza Unknown 03/20/2014 Administered Td (adult) Unknown 06/03/2006 Administered Pneumococcal - PPSV23 Unknown 01/09/2007 Administered Zoster Vaccine Unknown 10/03/2006 Administered Influenza High Dose IM Intramuscular 04/08/2015 Administer ed TDaP IM Intramuscular 04/08/2015 Administered PCV 13 IM Intramuscular 05/13/2015 Administered Influenza High Dose IM Intramuscular 04/03/2016 Administer ed Influenza High Dose IM Intramuscular 03/14/2017 Administer ed Influenza High Dose IM Intramuscular 03/10/2018 Administer ed Influenza High Dose IM Intramuscular 04/09/2019 Administer ed Influenza High Dose IM Intramuscular 02/18/2020 Administer ed Shingrix Unknown 06/19/2019 Administered COVID-19 Pfizer BioNTech Unknown 08/06/2020 Administere d Influnza High Dose Quad Unknown 04/16/2021 Administered COVID-19 Pfizer BioNTech Unknown 04/01/2021 Administere d Shingrix Unknown 03/07/2019 Administered COVID-19 Pfizer BioNTech Unknown 08/27/2020 Administere d COVID-19 Pfizer Bivalent Unknown 04/07/2022 Administere d Influnza High Dose Quad Unknown 04/09/2022 Administered COVID-19 Pfizer BioNTech Unknown 10/26/2021 Administere d COVID-19 Pfizer Bivalent Unknown 10/25/2022 Administere d Influnza High Dose Quad Unknown 03/25/2023 Administered Influenza High Dose Unknown 03/07/2024 Administered SOCIAL HISTORY Tobacco Use: Social History Observation [...] Never (0 point) Points 2 Interpretation Negative PROBLEMS Problem Type ICD Code Onset Dates Problem Status W/U Status Risk SNOMED Code Notes Problem Sleep apnea, unspecified (G47.30) Active confirmed Sleep apnea (20879411) Problem Anxiety (F41.9) Active confirmed 149939 02 Problem Essential hypertension (I10) Active confirmed 26557559 Problem Type 1 diabetes mellitus without complication (E10.9) Active confirmed 280750889 Problem Benign prostatic hyperplasia without lower urinary tract symptoms, prostatic enlargement of unspecified morphology (N40.0) Active confirmed 091484983 Problem SOB (shortness of breath) on exertion (R06.02) Active confirmed 47809577 Problem Memory loss (R41.3) Active confirmed 65771247 Problem Right inguinal hernia (K40.90) Active confirmed 400382238 Problem Bilateral carpal tunnel syndrome (G56.03) Active confirmed 66638997 Problem Difficulty balancing when standing (R26.89) Active confirmed 634735193 VITAL SIGNS Blood pressure diastolic 50 mm Hg 05/09/2024 Height 66.25 in 05/09/2024 Blood pressure systolic 118 mm Hg 05/09/2024 Weight 195 lbs 05/09/2024 BMI 31.23 kg/m2 05/09/2024 Encounters Encounter Location Date Provider Diagnosis Srinivasa Vasquez DO, [facility] [address], [place] [id number] 11/29/2023 Srinivasa Oscarman Type 1 diabetes mellitus without complication E10.9 ; Essential hypertension I10 ; Benign prostatic hyperplasia without lower urinary tract symptoms, prostatic enlargement of unspecified morphology N40.0 ; Anxiety F41.9 and Memory loss R41.3 Srinivasa Vasquez DO, [address] [id number] 05/09/2024 Srinivasa Pedro Type 1 diabetes mellitus without complication E10.9 ; Essential hypertension I10 ; Benign prostatic hyperplasia without lower urinary tract symptoms, prostatic enlargement of unspecified morphology N40.0 ; Anxiety F41.9 and Memory loss R41.3 Srinivasa Vasquez DO, [facility] [address], [place] [id number] 09/19/2023 Srinivasa Vasquez DO [facility] [address], [place] [id number] 11/22/2023 Srinivasa Vasquez Type 1 diabetes mellitus without complication E10.9 and Essential hypertension I10 Srinivasa Vasquez DO, [facility] [address], [place] [id number] 05/15/2024 Srinivasa Vasquez Benign prostatic hyperplasia without lower urinary tract symptoms, prostatic enlargement of unspecified morphology N40.0 ASSESSMENTS Encounter Date Diagnosis Assessment Notes Treatment Notes Treatment Clinical Notes 11/29/2023 Essential hypertension (ICD-10 - I10) 11/29/2023 Type 1 diabetes mellitus without complication (ICD-10 - E10.9) Insulin pump/CGM. Follow up with Endocrinology; Dr. Gamino 05/09/2024 Essential hypertension (ICD-10 - I10) 05/09/2024 Type 1 diabetes mellitus without complication (ICD-10 - E10.9) Insulin pump/CGM 11/22/2023 Essential hypertension (ICD-10 - I10) 11/22/2023 Type 1 diabetes mellitus without complication (ICD-10 - E10.9) 05/15/2024 Benign prostatic hyperplasia without lower urinary tract symptoms, prostatic enlargement of unspecified morphology (ICD-10 - N40.0) 11/29/2023 Benign prostatic hyperplasia without lower urinary tract symptoms, prostatic enlargement of unspecified morphology (ICD-10 - N40.0) 05/09/2024 Benign prostatic hyperplasia without lower urinary tract symptoms, prostatic enlargement of unspecified morphology (ICD-10 - N40.0) 11/29/2023 Anxiety (ICD-10 - F41.9) 05/09/2024 Anxiety (ICD-10 - F41.9) 11/29/2023 Memory loss (ICD-10 - R41.3) 05/09/2024 Memory loss (ICD-10 - R41.3) PLAN OF TREATMENT Next Appt Details Provider Name:Srinivasa Vanessa keith, 11/06/2024 10:30:00 AM, [address] [place] [address], [phone], Insurance Providers Payer Name Payer Address Payer Phone Subscriber Number Group Number Insured Name Patient Relationship to Insured Coverage Start Date Coverage End Date [employer] [address] [place] [phone] [id number] Beni Abreu Self - patient is the insured 2 MEDICARE [address] [place]ÓPEZ [phone] [id number] Beni Abreu Self - patient is the insured [address] [address] [id number] Jarett loredoBeni Self - patient is the insured 8 9 MEDICAL (GENERAL) HISTORY Medical History History ICD Code type I diabetes mellitus, now on an insu pati pump and CGM hypertension benign prostatic hyperplasia (BPH) sarcoidosis, pulmonary tuburculosis, pulmonary, s/p multidrug t reatment erectile dysfunction Anxiety F41.9 Memory loss R41.3 Behavioral change R46.89 Surgical History Surgery Date(Month/Year) wisdom teeth extraction trigger finger release herniorraphy, right 07/2018
--- OUTSIDE RECORDS SUMMARY | 2024-06-12 17:56 | XMS_ITS ---
Author Organization [facility] Address [address] [place] [address] Care Team Providers Care Asphalt Still Operator Name Role Phone Srinivasa Vasquez DO Primary Care Provider Unavail able Srinivasa Kuo Unavailable [phone] REASON FOR VISIT procedure Encounters Encounter Location Date Provider Diagnosis [facility] [address] [place] [address] 11/24/2023 Srinivasa Kuo PLAN OF TREATMENT No Information
--- OUTSIDE RECORDS SUMMARY | 2024-06-12 17:56 | XMS_ITS | Patient Health Record ---
Author Organization [facility] Address [address] [place] [address] Care Team Providers Care Filtration Plant Operator Name Role Phone Srinivasa Vasquez DO Primary Care Provider Unavail able Srinivasa Kuo Unavailable [phone] ALLERGIES Allergen (clinical drug ingredient) Drug/Non Drug Allergy documented on EMR Reaction Allergy Type Onset Date Status Penicillin Unknown Drug Allergy Active RESULTS Component Value Reference Range Notes Glucose, Whole Blood Reviewed date:01/09/2024 11:21:20 PM Interpretation: Performing Lab:[facility], [address] [place] [phone] Notes/Report: Glucose, Whole Blood 185 60-115 mg/dL METER # : [id number] REASON FOR REFERRAL No Information MEDICATIONS Medication SIG (Take, Route, Frequency, Duration) Notes Start Date End Date Status Vitamin D3 50 MCG (1999) 1 capsule Or ally Once a day for 30 day(s) Active Losartan Potassium 50mg Active Atorvastatin Calcium 40 MG 1 tablet Oral ly Once a day Active Sertraline HCl 50 MG Oral for 90 Active hydroCHLOROthiazide 25 MG 1 tablet in e morning Orally Once a day for 30 day(s) Active Tamsulosin HCl 0.4 MG Oral for 90 Active Finasteride 5 MG Oral for 90 A ctive Lyumjev 100 UNIT/ML Injection for 90 Active SOCIAL HISTORY Sex Assigned At : Social History Observation Description Sex Assigned At Unknown PROBLEMS Problem Type ICD Code Onset Dates Problem Status W/U Status Risk SNOMED Code Notes Problem History of adenomatous polyp of colon (Z86.010) Active confirmed 120988347 Problem Change in bowel habits (R19.4) Active confirmed 06963776 Problem Diverticulosis of large intestine without perforation or abscess without bleeding (K57.30) Active confirmed Diverticul ar disease of colon (011430842) Problem Family history of colon cancer (Z80.0) Active confirmed [id number] Encounters Encounter Location Date Provider Diagnosis [facility] [address] [place] [id number] 06/13/2023 Srinivasa Kuo [facility] [address] [place] [id number] 07/13/2023 Srinivasa Kuo [facility] [address] [place] [id number] 10/24/2023 Srinivasa Kuo [facility] [address] [place] [id number] 12/26/2023 Srinivasa Kuo [facility] [address] [place] [id number] 01/09/2024 Srinivasa Kuo Change in bowel habi ts R19.4 ; Family history of colon cancer Z80.0 ; Diverticulosis of large intestine without perforation or abscess without bleeding K57.30 and Other hemorrhoids K64.8 [facility] [address] [place] [phone] 09/15/2023 Srinivasa Kuo [facility] [address] [place] [phone] 09/19/2023 Srinivasa Kuo [facility] [address] [place] [phone] 11/24/2023 Srinivasa Kuo [facility] [address] [place] [phone] 11/24/2023 Srinivasa Kuo ASSESSMENTS Encounter Date Diagnosis Assessment Notes Treatment Notes Treatment Clinical Notes 01/09/2024 Change in bowel habits (ICD-10 - R19.4) 01/09/2024 Family history of colon cancer (ICD-10 - Z80.0) 01/09/2024 Diverticulosis of large intestine without perforation or abscess without bleeding (ICD-10 - K57.30) 01/09/2024 Other hemorrhoids (ICD-10 - K64.8) PLAN OF TREATMENT Pending Test Test Name Order Date CELIAC PANEL #10 03/22/2023 Future Test Test Name Order Date COLONOSCOPY 10/10/2013 COLONOSCOPY 03/22/2023 Insurance Providers Payer Name Payer Address Payer Phone Subscriber Number Group Number Insured Name Patient Relationship to Insured Coverage Start Date Coverage End Date [facility] [address] [place], [place] [id number] DASHA LINDA Self - patient is the insured MEDICAL (GENERAL) HISTORY Medical History History ICD Code IDDM--Insulin pump with a Monitor Hypertension Denies [place],CVA,Lung disease,renal disease Hyperlipidemia 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
== END 2024-06-06 11:03 | disposition home or self-care (01) ==
LOC: HO.RESP 11:02
PROVIDERS: PCP Internal Medicine; Visit Provider Internal Medicine
DX: R06.09 Other forms of dyspnea (principal); G47.33 Obstructive sleep apnea (adult) (pediatric); G47.31 Primary central sleep apnea
CPT/HCPCS: 94010; 94640; 94727; 94729

== ENCOUNTER → 2024-06-06 11:05 | Outpatient (BNV) | payer MEDICARE, SELFPAY | PROVIDERS: PCP Internal Medicine; Visit Provider Internal Medicine Pulmonary Disease | DX: R06.09 Other forms of dyspnea (principal) | CPT/HCPCS: 94060; 94727; 94729 ==

== ENCOUNTER 2024-08-16 13:34 | Outpatient (AMB) | payer MEDICARE, SELFPAY ==
[2024-08-16 13:43] VITALS: BP 120/54; PULSE 61; O2SAT 99; BMI 30.1
--- NOTE | 2024-08-16 13:43 | A.OFFVIS_ITS ---
Vital Signs 08/16/24 13:43 Height 5 ft 8 in Weight 198 lb BMI 30.1 BP 120/54 L Blood Pressure Location Lt brachial Position Sitting Pulse 61 Pulse Source Pulse Oximeter Pulse Oximetry (%) 99 Oxygen Delivery Method Room Air Intake Visit Reasons: Obstructive sleep apnea Intake Note: pt is here for follow up and would like a F40 if you feel it would be good for him, sometimes air blows out the side of the mask. Negotiator Sales Required: No Allergies penicillin V Allergy (Unknown, Verified 08/16/24 17:00) Rash Penicillins [PENICILLINS] Allergy (Unknown, Verified 08/16/24 17:00) UNKNOWN Medication List - Last Reconciled 08/16/24 by Mckayla Elizabeth MD atorvastatin 40 mg PO DAILY blood sugar diagnostic (FreeStyle Lite Strips) As directed three times a day blood-glucose meter (FreeStyle Lite Meter kit) As directed 3 x/day blood-glucose meter,continuous (Dexcom G6 Purchasing And Fiscal Clerk) As directed blood-glucose sensor (Dexcom G6 Sensor device) As directed blood-glucose transmitter (Dexcom G6 Transmitter device) As directed cholecalciferol (vitamin D3) 50 mcg PO DAILY donepezil 10 mg PO DAILY finasteride 5 mg PO DAILY 90 days hydrochlorothiazide 25 mg PO QAM insulin pump cart,auto,BT-cntr (Omnipod 5 G6 Intro Kit (Gen 5) subcutaneous cartridge with controller) As directed lancets (FreeStyle Lancets) 4 times a day losartan 50 mg PO DAILY Lyumjev U-100 Insulin (insulin lispro-aabc) Up to 100 units via insulin pump subcut daily; 90 days NS multivitamin 1 tab PO DAILY sertraline 50 mg PO DAILY tamsulosin 0.4 mg PO DAILY Do you need a note to return to daycare/school/sports/work: No HPI HPI Obstructive sleep apnea: Details: 84 YEARS OLD 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 RECENTLY HE COULD NOT BE TREATED WELL WITH PLANES CPAP, DUE TO PRESENCE OF CENTRAL APNEAS. SO HE HAD CPAP TITRATION STUDY AND TREATED WITH ASV MODE. AFTER THAT HE HAS OBTAINED THE NEW CPAP DEVICE WITH AUTO ASV SETTINGS WHICH HE HAS BEEN USING VERY RELIGIOUSLY EVERY NIGHT. HE COMES FOR FOLLOW-UP TODAY. TELLS ME THAT HE FEELS MUCH BETTER, HIS SLEEP HAS DEFINITELY IMPROVED, HE HARDLY WAKES UP DURING THE NIGHT EXCEPT FOR MAYBE ONCE TO GO TO THE BATHROOM. AND REMAINS ACTIVE AND ALERT DURING THE DAYTIME. 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 DENIES ANY COUGH OR EXPECTORATION. 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 Diabetes type 1, controlled Surgical History History of esophagogastroduodenoscopy (EGD) H/O colonoscopy Hx of right inguinal hernia repair Hx of cataract removal with insertion of prosthetic lens Hx of hand surgery Family History Father CVD (cardiovascular disease) Mother Hypertension Maternal Grandmother Diabetes Social History Household Members: Spouse Alcohol intake: current Alcohol intake frequency: a few times a week Alcohol type: wine Patient Tobacco Use Status: Never used Tobacco Review of Systems Const Denies body aches, Denies chills, Denies fatigue, Denies fever(s) and Denies headache(s) Eyes Denies blurry vision, Denies irritation, Denies itchy eyes and Denies loss of vision ENT Denies dysphagia, Denies vertigo, Denies headache(s), Denies epistaxis, Denies nasal congestion, Denies nasal discharge, Denies nasal obstruction and Denies sinus pain Card Denies chest pain, Denies rapid heart rate, Denies irregular heart rhythm, Denies dyspnea on exertion and Denies slow heart rate Resp Reports as per HPI and Denies dyspnea on exertion GI Denies bloating, Denies change in bowel habits, Denies change in stool character, Denies dysphagia, Denies heartburn, Reports nausea and Denies vomiting Reports nocturia and Denies urinary incontinence Musc Denies abnormal gait, Denies back pain, Denies myalgias, Denies arthralgias, Denies muscle weakness and Denies stiffness Skin/Breast Reports system reviewed and no additional complaints, except as documented Neuro Denies abnormal gait, Denies vertigo, Denies headache(s), Denies focal weakness, Denies loss of vision, Reports memory loss, Denies restless legs and Denies tremor(s) Psych Reports depression and Reports memory loss Endo Reports no additional complaints, Denies fatigue and Reports other (Insulin- dependent diabetes mellitus) Franklyn/Lymph Reports no additional complaints Aller/Immun Reports no additional complaints and Denies itchy eyes Physical Exam Vital Signs: Last Vital Signs Pulse 61 08/16/24 13:43 BP 120/54 L 08/16/24 13:43 Pulse Ox 99 08/16/24 13:43 Oxygen Delivery Method Room Air 08/16/24 13:43 BMI result Body Mass Index 30.1 Generally healthy looking, he is only says moderately overweight Const General: healthy appearing, comfortable, no acute distress, alert and awake Orientation/consciousness: patient oriented x3 HEENT Head: Yes normal to inspection General nose exam: No nasal polyps present and No nasal discharge present Face and sinus: Yes sinuses nontender Mouth: oropharynx abnormals (Tongue is placed back, oropharynx is narrow, Mallampati class 4) Teeth and gingiva: other (RETROGANTHIA of the lower jaw ( overbite ) ) Throat: Yes posterior oropharynx normal Eyes General: appearance normal, both eyes and all related structures Neck Neck: Yes normal visual inspection, Yes no lymphadenopathy, Yes trachea midline, Yes no JVD and Yes other (Neck circumference 16-1/2 inch) Thyroid: Thyroid normal Chest Chest palpation & inspection: normal inspection of the chest, normal palpation of entire chest wall and no tenderness Resp Effort & Inspection: normal respiratory effort Auscultation: clear to auscultation bilaterally, no crackles and no wheezes Cardio Palpation: normal PMI Rate: regular rate Rhythm: regular rhythm Heart sounds: no gallops and no murmurs Peripheral pulses: Peripheral pulses 2+ throughout GI Palpation (GI): Soft to palpation, nontender, No hepatosplenomegaly present and no masses Auscultation: normal bowel sounds Back/Spine/Pelvis Thoracic/Lumbar Spine: thoracic and lumbar spine normal to inspection Skin General skin exam: no rashes or lesions noted Neuro General: patient oriented x3 and no focal motor deficits Cranial nerves: Yes CN's II-XII intact bilaterally Extrem General: Yes normal to inspection, Yes no clubbing, cyanosis or edema and Yes no calf tenderness Psych Appearance: grossly normal and well kempt Speech and movement: Normal speech and movement present Results Reviewed Results Reviewed: COMPLIANCE REPORT FOR THE LAST 30 NIGHTS REVIEWED. HE HAS USED 30/30 NIGHTS, 100%. AVERAGE USE IT PER NIGHT 6 HOURS 23 MINUTES. THERE IS MINIMAL AIR LEAK. RESIDUAL AHI 4.5 WHICH IS MUCH BETTER THAN BEFORE NO CENTRAL APNEAS RECORDED ASV/AUTO SETTINGS: MINIMUM EPAP 6 CM MAXIMUM EPAP 12 CM, MINIMUM PS 3 CM MAXIMUM PS 15 CM PULMONARY FUNCTION TEST SHOWS MILD OBSTRUCTIVE AIRWAY DISORDER. 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 HE HAS HAD MILD DYSPNEA ON EXERTION SINCE THEN. CLAIMS THAT HIS WRAY IS SLIGHTLY INCREASED FROM BEFORE. COMPLETE PULMONARY FUNCTION TEST IS DONE AND I EXPLAINED THE FINDINGS TO HIM. SHOWS MILD OBSTRUCTIVE AIRWAY DISORDER, Code(s): R06.09 - Other forms of dyspnea Category: Medical Plan: NO NEED TO TREAT. HE UNDERSTANDS WELL. (2) Central sleep apnea: Comment: HE HAD TREATMENT EMERGENT CENTRAL SLEEP APNEA WITH CENTRAL APNEA INDEX 9.1., AND TOTAL RESIDUAL AHI OF 16. NOW WITH THE USE OF ASV/AUTO MODE ALL THE CENTRAL WELL OBSTRUCTIVE EVENTS WERE ELIMINATED. SYMPTOMATICALLY , HE IS DOING MUCH BETTER WITH THE CURRENT TREATMENT. Code(s): G47.31 - Primary central sleep apnea Category: Medical Plan: COMMENDED FOR GOOD COMPLIANCE AND CONTINUE USE THE CPAP WITH SAME SETTING. (3) ODILIA (obstructive sleep apnea): Comment: OBSTRUCTIVE SLEEP APNEA, SEVERE, RESPONDING VERY WELL TO THE USE OF CPAP. CURRENTLY USING CPAP WITH ASV MODE AND DOING MUCH BETTER. Code(s): G47.33 - Obstructive sleep apnea (adult) (pediatric) Category: Medical Plan: COMMENDED FOR GOOD COMPLIANCE AND ADVISED TO KEEP ON USING THE CPAP AT CURRENT SETTINGS. Coding Level of Care Code Est Pt Level 3 (91333) Diagnoses Dyspnea on exertion R06.09 Central sleep apnea G47.31 ODILIA (obstructive sleep apnea) G47.33
--- OUTSIDE RECORDS SUMMARY | 2024-08-16 13:43 | XMS_ITS | Patient Health Record ---
[facility] Organization [facility] Address [address] [facility] [place] [address] Care Team Providers Care Erecting Engineer Name Role Phone Srinivasa Vasquez MD Primary Care Provider Unavail able Vidhya Scruggs Unavailable [phone] Negro Gomez Unavailable [phone] Allergies Allergen (clinical drug ingredient) Drug/Non Drug Allergy documented on EMR Reaction Allergy Type Onset Date Status Penicillin rash Drug Allergy Active Results Component Value Reference Range Notes HEMOGLOBIN A1C (GLYCOHEMOGLO BIN) Reviewed date:07/25/2024 10:29:46 AM Interpretation: Performing Lab: Notes/Report: HEMOGLOBIN A1C % (HH) 7.4 Reason For Referral No Information Medications Medication SIG (Take, Route, Frequency, Duration) Notes Start Date End Date Status Sertraline HCl 50 MG as directed Orally Once a day Active NovoLOG FlexPen 100 UNIT/ML Subcutaneous Not-Taking Lyumjev Active Levemir Not-Taking Vitamin D3 Active Vitamin D Not-Taking Extra Depth Orthopedic Shoes (1 Pair) with Customized Heat Molded Multidensity Innersoles (3 Pair) as directed Dx: NIDDM/Polyneuropathy (E11.42), Hammertoe Foot Deformity (M20.41,M20.42), Preulcerative Skin Lesion(s) (L85.1 07/25/2024 Active Extra Depth Diabetic Shoes with 3 Pair Custom heat-molded multi-density innersoles for 1 year Dx: Active Tamsulosin HCl 0.4 MG 1 capsule Oral Twi ce a day Active Multivitamin Not-Zane ing Donepezil HCl Active Lyumjev 100 UNIT/ML as directed Injection Active Alpha Lipoic Acid No t-Taking amLODIPine Besylate 5 MG 1 tablet Orally Once a day Active Vitamin B-12 1000 MCG 1 tablet Orally On ce a day Not-Taking HumaLOG via insulin pump Not -Taking Finasteride 5 MG 1 tablet Orally Once a day for 30 day(s) Active HumaLOG KwikPen Not- Taking Atorvastatin Calcium 40 MG 1 tablet Oral ly Once a day Active Vitamin B6 Not-Takin g Losartan Potassium 50 MG as directed Ora lly Twice a day Active Aspirin 81 MG 1 tablet Orally Once a day Not-Taking hydroCHLOROthiazide 25 MG as directed Or ally Once a day Active Toujackie Trevizo Not- Taking Immunizations Vaccine Route Administration Date Status Comme nts COVID-19 Pfizer BioNTech Vaccine Unknown 03/29/2022 Administered 08/06/20,08/27/20 04/01/21,10/26/21 Influenza Unknown 03/27/2018 Administered Influenza Unknown 06/03/2022 Administered Social History Tobacco Use: Social History Observation Description Date Details (start date - stop date) Never Smoker NA - NA Tobacco use other than smoking: Question Answer Notes Are you an other tobacco user? No Tobacco Control (Standard) Question Answer Notes Tobacco use: Nonsmoker Additional Findings: Tobacco non-user Current no nsmoker AUDIT-C (Standard) Question Answer Notes Did you have a drink containing alcohol in the p ast year? No Points 0 Interpretation Negative Problems Problem Type SNOMED Code ICD Code Onset Dates Problem Status W/U Status Risk Notes Problem Polyneuropathy due to type 2 diabetes mellitus (416744509) Type 2 diabetes mellitus with diabetic polyneuropathy (E11.42) Active confirmed Vital Signs Blood pressure diastolic 80 mm Hg 07/25/2024 Height 5 ft 9 in in 07/25/2024 Blood pressure systolic 120 mm Hg 07/25/2024 Weight 183 lbs 07/25/2024 BMI 27.02 kg/m2 07/25/2024 Procedures Procedure Date Ordered Date Performed Result Body Sit e 03754-BLMDEEE NAIL, 6 OR MORE 07/25/2024 N/A 13343-JKJD SKIN LESIONS, OVER 4 07/25/2024 N/A Encounters Encounter Location Date Provider Diagnosis [facility] [place] [address] [place] [address] 07/25/2024 Vidhya Scruggs Other hammer toe(s) (acquired), right foot M20.41 ; Other hammer toe(s) (acquired), left foot M20.42 ; Type 2 diabetes mellitus with diabetic polyneuropathy E11.42 and Tinea unguium B35.[address] [facility] [address] 10/06/2023 Negro Gomez Assessments Encounter Date Diagnosis (ICD Code) Assessment Notes Treatment Notes Treatment Clinical Notes Section Notes 07/25/2024 Other hammer toe(s) (acquired), right foot (ICD-10 - M20.41) Patient Educated with: DIABETIC FOOT CARE INSTRUCTIONS. pdf (DIABETIC FOOT CARE INSTRUCTIONS. pdf) 07/25/2024 Other hammer toe(s) (acquired), left foot (ICD-10 - M20.42) 07/25/2024 Type 2 diabetes mellitus with diabetic polyneuropathy (ICD-10 - E11.42) 07/25/2024 Tinea unguium (ICD-10 - B35.1) Plan Of Treatment Pending Test Test Name Order Date Glucose Fasting 03/24/2015 80065-CNPYFTL NAIL, 6 OR MORE 07/25/2024 42086-NFPX SKIN LESIONS, OVER 4 07/25/19 25 10220-MUDS SKIN LESIONS, OVER 4 07/12/19 20 65965-OERS SKIN LESIONS, OVER 4 07/17/19 21 20955-QZXR SKIN LESIONS, OVER 4 07/22/19 22 59728-YIBI SKIN LESIONS, OVER 4 03/24/20 15 43285-SRWM SKIN LESIONS, OVER 4 03/25/20 16 86760-AFFO SKIN LESIONS, OVER 4 03/28/20 17 16167-AXSV SKIN LESIONS, OVER 4 04/26/20 18 01098-QHJJ NAIL(S) 03/28/2017 44798-IXTJ NAIL(S) 03/25/2016 16274-SPTG NAIL(S) 03/24/2015 90026-WQEI NAIL(S) 07/17/2020 H6391-OLONHPYB DYSTROPHIC NAILS ANY # 24599- Nail Unit Biopsy 04/26/2018 Next Appt Details Provider Name:Vidhya Joshua abad, 11/21/2024 11:15:00 AM, [address] [facility], [place], [address], Insurance Providers Payer Name Payer Address Payer Phone Subscriber Number Group Number Insured Name Patient Relationship to Insured Coverage Start Date Coverage End Date [address] [place] [address] [phone] [id number] Beni Laura Self - patient is the insured Medical (General) History Medical History History ICD Code type I diabetes Hypertension Sarcoidosis Tuberculosis Erectile dysfunction Back,Hip,and Knee pain skin cancer Cataracts Neuropathy Chicken pox Measles Mumps Rt frozen shoulder patient uses CPAP machine Surgical History Surgery Date(Month/Year) trigger finger release wisdom teeth extraction cataracts 2009 hernia 08/2018 [place]ization History Reason Date([place] [facility] [place] BS 44 fell hit head sut ures sameday 06/02/2022
--- OUTSIDE RECORDS SUMMARY | 2024-08-16 13:43 | XMS_ITS ---
Author Organization [facility] Address [address] [place] [address] Care Team Providers Care Sugar Refinery Supervisor Name Role Phone Srinivasa Vasquez MD Primary Care Provider Unavail able Vidhya Scruggs Unavailable [phone] Negro Gomez Unavailable [phone] REASON FOR VISIT asking about rx for stockings Encounters Encounter Location Date Provider Diagnosis [address] [address] 10/06/2023 Negro Gomez Plan Of Treatment Next Appt Details Provider Name:Vidhya melgoza, 11/21/2024 11:15:00 AM, [address] [place], [address], Progress Notes * Beni LAURA MDOB:1940 (83 yo M)Acc No.[id number]:10/06/2023 Patient:?Nolvia Lauratom Sharif :1940???Age:83 Y???Sex:Male Address:[address] [place] [address], [address] * true * Date:? Generated for Printi ng/Faxing/eTransmitting on:?08/16/2024 01:42 PM EST
--- OUTSIDE RECORDS SUMMARY | 2024-08-16 13:43 | XMS_ITS ---
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 Universal Name Role Phone Pedro ONEAL, Srinivasa Primary Care Provider Unavail able Vidhya Scruggs Unavailable [phone] Negro Gomez [phone] Encounters Encounter Location Date Provider Diagnosis [address] [address] 07/25/2024 Negro Gomez Plan Of Treatment Next Appt Details Provider Name:Vidhya melgoza, 11/21/2024 11:15:00 AM, [address] [place] [address], [address], Progress Notes * Beni LAURA MDOB:1940 (84 yo M)Acc No.[id number]:07/25/2024 Progress Note Patient:?Beni LAURA Kole Provider:?Negro Gomez DPM :1940???Age:84 Y???Sex:Male Tom e:07/25/2024 Address:[address] [place] [address] Pcp:Srinivasa Vasquez MD Subjective: * Chief Complaints: * ??? * Medical History:? Objective: * Vitals:? Assessment: Plan: * Treatment: * Images: * The named appointment provid er may or may not be the originator of this progress note, and it is not deemed complete until electronically signed by the appointment provider. Sign off status: Pending * Provider:?Negro Gomez DPM Date:? 025 Generated for Cori graham/Evelin/Teresita on:?08/16/2024 01:42 PM EST
--- OUTSIDE RECORDS SUMMARY | 2024-08-16 13:43 | XMS_ITS ---
[facility] Organization [facility] lane[facility] Address [address] [place] [address] Care Team Providers Care Scheduling Representative Name Role Phone Srinivasa Vasquez MD Primary Care Provider Unavail able Vidhya Scruggs Unavailable [phone] Allergies Allergen (clinical drug ingredient) Drug/Non Drug Allergy documented on EMR Reaction Allergy Type Onset Date Status Penicillin rash Drug Allergy Active REASON FOR VISIT Toe Irritation, At Risk Footcare Medications Medication SIG (Take, Route, Frequency, Duration) Notes Start Date End Date Status Donepezil HCl Active amLODIPine Besylate 5 MG 1 tablet Orally Once a day Active Finasteride 5 MG 1 tablet Orally Once a day for 30 day(s) Active Atorvastatin Calcium 40 MG 1 tablet Oral ly Once a day Active hydroCHLOROthiazide 25 MG as directed Or ally Once a day Active Vitamin D3 Active Extra Depth Orthopedic Shoes (1 Pair) with Customized Heat Molded Multidensity Innersoles (3 Pair) as directed Dx: NIDDM/Polyneuropathy (E11.42), Hammertoe Foot Deformity (M20.41,M20.42), Preulcerative Skin Lesion(s) (L85.1 07/25/2024 Active Extra Depth Diabetic Shoes with 3 Pair Custom heat-molded multi-density innersoles for 1 year Dx: Active Multivitamin Not-Zane ing Lyumjev 100 UNIT/ML as directed Injection Active NovoLOG FlexPen 100 UNIT/ML Subcutaneous Not-Taking Levemir Not-Taking HumaLOG KwikPen Not- Taking Aspirin 81 MG 1 tablet Orally Once a day Not-Taking Toujeo SoloStar Not- Taking Vitamin D Not-Taking Alpha Lipoic Acid No t-Taking Vitamin B-12 1000 MCG 1 tablet Orally On ce a day Not-Taking HumaLOG via insulin pump Not -Taking Vitamin B6 Not-Takin g Sertraline HCl 50 MG as directed Orally Once a day Active Lyumjev Active Tamsulosin HCl 0.4 MG 1 capsule Oral Twi ce a day Active Losartan Potassium 50 MG as directed Ora lly Twice a day Active Social History Tobacco Use: Social History Observation Description Date Details (start date - stop date) Never Smoker NA - NA Alcohol Screen Question Answer Notes Did you have a drink containing alcohol in the p ast year? Yes Points 0 Interpretation Negative Tobacco use other than smoking: Question Answer [...] Polyneuropathy due to type 2 diabetes mellitus ([id number]) Type 2 diabetes mellitus with diabetic polyneuropathy (E11.42) Active confirmed Vital Signs Height 5 ft 9 in in 07/25/2024 Weight 183 lbs 07/25/2024 BMI 27.02 kg/m2 07/25/2024 Blood pressure systolic 120 mm Hg 07/25/19 25 Blood pressure diastolic 80 mm Hg 025 Procedures Procedure Date Ordered Date Performed Result Body Sit e 85131-LYDEIDC NAIL, 6 OR MORE 07/25/2024 N/A 51341-EEYS SKIN LESIONS, OVER 4 07/25/2024 N/A Encounters Encounter Location Date Provider Diagnosis [facility] [place] [address] [place] [address] 07/25/2024 Vidhya Scruggs Other hammer toe(s) (acquired), right foot M20.41 ; Other hammer toe(s) (acquired), left foot M20.42 ; Type 2 diabetes mellitus with diabetic polyneuropathy E11.42 and Tinea unguium B35.1 Assessments Encounter Date Diagnosis (ICD Code) Assessment [...] unguium (ICD-10 - B35.1) Plan Of Treatment Medication Medication Name Sig Start Date Stop Date Notes Extra Depth Orthopedic Shoes (1 Pair) with Customized Heat Molded Multidensity Innersoles (3 Pair) as directed Dx: NIDDM/Polyneuropathy (E11.42), Hammertoe Foot Deformity (M20.41,M20.42), Preulcerative Skin Lesion(s) (L85.1 07/25/2024 Treatment Notes Assessment Notes Other hammer toe(s) (acquired), right fo ot Patient Educated with: DIABETIC FOOT CARE INSTRUCTIONS.pdf (DIABETIC FOOT CARE INSTRUCTIONS.pdf) Pending Test Test Name Order Date 73326-OLIPCTH NAIL, 6 OR MORE 07/25/2024 53442-OVBI SKIN LESIONS, OVER 4 07/25/19 25 Next Appt Details Follow Up: 3 Months, Reason: Provider Name:Vidhya melgoza, 11/21/2024 11:15:00 AM, [address] [place] [address], [id number], Procedure Notes * Category Sub-Category Detail Notes Debride Nail 6-10 Nail debridement Due to the cl inical pathology outlined in the exam findings, performance of this nail treatment is medically necessary as its management by an unskilled/untrained nonprofessional would put this patients foot and overall health at risk. Therefore, debridement to affected nail(s), as described in exam ( T1, T2, T3, T4, T6, T7, T8, T9, ), was performed exclusively by the physician of record to reduce/remove overall nail length, girth, thickness, subungual debris, and necrotic tissue, by manual and/or electrical means through the use of a nail nipper and/or dremel-type thread grinder tool, to a more viable healthy nail plate or bed tissue 6-10 nails in total. Silver nitrate was used for any petechial bleeding as necessary. Definitive antifungal treatment options, both pharmaceutical and surgical, have been reviewed and discussed with the patient. The patient solely prefers the use of intermittent/as needed professional debridement services for their nail condition and understands the need for additional periodic treatments to maintain effectiveness in symptomatic relief - 46240 Keratoma Treatment Parring or Cutting o f Benign Hyperkeratotic Lesion(s) (-57) More than 4 Lesions - Due to the at risk nature of the patients medical condition as documented in the exam findings, performance of this keratoderma treatment is medically necessary as its management by an unskilled/untrained nonprofessional would put this patients foot and overall health at risk. Therefore, the benign hyperkeratotic lesions, (6 ) in total, locations as stated and described in the exam (Medial plantar, TA, T5, SUB MTH (s), 2, B/L , Heel, B/L ), were pared, and/or cut utilizing a sterile 15 blade, tissue nippers, and/or power dremel instrumentation by the physician of record - 46193 Progress Notes * Beni LAURA MDOB:1940 (84 yo M)Acc No.[id number]:07/25/2024 Progress Note Patient:?Beni LAURA Provider:?Vidhya Scruggs DPM :1940???Age:84 Y???Sex:Male Tom e:07/25/2024 Address:[address] [place], [place] [id number] Pcp:Srinivasa Vasquez MD Subjective: * Chief Complaints: * ???Toe IrritationAt Risk Imani tcare * HPI: ???Toe pain:?Location:?B/L feet.?Duration:?several years.?Course:?worse.?Aggravated by:?shoes, any pressure.?Treatments:?change in shoes.?At Risk footcare:?Pt States Last PCP Visit:?Date?06/21/2024 * ROS:?General/Constitutional:?Nausea?denies.?Vomiting?denies.?Hunger Thirst?denies.?Loss appetite?denies.?Chills?denies.?Fatigue?denies.?Fever?denies.?Night Sweats?denies.?Unexplained weight loss?denies.?Ophthalmologic:?Blurred vision?denies.?Red eye?denies.?HEENTM:?Dentures?denies.?Dizziness?denies.?Glasses/contacts?admits.?Retinopathy?adm its.?Blurred/double vision?denies.?TMJ?denies.?Discharge/drainage?denies.?Implants?denies.?Hard of hearing denies.?Difficulty chewing/swallowing/speaking?denies.?Nose bleeds?denies.?Sore mouth?denies.?Swollen glands?denies.?Respiratory:?On O xygen?denies.?Pneumonia/pleurisy?denies.?Bronchitis?denies.?Emphysema?denies.?Co ughing?denies.?Cough blood?denies.?Shortness of breath?denies.?Wheezing?denies.?Cardiovascular:?Pacemaker?denies.?MVP?denies.?WPW?denies.?CHF?denies.?Heart attack?denies.?Septal defect?denies.?Rapid beat?denies.?Chest pain ?denies.?Atrial Fib.?denies.?Murmur/Palpitations?denies.?Gastrointestinal:?Hemorrhoids?denies.?Stomach/Abdominal pain?denies.?Dark blood stool?denies.?Irritable bowel ?denies.?Constipation?denies.?Diarrhea?denies.?Vomiting?denies.?Hematology:?Swelling?denies.?Bruising?denies.?Bleeding problem?denies.?Genitourinary:?Blood urine?denies.?Frequent/Painfu/urination/bladder control?denies.?Kidney stones?denies.?Infection (UTI)?denies.?Nephropathy?denies.?Musculoskeletal:?Hammertoes?denies.?Bunions?denies.?Scoliosis/kyphosis?denies.?Muscle cramps / walking?denies.?Generalized aches and pains?denies.?Weakness?denies.?Integ.:?Soto?denies.?Scars?denies.?Corns/calluses?denies.?Ingrown nails?denies.?Painful nails?denies.?Rashes?denies.?Neurologic:?Difficulty sleeping?denies.?Bipolar?denies.?Brain disorder?denies.?Balance t rouble?denies.?Confusion?denies.?Fainting/blackouts?denies.?Headache?denies.?Hamilton mors?denies.? * Medical History:? * Surgical History:?trigger fi nger release wisdom teeth extraction cataracts 2009hernia 08/2018 * Hospitalization/Major Diagno stic Procedure:?C -Fainted low BS 44 fell hit head sutures sameday 06/02/2022 * Family History:?Mother: dece ased, diagnosed with Other malignant neoplasm of unspecified site, Unspecified essential hypertension.?Father: , diagnosed with Unspecified essential hypertension, Unspecified heart disease.? * Social History:?Tobacco Use:?Tobacco use other than smoking?Are you an other tobacco user??No ?Tobacco Control (Standard)?Tobacco use:?Nonsmoker ?Additional Findings: Tobacco non-user?Current nonsmoker ???Drugs/Alcohol:?Alcohol Screen?Did you have a drink containing alcohol in the past year??Yes ?Points?0 ?Interpretation?Negative ???Miscellaneous:?Caffeine: yes, frequency:, 1-2 cups per day. ?Children: yes, 2. ?Exercise: yes, active through out day with activities, volunteer work, gardening/yard work. ?Marital status: . 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 ???Drug/Alcohol:?AUDIT-C (Standard)?Did you have a drink containing alcohol in the past year??No ?Points?0 ?Interpretation?Negative * Medications:?TakingExtra Dep th Diabetic Shoes with 3 Pair Custom heat-molded multi-density innersoles for 1 year Dx: Vitamin D3 Lyumjev 100 UNIT/ML Solution as directed Injection Donepezil HCl amLODIPine Besylate 5 MG Tablet 1 tablet Orally Once a day Atorvastatin Calcium 40 MG Tablet 1 tablet Orally Once a day Finasteride 5 MG Tablet 1 tablet Orally Once a day hydroCHLOROthiazide 25 MG Tablet as directed Orally Once a day Losartan Potassium 50 MG Tablet as directed Orally Twice a day Lyumjev Sertraline HCl 50 MG Tablet as directed Orally Once a day Tamsulosin HCl 0.4 MG Capsule 1 capsule Oral Twice a day Taking Extra Depth Diabetic Shoes with 3 Pair Custom heat-molded multi-density innersoles for 1 year Dx: Taking Vitamin D3 Taking Lyumjev 100 UNIT/ML Solution as directed Injection Taking Donepezil HCl Taking amLODIPine Besylate 5 MG Tablet 1 tablet Orally Once a day Taking Atorvastatin Calcium 40 MG Tablet 1 tablet Orally Once a day Taking Finasteride 5 MG Tablet 1 tablet Orally Once a day Taking hydroCHLOROthiazide 25 MG Tablet as directed Orally Once a day Taking Losartan Potassium 50 MG Tablet as directed Orally Twice a day Taking Lyumjev Taking Sertraline HCl 50 MG Tablet as directed Orally Once a day Taking Tamsulosin HCl 0.4 MG Capsule 1 capsule Oral Twice a day Not- Taking/PRNVitamin D Alpha Lipoic Acid HumaLOG via insulin pump Vitamin B-12 1000 MCG Tablet 1 tablet Orally Once a day Vitamin B6 HumaLOG KwikPen Toujeo SoloStar Aspirin 81 MG Tablet 1 tablet Orally Once a day Levemir NovoLOG FlexPen 100 UNIT/ML Solution Pen- injector Subcutaneous Multivitamin Medication List reviewed and reconciled with the patientNot-Taking/PRN Vitamin D Not-Taking/PRN Alpha Lipoic Acid Not-Taking/PRN HumaLOG via insulin pump Not-Taking/PRN Vitamin B-12 1000 MCG Tablet 1 tablet Orally Once a day Not-Taking/PRN Vitamin B6 Not-Taking/PRN HumaLOG KwikPen Not- Taking/PRN Jenaro KelleroStar Not-Taking/PRN Aspirin 81 MG Tablet 1 tablet Orally Once a day Not-Taking/PRN Levemir Not-Taking/PRN NovoLOG FlexPen 100 UNIT/ML Solution Pen-injector Subcutaneous Not-Taking/PRN Multivitamin Medication List reviewed and reconciled with the patient * Allergies:?Penicillin: socoy es[Allergies Verified] Objective: * Vitals:?Ht: 5 ft 9 in, Wt:18 3, BMI: 27.02, Shoe size:9.5, BP:120/80mm Hg, BS:124, Wt-k.01 kg. * ???Past Orders: ???Lab:HEMOGLOBIN A1C (GLYCO HEMOGLOBIN) (Order Date - 05/04/2024) (Collection Date & Time - 06/04/2024 10:28 AM) ? Value Reference Range ?HEMOGLOBIN A1C % (HH) 7.4 * Examination: ???Ophthalmology Referral: ?DIABETES EYE EXAM?Neurological: ?SENSORY:?(DM/Neuro) Neurological exam demonstrates reduced sharp/dull pin prick discrimination reduced light touch sensation reduced vibration sensation reduced proprioception sensation in a stocking fashion 5.07 monofilament test performed at plantar aspects of 5 varied sites per foot shows sensation plantar aspects absent at Forefoot B/L.?BABINSKI REFLEX:?absent.?General Examination: ?GENERAL APPEARANCE:?Reveals a pleasant, alert, well nourished, well- developed, well hydrated individual, who demonstrates proper attention to hygiene/body habitus, and is in no acute distress.?ORIENTED:?person,place, and time.?FOOT EXAM:?Vascular: ?DP PULSES (B):? 0/4, B/L.?PT PULSES (B):? 0/4, B/L.?CAPILLARY FILL TIME:?3 secs. per digit, B/L.?TROPHIC CONDITION-TEXTURE/ELASTICITY/TURGOR/HAIR GROWTH (B):?normal, B/L.?TEMPERTURE GRADIENT (C):?warm to cool, proximal to distal, B/L.?PIGMENTATION:?normal, B/L.?EDEMA (C):?2/4 , Left , 1/4 , Right , Foot , Ankle(s) , Leg(s).?TELANGECTASIA:?absent.?VARICOSITIES:?absent.?Nails: ?NAILS are:?Elongated, overgrown, dystrophic, lytic, greater than 3mm thick, discolored and friable with crumbly malodorous subungual debris, with dull to no pain on palpation due to neuropathy, T1, T2, T3, T4, T6, T7, T8, T9.?Dermatologic: ?SKIN FINDINGS:?Skin exam reveals Keratotic lesion(s) located at, Medial plantar, TA, T5, SUB MTH (s), 2, B/L , Heel, B/L .?Orthopedic: ?MUSCLE STRENGTH:?5/5 all groups in a symmetrical fashion , B/L.?FOOT MORPHOLOGY:?Pes Cavus structure, B/L, Equinus knee extended, B/L.? Assessment: * Assessment: 1.?Other hammer toe(s) (acqu ired), right foot - M20.41 (Primary)???Specify :Chronic problem, Worse (4),Rx Management (4)???2.?Other hammer toe(s) (acquired), left foot - M20.42???Specify :Chronic problem, Worse (4),Rx Management (4)???3.?Type 2 diabetes mellitus with diabetic polyneuropathy - E11.42???4.?Tinea unguium - B35.1??? Plan: * Treatment: 2.?Type 2 diabetes mellitus with diabetic polyneuropathy?Procedure: 09394-MDBXAXH NAIL, 6 OR MORE ?Procedure: 42881-BWIY SKIN LESIONS, OVER 4 * Procedures:?Debride Nail 6-10:?Nail debridement?Due to the clinical pathology outlined in the exam findings, performance of this nail treatment is medically necessary as its management by an unskilled/untrained nonprofessional would put this patients foot and overall health at risk. Therefore, debridement to affected nail(s), as described in exam ( T1, T2, T3, T4, T6, T7, T8, T9, ), was performed exclusively by the physician of record to reduce/remove overall nail length, girth, thickness, subungual debris, and necrotic tissue, by manual and/or electrical means through the use of a nail nipper and/or dremel-type thread grinder tool, to a more viable healthy nail plate or bed tissue 6-10 nails in total. Silver nitrate was used for any petechial bleeding as necessary. Definitive antifungal treatment options, both pharmaceutical and surgical, have been reviewed and discussed with the patient. The patient solely prefers the use of intermittent/as needed professional debridement services for their nail condition and understands the need for additional periodic treatments to maintain effectiveness in symptomatic relief - 45367.?Keratoma Treatment:?Parring or Cutting of Benign Hyperkeratotic Lesion(s)?(-57) More than 4 Lesions - Due to the at risk nature of the patients medical condition as documented in the exam findings, performance of this keratoderma treatment is medically necessary as its management by an unskilled/untrained nonprofessional would put this patients foot and overall health at risk. Therefore, the benign hyperkeratotic lesions, (6 ) in total, locations as stated and described in the exam (Medial plantar, TA, T5, SUB MTH (s), 2, B/L , Heel, B/L ), were pared, and/or cut utilizing a sterile 15 blade, tissue nippers, and/or power dremel instrumentation by the physician of record - [id number].? * Procedure Codes:?92884 DEBRI DE NAIL, 6 OR MORE, Modifiers: XS 53133 TRIM SKIN LESIONS, OVER 4, Modifiers: XS * Preventive Medicine:? ??Counseling:?Discussion:?-14: Office or other outpatient visit for the evaluation and management of an established patient, which required a medically appropriate history and/or examination and MODERATE level of DECISION MAKING for: 1 OR MORE CHRONIC PROBLEM(S) THATS WORSENING, 2 STABLE CHRONIC PROBLEMS, A NEWLY DIAGNOSED PROBLEM WITH UNCERTAIN PROGNOSIS, AN ACUTE COMPLICATED INJURY WITH MULTIPLE TREATMENT OPTIONS, OR AN ACUTE PROBLEM WITH ACCOMPANYING SYSTEMIC SYMPTOMS, THAT POSE(S) A MODERATE RISK OF MORBIDITY. THIS CONDITION MAY ALSO INCLUDE RX DRUG MANAGEMENT, OR A DECISON FOR MINOR SURGERY. The visit on the day of the encounter encompassed interpreting the data and educating the patient as to the nature of their condition, treatment options available according to their individual PMH, meds, allergies, and overall health/living conditions, as well as any potential risks or complications that may occur from a failure to adhere to, and participate in, the recommended course of therapy. The discussion included a complete verbal, and/or written explanation of the examination results, any x-rays taken, the proposed diagnosis, and outline of the treatment plan. A schedule for future care needs was also explained. The patient verbalized an understanding of the instructions at this time and agreed to be an active participant in their treatment. If the patient should think of any questions or concerns after the visit, I have encouraged the patient to call the office.?Digital Surgery:?Digital surgery was discussed with the patient, We elected to try conservative treatment at the present time, due to the patients medical history and increased asssociated post-operative risks.?Digital Treatment:?HT- I explained to the patient the possible etiologies of Hammertoes, including genetics/foot type/shoegear/activity level/exercise routine and the risks/benefits of all the different treatment options for their pain including: No treatment at all, Rest, Ice, New/supportive/wider/deeper Shoegear, Digital Padding/Strapping/Taping/Bracing/Gel protective sleeves, Foot/Ankle AFO Bracing, Stretching exercises, Deep Tissue Massage, Arch support/shoe inserts with splay metatarsal padding, and Custom orthoses. I insisted that any digital devices be removed daily and not worn overnight for safety. The patient is to carefully examine the toes daily for any skin irritation while using any splinting or padding device. The advantages and disadvantages of each option were discussed and the patients questions re: shoegear, padding, custom vs prefabricated inserts, activity level, and consistency in home treatment regimens for optimal success were answered to their verbally confirmed satisfaction.?Shoe Gear Counseling:?SHOE Rx - The patient was counseled in great detail on their muscoloskeletal foot and toe deformities which coincided with the dermatological presentations visualized on exam. We discussed how their deformities put the integrity of their feet at risk for potential pedal complications which makes the accomidative diabetic shoes and cutomizable inserts medically necessary. We discussed the different shoe and insert treatment types and options, as well as the important advantages for adhering to regularly wearing these accomidative devices daily. The patient was made aware of the fact that a failure to abide by these recommedations may be deleterious to their foot health as they are able to prevent many pedal complications such as skin irritation, skin ulceration, infection, and even loss of toe/foot/leg/or life. Time was also spent with the patient dispensing and discussing proper diabetic footcare techniques including daily skin moisturization, daily foot inspection for any interruption in skin integrity including open lesions, or sign of infection such as redness/malodor/drainage/swelling. Also discussed and recommended were procedures regarding daily shoe inspection for the presence of internal foreign bodies as well as any visualized irregular shoe or insert wear. Patient questions re: shoes, inserts, and self foot inspections were answered to their satisfaction as the patient verbally confirmed a full understanding of the above information. A Rx for Extra Depth Orthopedic Shoes with 3 pair of custom heat-molded inserts was dispensed.? ??Screening/Special Tests:?Fall Risk?Screening:?No falls in the past year ?FALLS: Screening for Future Fall Risk?Have you had any falls with injury in the past year??No * Follow Up:?3 Months * Images: * Sign off status: Completed true * Provider:?Vidhya Scruggs DPM Date:?0 07/25/2024 Generated for Cori graham/Evelin/eTransmitting on:?08/16/2024 01:42 PM EST History and Physical Notes * HPI (History of Present Illness) Category Sub-Category Detail Notes Category Not es Toe pain Location: B/L feet Duration: several years Course: worse Aggravated by: shoes, any pressure Treatments: change in shoes At Risk footcare Pt States Last PCP Visit: Date: 4 Examination Category Sub-Category Detail Notes Category Not es Neurological SENSORY: (DM/Neuro) Neuro logical exam demonstrates reduced sharp/dull pin prick discrimination reduced light touch sensation reduced vibration sensation reduced proprioception sensation in a stocking fashion 5.07 monofilament test performed at plantar aspects of 5 varied sites per foot shows sensation plantar aspects absent at Forefoot B/L BABINSKI REFLEX: absent TINEL'S COMPRESSION: Dermatologic SKIN FINDINGS: Skin exam reveal s Keratotic lesion(s) located at, Medial plantar, TA, T5, SUB MTH (s), 2, B/L , Heel, B/L Orthopedic FOOT MORPHOLOGY: Pes Cavus struc ture, B/L, Equinus knee extended, B/L MUSCLE STRENGTH: 5/5 all groups in a symmetrical fashion , B/L General Examination GENERAL APPEARANCE: Reveals a pleasant, alert, well nourished, well-developed, well hydrated individual, who demonstrates proper attention to hygiene/body habitus, and is in no acute distress FOOT EXAM: Lower Extremity Neurological Exa m performed:: Yes Visual exam of foot performed:: Yes Date: 07/25/2024 Sensory testing performed:: sensations d iminished Sensory and motor testing performed:: st rength normal Pedal pulse taking performed:: absent ORIENTED: person,place, and ti me Ophthalmology Referral DIABETES EYE EXAM Procedure Perform ed:: Yes ?Date of Exam Performed: 04/03/2024 Diabetic Retinopathy Screening:: Yes Findings of Diabetic Eye Exam:: no retin opathy Vascular DP PULSES (B): 0/4, B/L PT PULSES (B): 0/4, B/L CAPILLARY FILL TIME: 3 secs. per digit, B/L TEMPERTURE GRADIENT (C): warm to cool, p roximal to distal, B/L TROPHIC CONDITION-TEXTURE/ELASTICITY/TURGOR/HAIR GROWTH (B): normal, B/L EDEMA (C): 2/4 , Left , 1/4 , R ight , Foot , Ankle(s) , Leg(s) TELANGECTASIA: absent VARICOSITIES: absent PIGMENTATION: normal, B/L Nails NAILS are: Elongated, overg rown, dystrophic, lytic, greater than 3mm thick, discolored and friable with crumbly malodorous subungual debris, with dull to no pain on palpation due to neuropathy, T1, T2, T3, T4, T6, T7, T8, T9
== END 2024-08-16 14:22 | disposition home or self-care (01) ==
PROVIDERS: PCP Internal Medicine; Visit Provider Internal Medicine
DX: R06.09 Other forms of dyspnea (principal); G47.31 Primary central sleep apnea; G47.33 Obstructive sleep apnea (adult) (pediatric)
CPT/HCPCS: 99213

== ENCOUNTER → 2024-08-16 13:34 | Outpatient (BNVA) | payer MEDICARE, SELFPAY | PROVIDERS: PCP Internal Medicine; Visit Provider Internal Medicine | DX: G47.33 Obstructive sleep apnea (adult) (pediatric) (principal); G47.31 Primary central sleep apnea; R06.09 Other forms of dyspnea | CPT/HCPCS: 99212 ==

== ENCOUNTER 2024-11-06 10:33 | Outpatient (AMB) | payer MEDICARE, SELFPAY ==
[2024-11-06 10:35] VITALS: BP 145/65; PULSE 60; RESP 16; TEMP 36.4; O2SAT 97; BMI 29.0
--- NOTE | 2024-11-06 10:35 | A.OFFPC_ITS ---
Vital Signs 11/06/24 10:35 Height 5 ft 8 in Weight 191 lb BMI 29.0 BP 145/65 H Respiration 16 Pulse 60 Pulse Source Pulse Oximeter Temp 97.5 F Temp Source Temporal Artery Scan Pulse Oximetry (%) 97 Oxygen Delivery Method Room Air Intake Visit Reasons: 6 month follow up Radio Mechanic Required: No Accompanied by: Self / Same As Patient Allergies penicillin V Allergy (Unknown, Verified 11/06/24 13:13) Rash Penicillins [PENICILLINS] Allergy (Unknown, Verified 11/06/24 13:13) UNKNOWN Medication List - Last Reconciled 11/06/24 by Moe Cope MD atorvastatin 40 mg PO DAILY blood sugar diagnostic (FreeStyle Lite Strips) As directed three times a day blood-glucose meter (FreeStyle Lite Meter kit) As directed 3 x/day blood-glucose sensor ([employer] G6 Sensor device) As directed blood-glucose transmitter ([employer] G6 Transmitter device) As directed blood-glucose,lining feller,cont (Dexcom G6 Quality Engineering Manager) As directed cholecalciferol (vitamin D3) 50 mcg PO DAILY donepezil 10 mg PO DAILY finasteride 5 mg PO DAILY 90 days hydrochlorothiazide 25 mg PO QAM insulin pump cart,auto,BT-cntr (Omnipod 5 G6 Intro Kit (Gen 5) subcutaneous cartridge with controller) As directed lancets (FreeStyle Lancets) 4 times a day losartan 50 mg PO DAILY Lyumjev U-100 Insulin (insulin lispro-aabc) Up to 100 units via insulin pump subcut daily; 90 days NS multivitamin 1 tab PO DAILY sertraline 50 mg PO DAILY tamsulosin 0.4 mg PO DAILY Tobacco use date assessed: 11/06/24 Fall risk assessment: No Falls in past year Last assessed Fall Risk: 11/06/24 Dental Screening Dental Screen Date: 11/06/24 Did you have a dental visit in the last 12 months?: Yes Did you have a dental problem in the last 6 months where you did not have access to dental care?: No Was dental information given to patient?: Patient has dentist [facility] Medical History Cough SARS-CoV-2 positive Dyspnea on exertion Central sleep apnea ODILIA (obstructive sleep apnea) Retrognathia Overweight Hyponatremia Dyslipidemia Hypertension Diabetic polyneuropathy associated with type 1 diabetes mellitus Mild non proliferative diabetic retinopathy Diabetes type 1, controlled Surgical History (Updated 11/15/24 @ 15:17 by Audra Jacome) History of esophagogastroduodenoscopy (EGD) H/O colonoscopy (~01/09/24) Hx of right inguinal hernia repair Hx of cataract removal with insertion of prosthetic lens Hx of hand surgery Family History Father CVD (cardiovascular disease) Mother Hypertension Maternal Grandmother Diabetes Social History (Updated 11/06/24 @ 10:46 by LUCINA Asencio) Household Members: Spouse Housing: Condominium Alcohol intake: current Alcohol intake frequency: does not drink Alcohol type: wine Patient Tobacco Use Status: Never used Tobacco service: No Current occupational status: retired Cognitive needs: No Hearing needs: Yes (b/l hearing aids) Vision needs: Yes (reading glasses) Questionnaire PHQ-9 Over the last 2 weeks, how often have you been bothered by any of the following problems? 1. Little interest or pleasure in doing things: not at all 2. Feeling down, depressed, or hopeless: not at all 3. Trouble falling or staying asleep, or sleeping too much: not at all 4. Feeling tired or having little energy: not at all 5. Poor appetite or overeating: not at all 6. Feeling bad about yourself - or that you are a failure or have let yourself or your family down: not at all 7. Trouble concentrating on things, such as reading the newspaper or watching television: not at all 8. Moving or speaking so slowly that other people could have noticed. Or the opposite - being so fidgety or restless that you have been moving around a lot more than usual: not at all 9. Thoughts that you would be better off or of hurting yourself in some way: not at all Total score: 0 Source: Developed by Drs. Srinivasa Canales, Nora Simon, Ammon Rodriguez and colleagues, with an educational dorothy from [employer]. Thrive Questionnaire Date Thrive assessed: 11/06/24 I am a: Patient What is your living situation today?: I have a steady place to live Within the past 12 months, did the food you bought not last and you didn't have the money to get more?: Never true Within the past 12 months, did you worry whether your food would run out before you got money to buy more?: Never true Do you have trouble paying for medicines?: No Do you have trouble getting transportation to medical appointments?: No Do you have trouble paying your heating and electricity bill?: No Do you have trouble taking care of your child, family member or friend?: No Do you have trouble with day-to-day activities such as bathing, preparing meals, shopping, managing finances, etc.?: No Are you currently unemployed and looking for a job?: No Are you interested in more education?: No Please select the resources that you would like help with: None THRIVE Score: 0 AUDIT C Alcohol Use Questionnaire (AUDIT-C) 1. How often do you have a drink containing alcohol?: Never 3. How often do you have six or more drinks on one occasion?: Never Total Score: 0 JAMIE-7 AMB Questionnaire JAMIE-7 Date JAMIE - 7 assessed: 11/06/24 Feeling nervous, anxious, or on edge: 0 = Not at all Not being able to stop or control worryin = Not at all Worrying too much about different things: 0 = Not at all Trouble relaxin = Not at all Being so restless that it is hard to sit still: 0 = Not at all Becoming easily annoyed or irritable: 0 = Not at all Feeling afraid as if something awful might happen: 0 = Not at all Total JAMIE-7 score (0-4 normal; 5-9 mild; 10-14 moderate; 15-21 severe): 0 Source: Developed by Drs. Srinivasa Canales, Nora Simon, Ammon Rodriguez and colleagues, with an educational dorothy from [employer]. Physical exam (Primary Care) Vital Signs: Last Vital Signs Temp 97.5 F 11/06/24 10:35 Pulse 60 11/06/24 10:35 Resp 16 11/06/24 10:35 BP 145/65 H 11/06/24 10:35 Pulse Ox 97 11/06/24 10:35 Oxygen Delivery Method Room Air 11/06/24 10:35 BMI result Body Mass Index 29.0 Tobacco/Smoking Status: Tobacco use Status Tobacco use date assessed 11/06/24 11/06/24 10:38 Patient Tobacco Use Status Never used Tobacco 11/06/24 10:46 PHQ-9: PHQ-9 Score PHQ-9: Total score 0 11/06/24 10:46 Thrive Assessment: Date of Thrive Assessment Date Thrive assessed 11/06/24 11/06/24 10:38 Coding Level of Care Code New Pt Level 4 (07648) Complex EM visit Add On G2211 Diagnoses Controlled type 1 diabetes mellitus with both eyes affected by mild nonproliferative retinopathy without macular edema E10.3293 Diabetes mellitus complication status: with ophthalmic complications Diabetes mellitus complication detail: with diabetic retinopathy Diabetic retinopathy severity: with mild nonproliferative retinopathy Diabetes mellitus macular edema: without macular edema Laterality: bilateral Assessment & Plan Assessment & Plan (1) Diabetes type 1, controlled: Code(s): E10.9 - Type 1 diabetes mellitus without complications Category: Medical Qualifiers: Diabetes mellitus complication status: with ophthalmic complications Diabetes mellitus complication detail: with diabetic retinopathy Diabetic retinopathy severity: with mild nonproliferative retinopathy Diabetes mellitus macular edema: without macular edema Laterality: bilateral Qualified Code(s): E10.3293 - Type 1 diabetes mellitus with mild nonproliferative diabetic retinopathy without macular edema, bilateral Plan: Continue current management. Plan History of Present Illness The patient is an 84-year-old male presenting for the management of multiple chronic health conditions. Of note, he recently recovered from COVID-19 infection with no significant rise in blood glucose levels, due in part to his insulin pump and Dexcom monitoring system. His longstanding Type 1 Diabetes Mellitus, diagnosed at the age of 27, is well-managed with technology, maintaining recent HbA1c at 7.9%. He anticipates carpal tunnel release surgery on his right hand followed by the left, amidst his 's upcoming knee replacement surgery. The patient experiences bowel dysfunction due to neuropathy, which he manages by timing bowel movements post-breakfast rather effectively. Additionally, his neuropathy contributes to erectile dysfunction, adapted through emotional intimacy. Peripheral vascular disease is managed through the use of ankle-length compression socks, acknowledged for their effectiveness despite application challenges. Prior surgical history includes a hernia repair five years ago. Vision remains stable with use of glasses for reading, while he uses hearing aids. 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 Social History - Relocated from outside of [place] to [place] to be closer to family and grandchildren. - with a longstanding relationship; is undergoing a knee replacement surgery. 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 - Discloses no alcohol consumption and maintains a good diet, occasionally indulging. - Exercises functional adaptability in personal life, particularly in adjusting to erectile dysfunction due to neuropathy. Review of Systems - Constitutional: Denies fever; Reports past episode of COVID-19 - Cardiovascular: Denies chest pain; Reports use of compression socks for peripheral vascular disease - Respiratory: Reports shortness of breath on exertion - Gastrointestinal: Reports bowel dysfunction due to neuropathy - Neurological: Reports long-standing Type 1 Diabetes Mellitus and neuropathy - Musculoskeletal: Reports bilateral carpal tunnel syndrome, scheduled surgeries - Endocrine: Reports stable diabetes management with insulin pump - Ophthalmic: Reports need for glasses to read - Auditory: Reports use of hearing aids - Genitourinary: Reports erectile dysfunction resolved through non-traditional intimacy - Dermatologic: Reports past hernia surgery scar, no issues Physical Exam General: Cooperative and healthy appearing Nutritional Appearance: Well nourished Orientation/consciousness: Patient oriented x3 Limitations: No limitations Head: Normal to inspection General: Appearance normal, both eyes and all related structures Neck: Normal visual inspection Chest: Normal palpation of entire chest wall Respiratory: Short of breath when overexerted ormal respiratory effort Neurology: Patient oriented x3, has neuropathy Results - Lab results: Last Hemoglobin A1c recorded at 7.9% Plan 1. Type 1 Diabetes Mellitus - Ongoing use of insulin pump and CGM is effective - HbA1c at target, maintain current regimen 2. Carpal Tunnel Syndrome - Surgeries scheduled; reviewed benefits and risks 3. Peripheral Vascular Disease - Compression socks proving beneficial, plan for continued use 4. Neuropathic Bowel Dysfunction - Maintains effective bowel management strategy 5. Erectile Dysfunction - Adjusted approach satisfactory to patient Discussion Notes I reviewed the importance of maintaining effective diabetes management with an HbA1c of 7.9% being within goal range. We discussed upcoming carpal tunnel release surgery and its anticipated benefits for both hands, highlighting potential improvement in function and reduction of neuropathic symptoms. I reinforced the current management strategies for peripheral vascular disease, including the continued use of compression socks, while acknowledging their application challenges. For neuropathic bowel dysfunction, I discussed the benefits of the patient?s established routine and encouraged adherence. For erectile dysfunction, I acknowledged the patient's adaptive methods of maintaining intimacy, affirming non-pharmacological approaches. Follow-up was set every six months, and I approved the plan to perform annual blood sugar monitoring without the requirement of delivering additional orders, aligning with the prior arrangement set by Dr. Vasquez. Patient Instructions - Continue using insulin pump and Dexcom sensor for diabetes management. - Follow up with planned surgeries for carpal tunnel syndrome. - Keep using compression socks for peripheral vascular disease. - Maintain bowel routine after breakfast to manage bowel dysfunction. - Engage with non-pharmacologic methods for intimate relationships. - Return for blood work as scheduled and see me every six months for follow-up care.
--- OUTSIDE RECORDS SUMMARY | 2024-11-06 12:07 | XMS_ITS | Clinical Summary ---
Author Organization 175 [facility] Address [address] [place] [address] Phone Care Team Providers Care Chief Ultrasound Technologist Name Role Phone Moe Cope MD Primary Care Provider [phone]- [phone] Allergies Active Allergy Reactions Criticality Noted Date Comments Penicillins Hives 04/01/2023 Medications atorvastatin (LIPITOR) 40 mg tablet 1 tablet (40 mg total). 4 Active finasteride (PROSCAR) 5 mg tablet 1 tablet (5 mg total). 5 Active donepezil ODT (ARICEPT ODT) 10 mg dispersible tablet 1 tablet (10 mg total). 5 Active hydroCHLOROthiaz leyla (HYDRODIURIL) 25 mg tablet 1 tablet (25 mg total). 5 Active sertraline (ZOLOFT) 50 mg tablet 5 Active losartan (COZAAR) 50 mg tablet 1 tablet (50 mg total) 2 (two) times a day. 5 Active tamsulosin (FLOMAX) 0.4 mg 24 hr capsule 1 capsule (0.4 mg total) 2 (two) times a day. 5 Active Lyumjev U-100 Insulin 100 unit/mL injection Administer via insulin pump, 90u TDD E10.42 Z96.41 4 Active cholecalciferol (VITAMIN D-3) 50 mcg (2,000 unit) tablet Take 1 tablet (2,000 Units total) by mouth 1 (one) time each day. Active MAGNESIUM CITRATE ORAL Take 200 mg by mouth 1 (one) time. Active multivitamin tablet Take 1 tablet by mouth 1 (one) time each day. Active Active Problems Problem Noted Date Diagnosed Date Right carpal tunnel syndrome 10/01/2024 Cubital tunnel syndrome on right 10/01/2024 Cubital tunnel syndrome, right 08/29/2024 Cubital tunnel syndrome, left 08/29/2024 Carpal tunnel syndrome of left wrist 08/29/2024 Trigger index finger of right hand 08/29/2024 Hyperlipidemia 04/04/2023 Primary hypertension 04/04/2023 Diabetic polyneuropathy asso ciated with type 1 diabetes mellitus ([facility] V24, [facility] V28) 04/01/2023 Overview (08/29/2024): DIABETES HISTORY Diagnosis -- mid 20s, initially managed as type 2 diabetes Treatment -- on oral meds, this was ineffective over a couple of years then started on basal bolus insulin; started insulin pump therapy 2018, currently on Tandem X2/Dexcom Encounters Date Type Department Care Team Description 10/01/2024 Telephone Orthopedic Surgery [facility] 250 [address] [facility] [address] [place] [phone] Gisela Paredes MD Order for Surgery 08/28/2024 10:45 AM EST Office Visit Orthopedic Surgery [facility] 175 [facility] [address] [place] [phone] Gisela Paredes MD Cubital tunnel syndrome, right (Primary Dx); Cubital tunnel syndrome, left; Carpal tunnel syndrome of left wrist; Trigger index finger of right hand from Last 3 Months Social History Tobacco Use Types Packs/Day Years Used Date Smoking Tobacco: Never Assessed Sex and Gender Information Value Date Recorded Sex Assigned at Not on file Legal Sex Male 5:10 AM EST Gender Identity Not on file Sexual Orientation Not on file Last Filed Vital Signs Vital Sign Reading Time Taken Comments Blood Pressure - - Pulse - - Temperature - - Respiratory Rate - - Oxygen Saturation - - Inhaled Oxygen Concentration - - Weight 86.2 kg (190 lb) 08/28/2024 11:16 AM EST Height 170.2 cm (5' 7 ) 08/28/2024 11:16 AM EST Body Mass Index 29.76 08/28/2024 11:16 AM EST Plan of Treatment Upcoming Encounters Date Type Department Care Team (Latest Contact Info) Description 12/11/2024 1:30 PM EDT Consult Orthopedic Surgery [facility] [address] [phone] Gisela Paredes MD [address] [phone] 12/20/2024 10:00 AM EDT Hospital Encounter [facility] Main OR [address] [place] [phone] Gisela Paredes MD [address] [phone] 12/20/2024 10:00 AM EDT - 12/20/2024 12:00 PM EDT Surgery [facility] Main OR [address] [place] [phone] Gisela Paredes MD [address] [phone] RELEASE CARPAL TUNNEL- right; ulnar nerve in-situ decompression/trans position; right index trigger release [59542 (CPT??) +2 more] 12/31/2024 1:00 PM EDT Office Visit Orthopedic Surgery [facility] [address] [phone] Marianna Lockhart PA [address] [phone] Scheduled Procedures Name Priority Associated Diagnoses Date/Ti me RELEASE CARPAL TUNNEL Right carpal tunnel syndrome Cubital tunnel syndrome on right Trigger index finger of right hand 12/20/2024 10:00 AM EDT Health Maintenance Due Date Last Done Comments Diabetes: Annual GFR (Glomerular Filtration Rate) 1941 Diabetes: Annual Foot Exam 1951 Diabetes: Annual Retina Eye Exam 1950 DTaP,Tdap,and Td Vaccines (1 - Tdap) 1960 Pneumococcal Vaccine: 50+ Years (1 of 2 - PCV) 1960 Cholesterol Screening (Lipid Panel) 08/17/2024 Depression Screening 08/17/2024 Falls Risk Assessment 08/17/2024 Medicare Annual Wellness Visit 08/17/2024 Social Influencers of Health Screening 08/17/2024 Diabetes: Annual Urine Albumin-Creatinine Ratio (uACR) 08/28/2024 Hypertension/CHF/CAD Annual BMP Blood Test 08/28/2024 COVID-19 Vaccine ( season) 2024 03/07/2024, 11/16/2023, 04/03/2023, Additional history exists Diabetes: Blood Sugar Control Test (HGBA1C) 01/27/2025 07/30/2024 Zoster Vaccines Completed 06/19/2019, 03/07/2019 RSV Immunization Adult Patients Completed 03/25/2023 Influenza Vaccine Completed 03/07/2024, , 04/09/2022, Additional history exists HIB Vaccines Aged Out No longer eligi ble based on patient's age to complete this topic HPV Vaccines Aged Out No longer eligi ble based on patient's age to complete this topic Hepatitis A Vaccines Aged Out No long er eligible based on patient's age to complete this topic Hepatitis B Vaccines Aged Out No long er eligible based on patient's age to complete this topic IPV Vaccines Aged Out No longer eligi ble based on patient's age to complete this topic MMR Vaccines Aged Out No longer eligi ble based on patient's age to complete this topic Meningococcal ACWY Vaccine Aged Out N o longer eligible based on patient's age to complete this topic Meningococcal B Vaccine Aged Out No l onger eligible based on patient's age to complete this topic RSV Immunization Patients Under 20 months Aged Out No longer eligible based on patient's age to complete this topic Varicella Vaccines Aged Out No longer eligible based on patient's age to complete this topic Insurance [employer] MEDICARE ADVANTAGE Care Teams Chief Ultrasound Technologist Relationship Specialty Start Date End Date Moe Cope MD [address] [place] [phone] PCP - General Internal Medicine 08/28/24
== END 2024-11-06 11:20 | disposition home or self-care (01) ==
LOC: HO.HMCSH 10:33
PROVIDERS: PCP Internal Medicine; Visit Provider Internal Medicine
DX: E10.3293 Type 1 diabetes mellitus with mild nonproliferative diabetic retinopathy without macular edema, bilateral (principal)

== ENCOUNTER → 2024-11-06 10:33 | Outpatient (BNVA) | payer MEDICARE, SELFPAY | PROVIDERS: PCP Internal Medicine; Visit Provider Internal Medicine | DX: E10.3293 Type 1 diabetes mellitus with mild nonproliferative diabetic retinopathy without macular edema, bilateral (principal); G56.00 Carpal tunnel syndrome, unspecified upper limb; I73.9 Peripheral vascular disease, unspecified; K63.89 Other specified diseases of intestine; N52.9 Male erectile dysfunction, unspecified; Z96.41 Presence of insulin pump (external) (internal) | CPT/HCPCS: 99202 ==

== ENCOUNTER 2024-11-20 09:26 | Outpatient (AMB) | payer MEDICARE, SELFPAY ==
--- OUTSIDE RECORDS SUMMARY | 2024-11-20 10:18 | XMS_ITS | Clinical Summary ---
Author Organization 175 [facility] Address [address] [place] [address] Phone Care Team Providers Care Corrugator Operator Name Role Phone Moe Cope MD Primary Care Provider [phone]- [phone] Allergies Active Allergy Reactions Criticality Noted Date [...] asso ciated with type 1 diabetes mellitus ([facility] V24, [facility] V28) 04/01/2023 Overview (08/29/2024): DIABETES HISTORY Diagnosis -- mid 20s, initially managed as type 2 diabetes Treatment -- on oral meds, this was ineffective over a couple of years then started on basal bolus insulin; started insulin pump therapy 2018, currently on Tandem X2/Dexcom Encounters Date Type Department Care Team Description 10/01/2024 Telephone Orthopedic Surgery [facility] 250 175 [facility] [address] [place] [phone] Gisela Paredes MD Order for Surgery 08/28/2024 10:45 AM EST Office Visit Orthopedic Surgery [facility] 175 [facility] [address] [place] [phone] Gisela Paredes MD Cubital tunnel syndrome, right [...] Department Care Team (Latest Contact Info) Description 12/14/2024 11:00 AM EDT Consult Orthopedic Surgery [facility] [address] [phone] Gisela Paredes MD [address] [phone] 12/20/2024 10:00 AM EDT Hospital Encounter [facility] Main OR [address] [place] [phone] Gisela Paredes MD [address] [phone] 12/20/2024 10:00 AM EDT - 12/20/2024 12:00 PM EDT Surgery [facility] Main OR [address] [place] [phone] Gisela Paredes MD [address] [phone] RELEASE CARPAL TUNNEL- right; ulnar nerve in-situ decompression/trans position; right index trigger release [[id number] (CPT??) +2 more] 12/31/2024 1:00 PM EDT Office Visit Orthopedic Surgery [facility] [address] [phone] Marianna Lockhart PA [address] [phone] Scheduled Procedures Name Priority Associated Diagnoses Date/Ti [...] topic Insurance [employer] MED[employer]VANTAGE Care Teams Corrugator Operator Relationship Specialty Start Date End Date Moe Cope MD [address] [place] [phone] PCP - General Internal Medicine 08/28/24
[2024-11-20 11:18] VITALS: BP 132/54; PULSE 52; O2SAT 97; BMI 29.0
--- NOTE | 2024-11-20 11:18 | A.OFFVIS_ITS ---
Vital Signs 11/20/24 11:18 Height 5 ft 8 in Weight 190 lb 11.198 oz BMI 29.0 BP 132/54 L Blood Pressure Location Lt brachial Position Sitting Pulse 52 Pulse Source Pulse Oximeter Pulse Oximetry (%) 97 Oxygen Delivery Method Room Air Intake Visit Reasons: Obstructive sleep apnea Intake Note: pt is here for follow up and states he is doing well, but he had to stop using his cpap due to mouth surgery, will be backon in a few weeks if cleared by dentist. 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: No Allergies penicillin V Allergy (Unknown, Verified 11/20/24 11:58) Rash Penicillins [PENICILLINS] Allergy (Unknown, Verified 11/20/24 11:58) UNKNOWN Medication List - Last Reconciled 11/20/24 by Mckayla Elizabeth MD atorvastatin 40 mg PO DAILY blood sugar diagnostic (FreeStyle Lite Strips) As directed three times a day blood-glucose meter (FreeStyle Lite Meter kit) As directed 3 x/day blood-glucose sensor (DexTechfoo G6 Sensor device) As directed blood-glucose transmitter (Dexcom G6 Transmitter device) As directed blood-glucose,slumber room attendant,cont (Dexcom G6 E Business Specialist) As directed cholecalciferol (vitamin D3) 50 mcg PO DAILY donepezil 10 mg PO DAILY finasteride 5 mg PO DAILY 90 days hydrochlorothiazide 25 mg PO QAM insulin pump cart,auto,BT-cntr (Omnipod 5 G6 Intro Kit (Gen 5) subcutaneous cartridge with controller) As directed lancets (FreeStyle Lancets) 4 times a day losartan 50 mg PO DAILY Lyumjev U-100 Insulin (insulin lispro-aabc) Up to 100 units via insulin pump subcut daily; 90 days NS multivitamin 1 tab PO DAILY sertraline 50 mg PO DAILY tamsulosin 0.4 mg PO DAILY Do you need a note to return to daycare/school/sports/work: No HPI HPI Obstructive sleep apnea: Details: 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 He was having treatment emergent central apneas, and he did not get good sleep, thus remained tired and sleepy during the daytime. After CPAP titration with iVAPS mode of treatment, he has been on CPAP with ASV auto mode, and is doing very well. He sleeps about 7 hours every night, wakes up only once or twice to go to the bathroom which is much less than before. Wakes up relaxed and refreshed . He is very happy with the new model. Now for the past few weeks after dental surgery he is not able to use the CPAP, . For a few more weeks Then he will go back to using the CPAP again. He admits that he finds a big improvement in his sleep since he has been using iVAPs set up. 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 Diabetes type 1, controlled Surgical History History of esophagogastroduodenoscopy (EGD) H/O colonoscopy (~01/09/24) Hx of right inguinal hernia repair Hx of cataract removal with insertion of prosthetic lens Hx of hand surgery Family History Father CVD (cardiovascular disease) Mother Hypertension Maternal Grandmother Diabetes Social History Household Members: Spouse Housing: Condominium Alcohol intake: current Alcohol intake frequency: does not drink Alcohol type: wine Patient Tobacco Use Status: Never used Tobacco service: No Current occupational status: retired Cognitive needs: No Hearing needs: Yes (b/l hearing aids) Vision needs: Yes (reading glasses) Review of Systems Const Denies body aches, Denies chills, Denies fatigue, Denies fever(s) and Denies headache(s) Eyes Denies blurry vision, Denies irritation, Denies itchy eyes and Denies loss of vision ENT Denies dysphagia, Denies vertigo, Denies headache(s), Denies epistaxis, Denies nasal congestion, Denies nasal discharge, Denies nasal obstruction and Denies sinus pain Card Denies chest pain, Denies rapid heart rate, Denies irregular heart rhythm, Denies dyspnea on exertion and Denies slow heart rate Resp Reports as per HPI and Denies dyspnea on exertion GI Denies bloating, Denies change in bowel habits, Denies change in stool character, Denies dysphagia, Denies heartburn, Reports nausea and Denies vomiting Reports nocturia and Denies urinary incontinence Musc Denies abnormal gait, Denies back pain, Denies myalgias, Denies arthralgias, Denies muscle weakness and Denies stiffness Skin/Breast Reports system reviewed and no additional complaints, except as documented Neuro Denies abnormal gait, Denies vertigo, Denies headache(s), Denies focal weakness, Denies loss of vision, Reports memory loss, Denies restless legs and Denies tremor(s) Psych Reports depression and Reports memory loss Endo Reports no additional complaints, Denies fatigue and Reports other (Insulin- dependent diabetes mellitus) [place]lyn/Lymph Reports no additional complaints Aller/Immun Reports no additional complaints and Denies itchy eyes Physical Exam Vital Signs: Last Vital Signs Pulse 52 11/20/24 11:18 BP 132/54 L 11/20/24 11:18 Pulse Ox 97 11/20/24 11:18 Oxygen Delivery Method Room Air 11/20/24 11:18 BMI result Body Mass Index 29.0 Generally healthy looking, he is only says moderately overweight Const General: healthy appearing, comfortable, no acute distress, alert and awake Orientation/consciousness: patient oriented x3 HEENT Head: Yes normal to inspection General nose exam: No nasal polyps present and No nasal discharge present Face and sinus: Yes sinuses nontender Mouth: oropharynx abnormals (Tongue is placed back, oropharynx is narrow, Mallampati class 4) Teeth and gingiva: other (RETROGANTHIA of the lower jaw ( overbite ) ) Throat: Yes posterior oropharynx normal Eyes General: appearance normal, both eyes and all related structures Neck Neck: Yes normal visual inspection, Yes no lymphadenopathy, Yes trachea midline, Yes no JVD and Yes other (Neck circumference 16-1/2 inch) Thyroid: Thyroid normal Chest Chest palpation & inspection: normal inspection of the chest, normal palpation of entire chest wall and no tenderness Resp Effort & Inspection: normal respiratory effort Auscultation: clear to auscultation bilaterally, no crackles and no wheezes Cardio Palpation: normal PMI Rate: regular rate Rhythm: regular rhythm Heart sounds: no gallops and no murmurs Peripheral pulses: Peripheral pulses 2+ throughout GI Palpation (GI): Soft to palpation, nontender, No hepatosplenomegaly present and no masses Auscultation: normal bowel sounds Back/Spine/Pelvis Thoracic/Lumbar Spine: thoracic and lumbar spine normal to inspection Skin General skin exam: no rashes or lesions noted Neuro General: patient oriented x3 and no focal motor deficits Cranial nerves: Yes CN's II-XII intact bilaterally Extrem General: Yes normal to inspection, Yes no clubbing, cyanosis or edema and Yes no calf tenderness Psych Appearance: grossly normal and well kempt Speech and movement: Normal speech and movement present Results Reviewed Results Reviewed: The print of compliance for the last 90 nights shows that he has used it 98% of the nights. Average use it per night 6 hours 27 minute. This is very little air leak. Residual AHI 5.7 which is much less than before Assessment & Plan Assessment & Plan (1) ODILIA (obstructive sleep apnea): Comment: OBSTRUCTIVE SLEEP APNEA, SEVERE, RESPONDING VERY WELL TO THE USE OF CPAP. CURRENTLY USING CPAP WITH ASV MODE AND DOING MUCH BETTER. COMPLIANCE HAS BEEN GOOD . Code(s): G47.33 - Obstructive sleep apnea (adult) (pediatric) Category: Medical Plan: HAD A DETAILED DISCUSSION AND ENCOURAGED HIM TO KEEP ON USING THE CPAP EVERY NIGHT. 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 HE HAS HAD MILD DYSPNEA ON EXERTION SINCE THEN. CLAIMS THAT HIS WRAY IS SLIGHTLY INCREASED FROM BEFORE. COMPLETE PULMONARY FUNCTION TEST IS DONE AND I EXPLAINED THE FINDINGS TO HIM. SHOWS MILD OBSTRUCTIVE AIRWAY DISORDER, Code(s): R06.09 - Other forms of dyspnea Category: Medical Plan: STAY ACTIVE AND KEEP ON DOING DAY-TO-DAY WORK TOLERATED. NO NEED TO USE ANY INHALERS. Coding Level of Care Code Est Pt Level 3 (94666) Diagnoses ODILIA (obstructive sleep apnea) G47.33 Dyspnea on exertion R06.09
== END 2024-11-20 12:00 | disposition home or self-care (01) ==
PROVIDERS: PCP Internal Medicine; Visit Provider Internal Medicine
DX: G47.33 Obstructive sleep apnea (adult) (pediatric) (principal); R06.09 Other forms of dyspnea
CPT/HCPCS: 99213

== ENCOUNTER → 2024-11-20 09:26 | Outpatient (BNVA) | payer MEDICARE, SELFPAY | PROVIDERS: PCP Internal Medicine; Visit Provider Internal Medicine | DX: G47.33 Obstructive sleep apnea (adult) (pediatric) (principal); R06.09 Other forms of dyspnea | CPT/HCPCS: 99212 ==

== ENCOUNTER 2024-11-21 07:58 | Outpatient (REF) | payer MEDICARE, SELFPAY ==
[2024-11-21 10:08] LABS: Appearance Urine Clear; Color Urine Yellow; Glucose Urine UA Negative (Negative); Leukocyte Esterase Urine Negative (Negative); Nitrite Urine Negative (Negative); Urine Blood Negative (Negative); Urine Ketones Negative (Negative); Urine Protein Negative (Neg-Trace)
[2024-11-21 10:14] LABS: Hematocrit 40.7 % (42.0-52.0); Hemoglobin 13.7 g/dl (14.0-18.0); Mean Corpuscular HGB Conc 33.7 g/dl (31.0-36.0); Mean Corpuscular Hemoglobin 30.5 pg (27.0-33.0); Mean Corpuscular Volume 90.6 fL (80.0-98.0); Mean Platelet Volume 11.4 fL (9.4-12.4); Platelet Count 214 X10*3/uL (160-400); Red Blood Count 4.49 X10*6/uL (4.60-5.80); Red Cell Distribution Width 13.7 % (11.0-16.0); White Blood Count 8.4 X10*3/uL (4.8-10.8)
[2024-11-21 10:21] LABS: Estimated Average Glucose 163 mg/dL; Hemoglobin A1C 203.6345 umol/L; Hemoglobin A1c % 7.3 % (<6.0)
[2024-11-21 10:59] LABS: Creatinine Urine 93.97 mg/dL; Microalbum/Creatinine Ratio Ur 6.3 ug/mg cr (<30)
[2024-11-21 11:38] LABS: Alanine Aminotransferase 29 U/L (0-40); Alkaline Phosphatase 68 U/L (39-117); Anion Gap 11 (12-20); Aspartate Amino Transferase 36 U/L (5-37); Bilirubin Direct 0.3 mg/dL (0.0-0.5); Bilirubin Total 0.8 mg/dL (0.0-1.0); Blood Urea Nitrogen 27 mg/dL (9-16); Calcium 9.1 mg/dL (8.4-10.2); Carbon Dioxide 26 mmol/L (22-29); Chloride 104 mmol/L (96-108); Cholesterol 110 mg/dL (<200); Estimated Glomerular Filt Rate > 60; Glucose Random 169 mg/dL (60-115); HDL Cholesterol 45 mg/dL (>40); LDL Cholesterol Calculated 49 mg/dL (<100); Potassium 4.4 mmol/L (3.3-5.1); Sodium 137 mmol/L (135-145); Total Protein 6.8 g/dL (6.5-8.0); Triglycerides 82 mg/dL (<150)
[2024-11-21 12:21] LABS: Thyroid Stimulating Hormone 3.23 uIU/mL (0.32-4.0)
== END 2024-11-21 07:59 | disposition home or self-care (01) ==
LOC: HO.HMGCLDS 07:58
PROVIDERS: PCP Internal Medicine; Visit Provider Internal Medicine
DX: E10.3293 Type 1 diabetes mellitus with mild nonproliferative diabetic retinopathy without macular edema, bilateral (principal); I10 Essential (primary) hypertension
CPT/HCPCS: 36415; 80048; 80061; 80076; 81003; 82043; 82570; 83036; 84443; 85027

== ENCOUNTER 2025-02-04 08:17 | Outpatient (REF) | payer MEDICARE, SELFPAY ==
--- NOTE | ~2025-02-04 | XR_ITS ---
EXAMINATION: XR CHEST 2 VIEWS HISTORY: R06.09 - Other forms of dyspnea COMPARISON: Comparison is made with the prior examination dated 01/31/2023. FINDINGS: PA and lateral views of the chest are submitted. There is a moderate left pleural effusion and a small right pleural effusion. Underlying atelectasis or pneumonia at the left lung base is suspected. There is no pneumothorax or pulmonary vascular congestion. The heart is enlarged. The bones are intact. XR/XR chest 2V IMPRESSION: Cardiomegaly. Moderate left pleural effusion and small right pleural effusion. Probable left basilar atelectasis versus pneumonia. Follow-up is recommended. Electronically signed by: Srinivasa Medina MD 02/04/2025 08:58 AM EDT
--- OUTSIDE RECORDS SUMMARY | 2025-02-04 08:31 | XMS_ITS | Clinical Summary ---
Author Organization [facility] Address [address] [address] Phone Care Team Providers Care Licensing Court Magistrate Name Role Phone Srinivasa Vasquez DO Primary Care Provider Allergies Active Allergy Reactions Criticality Noted Date Comments Penicillins Hives 04/01/2023 Medications amLODIPine (NORVASC) 5 MG tablet Take 5 mg by mouth every morning. Active atorvastatin (LIPITOR) 40 MG tablet Take 40 mg by mouth daily. 03/17/20 Active donepeziL (ARICEPT) 10 MG tablet Take 10 mg by mouth every morning. 02/24/20 Active finasteride (PROSCAR) 5 mg tablet Take 5 mg by mouth daily. 03/02/20 Active hydroCHLOROthiazi de (HYDRODIURIL) 25 MG tablet Take 25 mg by mouth every morning. 03/22/20 Active losartan (COZAAR) 50 MG tablet Take 50 mg by mouth 2 (two) times a day. 03/17/20 Active pediatric multivit with FA-zinc (CHEWABLE MULTIVIT-A,B,D,E, K,ZN) 1,000-800 unit-mcg Chew as directed Acti ve sertraline (ZOLOFT) 50 MG tablet Take 50 mg by mouth daily. 03/17/20 Active tamsulosin (FLOMAX) 0.4 mg Cap Take 0.4 mg by mouth 2 (two) times a day. 03/05/20 Active cyanocobalamin, vitamin B-12, 1000 MCG tablet Take 1,000 mcg by mouth daily. 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 Active FREESTYLE LITE Strp stripsIndications :Diabetes mellitus type 1 1 each by Miscellaneous route 3 (three) times a day before meals. 300 strip 3 09/28/19 25 Active OMNIPOD 5 G6-G7 PODS, GEN 5, CrtgIndications:D iabetic polyneuropathy associated with type 1 diabetes mellitus Inject 1 each under the skin every other day. 15 each 11 05/28/20 24 025 Discontin ued(No longer taking) Active Problems Problem Noted Date Diagnosed Date Insulin pump in place 04/04/2023 Assessment & Plan (01/28/2025 6:01 PM EDT): Insulin pump data was reviewed today, CGM was reviewed and discussed with Beni Advised to continue to bolus at meals as directed, we discussed the recommendation to dose prior to meals ideally; it appears that the timing of doses may be most impactful on prandial elevations Has continued to be happy with Neal Ramires, having some issues with CGM reliability with respect to connectivity, Beni feels that this is user error and has made some changes in his wear of the devices; this system is likely working better for Beni than his previous regimen based on his most recent A1c and certainly in this time of increased stress We reviewed insulin action onset and how this relates to premeal dosing Encouraged to contact me with any questions or concerns regarding patterns; Beni will return to meet with Tessa in 3 months, he will also return to meet with me in 6 months Assessment & Plan (11/22/2024 7:58 AM EDT): Images from the original note were not included. Discussed insulin pump adjustments to prevent hypoglycemia, Beni declines adjustments at this time Encouraged to be as accurate as possible with carb entry Could consider looser correction factor if Beni notices lows with corrections, but it seems that autocorrections after lows tend to bring blood sugar back down and this may be related to over treating hypoglycemia, reviewed recommended treatment with AID system Beni is encouraged to reach out with hypoglycemia or persistent hyperglycemia for potential insulin jordon Assessment & Plan (07/30/2024 4:15 PM EST): Images from the original note were not included. Reviewed pump data with Beni and this looks reassuring Had some issues with CGM connection over the past several days, this issue has been fixed when Beni contacted [employer] support this morning No adjustments made to insulin pump settings today Encouraged Beni to work on prebolus efforts to aid in more time in range and less prandial elevations Discussed importance of site rotation and avoiding scar tissue Beni has Omnipod 5 supplies at home, but does not wish to start it at this time Assessment & Plan (07/13/2024 4:35 PM EST): We did not have insulin pump data to review today, CGM was reviewed and discussed with Beni Advised to continue to bolus at meals as directed, prior to meals ideally; Beni is still trying to find doses that are more effective for him for certain meals; we reviewed patterns after breakfast specifically since he notes that this is a time of day when he seems to require less insulin and overrides his pump recommendations, the data indicates that his postprandial patterns after morning meal are variable Happy with Tandem Mobi, having some issues with infusion sets and we discussed placement today, currently using legs, this has been more effective and he feels he needs less insulin but advised to ensure that he is placing infusion set in subcutaneous fatty tissue rather than lean muscle We discussed best practices regarding using exercise mode, Beni historically sets this as he starts to exercise, we discussed that this is most effective when it is set ahead of exercise by at least an hour most ideally Encouraged to contact me with any questions or concerns regarding patterns Beni will return to meet with Tessa in 2 weeks and 3 months, he will also return to meet with me in 6 months Assessment & Plan (05/30/2024 9:59 AM EST): New insulin pump settings (changes in bold) Time Basal Rates? ICR ISF Target IOB 12am 0.40u/hr 50 7 110mg/dl 5hrs 4am 0.425 40 7 730am 0.55 40 7 9am 0.9 40 5 12pm 0.9 35 5.5 5pm 0.65 35 6 7pm 0.55 40 6 9pm 0.55 50 7.5 OMNIPOD 5 WAS NOT STARTED TODAY After training and a long discussion, Beni decided to delay omnipod 5 start due to training on Tandem Mobi with tandem national sales trainer next week Training was provided on Omnipod 5 though and set up completed, it just was not started Pump settings were transferred from Tandem pump Beni will continue with previous glucose alerts as set on DexLinguaSys G7 joby Reviewed that automated mode will only start after the first pod change and first 48 hours of wear Reviewed differences between automated vs limited vs manual modes Encouraged Beni to bolus for food before the meal. Beni will continue on tandem x2 for now, adjustments made as noted above to be closer to Tandem auto basal, still left basal rates low for overnight due to Beni's concerns of history of severe nocturnal hypoglycemia, basal rates during the day optimized Beni will follow up with Dr. Gamino in 6 weeks, we will follow up shortly after to start Omnipod 5 if Beni still chooses this Assessment & Plan (04/24/2024 11:08 AM EDT): New insulin pump setting Time Basal Rates? ICR ISF Target IOB 12am 0.40u/hr 50 7 110mg/dl 5hrs 4am 0.425 40 7 730am 0.55 40 7 9am 0.75 40 5 12pm 0.70 35 5.5 5pm 0.55 35 6 7pm 0.55 40 6 9pm 0.55 50 7.5 We did not adjust insulin pump settings today Advised to bolus ahead of eating for most meals and then if still noticing hyperglycemia despite this, could consider tightening ICR Spoke about different insulin pump options at length today, interestingly Beni has 2 pumps available to start on, the OmniPod 5 and the tandem Mobi. We discussed differences between both pump and Beni would like to trial the Omnipod 5 Next available training here isn't until end of May, so we are going to reach out to tandem/omnipod to check sooner availability Beni prefers to have a pump that improves control so is most interested with auto correction capability, which we discussed out of the two option is only Tandem, but Beni is interested in giving Omnipod a try first Beni will return to meet with Dr. Gamino in 3 months, we will follow up sooner if Beni is unable to train soon with Omnipod or Tandem reps Assessment & Plan (01/03/2024 5:57 PM EDT): New insulin pump setting Time Basal Rates? ICR ISF Target IOB 12am 0.40u/hr 50 7 110mg/dl 5hrs 4am 0.425 40 7 730am 0.55 40 7 9am 0.75 40 5 12pm 0.70 35 5.5 5pm 0.55 35 6 7pm 0.55 40 6 9pm 0.55 50 7.5 We discussed adjusting the early day basal rates for more optimal control Advised to bolus ahead of eating for most meals We had a lengthy discussion about the automated features of this insulin pump system and how overriding recommended doses is likely to result in more variability and increased risk for hypoglycemia We revisited that it is not advisable to have an evening snack to increase glucose prior to bedtime as this is causing the insulin pump to increase basal insulin delivery automatically, if he likes having this snack then he is advised to take insulin for this Encouraged to contact me with any questions or concerns regarding patterns Beni will return to meet with me in 3 months, he will also return to meet with Tessa Garrido in 6 months Assessment & Plan (09/30/2023 12:49 PM EDT): Images from the original note were not included. We did not adjust insulin pump settings today Advised to bolus ahead of eating for most meals We had a lengthy discussion about the automated features of this insulin pump system and how overriding recommended doses is likely to result in more variability and increased risk for hypoglycemia Beni is advised not to have an evening snack to increase glucose prior to bedtime as this is causing the insulin pump to increase basal insulin delivery automatically, if he likes having this snack then he is advised to take insulin for this Encouraged to contact me with any questions or concerns regarding patterns Beni will return to meet with me in 3 months, he will also return to meet with Tessa Garrido in 6 months Assessment & Plan (07/11/2023 1:06 PM EST): Images from the original note were not included. We did not adjust insulin pump settings today Advised to bolus ahead of eating for most meals and then if still noticing hyperglycemia despite this, could consider tightening ICR Spoke about different insulin pump options at length today We discussed the Omnipod 5 with Dexcom G6, the tandem x2 with Dexcom G6/G7/Yasmine as well as the Mobi insulin pump from [employer] that is expected sometime soon, and very briefly the Medtronic 780G with guardian 4 sensor, iLet pump with Dexcom integration which could help with carb counting discrepancies Beni prefers to have a pump that improves control so is most interested with auto correction capability, wishes to remain with the Tandem x2 insulin pump for now Beni will return to meet with Dr. Gamino in 3 months, we will follow up sooner if Beni receives new pump for insulin pump setup/training Assessment & Plan (04/04/2023 6:35 PM EDT): Images from the original note were not included. We did not adjust insulin pump settings today Advised to bolus ahead of eating for most meals Encouraged to contact me with any questions or concerns regarding patterns Beni will return to meet with me in 6 months, he will also return to meet with Tessa Garrido in 3 months Hyperlipidemia 04/04/2023 Assessment & Plan (01/28/2025 5:57 PM EDT): Most recent labs were reviewed, these are from May Lipid parameters are very reassuring, LDL is at optimal goal (<55) Continues on statin therapy at high intensity GFR normal Assessment & Plan (11/22/2024 7:58 AM EDT): No recent lipid panel is available for review LDL goal is <55 Continues on statin therapy at high intensity Assessment & Plan (07/13/2024 4:29 PM EST): No recent lipid panel is available for review [place] LDL goal is <70 Continues on statin therapy at high intensity Assessment & Plan (04/23/2024 4:41 PM EDT): No recent lipid panel is available for review LDL goal is <55 Continues on statin therapy at high intensity Assessment & Plan (09/30/2023 12:47 PM EDT): No recent lipid panel is available for review LDL goal is <55 Continues on statin therapy at high intensity Assessment & Plan (07/11/2023 1:01 PM EST): No recent lipid panel is available for review LDL goal is <55 Continues on statin therapy at high intensity Assessment & Plan (04/04/2023 6:24 PM EDT): No recent lipid panel is available for review LDL goal is <55 Continues on statin therapy at high intensity Primary hypertension 04/04/2023 Assessment & Plan (01/28/2025 5:56 PM EDT): Blood pressure is elevated today, this is generally in good control Continues on regimen which includes ARB Most recent labs reviewed, GFR reassuring, LDL at goal Strongly advised to follow up with cardiology Assessment & Plan (11/22/2024 7:58 AM EDT): Blood pressure is very well controlled Continues on regimen which includes ARB Assessment & Plan (07/13/2024 4:28 PM EST): Blood pressure is in reasonable control Continues on regimen which includes ARB Assessment & Plan (04/23/2024 4:41 PM EDT): Blood pressure is very well controlled Continues on regimen which includes ARB Assessment & Plan (01/03/2024 5:51 PM EDT): Blood pressure continues to be very well controlled Continues on regimen which includes ARB Assessment & Plan (09/30/2023 12:46 PM EDT): Blood pressure continues to be very well controlled Continues on regimen which includes ARB Assessment & Plan (07/11/2023 1:01 PM EST): Blood pressure is very well controlled Continues on regimen which includes ARB Assessment & Plan (04/04/2023 6:21 PM EDT): Blood pressure is very well controlled Continues on regimen which includes ARB Diabetic polyneuropathy chano haro with type 1 diabetes mellitus 04/01/2023 04/01/2023 Overview (04/04/2023): DIABETES HISTORY Diagnosis -- mid 20s, initially managed as type 2 diabetes Treatment -- on oral meds, this was ineffective over a couple of years then started on basal bolus insulin; started insulin pump therapy 2018, currently on Tandem X2/Dexcom Assessment & Plan (01/28/2025 6:06 PM EDT): Beni continues on automated insulin pump system integrated with CGMS He has had historically reasonable control with A1c measurements in high 7% to low 8% mostly, most recently 8.2% but since transition to Tandem Mobi, his A1c has dropped to low 7% range We reviewed CGM data together, we discussed benefits of consistently bolusing insulin prior to eating as well as rationale behind this, we reviewed postprandial elevations after morning meal which Beni has been bothered by, Beni struggles with accurate carb counting and higher postprandial readings are generally due to bigger meals Beni has been under tremendous health related stressors recently and this has affected his self management as well as direct impact of stress on glucose patterns/insulin sensitivity Beni has had episodes of syncope and he has a history of cardiac arrhythmia, he is strongly advised to follow up with his cardiology and PCP teams Doing well on Lyumjev insulin and will continue this Continues to use CPAP consistently Lifestyle is healthy however this has been impacted by stressors and recent health issues Beni will follow up with us every 3 months per Medicare criteria for patients on insulin pump therapy, he will alternate his visits with me and Tessa Beltran and is advised to contact us with any questions in between visits Assessment & Plan (11/22/2024 7:58 AM EDT): -Doing very well on the Tandem Mobi system, Beni is very happy with this and has no plans to try the Omnippod 5 at this time, which he has supplies for at home -Experiencing frequent hypoglycemic episodes, likely due to overcorrection of low blood sugar levels with excessive carbohydrate intake (45-55g). - A1c level has decreased from the low 8s to 7.3%, indicating improved glycemic control. - Advised to reduce carbohydrate intake for hypoglycemia correction to 7-10 g of fast-acting carbohydrates, such as half a bottle of juice. Insulin pump settings adjusted to trigger an alert at a blood glucose level of 80, with a repeat alert every 15 minutes if the level remains below 80. - Advised to monitor blood glucose levels more frequently and to avoid overcorrecting high blood sugar levels. -Up to date on eye and foot care Encouraged efforts at balanced, mindful eating Encouraged efforts at increasing physical activity as tolerated Advised to contact office with any questions or concerns Follow-up: The patient will follow up in 5 months. Orders: POCT Hemoglobin A1c Assessment & Plan (07/30/2024 4:08 PM EST): Beni continues on automated insulin pump system integrated with CGM, most recently starting on the tandem Mobi and has been doing well on this We reviewed CGM data together, we discussed benefits of consistently bolusing insulin prior to eating, we reviewed postprandial elevations are most significant around late or missed boluses, advised that working on this will lead to more TIR Having issues with direct to watch connection for Dexcom CGM, we troubleshooted this today but was unsuccessful, encouraged Beni to reach out to [employer] support Beni will consider the Omnipod 5 system as well, but for now wishes to continue on the tandem Mobi system Encouraged efforts at mindful, balanced eating Encouraged efforts at increasing physical activity as tolerated Beni will follow up with us every 3 months per Medicare criteria for patients on insulin pump therapy, he will alternate his visits with me and Tessa Garrido and is advised to contact us with any questions in between visits Assessment & Plan (07/13/2024 4:40 PM EST): Beni continues on automated insulin pump system integrated with CGMS He has had historically reasonable control with A1c measurements in high 7% to low 8% mostly, most recently 8.2% We reviewed CGM data together, we discussed benefits of consistently bolusing insulin prior to eating, we reviewed postprandial elevations after morning meal which Beni has been bothered by however review of the day indicates variability in this and he is advised to continue to monitor for insulin needs for certain meals, Beni struggles with accurate carb counting and higher postprandial readings are generally due to bigger meals Beni will consider the Omnipod 5 system as well, he has this and will discuss with Tessa Beltran later this month at follow up visit with her Doing well on Lyumjev insulin and will continue this Using CPAP consistently Lifestyle is healthy however activity is lower in winter months until Beni establishes some routine with this, he is in the process of this and is aware that increase in activity is likely to affect his glucose and insulin requirement, he will continue to monitor this Beni will follow up with us every 3 months per Medicare criteria for patients on insulin pump therapy, he will alternate his visits with me and Tessa Garrido and is advised to contact us with any questions in between visits Assessment & Plan (05/30/2024 10:01 AM EST): Training provided today on Omnipod 5 with Dexcom G7, this was not started today due to pods and no insulin to fill pods, Beni has decided to delay the OP5 start, though everything was set up Reviewed insulin pump therapy specifics Beni continues to use CGM consistently, using dexcom G7 so will only be able to operated the integrated system through the Omnipod 5 controller/not iOS joby Encouraged to stay active and to continue efforts at eating a healthy diet We will follow up in the office in 6 weeks as previously scheduled, we will meet after this if Beni chooses to transition to omnipod 5 Assessment & Plan (04/24/2024 11:00 AM EDT): We reviewed CGM data together, we revisited benefits of consistently bolusing for meals prior to eating which is likely to help improve time in target range and overall control We did not adjust insulin pump settings otherwise Discussed current supply of new insulin pumps and considerations for starting one of these, Beni will reach out to [employer] to see when a date can be scheduled for training and I will reach out to [employer] to see if a one-on-one training can be scheduled Beni will follow up with us every 3 months per Medicare criteria for patients on insulin pump therapy, he is advised to contact us with any questions in between visits Assessment & Plan (01/03/2024 5:51 PM EDT): Beni continues on automated insulin pump system integrated with CGMS He has had historically reasonable control with A1c measurements in 7% to low 8% mostly, today 8% We reviewed CGM data together, we discussed benefits of consistently bolusing for meals prior to eating which is likely to help improve time in target range and overall control, to be accurate with carb count entries, and to follow recommendations of insulin pump; Beni still overrides quite a bit and some boluses seem delayed We discussed basal rate adjustments early in the day to help optimize glucose patterns, Beni is encouraged to give this a try and to let me know how it works for him, we will adjust this as needed for best impact Doing well on Lyumjev insulin and will continue this Beni will follow up with us every 3 months per Medicare criteria for patients on insulin pump therapy, he will alternate his visits with me and Tessa Garrido and is advised to contact us with any questions in between visits Assessment & Plan (09/30/2023 12:51 PM EDT): Beni continues on automated insulin pump system integrated with CGMS He has had reasonable control with A1c measurements in 7% to low 8% mostly, today 7.8% We reviewed CGM data together, we discussed benefits of consistently bolusing for meals prior to eating which is likely to help improve time in target range and overall control, to be accurate with carb count entries, and to follow recommendations of insulin pump We did not adjust insulin pump settings Doing well on Lyumjev insulin and will continue this Beni will follow up with us every 3 months per Medicare criteria for patients on insulin pump therapy, he will alternate his visits with me and Tessa Garrido and is advised to contact us with any questions in between visits Assessment & Plan (07/11/2023 1:01 PM EST): Reports reasonable control with most recent A1c of 7.7% We reviewed CGM data together, we revisited benefits of consistently bolusing for meals prior to eating which is likely to help improve time in target range and overall control We did not adjust insulin pump settings otherwise We discussed the Lyumjev insulin onset and duration of action and how this may benefit mealtime dosing, we also discussed when it may be appropriate to delay a mealtime bolus based on meal type Beni will follow up with us every 3 months per Medicare criteria for patients on insulin pump therapy, he is advised to contact us with any questions in between visits Assessment & Plan (04/04/2023 6:32 PM EDT): Beni has had a long h/o type 1 diabetes Reports reasonable control with A1c measurements in 7% to low 8% mostly We reviewed CGM data together, we discussed benefits of consistently bolusing for meals prior to eating which is likely to help improve time in target range and overall control We did not adjust insulin pump settings otherwise We discussed the Lyumjev insulin onset and duration of action and how this may benefit mealtime dosing, we also discussed when it may be appropriate to delay a mealtime bolus based on meal type Beni will follow up with us every 3 months per Medicare criteria for patients on insulin pump therapy, he will alternate his visits with and Tessa Garrido and is advised to contact us with any questions in between visits Encounters Date Type Department Care Team Description 01/28/2025 3:20 PM EDT Office Visit [facility] [address] [place] [address] Mayda Gamino MD Diabetic polyneuropathy associated with type 1 diabetes mellitus (Primary Dx); Insulin pump in place; Primary hypertension; Hyperlipidemia, unspecified hyperlipidemia type 11/27/2024 Telephone [facility] [place] Endocrinology [address] [place] [address] [place] [address] Amelia Maldonado [place], [place] 11/21/2024 1:00 PM EDT Office Visit [facility] [address] [place] [id number] Tessa Beltran CNP Diabetic polyneuropathy associated with type 1 diabetes mellitus (Primary Dx); Hyperlipidemia, unspecified hyperlipidemia type; Primary hypertension; Insulin pump in place 11/05/[address] [place] [address] Mayda Gamino MD Medication Question from Last 3 Months Immunizations Immunization Administration Dates Next Due Influenza High-Dose Quadriva lent Preservative Free IM 03/25/2023,04/09/2022,04/16/2021 Influenza High-Dose Trivalen t Preservative Free IM 03/07/2024,02/18/2020,04/09/2019,2017,03/14/2017,04/03/2016 RSV Vaccine (monovalent, adjuvanted) 03/25/2023 Zoster recombinant 06/19/2019,03/07/2019 Social History Tobacco Use Types Packs/Day Years Used Date Smoking Tobacco: Never Passive Smoke Exposure: Never Smokeless Tobacco: Never Tobacco Cessation:Counseling Given: No Alcohol Use Standard Drinks/Week Comments Yes 0 (1 standard drink = 0.6 oz pur e alcohol) couple glasses of wine a week Education Answer Date Recorded Are you interested in more education? Not on vickey e 11/21/2022 Are you concerned about learning? Not on file 11/21/2022 No 11/21/2022 No 11/21/2022 Digital Access Answer Date Recorded No 11/23/2022 No 11/23/2022 Reliable internet access at home? Not on file 11/23/2022 Device with a working camera? Not on file Sex and Gender Information Value Date Recorded Sex Assigned at Male 01/02/2024 3:06 PM EDT Legal Sex Male 10:38 PM EDT Gender Identity Male 01/02/2024 3:06 PM EDT Sexual Orientation Not on file Last Filed Vital Signs Vital Sign Reading Time Taken Comments Blood Pressure 162/84 01/28/2025 3:18 PM EDT Pulse 85 01/28/2025 3:18 PM EDT Temperature 36.4 C (97.6 F) 09/30/2023 10:32 AM EDT Respiratory Rate - - Oxygen Saturation 98% 01/28/2025 3:18 PM EDT Inhaled Oxygen Concentration - - Weight 92.4 kg (203 lb 9.6 oz) 01/28/2025 3:18 P M EDT Height 172.7 cm (5' 7.99 ) 01/28/2025 3:18 PM ED T Body Mass Index 30.96 01/28/2025 3:18 PM EDT Plan of Treatment Upcoming Encounters Date Type Department Care Team (Late st Contact Info) Description 05/01/2025 10:00 AM EDT Office Visit [facility] [address] [place] [address] [place] [phone] Tessa Beltran, ART [address] [facility], 1st [place] [address] [email or web address] 08/02/2025 2:40 PM EST Office Visit [facility] [address] [place] [address] Mayda Gamino MD 22 [facility], [address] [place] [address] [email or web address] Health Maintenance Due Date Last Done Comments Adult Td,Tdap Booster 1941 CREATININE LEVEL 1941 POTASSIUM LEVEL 1941 DEPRESSION SCREENING 1953 PNEUMOCOCCAL VACCINES (50+ years) (1 of 2 - PCV) 1960 DIABETIC EYE EXAM 04/01/2023 COVID-19 VACCINE ( season) 2024 03/07/2024, 11/16/2023, 04/03/2023, Additional history exists HEMOGLOBIN A1C 05/24/2025 11/21/2024, 07/05, 04/23/2024, Additional history exists BLOOD PRESSURE 07/31/2025 01/28/2025 ZOSTER VACCINES Completed 06/19/2019, 03/07/2019 RSV VACCINE Completed 03/25/2023 HEPATITIS A VACCINES Aged Out No long er eligible based on patient's age to complete this topic HIB VACCINES Aged Out No longer eligi ble based on patient's age to complete this topic MENINGOCOCCAL VACCINES (ACWY) Aged Out No longer eligible based on patient's age to complete this topic MENINGOCOCCAL VACCINES (B) Aged Out N o longer eligible based on patient's age to complete this topic Medical Devices Not on file Procedures Procedure Name Priority Date/Time Associated Diagnosis Comments POCT HEMOGLOBIN A1C Routine 11/21/2024 1 :29 PM EDT Diabetic polyneuropathy associated with type 1 diabetes mellitus from Last 3 Months Results * (ABNORMAL) POCT Hemoglobin A1c (11/21/2024 1:29 PM EDT) Hemoglobin A1c 7.3(A) 4.2 - 5.6 % Other 11/21/2024 1:29 PM EDT Tessa Heath ART POINT OF CARE TEST ORDERABLES Final Result from Last 3 Months Insurance [employer] PPO MEDICARE REPLACEMENT [employer] PPO MEDICARE REPLACEMENT [employer] PPO MEDICARE REPLACEMENT [employer] PPO MEDICARE REPLACEMENT [employer] PPO MEDICARE REPLACEMENT A[employer] PPO MEDICARE REPLACEMENT Care Teams Licensing Court Magistrate Relationship Specialty Start Date End Date Srinivasa Vasquez DO [address] [place] [id number] PCP - General Internal Medicine 11/23/22 Additional Source Comments The information contained in this document represents components of the legal health record. It is not the complete legal health record.[facility]
[2025-02-04 08:34] LABS: MANUAL DIFF FLAG NO
[2025-02-04 08:41] LABS: VBG HCO3 32 mmol/L (22-26); VBG O2 % Saturation 41.0 %
[2025-02-04 08:42] LABS: Venous Blood Gas Refer to POC result
[2025-02-04 09:07] LABS: Hematocrit 35.8 % (42.0-52.0); Hemoglobin 11.6 g/dl (14.0-18.0); Imm Gran Abs Auto 0.09 X10*3/uL (0.00-0.03); Imm Gran Pct Auto 0.8 % (0.0-0.4); Lymphocytes Absolute Auto 1.8 X10*3/uL (1.2-4.9); Mean Corpuscular HGB Conc 32.4 g/dl (31.0-36.0); Mean Corpuscular Hemoglobin 29.0 pg (27.0-33.0); Mean Corpuscular Volume 89.5 fL (80.0-98.0); NRBC Abs Auto 0.000 X10*3/uL (0.0-0.012); NRBC Pct Auto 0.0 /100WBC (0.0-0.2); Platelet Count 394 X10*3/uL (160-400); Red Blood Count 4.00 X10*6/uL (4.60-5.80); White Blood Count 11.4 X10*3/uL (4.8-10.8)
[2025-02-04 09:43] LABS: Anion Gap 13 (12-20); Blood Urea Nitrogen 17 mg/dL (9-16); Calcium 9.3 mg/dL (8.4-10.2); Carbon Dioxide 28 mmol/L (22-29); Chloride 102 mmol/L (96-108); Estimated Glomerular Filt Rate > 60; Potassium 4.5 mmol/L (3.3-5.1); Sodium 138 mmol/L (135-145)
[2025-02-04 09:47] LABS: B Type Natriuretic Peptide 108 pg/mL (<100)
[2025-02-04 09:52] LABS: Troponin-I High Sensitivity 18.6 ng/L (<3.5-35.0)
== END 2025-02-04 08:18 | disposition home or self-care (01) ==
LOC: HO.XRAY 08:17
PROVIDERS: PCP Internal Medicine; Visit Provider Hospitalist
DX: G47.33 Obstructive sleep apnea (adult) (pediatric) (principal); R06.02 Shortness of breath; I11.0 Hypertensive heart disease with heart failure; I50.9 Heart failure, unspecified; J90 Pleural effusion, not elsewhere classified; E11.42 Type 2 diabetes mellitus with diabetic polyneuropathy; D72.829 Elevated white blood cell count, unspecified; Z79.899 Other long term (current) drug therapy; Z79.4 Long term (current) use of insulin
CPT/HCPCS: 36415; 71046; 80048; 82803; 83880; 84484; 85025; 85652; 93005; 99212

== ENCOUNTER → 2025-02-04 08:33 | Outpatient (BNV) | payer MEDICARE, SELFPAY | PROVIDERS: PCP Internal Medicine; Visit Provider Radiology Diagnostic Radiology | DX: J90 Pleural effusion, not elsewhere classified (principal); I51.7 Cardiomegaly | CPT/HCPCS: 71046 ==

== ENCOUNTER 2025-02-04 09:19 | Outpatient (AMB) | payer MEDICARE, SELFPAY ==
[2025-02-04 09:22] VITALS: BP 122/60; PULSE 66; O2SAT 94; BMI 27.1
--- NOTE | 2025-02-04 09:22 | A.OFFVIS_ITS ---
Vital Signs 02/04/25 09:22 Height 5 ft 8 in Weight 178 lb 9.191 oz BMI 27.1 BP 122/60 Blood Pressure Location Lt brachial Position Sitting Pulse 66 Pulse Source Pulse Oximeter Pulse Oximetry (%) 94 Oxygen Delivery Method Room Air Intake Visit Reasons: jaiden Intake Note: pt is here for sick visit, he is having dyspnea on exertion, feels like he cannot take a deep breath in, laughing is terrible too causing a cough, this has been happeing for about a week. Molecular Physicist Required: No Allergies penicillin V Allergy (Unknown, Verified 02/04/25 09:26) Rash Penicillins (PENICILLINS) Allergy (Unknown, Verified 02/04/25 09:26) UNKNOWN Medication List - Last Reconciled 02/04/25 by Mckayla Elizabeth MD atorvastatin 40 mg PO DAILY blood sugar diagnostic (FreeStyle Lite Strips) As directed three times a day blood-glucose meter (FreeStyle Lite Meter kit) As directed 3 x/day blood-glucose sensor (Dexcom G6 Sensor device) As directed blood-glucose transmitter (Dexcom G6 Transmitter device) As directed blood-glucose,sewing machine attachment tester,cont (Dexcom G6 Integrity Engineer) As directed cholecalciferol (vitamin D3) 50 mcg PO DAILY donepezil 10 mg PO DAILY finasteride 5 mg PO DAILY hydrochlorothiazide 25 mg PO QAM insulin pump cart,auto,BT-cntr (Omnipod 5 G6 Intro Kit (Gen 5) subcutaneous cartridge with controller) As directed lancets (FreeStyle Lancets) 4 times a day losartan 50 mg PO DAILY Lyumjev U-100 Insulin (insulin lispro-aabc) Up to 100 units via insulin pump subcut daily; 90 days NS multivitamin 1 tab PO DAILY sertraline 50 mg PO DAILY tamsulosin 0.4 mg PO DAILY Do you need a note to return to daycare/school/sports/work: No HPI HPI jaiden: Details: 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 HE DID HAVE A LOW-GRADE TEMPERATURE AT THE ONSET, HIS COVID TEST WAS NEGATIVE, HE HAS HAD MILD COUGH, AND SHORTNESS OF BREATH ON WALKING, . WHICH IS UNUSUAL FOR HIM DENIES ANY CHEST PAIN, AFTER THE INITIAL LOW-GRADE TEMPERATURE HE HAS HAD NO FURTHER FEVER. HE HAS HAD MILD EDEMA AROUND THE ANKLES. HE IS A KNOWN CASE OF COMPLEX SLEEP APNEA WHICH IS WELL TREATED WITH USE OF CPAP WITH ASV MODE. HE IS ALSO KNOWN CASE OF CONGESTIVE HEART FAILURE IN THE PAST. FOR HIS HYPERTENSION HE DOES TAKE HYDROCHLOROTHIAZIDE 25 MG A DAY HE ALSO HAS DIABETES MELLITUS AND DIABETIC POLYNEUROPATHY . HE HAS NOT SEEN HIS LINK TRAINER FOR A FEW YEARS AND NOW HE IS SCHEDULED TO HAVE A VISIT WELL AN ECHOCARDIOGRAM NEXT WEEK. [facility] Medical History (Updated 02/04/25 @ 10:18 by Mckayla Elizabeth MD) Pleural effusion Cough SARS-CoV-2 positive Dyspnea on exertion Central sleep apnea JAIDEN (obstructive sleep apnea) Retrognathia Overweight Hyponatremia Dyslipidemia Hypertension Diabetic polyneuropathy associated with type 1 diabetes mellitus Mild non proliferative diabetic retinopathy Diabetes type 1, controlled Surgical History History of esophagogastroduodenoscopy (EGD) H/O colonoscopy (~01/09/24) Hx of right inguinal hernia repair Hx of cataract removal with insertion of prosthetic lens Hx of hand surgery Family History Father CVD (cardiovascular disease) Mother Hypertension Maternal Grandmother Diabetes Social History Household Members: Spouse [facility]: [facility] Alcohol intake: current Alcohol intake frequency: does not drink Alcohol type: wine Patient Tobacco Use Status: Never used Tobacco service: No Current occupational status: retired Cognitive needs: No Hearing needs: Yes (b/l hearing aids) Vision needs: Yes (reading glasses) Review of Systems Const Denies body aches, Denies chills, Denies fatigue, Denies fever(s) and Denies headache(s) Eyes Denies blurry vision, Denies irritation, Denies itchy eyes and Denies loss of vision ENT Denies dysphagia, Denies vertigo, Denies headache(s), Denies epistaxis, Denies nasal congestion, Denies nasal discharge, Denies nasal obstruction and Denies sinus pain Card Denies chest pain, Denies rapid heart rate, Denies irregular heart rhythm, Reports dyspnea on exertion (HE FEELS THAT HE IS MORE SHORT OF BREATH THAN USUAL DURING THE PAST 1 WEEK), Denies orthopnea and Denies slow heart rate Resp Reports as per HPI and Reports dyspnea on exertion (HE FEELS THAT HE IS MORE SHORT OF BREATH THAN USUAL DURING THE PAST 1 WEEK) GI Denies bloating, Denies change in bowel habits, Denies change in stool character, Denies dysphagia, Denies heartburn, Reports nausea and Denies vomiting Reports nocturia and Denies urinary incontinence Musc Denies abnormal gait, Denies back pain, Denies myalgias, Denies arthralgias, Denies muscle weakness and Denies stiffness Skin/Breast Reports system reviewed and no additional complaints, except as documented Neuro Denies abnormal gait, Denies vertigo, Denies headache(s), Denies focal weakness, Denies loss of vision, Reports memory loss, Denies restless legs and Denies tremor(s) Psych Reports depression and Reports memory loss Endo Reports no additional complaints, Denies fatigue and Reports other (Insulin- dependent diabetes mellitus) Franklyn/Lymph Reports no additional complaints Aller/Immun Reports no additional complaints and Denies itchy eyes Physical Exam Vital Signs: Last Vital Signs Pulse 66 02/04/25 09:22 BP 122/60 02/04/25 09:22 Pulse Ox 94 02/04/25 09:22 Oxygen Delivery Method Room Air 02/04/25 09:22 BMI result Body Mass Index 27.1 Generally healthy looking, he is only says moderately overweight Const General: healthy appearing, comfortable, no acute distress, alert and awake Orientation/consciousness: patient oriented x3 HEENT Head: Yes normal to inspection General nose exam: No nasal polyps present and No nasal discharge present Face and sinus: Yes sinuses nontender Mouth: oropharynx abnormals (Tongue is placed back, oropharynx is narrow, Mallampati class 4) Teeth and gingiva: other (RETROGANTHIA of the lower jaw ( overbite ) ) Throat: Yes posterior oropharynx normal Eyes General: appearance normal, both eyes and all related structures Neck Neck: Yes normal visual inspection, Yes no lymphadenopathy, Yes trachea midline, Yes no JVD and Yes other (Neck circumference 16-1/2 inch) Thyroid: Thyroid normal Chest Chest palpation & inspection: normal inspection of the chest, normal palpation of entire chest wall and no tenderness Resp Other: ,CHEST IS SYMMETRICAL PERCUSSION NOTE IS DULL OVER THE LEFT LOWER 1/3 OF CHEST AND OVER THE RIGHT BASE. BREATH SOUNDS ARE DIMINISHED OVER THE LEFT LOWER LOBE AND RIGHT BASE, NO CREPITATIONS OR WHEEZES ARE HEARD. Effort & Inspection: normal respiratory effort Auscultation: clear to auscultation bilaterally, no crackles and no wheezes Cardio Palpation: normal PMI Rate: regular rate Rhythm: regular rhythm Heart sounds: no gallops and no murmurs Peripheral pulses: Peripheral pulses 2+ throughout GI Palpation (GI): Soft to palpation, nontender, No hepatosplenomegaly present and no masses Auscultation: normal bowel sounds Back/Spine/Pelvis Thoracic/Lumbar Spine: thoracic and lumbar spine normal to inspection Skin General skin exam: no rashes or lesions noted Neuro General: patient oriented x3 and no focal motor deficits Cranial nerves: Yes CN's II-XII intact bilaterally Extrem General: Yes normal to inspection, Yes no clubbing, cyanosis or edema and Yes no calf tenderness Psych Appearance: grossly normal and well kempt Speech and movement: Normal speech and movement present Office Procedures EKG Details: EKG completed in the office, Dr. Elizabeth given the results. results scanned to his chart. [id number], Complete Results Reviewed Results Reviewed: CHEST X-RAY EARLY THIS MORNING SHOWS CARDIOMEGALY, MODERATE-SIZED LEFT PLEURAL EFFUSION AND A SMALL SIZE PLEURAL EFFUSION ON THE RIGHT SIDE. CBC SHOWS MILD LEUKOCYTOSIS REST OF THE LAP TESTS ARE PENDING. 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 HE HAS HAD MILD DYSPNEA ON EXERTION SINCE THEN. CLAIMS THAT HIS WRAY IS SLIGHTLY INCREASED IN THE LAST WEEK . CHEST X-RAY SHOWING MODERATE-SIZE LEFT PLEURAL EFFUSION AND SMALL SIZE ON THE RIGHT SIDE, WELL SOME PERIPHERAL EDEMA, INDICATES THAT HE MAY BE HAVING MILD CONGESTIVE HEART FAILURE, INCREASE FLUID RETENTION DUE TO HOT AND HUMID WEATHER. HE IS ALREADY ON HCTZ 25 MG A DAY, Code(s): R06.09 - Other forms of dyspnea Category: Medical Plan: SEE UNDER CONGESTIVE HEART FAILURE (2) CHF (congestive heart failure): Comment: THIS PATIENT CARRIES THE DIAGNOSIS OF CONGESTIVE, HEART FAILURE . HOWEVER HE IS NOT SURE HOW THIS DIAGNOSIS CAME. HE HIMSELF IS NOT AWARE OF HAVING ANY HEART DISEASE. AGAIN DESCRIBED IN DYSPNEA ON EXERTION, HE DOES HAVE CARDIOMEGALY, MODERATE- SIZED PLEURAL EFFUSION ON THE LEFT SIDE, AND MILD PITTING EDEMA. THESE FEATURES MAY BE DUE TO MILD CONGESTIVE HEART FAILURE OR JUST SIMPLE FLUID RETENTION. EKG DONE IN THE OFFICE IS BASICALLY NORMAL. HE IS SCHEDULED TO HAVE AN ECHOCARDIOGRAM NEXT WEEK. Code(s): I50.9 - Heart failure, unspecified Category: Medical Plan: AT THIS TIME I WILL ASK HIM TO HOLD HCTZ. TAKE FUROSEMIDE 40 MG A DAY FOR 3 DAYS THEN CUT DOWN TO 20 MG A DAY. (3) JAIDEN (obstructive sleep apnea): Comment: OBSTRUCTIVE SLEEP APNEA, SEVERE, RESPONDING VERY WELL TO THE USE OF CPAP. CURRENTLY USING CPAP WITH ASV MODE AND DOING MUCH BETTER. COMPLIANCE HAS BEEN GOOD . Code(s): G47.33 - Obstructive sleep apnea (adult) (pediatric) Category: Medical Plan: NO PROBLEM WITH HIS SLEEP APNEA AND THIS IS WELL CONTROLLED WITH, CPAP /ASV MODE (4) Pleural effusion: Comment: THERE IS MODERATE SIZE PLEURAL EFFUSION ON THE LEFT SIDE, WITH MILD LEUKOCYTOSIS. THIS RAISES POSSIBILITY OF A UNDERLYING PNEUMONIA WITH SECONDARY PLEURAL EFFUSION. Code(s): J90 - Pleural effusion, not elsewhere classified Category: Medical Plan: EMPIRICALLY STARTED ON DOXYCYCLINE 100 B.I.D. FOR 10 DAYS. REPEAT CHEST X-RAY IN 1 WEEK, THEN DECIDE IF WE NEED TO DO THORACENTESES AND ANY OTHER FURTHER WORKUP. Orders: Orders XR chest 2V Today J90 - Pleural effusion, not elsewhere classified, R06.09 - Other forms of dyspnea AMB EKG-In Office Today I50.9 - Heart failure, unspecified Medications: New furosemide (Lasix) 40 mg PO DAILY 14 tabs 2RF CHF 14 days doxycycline hyclate 100 mg PO BID 20 tabs 0RF PNEUMONIA 10 days Coding Level of Care Code Est Pt Level 4 (11200) Diagnoses Dyspnea on exertion R06.09 CHF (congestive heart failure) I50.9 JAIDEN (obstructive sleep apnea) G47.33 Pleural effusion J90 CPT Codes EKG - CPT: 11498-[id number], Complete ([id number])
== END 2025-02-04 10:15 | disposition home or self-care (01) ==
LOC: HO.HPS 09:19
PROVIDERS: PCP Internal Medicine; Visit Provider Internal Medicine
DX: R06.09 Other forms of dyspnea (principal); I50.9 Heart failure, unspecified; G47.33 Obstructive sleep apnea (adult) (pediatric); J90 Pleural effusion, not elsewhere classified
CPT/HCPCS: 93010; 99214

== ENCOUNTER 2025-02-11 08:12 | Outpatient (REF) | payer MEDICARE, SELFPAY ==
--- NOTE | ~2025-02-11 | XR_ITS ---
EXAMINATION: XR CHEST 2 VIEWS HISTORY: J90 - Pleural effusion, not elsewhere classified COMPARISON: Comparison is made with the prior examination dated 02/04/2025. FINDINGS: PA and lateral views of the chest are submitted. Again seen is a moderate left pleural effusion and a small right pleural effusion. The left pleural effusion appears slightly smaller. Atelectasis or pneumonia at the left lung base is not excluded. There is no pneumothorax or pulmonary vascular congestion. The heart remains enlarged. There is degenerative disc disease of the spine. XR/XR chest 2V IMPRESSION: Moderate left pleural effusion is slightly smaller than on the prior study. Small right pleural effusion without change. Electronically signed by: Srinivasa Medina MD 02/11/2025 09:03 AM EDT
--- OUTSIDE RECORDS SUMMARY | 2025-02-11 08:28 | XMS_ITS | Clinical Summary ---
Author Organization [facility] Address [address] [address] Phone Care Team Providers Care Aco Coordinator Name Role Phone Srinivasa Vasquez DO Primary [...] issue has been fixed when Beni contacted [employer] support this morning No adjustments made to [...] to training on Tandem Mobi with tandem hearing dog trainer next week Training was provided on Omnipod 5 though and set up completed, it just was not started Pump settings were transferred from Tandem pump Beni will continue with previous glucose alerts as set on DexChallengePost G7 joby Reviewed that automated mode will [...] recent lipid panel is available for review [place] LDL goal is <70 Continues on statin [...] unsuccessful, encouraged Beni to reach out to [employer] support Beni will consider the Omnipod 5 [...] training and I will reach out to [employer] to see if a one-on-one training can [...] Description 01/28/2025 3:20 PM EDT Office Visit [facility] [address] [place] [address] [place] [address] Mayda Gamino MD Diabetic polyneuropathy associated with type 1 diabetes mellitus (Primary Dx); Insulin pump in place; Primary hypertension; Hyperlipidemia, unspecified hyperlipidemia type 11/27/2024 Telephone [facility] [address] [place] [address] [place] [address] Amelia Maldonado [place], [place] 11/21/2024 1:00 PM EDT Office Visit [facility] [address] [place] [phone] Tessa Beltran CNP Diabetic polyneuropathy associated with type 1 diabetes mellitus (Primary Dx); Hyperlipidemia, unspecified hyperlipidemia type; Primary hypertension; Insulin pump in place from Last 3 Months Immunizations Immunization Administration [...] 05/01/2025 10:00 AM EDT Office Visit [facility] [address] [place] [address] [place] [phone] Tessa Beltran, LEAK GANG SUPERVISOR [address] [place] [address], 1st Floor [place], [place] [phone] 08/02/2025 2:40 PM EST Office Visit [facility] [address] [place] [address] Mayda Gamino MD 22 [facility], 1st [place] [address] [email or web address] Health Maintenance Due Date Last Done Comments [...] % Other 11/21/2024 1:29 PM EDT Tessa Beltran LEAK GANG SUPERVISOR POINT OF CARE TEST ORDERABLES Final Result from Last 3 Months Insurance [employer] PPO MEDICARE REPLACEMENT A[employer] PPO MEDICARE REPLACEMENT AET[employer] PPO MEDICARE REPLACEMENT AET[employer] PPO MEDICARE REPLACEMENT A[employer] PPO MEDICARE REPLACEMENT A[employer] PPO MEDICARE REPLACEMENT Care Teams Aco Coordinator Relationship Specialty Start Date End Date Srinivasa Vasquez DO [address] [place] [phone] PCP - General Internal Medicine 11/23/22 Additional Source Comments The information contained in this document represents components of the legal health record. It is not the complete legal health record.[facility]
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
== END 2025-02-11 08:13 | disposition home or self-care (01) ==
LOC: HO.XRAY 08:12
PROVIDERS: PCP Internal Medicine; Visit Provider Internal Medicine
DX: J90 Pleural effusion, not elsewhere classified (principal); R06.09 Other forms of dyspnea
CPT/HCPCS: 71046

== ENCOUNTER → 2025-02-11 08:16 | Outpatient (BNV) | payer MEDICARE, SELFPAY | PROVIDERS: PCP Internal Medicine; Visit Provider Radiology Diagnostic Radiology | DX: J90 Pleural effusion, not elsewhere classified (principal) | CPT/HCPCS: 71046 ==

== ENCOUNTER 2025-02-12 13:43 | Outpatient (AMB) | payer MEDICARE, SELFPAY ==
--- NOTE | 2025-02-12 13:59 | MHC.OFFVIS ---
Vital Signs 02/12/25 14:00 Height 5 ft 8 in Weight 194 lb BMI 29.5 BP 110/52 L Blood Pressure Location Lt brachial Position Sitting Pulse 63 Pulse Source Pulse Oximeter Pulse Oximetry (%) 94 Oxygen Delivery Method Room Air Intake Visit Reasons: jaiden Intake Note: pt is here for follow up and is feeling better but not completely 100%, when exerting quickly he gets out of breath easliy, and 2 days left of antibiotic. Ticket Counter Required: No Allergies penicillin V Allergy (Unknown, Verified 02/12/25 14:07) Rash Penicillins (PENICILLINS) Allergy (Unknown, Verified 02/12/25 14:07) UNKNOWN Medication List - Last Reconciled 02/12/25 by Mckayla Elizabeth MD atorvastatin 40 mg PO DAILY blood sugar diagnostic (FreeStyle Lite Strips) As directed three times a day blood-glucose meter (FreeStyle Lite Meter kit) As directed 3 x/day blood-glucose sensor (Dex[employer] G6 Sensor device) As directed blood-glucose transmitter (Dexcom G6 Transmitter device) As directed blood-glucose,professor of astronomy,cont (Dexcom G6 Bus Repair Supervisor) As directed cholecalciferol (vitamin D3) 50 mcg PO DAILY donepezil 10 mg PO DAILY doxycycline hyclate 100 mg PO BID 10 days finasteride 5 mg PO DAILY furosemide (Lasix) 40 mg PO DAILY 14 days hydrochlorothiazide 25 mg PO QAM insulin pump cart,auto,BT-cntr (Omnipod 5 G6 Intro Kit (Gen 5) subcutaneous cartridge with controller) As directed lancets (FreeStyle Lancets) 4 times a day losartan 50 mg PO DAILY Lyumjev U-100 Insulin (insulin lispro-aabc) Up to 100 units via insulin pump subcut daily; 90 days NS multivitamin 1 tab PO DAILY sertraline 50 mg PO DAILY tamsulosin 0.4 mg PO DAILY Do you need a note to return to daycare/school/sports/work: No HPI HPI jaiden: 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 IS HERE FOR FOLLOW-UP AFTER 10 DAYS. HE HE HAS BEEN TREATED FOR INCREASED SHORTNESS OF BREATH, CHEST X-RAY SHOWING BILATERAL PLEURAL EFFUSION, BIGGER ON THE LEFT SIDE. ETIOLOGY BEING MOST LIKELY CONGESTIVE HEART FAILURE AND LESS LIKELY PNEUMONIA. AFTER I SAW HIM 10 DAYS AGO I STARTED HIM ON FUROSEMIDE 40 MG DAILY, AND EMPIRICALLY ON DOXYCYCLINE 100 MG B.I.D.. HE DEFINITELY FEELS BETTER, HE CLAIMS MORE THAN 50%. HE IS LESS SHORT OF BREATH WHEN HE WALKS AROUND. HE HAS HAD NO FEVER OR CHILLS OR CHEST PAIN. FOR SLEEP APNEA THE CURRENT SETTING IS WORKING VERY GOOD, AND HE IS USING IT VERY REGULARLY EVERY NIGHT. [facility] Medical History Pleural effusion Cough SARS-CoV-2 positive Dyspnea on exertion Central sleep apnea JAIDEN (obstructive sleep apnea) Retrognathia Overweight Hyponatremia Dyslipidemia Hypertension Diabetic polyneuropathy associated with type 1 diabetes mellitus Mild non proliferative diabetic retinopathy Diabetes type 1, controlled Surgical History History of esophagogastroduodenoscopy (EGD) H/O colonoscopy (~01/09/24) Hx of right inguinal hernia repair Hx of cataract removal with insertion of prosthetic lens Hx of hand surgery Family History Father CVD (cardiovascular disease) Mother Hypertension Maternal Grandmother Diabetes Social History Household Members: Spouse Housing: Condominium Alcohol intake: current Alcohol intake frequency: does not drink Alcohol type: wine Patient Tobacco Use Status: Never used Tobacco service: No Current occupational status: retired Cognitive needs: No Hearing needs: Yes (b/l hearing aids) Vision needs: Yes (reading glasses) Review of Systems Const Denies body aches, Denies chills, Denies fatigue, Denies fever(s) and Denies headache(s) Eyes Denies blurry vision, Denies irritation, Denies itchy eyes and Denies loss of vision ENT Denies dysphagia, Denies vertigo, Denies headache(s), Denies epistaxis, Denies nasal congestion, Denies nasal discharge, Denies nasal obstruction and Denies sinus pain Card Denies chest pain, Denies rapid heart rate, Denies irregular heart rhythm, Reports dyspnea on exertion (HE FEELS THAT HE IS MORE SHORT OF BREATH THAN USUAL DURING THE PAST 1 WEEK), Denies orthopnea and Denies slow heart rate Resp Reports as per HPI and Reports dyspnea on exertion (HE FEELS THAT HE IS MORE SHORT OF BREATH THAN USUAL DURING THE PAST 1 WEEK) GI Denies bloating, Denies change in bowel habits, Denies change in stool character, Denies dysphagia, Denies heartburn, Reports nausea and Denies vomiting Reports nocturia and Denies urinary incontinence Musc Denies abnormal gait, Denies back pain, Denies myalgias, Denies arthralgias, Denies muscle weakness and Denies stiffness Skin/Breast Reports system reviewed and no additional complaints, except as documented Neuro Denies abnormal gait, Denies vertigo, Denies headache(s), Denies focal weakness, Denies loss of vision, Reports memory loss, Denies restless legs and Denies tremor(s) Psych Reports depression and Reports memory loss Endo Reports no additional complaints, Denies fatigue and Reports other (Insulin-dependent diabetes mellitus) Franklyn/Lymph Reports no additional complaints Aller/Immun Reports no additional complaints and Denies itchy eyes Physical Exam Generally healthy looking, he is only says moderately overweight Const General: healthy appearing, comfortable, no acute distress, alert and awake Orientation/consciousness: patient oriented x3 HEENT Head: Yes normal to inspection General nose exam: No nasal polyps present and No nasal discharge present Face and sinus: Yes sinuses nontender Mouth: oropharynx abnormals (Tongue is placed back, oropharynx is narrow, Mallampati class 4) Teeth and gingiva: other (RETROGANTHIA of the lower jaw ( overbite ) ) Throat: Yes posterior oropharynx normal Eyes General: appearance normal, both eyes and all related structures Neck Neck: Yes normal visual inspection, Yes no lymphadenopathy, Yes trachea midline, Yes no JVD and Yes other (Neck circumference 16-1/2 inch) Thyroid: Thyroid normal Chest Chest palpation & inspection: normal inspection of the chest, normal palpation of entire chest wall and no tenderness Resp Other: ,CHEST IS SYMMETRICAL PERCUSSION NOTE IS DULL OVER THE LEFT BASE ONLY AND NOT ON THE RT SIDE . BREATH SOUNDS ARE DIMINISHED OVER THE LEFT LOWER LOBE AND RIGHT SIDE IS CLEAR NO CREPITATIONS OR WHEEZES ARE HEARD. Effort & Inspection: normal respiratory effort Auscultation: clear to auscultation bilaterally, no crackles and no wheezes Cardio Palpation: normal PMI Rate: regular rate Rhythm: regular rhythm Heart sounds: no gallops and no murmurs Peripheral pulses: Peripheral pulses 2+ throughout GI Palpation (GI): Soft to palpation, nontender, No hepatosplenomegaly present and no masses Auscultation: normal bowel sounds Back/Spine/Pelvis Thoracic/Lumbar Spine: thoracic and lumbar spine normal to inspection Skin General skin exam: no rashes or lesions noted Neuro General: patient oriented x3 and no focal motor deficits Cranial nerves: Yes CN's II-XII intact bilaterally Extrem General: Yes normal to inspection, Yes no clubbing, cyanosis or edema and Yes no calf tenderness Psych Appearance: grossly normal and well kempt Speech and movement: Normal speech and movement present Results Reviewed Results Reviewed: REPEAT CHEST X-RAY SHOWS COMPLETE RESOLUTION OF PLEURAL EFFUSION ON THE RIGHT SIDE AND PARTIAL DECREASE IN THE VOLUME OF LEFT PLEURAL EFFUSION. Assessment & Plan Assessment & Plan (1) CHF (congestive heart failure): Comment: THIS PATIENT CARRIES THE DIAGNOSIS OF CONGESTIVE, HEART FAILURE . AGAIN DESCRIBED IN DYSPNEA ON EXERTION, HE DOES HAVE CARDIOMEGALY, MODERATE-SIZED PLEURAL EFFUSION ON THE LEFT SIDE, AND MILD PITTING EDEMA. THESE FEATURES MAY BE DUE TO MILD CONGESTIVE HEART FAILURE OR JUST SIMPLE FLUID RETENTION. EKG DONE IN THE OFFICE IS BASICALLY NORMAL. HE IS SCHEDULED TO HAVE AN ECHOCARDIOGRAM TOMORROW , AND WILL SEE HIS [employer]ESSION[employer] IN 2 WEEKS . PARTIAL DECREASE IN THE SIZE OF PLEURAL EFFUSION DOES POINT TO POSSIBLE CONGESTIVE HEART FAILURE. Code(s): I50.9 - Heart failure, unspecified Category: Medical Plan: I RECOMMENDED TO HIM THAT HE SHOULD CONTINUE FUROSEMIDE 40 MG A DAY, AND DO NOT START HYDROCHLOROTHIAZIDE. 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 HE HAS HAD MILD DYSPNEA ON EXERTION SINCE THEN. CLAIMS THAT HIS WRAY IS SLIGHTLY INCREASED IN THE LAST WEEK . AFTER HE STARTED TAKING LASIX 40 MG DAILY HE LOST LOT OF FLUID AND HIS SHORTNESS OF BREATH ON EXERTION HAS DEFINITELY IMPROVED TO BASELINE. Code(s): R06.09 - Other forms of dyspnea Category: Medical Plan: UNDER CONGESTIVE HEART FAILURE (3) JAIDEN (obstructive sleep apnea): Comment: OBSTRUCTIVE SLEEP APNEA, SEVERE, RESPONDING VERY WELL TO THE USE OF CPAP. CURRENTLY USING CPAP WITH ASV MODE AND DOING MUCH BETTER. COMPLIANCE HAS BEEN GOOD . Code(s): G47.33 - Obstructive sleep apnea (adult) (pediatric) Category: Medical Plan: COMMENDED FOR GOOD COMPLIANCE AND ADVISED TO CONTINUE USING THE CURRENT SETTINGS. (4) Central sleep apnea: Comment: HE HAD TREATMENT EMERGENT CENTRAL SLEEP APNEA WITH CENTRAL APNEA INDEX 9.1., AND TOTAL RESIDUAL AHI OF 16. NOW WITH THE USE OF ASV/AUTO MODE ALL THE CENTRAL WELL OBSTRUCTIVE EVENTS WERE ELIMINATED. SYMPTOMATICALLY , HE IS DOING MUCH BETTER WITH THE CURRENT TREATMENT. Code(s): G47.31 - Primary central sleep apnea Category: Medical Plan: CONTINUE TO USE CPAP WITH ASV MODE . REGULARLY EVERY NIGHT. Orders: Orders XR chest 2V 4 Weeks I50.9 - Heart failure, unspecified, J90 - Pleural effusion, not elsewhere classified Coding Level of Care Code Est Pt Level 3 (45736) Diagnoses CHF (congestive heart failure) I50.9 Dyspnea on exertion R06.09 JAIDEN (obstructive sleep apnea) G47.33 Central sleep apnea G47.31
[2025-02-12 14:00] VITALS: BP 110/52; PULSE 63; O2SAT 94; BMI 29.5
--- OUTSIDE RECORDS SUMMARY | 2025-02-12 14:43 | XMS_ITS | Clinical Summary ---
Author Organization [facility] Address [address] [address] Phone Care Team Providers Care Black Jack Dealer Name Role Phone Srinivasa Vasquez DO Primary [...] issue has been fixed when Beni contacted [employer] vascular solution support this morning No adjustments made to [...] TODAY After training and a long discussion, Bnei decided to delay omnipod 5 start due to training on Tandem Mobi with tandem six sigma black trainer next week Training was provided on Omnipod 5 though and set up completed, it just was not started Pump settings were transferred from Tandem pump Beni will continue with previous glucose alerts as set on [employer] G7 joby Reviewed that automated mode will [...] recent lipid panel is available for review [place] LDL goal is <70 Continues on statin [...] unsuccessful, encouraged Beni to reach out to [employer] support Beni will consider the Omnipod 5 [...] training and I will reach out to [employer] to see if a one-on-one training can [...] Description 01/28/2025 3:20 PM EDT Office Visit [facility] [address] [place] [address] [place] [address] Mayda Gamino MD Diabetic polyneuropathy associated with type 1 diabetes mellitus (Primary Dx); Insulin pump in place; Primary hypertension; Hyperlipidemia, unspecified hyperlipidemia type 11/27/2024 Telephone [facility] [address] [place] [address] [place] [address] Amelia Maldonado [place], [place] 11/21/2024 1:00 PM EDT Office Visit [facility] [address] [place] [phone] Tessa Beltran CNP Diabetic polyneuropathy associated with [...] 05/01/2025 10:00 AM EDT Office Visit [facility] [address] [place] [address] [place] [phone] Tessa Beltran, GAMEROOM TECHNICIAN [address] [place] [address], 1st [address] [place], [place] [phone] 08/02/2025 2:40 PM EST Office Visit [facility] [address] [place] [address] Mayda Gamino MD [address] [facility], 1st [place] [address] [email or web address] Health Maintenance Due Date Last Done Comments [...] Other 11/21/2024 1:29 PM EDT Tessa Beltran GAMEROOM TECHNICIAN POINT OF CARE TEST ORDERABLES Final Result from Last 3 Months Insurance A[employer] PPO MEDICARE REPLACEMENT AETNA PPO MEDICARE REPLACEMENT AETNA PPO MEDICARE REPLACEMENT AETNA PPO MEDICARE REPLACEMENT AET[employer] PPO MEDICARE REPLACEMENT AET[employer] PPO MEDICARE REPLACEMENT Care Teams Black Jack Dealer Relationship Specialty Start Date End Date Srinivasa Vasquez DO [address] [place] [id number] PCP - General Internal Medicine 11/23/22 Additional Source Comments The information contained in this document represents components of the legal health record. It is not the complete legal health record.[facility]
--- OUTSIDE RECORDS SUMMARY | 2025-02-12 14:43 | XMS_ITS | Clinical Summary ---
Author Organization 175 [facility] Address [address] [place] [address] Phone Care Team Providers Care Software Quality Assurance Engineer Name Role Phone Moe Cope MD Primary Care Provider [phone]- [phone] Allergies Active Allergy Reactions Criticality Noted Date [...] asso ciated with type 1 diabetes mellitus ([facility] V24, [facility] V28) 04/01/2023 Overview (08/29/2024): DIABETES HISTORY Diagnosis -- mid 20s, initially managed as type 2 diabetes Treatment -- on oral meds, this was ineffective over a couple of years then started on basal bolus insulin; started insulin pump therapy 2018, currently on Tandem X2/Dexcom Encounters Date Type Department Care Team Description 01/29/2025 11:45 AM EDT Office Visit Orthopedic Surgery [address] [phone] Gisela Paredes MD Surgery follow-up (Primary Dx); Cubital tunnel syndrome, right; Carpal tunnel syndrome of left wrist; Trigger index finger of right hand 01/01/2025 1:00 PM EDT Office Visit Orthopedic Surgery [address] [phone] Marianna Lockhart PA Surgery follow-up (Primary Dx) 12/24/2024 Telephone Orthopedic Surgery [address] [phone] Marianna Lockhart PA 12/24/2024 Telephone Orthopedic Surgery [facility] [address] [phone] Brigette Sanderson 12/20/2024 9:51 AM EDT Anesthesia Event [facility] OR [address] [place] [phone] Priyank Mar DO Dasilva, John E, MD 12/20/2024 8:45 AM EDT - 12/20/2024 10:30 AM EDT Surgery [facility] OR [address] [place] [phone] Gisela Paredes MD RELEASE CARPAL TUNNEL- right; ulnar nerve in-situ decompression/transpo sition; right index trigger release [92974 (CPT ) +2 more] 12/20/2024 7:12 AM EDT - 12/20/2024 1:25 PM EDT Hospital Encounter [facility] OR [address] [place] [phone] Gisela Paredes MD Discharge Disposition: Home or Self Care 12/14/2024 11:00 AM EDT Consult Orthopedic Surgery [facility] [address] [phone] Gisela Paredes MD Cubital tunnel syndrome, right (Primary Dx); Carpal tunnel syndrome of left wrist; Trigger index finger of right hand 12/04/2024 Telephone Orthopedic Surgery [facility] [address] [phone] Gisela Paredes MD Prior Authorization (12/20/24 Dr. [...] PM EDT Office Visit Orthopedic Surgery - [place] [address] [phone] Gisela Paredes MD [address] [phone] Health Maintenance Due Date Last [...] LMA(NO CHARGE) Routine 12/20/2024 10:21 AM EDT LA INCISION TENDON SHEATH 12/20/2024 9:55 AM EDT Right carpal tunnel syndrome Cubital tunnel syndrome on right Trigger index finger of right hand LA NEUROPLASTY AND/OR TRANSPOSITION ULNAR NERVE AT ELBOW 12/20/2024 9:55 AM EDT Right carpal tunnel syndrome Cubital tunnel syndrome on right Trigger index finger of right hand LA NEUROPLASTY/TRANSPOSIT ION MEDIAN NERVE AT CARPAL TUNNEL 12/20/2024 9:55 AM EDT Right carpal tunnel syndrome Cubital tunnel syndrome on right Trigger index finger of right hand POCT GLUCOSE, BLOOD Routine 12/20/2024 9 :27 AM EDT from Last 3 Months Results * (ABNORMAL) POCT Glucose, blood (12/20/2024 12:27 PM EDT) [facility] Signature Glucose POCT 141(H) 70 - 100 mg/dL 12/20/2024 12:28 PM EDT [facility] POCT Comment RN Notified 12/20/2024 12:28 PM EDT [facility] Blood Capillary blood specimen / Unknown 12/20/2024 12:27 PM EDT 12/20/2024 12:29 PM EDT Gisela Paredes MD LAB POINT OF CARE TE ST DOCKED DEVICE UNSOLICITED RESULTS Final Result [facility] [address] [place] [address], [place] [phone] * TH AN LMA(NO CHARGE) (12/20/2024 10:21 [...] currently active code status orders. Care Teams Software Quality Assurance Engineer Relationship Specialty Start Date End Date Moe Cope MD [facility] [address] [place] [address] [address] [place] [address] PCP - General Internal Medicine 08/28/24
== END 2025-02-12 14:56 | disposition home or self-care (01) ==
LOC: HO.HPS 13:44
PROVIDERS: PCP Internal Medicine; Visit Provider Internal Medicine
DX: I50.9 Heart failure, unspecified (principal); R06.09 Other forms of dyspnea; G47.33 Obstructive sleep apnea (adult) (pediatric); G47.31 Primary central sleep apnea
CPT/HCPCS: 99213

== ENCOUNTER → 2025-02-12 13:43 | Outpatient (BNVA) | payer MEDICARE, SELFPAY | PROVIDERS: PCP Internal Medicine; Visit Provider Internal Medicine | DX: R06.02 Shortness of breath (principal); G47.33 Obstructive sleep apnea (adult) (pediatric); I50.9 Heart failure, unspecified; R06.09 Other forms of dyspnea; Z99.89 Dependence on other enabling machines and devices; G47.31 Primary central sleep apnea | CPT/HCPCS: 99212 ==

== ENCOUNTER 2025-02-26 09:37 | Outpatient (AMB) | payer MEDICARE, SELFPAY ==
--- NOTE | 2025-02-26 09:41 | A.OFFPC_ITS ---
Vital Signs 02/26/25 09:42 Height 5 ft 8 in Weight 190 lb BMI 28.9 BP 130/59 L Respiration 14 Pulse 58 Pulse Source Pulse Oximeter Temp 98.0 F Temp Source Temporal Artery Scan Pulse Oximetry (%) 97 Oxygen Delivery Method Room Air Intake Visit Reasons: 3 month f/u Mail Opener Required: No Accompanied by: Self / Same As Patient Allergies penicillin V Allergy (Unknown, Verified 02/26/25 09:43) Rash Penicillins (PENICILLINS) Allergy (Unknown, Verified 02/26/25 09:43) UNKNOWN Tobacco use date assessed: 02/26/25 Dental Screening Dental Screen Date: 11/06/24 [facility] Medical History Pleural effusion Cough SARS-CoV-2 positive Dyspnea on exertion Central sleep apnea ODILIA (obstructive sleep apnea) Retrognathia Overweight Hyponatremia Dyslipidemia Hypertension Diabetic polyneuropathy associated with type 1 diabetes mellitus Mild non proliferative diabetic retinopathy Diabetes type 1, controlled Surgical History History of esophagogastroduodenoscopy (EGD) H/O colonoscopy (~01/09/24) Hx of right inguinal hernia repair Hx of cataract removal with insertion of prosthetic lens Hx of hand surgery Family History Father CVD (cardiovascular disease) Mother Hypertension Maternal Grandmother Diabetes Social History Household Members: Spouse Housing: [facility] Alcohol intake: current Alcohol intake frequency: does not drink Alcohol type: wine Patient Tobacco Use Status: Never used Tobacco service: No Current occupational status: retired Cognitive needs: No Hearing needs: Yes (b/l hearing aids) Vision needs: Yes (reading glasses) Questionnaire PHQ-9 Over the last 2 weeks, how often have you been bothered by any of the following problems? 1. Little interest or pleasure in doing things: not at all 2. Feeling down, depressed, or hopeless: not at all 3. Trouble falling or staying asleep, or sleeping too much: not at all 4. Feeling tired or having little energy: not at all 5. Poor appetite or overeating: not at all 6. Feeling bad about yourself - or that you are a failure or have let yourself or your family down: not at all 7. Trouble concentrating on things, such as reading the newspaper or watching television: not at all 8. Moving or speaking so slowly that other people could have noticed. Or the opposite - being so fidgety or restless that you have been moving around a lot more than usual: not at all 9. Thoughts that you would be better off or of hurting yourself in some way: not at all Total score: 0 Source: Developed by Drs. Srinivasa Canales, Nora Simon, Ammon Rodriguez and colleagues, with an educational dorothy from [employer]. Thrive Questionnaire Date Thrive assessed: 11/06/24 I am a: Patient What is your living situation today?: I have a steady place to live Within the past 12 months, did the food you bought not last and you didn't have the money to get more?: Never true Within the past 12 months, did you worry whether your food would run out before you got money to buy more?: Never true Do you have trouble paying for medicines?: No Do you have trouble getting transportation to medical appointments?: No Do you have trouble paying your heating and electricity bill?: No Do you have trouble taking care of your child, family member or friend?: No Do you have trouble with day-to-day activities such as bathing, preparing meals, shopping, managing finances, etc.?: No Are you currently unemployed and looking for a job?: No Are you interested in more education?: No Please select the resources that you would like help with: None THRIVE Score: 0 AUDIT C Alcohol Use Questionnaire (AUDIT-C) 1. How often do you have a drink containing alcohol?: Never 3. How often do you have six or more drinks on one occasion?: Never Total Score: 0 JAMIE-7 AMB Questionnaire JAMIE-7 Date JAMIE - 7 assessed: 11/06/24 Feeling nervous, anxious, or on edge: 0 = Not at all Not being able to stop or control worryin = Not at all Worrying too much about different things: 0 = Not at all Trouble relaxin = Not at all Being so restless that it is hard to sit still: 0 = Not at all Becoming easily annoyed or irritable: 0 = Not at all Feeling afraid as if something awful might happen: 0 = Not at all Total JAMIE-7 score (0-4 normal; 5-9 mild; 10-14 moderate; 15-21 severe): 0 Source: Developed by Drs. Srinivasa Canales, Nora Simon, Ammon Rodriguez and colleagues, with an educational dorothy from [employer]. Physical exam (Primary Care) Vital Signs: Last Vital Signs Temp 98.0 F 02/26/25 09:42 Pulse 58 02/26/25 09:42 Resp 14 02/26/25 09:42 BP 130/59 L 02/26/25 09:42 Pulse Ox 97 02/26/25 09:42 Oxygen Delivery Method Room Air 02/26/25 09:42 BMI result Body Mass Index 28.9 Tobacco/Smoking Status: Tobacco use Status Tobacco use date assessed 02/26/25 02/26/25 09:44 Patient Tobacco Use Status Never used Tobacco 02/26/25 09:44 PHQ-9: PHQ-9 Score PHQ-9: Total score 0 02/26/25 09:55 Thrive Assessment: Date of Thrive Assessment Date Thrive assessed 11/06/24 02/26/25 09:44 Coding Level of Care Code Est Pt Level 4 (74456) Complex EM visit Add On G2211 Diagnoses CHF (congestive heart failure) I50.9 Assessment & Plan Assessment & Plan (1) CHF (congestive heart failure): Comment: THIS PATIENT CARRIES THE DIAGNOSIS OF CONGESTIVE, HEART FAILURE . Code(s): I50.9 - Heart failure, unspecified Category: Medical Plan: History of Present Illness - The patient is an 84-year-old male presenting with recent health issues including a collapse due to heat, sleep apnea, and suspected pneumonia. - The patient experienced a collapse while walking in the heat, initially suspecting hypoglycemia, but blood sugar levels were normal. - The patient has a history of sleep apnea and uses a CPAP machine, which has been effective in improving sleep quality. - The patient reported symptoms of fatigue and dyspnea on exertion, leading to a suspicion of pneumonia by his dietetic tech, who prescribed antibiotics and diuretics. - The patient has lost a significant amount of weight due to diuretic use, reducing from 203 pounds. - The patient is experiencing anxiety related to his 's health, as she recently underwent knee replacement surgery and requires assistance at night. Social History - The patient is actively involved in caring for his , who recently had knee replacement surgery, impacting his sleep and daily activities. Review of Systems - General: Reports fatigue and weight loss due to diuretic use. - Respiratory: Reports dyspnea on exertion. Denies cough or wheezing. - Cardiovascular: Denies chest pain or palpitations. - Gastrointestinal: Denies abdominal pain. - Neurological: Denies dizziness or syncope. Physical Exam General: Cooperative and healthy appearing Nutritional Appearance: Well nourished Orientation/consciousness: Patient oriented x3 Limitations: No limitations Head: Normal to inspection General: Appearance normal, both eyes and all related structures Neck: Normal visual inspection Chest: Normal palpation of entire chest wall Respiratory: Patient reports having trouble breathing and exertion-related issues, was treated with antibiotics and diuretics, which improved symptoms. ormal respiratory effort Neurology: Patient oriented x3, reports anxiety related to 's health but denies needing medication for anxiety or depression. Sleeps well with CPAP for sleep apnea. Results - Echocardiogram: Conducted two weeks ago, awaiting results. Plan 1. Carpal Tunnel Syndrome - No specific plan discussed during the visit. 2. Sleep Apnea - Continue using CPAP machine, which has been effective in improving sleep quality. 3. Suspected Pneumonia - Treated with antibiotics and diuretics, resulting in symptom improvement and weight loss. 4. Anxiety Related To 's Health - No specific treatment for anxiety discussed; patient attributes anxiety to 's health situation. Discussion Notes I discussed with the patient the importance of continuing the current treatment for sleep apnea using the CPAP machine, which has been effective. We also reviewed the recent treatment for suspected pneumonia, which included antibiotics and diuretics, leading to symptom improvement. The patient is advised to follow up with the welfare eligibility worker for the echocardiogram results. We acknowledged the anxiety related to his 's health and discussed the importance of managing stress. Patient Instructions - Continue using CPAP machine nightly for sleep apnea. - Follow up with welfare eligibility worker for echocardiogram results. - Monitor symptoms and report any worsening to healthcare provider. - Manage stress and anxiety, particularly related to 's health.
[2025-02-26 09:42] VITALS: BP 130/59; PULSE 58; RESP 14; TEMP 36.7; O2SAT 97; BMI 28.9
--- OUTSIDE RECORDS SUMMARY | 2025-02-26 10:14 | XMS_ITS | Clinical Summary ---
Author Organization [facility] Address [address] [address] Phone Care Team Providers Care Brake Drum Molder Name Role Phone Srinivasa Vasquez DO Primary [...] issue has been fixed when Beni contacted [employer] support this morning No adjustments made to [...] to training on Tandem Mobi with tandem regional sales trainer next week Training was provided on Omnipod 5 though and set up completed, it just was not started Pump settings were transferred from Tandem pump Beni will continue with previous glucose alerts as set on DexSwarm G7 joby Reviewed that automated mode will [...] recent lipid panel is available for review Nogal LDL goal is <70 Continues on statin [...] unsuccessful, encouraged Beni to reach out to [employer] support Beni will consider the Omnipod 5 [...] training and I will reach out to [employer] to see if a one-on-one training can [...] Description 01/28/2025 3:20 PM EDT Office Visit [facility] [address] [place] [address] [place] [address] Mayda Gamino MD Diabetic polyneuropathy associated with type 1 diabetes mellitus (Primary Dx); Insulin pump in place; Primary hypertension; Hyperlipidemia, unspecified hyperlipidemia type 11/27/2024 Telephone [facility] [address] [place] [address] [place] [address] Amelia Maldonado [place] from Last 3 Months Immunizations Immunization Administration [...] Description 05/01/2025 10:00 AM EDT Office Visit [facility] [address] [place] [address] [place] [phone] Tessa Beltran CNP [address] [place] [address] 08/02/2025 2:40 PM EST Office Visit [facility] [address] [place] [address] [place] [address] Mayda Gamino MD [address] [place] [address], [address] [place] [phone] [email or web address] Health Maintenance Due Date Last Done Comments [...] 1 diabetes mellitus from Last 3 Months or Most Recently Relevant to Health Maintenance Results * (ABNORMAL) POCT Hemoglobin A1c (11/21/2024 1:29 PM EDT) Hemoglobin A1c 7.3(A) 4.2 - 5.6 % Other 11/21/2024 1:29 PM EDT Tessa Beltran CNP POINT OF CARE TEST ORDERABLES Final Result from Last 3 Months or Most Recently Relevant to Health Maintenance Insurance [employer] PPO MEDICARE REPLACEMENT [employer] PPO MEDICARE REPLACEMENT [employer] PPO MEDICARE REPLACEMENT [employer] PPO MEDICARE REPLACEMENT [employer] PPO MEDICARE REPLACEMENT [employer] PPO MEDICARE REPLACEMENT Care Teams Brake Drum Molder Relationship Specialty Start Date End Date Srinivasa Vasquez DO [address] [place] [id number] PCP - General Internal Medicine 11/23/22 Additional Source Comments The information contained in this document represents components of the legal health record. It is not the complete legal health record.[facility]
--- OUTSIDE RECORDS SUMMARY | 2025-02-26 10:14 | XMS_ITS | Clinical Summary ---
Author Organization 175 [facility] Address [address] [place] [address] Phone Care Team Providers Care Hanger Off Name Role Phone Moe Cope MD Primary Care Provider +1- [phone] Allergies Active Allergy Reactions Criticality Noted Date [...] asso ciated with type 1 diabetes mellitus ([facility] V24, [facility] V28) 04/01/2023 Overview (08/29/2024): DIABETES HISTORY Diagnosis -- mid 20s, initially managed as type 2 diabetes Treatment -- on oral meds, this was ineffective over a couple of years then started on basal bolus insulin; started insulin pump therapy 2018, currently on Tandem X2/Dexcom Encounters Date Type Department Care Team Description 01/29/2025 11:45 AM EDT Office Visit Orthopedic Surgery [address] [phone] Gisela Paredes MD Surgery follow-up (Primary Dx); Cubital tunnel syndrome, right; Carpal tunnel syndrome of left wrist; Trigger index finger of right hand 01/01/2025 1:00 PM EDT Office Visit Orthopedic Surgery [address] [phone] Marianna Lockhart PA Surgery follow-up (Primary Dx) 12/24/2024 Telephone Orthopedic Surgery [address] [phone] Marianna Lockhart PA 12/24/2024 Telephone Orthopedic Surgery [facility] [address] [phone] Brigette Sanderson 12/20/2024 9:51 AM EDT Anesthesia Event [facility] OR [address] [place] [phone] Priyank Mar DO Dasilva, John E, MD 12/20/2024 8:45 AM EDT - 12/20/2024 10:30 AM EDT Surgery [facility] OR [address] [place] [phone] Gisela Paredes MD RELEASE CARPAL TUNNEL- right; ulnar nerve in-situ decompression/trans position; right index trigger release [[id number] (CPT ) +2 more] 12/20/2024 7:12 AM EDT - 12/20/2024 1:25 PM EDT Hospital Encounter [facility] OR [address] [place] [phone] Gisela Paredes MD Discharge Disposition: Home or Self Care 12/14/2024 11:00 AM EDT Consult Orthopedic Surgery [facility] 175 [facility] [address] [place] [phone] Gisela Paredes MD Cubital tunnel syndrome, right (Primary Dx); Carpal tunnel syndrome of left wrist; Trigger index finger of right hand 12/04/2024 Telephone Orthopedic Surgery [facility] 250 175 [facility] [address] [place] [phone] Gisela Paredes MD from Last 3 Months Surgical History Surgery [...] PM EDT Office Visit Orthopedic Surgery - [address] [place] [phone] Gisela Paredes MD [address] [place] [phone] Health Maintenance Due Date Last Done Comments [...] LMA(NO CHARGE) Routine 12/20/2024 10:21 AM EDT SC INCISION TENDON SHEATH 12/20/2024 9:55 AM EDT Right carpal tunnel syndrome Cubital tunnel syndrome on right Trigger index finger of right hand SC NEUROPLASTY AND/OR TRANSPOSITION ULNAR NERVE AT ELBOW 12/20/2024 9:55 AM EDT Right carpal tunnel syndrome Cubital tunnel syndrome on right Trigger index finger of right hand SC NEUROPLASTY/TRANSPOSIT ION MEDIAN NERVE AT CARPAL TUNNEL 12/20/2024 9:55 AM EDT Right carpal tunnel syndrome Cubital tunnel syndrome on right Trigger index finger of right hand POCT GLUCOSE, BLOOD Routine 12/20/2024 9 :27 AM EDT from Last 3 Months Results * (ABNORMAL) POCT Glucose, blood (12/20/2024 12:27 PM EDT) Glucose POCT 141(H) 70 - 100 mg/dL 12/20/2024 12:28 PM EDT [facility] POCT Comment RN Notified 12/20/2024 12:28 PM EDT [facility] Blood Capillary blood specimen / Unknown 12/20/2024 12:27 PM EDT 12/20/2024 12:29 PM EDT Gisela Paredes MD LAB POINT OF CARE TE ST DOCKED DEVICE UNSOLICITED RESULTS Final Result [facility]) [facility] [address] [place] [address], [place] [phone] * TH AN LMA(NO CHARGE) (12/20/2024 10:21 [...] currently active code status orders. Care Teams Hanger Off Relationship Specialty Start Date End Date Moe Cope MD [facility] [address] [place] [address] [address] [place] [address] PCP - General Internal Medicine 08/28/24
== END 2025-02-26 10:28 | disposition home or self-care (01) ==
LOC: HO.HMCSH 09:37
PROVIDERS: PCP Internal Medicine; Visit Provider Internal Medicine
DX: I50.9 Heart failure, unspecified (principal)

== ENCOUNTER → 2025-02-26 09:37 | Outpatient (BNVA) | payer MEDICARE, SELFPAY | PROVIDERS: PCP Internal Medicine; Visit Provider Internal Medicine | DX: E10.9 Type 1 diabetes mellitus without complications (principal); I50.9 Heart failure, unspecified; G47.30 Sleep apnea, unspecified; R06.00 Dyspnea, unspecified; R53.83 Other fatigue; F41.9 Anxiety disorder, unspecified; Z99.89 Dependence on other enabling machines and devices | CPT/HCPCS: 96127; 99212 ==

== ENCOUNTER 2025-02-27 13:42 | Outpatient (RCR) | payer MEDICARE, SELFPAY | END 2025-03-06 13:35 | disposition home or self-care (01) | LOC: HO.OT 13:42 | PROVIDERS: PCP Internal Medicine; Visit Provider Orthopaedic Surgery | DX: G56.21 Lesion of ulnar nerve, right upper limb (principal); G56.02 Carpal tunnel syndrome, left upper limb; M65.321 Trigger finger, right index finger | CPT/HCPCS: 97110; 97140; 97165 ==

== ENCOUNTER 2025-03-08 10:17 | Outpatient (REF) | payer MEDICARE, SELFPAY ==
--- NOTE | ~2025-03-08 | XR_ITS ---
EXAMINATION: XR CHEST CLINICAL INFORMATION: J90 - Pleural effusion, not elsewhere classified COMPARISON: February 11, 2025 TECHNIQUE: 2 views of the chest were obtained. FINDINGS: Horizontally oriented opacity left lower hemithorax and blunting of the left costophrenic angle. Prominence of the interstitial markings in the perihilar region. No pneumothorax. Cardiomediastinal silhouette size is normal. Multilevel thoracic spondylosis. Degenerative changes in the shoulders. XR/XR chest 2V IMPRESSION: Persistent although decreased/small to moderate volume left-sided pleural effusion. Mild interstitial lung edema. Electronically signed by: Arnel Minor MD 03/08/2025 10:38 AM EDT
--- OUTSIDE RECORDS SUMMARY | 2025-03-08 11:22 | XMS_ITS | Clinical Summary ---
Author Organization 175 [facility] Address [address] [place] [address] Phone Care Team Providers Care Director Of Category Management Name Role Phone Moe Cope MD Primary Care Provider +1- [phone] Allergies Active Allergy Reactions Criticality Noted Date [...] asso ciated with type 1 diabetes mellitus ([facility] V24, [facility] V28) 04/01/2023 Overview (08/29/2024): DIABETES HISTORY Diagnosis -- mid 20s, initially managed as type 2 diabetes Treatment -- on oral meds, this was ineffective over a couple of years then started on basal bolus insulin; started insulin pump therapy 2018, currently on Tandem X2/Dexcom Encounters Date Type Department Care Team Description 01/29/2025 11:45 AM EDT Office Visit Orthopedic Surgery [address] [phone] Gisela Paredes MD Surgery follow-up (Primary Dx); Cubital tunnel syndrome, right; Carpal tunnel syndrome of left wrist; Trigger index finger of right hand 01/01/2025 1:00 PM EDT Office Visit Orthopedic Surgery [address] [phone] Marianna Lockhart PA Surgery follow-up (Primary Dx) 12/24/2024 Telephone Orthopedic Surgery [address] [phone] Marianna Lockhart PA 12/24/2024 Telephone Orthopedic Surgery [facility] [address] [phone] Brigette Sanderson 12/20/2024 9:51 AM EDT Anesthesia Event [facility] OR [address] [place] [phone] Priyank Mar DO Dasilva, John E, MD 12/20/2024 8:45 AM EDT - 12/20/2024 10:30 AM EDT Surgery [facility] OR [address] [place] [phone] Gisela Paredes MD RELEASE CARPAL TUNNEL- right; ulnar nerve in-situ decompression/transp osition; right index trigger release [17907 (CPT ) +2 more] 12/20/2024 7:12 AM EDT - 12/20/2024 1:25 PM EDT Hospital Encounter [facility] OR [address] [place] [phone] Gisela Paredes MD Discharge Disposition: Home or Self Care 12/14/2024 11:00 AM EDT Consult Orthopedic Surgery [address] [phone] Gisela Paredes MD Cubital tunnel syndrome, right (Primary Dx); Carpal tunnel syndrome of left wrist; Trigger index finger of right hand from Last 3 Months Surgical History Surgery [...] PM EDT Office Visit Orthopedic Surgery - [place] [address] [phone] Gisela Paredes MD [address] [phone] Health Maintenance Due Date Last [...] COVID-19 Vaccine (10 - Pfizer risk season) 2025 03/07/2024, 11/16/2023, 04/03/2023, Additional history exists Influenza [...] LMA(NO CHARGE) Routine 12/20/2024 10:21 AM EDT [place] INCISION TENDON SHEATH 12/20/2024 9:55 AM EDT Right carpal tunnel syndrome Cubital tunnel syndrome on right Trigger index finger of right hand [place] NEUROPLASTY AND/OR TRANSPOSITION ULNAR NERVE AT ELBOW 12/20/2024 9:55 AM EDT Right carpal tunnel syndrome Cubital tunnel syndrome on right Trigger index finger of right hand [place] NEUROPLASTY/TRANSPOSIT ION MEDIAN NERVE AT CARPAL TUNNEL 12/20/2024 9:55 AM EDT Right carpal tunnel syndrome Cubital tunnel syndrome on right Trigger index finger of right hand POCT GLUCOSE, BLOOD Routine 12/20/2024 9 :27 AM EDT from Last 3 Months Results * (ABNORMAL) POCT Glucose, blood (12/20/2024 12:27 PM EDT) Glucose POCT 141(H) 70 - 100 mg/dL 12/20/2024 12:28 PM EDT [facility] POCT Comment RN Notified 12/20/2024 12:28 PM EDT [facility] Blood Capillary blood specimen / Unknown 12/20/2024 12:27 PM EDT 12/20/2024 12:29 PM EDT Gisela Paredes MD LAB POINT OF CARE TE ST DOCKED DEVICE UNSOLICITED RESULTS Final Result [facility] [address] [place] [address], [place] [phone] * TH AN LMA(NO CHARGE) (12/20/2024 10:21 [...] No Dentition Unchanged: Yes Patient position: neutral Priyank Mar DO ANESTHESIA ORDERABLES Final Res [...] currently active code status orders. Care Teams Director Of Category Management Relationship Specialty Start Date End Date Moe Cope MD A[facility]ANDRINA [facility] [address] [place] [address] [address] [place] [address] PCP - General Internal Medicine 08/28/24
--- OUTSIDE RECORDS SUMMARY | 2025-03-08 11:22 | XMS_ITS | Clinical Summary ---
Author Organization [facility] Address [address] [address] Phone Care Team Providers Care Mapping Specialist Name Role Phone Srinivasa Vasquez DO Primary [...] 5 mg by mouth daily. 03/02/20 Active hydroCHLOROthiazid e (HYDRODIURIL) 25 MG tablet Take 25 mg by mouth every morning. 03/22/20 Active losartan (COZAAR) 50 MG tablet Take 50 mg by mouth 2 (two) times a day. 03/17/20 Active pediatric multivit with FA-zinc (CHEWABLE MULTIVIT-A,B,D,E,K ,ZN) 1,000-800 unit-mcg Chew as directed Acti ve sertraline (ZOLOFT) 50 MG tablet Take 50 mg by mouth daily. 03/17/20 Active tamsulosin (FLOMAX) 0.4 mg Cap Take 0.4 mg by mouth 2 (two) times a day. 03/05/20 Active cyanocobalamin, vitamin B-12, 1000 MCG tablet Take 1,000 mcg by mouth daily. Active LYUMJEV U-100 INSULIN 100 unit/mL injection vialIndications:In sulin pump in place,Diabetic polyneuropathy associated with type 1 diabetes mellitus Administer via insulin pump, 90u TDD E10.42 Z96.41 90 mL 3 01/02/20 24 Active GLUCOSE BLOOD test strip 1 each by Miscellaneous route as needed. Active FREESTYLE LITE Strp stripsIndications: Diabetes mellitus type 1 1 each by Miscellaneous route 3 (three) times a day before meals. 300 strip 3 09/28/19 25 Active Active Problems Problem Noted Date Diagnosed [...] hypoglycemia or persistent hyperglycemia for potential insulin ajdusmtnets Assessment & Plan (07/30/2024 4:15 PM EST): Images from the original note were not included. Reviewed pump data with Beni and this looks reassuring Had some issues with CGM connection over the past several days, this issue has been fixed when Beni contacted [email or web address] support this morning No adjustments made to [...] after morning meal are variable Happy with [employer] Mobi, having some issues with infusion sets [...] to training on Tandem Mobi with tandem customer service trainer next week Training was provided on Omnipod 5 though and set up completed, it just was not started Pump settings were transferred from Tandem pump Beni will continue with previous glucose alerts as set on Dexcom G7 joby Reviewed that automated mode will [...] recent lipid panel is available for review [place] LDL goal is <70 Continues on statin [...] on regimen which includes ARB Diabetic polyneuropathy asso ciated with type 1 diabetes mellitus 04/01/2023 04/01/2023 [...] unsuccessful, encouraged Beni to reach out to [employer] support Beni will consider the Omnipod 5 [...] training and I will reach out to [employer] to see if a one-on-one training can [...] Description 01/28/2025 3:20 PM EDT Office Visit [facility] [address] [place] [address] [place] [address] Mayda Gamino MD Diabetic polyneuropathy associated with type 1 diabetes mellitus (Primary Dx); Insulin pump in place; Primary hypertension; Hyperlipidemia, unspecified hyperlipidemia type from Last 3 Months Immunizations Immunization Administration [...] Description 05/01/2025 10:00 AM EDT Office Visit [facility] [address] [place] [address] [place] [phone] Tessa Beltran CNP [address] [place] [email or web address] 08/02/2025 2:40 PM EST Office Visit [facility] [address] [place] [address] [place] [phone] Mayda Gamino MD [address] [place] [phone] Health Maintenance Due Date Last Done Comments Adult Td,Tdap Booster 1941 CREATININE LEVEL 1941 POTASSIUM LEVEL 1941 DEPRESSION SCREENING 1953 PNEUMOCOCCAL VACCINES (50+ years) (1 of 2 - PCV) 1960 DIABETIC EYE EXAM 04/01/2023 INFLUENZA VACCINE (#1) 2025 , 03/25/2023, 04/09/2022, Additional history exists COVID-19 VACCINE ( season) 2025 03/07/2024, 11/16/2023, 04/03/2023, Additional history exists HEMOGLOBIN [...] REPLACEMENT [employer] PPO MEDICARE REPLACEMENT Care Teams Mapping Specialist Relationship Specialty Start Date End Date Srinivasa Vasquez DO [address] [place] [id number] PCP - General Internal Medicine 11/23/22 Additional Source Comments The information contained in this document represents components of the legal health record. It is not the complete legal health record.[facility]
== END 2025-03-08 10:18 | disposition home or self-care (01) ==
LOC: HO.XRAY 10:17
PROVIDERS: PCP Internal Medicine; Visit Provider Internal Medicine
DX: J90 Pleural effusion, not elsewhere classified (principal); I50.9 Heart failure, unspecified
CPT/HCPCS: 71046

== ENCOUNTER → 2025-03-08 10:23 | Outpatient (BNV) | payer MEDICARE, SELFPAY | PROVIDERS: PCP Internal Medicine; Visit Provider Radiology Diagnostic Radiology | DX: J90 Pleural effusion, not elsewhere classified (principal) | CPT/HCPCS: 71046 ==

== ENCOUNTER 2025-03-12 14:02 | Outpatient (AMB) | payer MEDICARE, SELFPAY ==
[2025-03-12 14:11] VITALS: BP 138/58; PULSE 55; O2SAT 96
--- NOTE | 2025-03-12 14:11 | MHC.OFFVIS ---
Vital Signs 03/12/25 14:11 Weight 192 lb 14.472 oz BP 138/58 L Blood Pressure Location Lt brachial Position Sitting Pulse 55 Pulse Source Pulse Oximeter Pulse Oximetry (%) 96 Oxygen Delivery Method Room Air Intake Visit Reasons: odilia [employer] [place] Required: No Allergies penicillin V Allergy (Unknown, Verified 03/12/25 14:16) Rash Penicillins (PENICILLINS) Allergy (Unknown, Verified 03/12/25 14:16) UNKNOWN Medication List - Last Reconciled 03/12/25 by Urmila Clemons LPN atorvastatin 40 mg PO DAILY blood sugar diagnostic (FreeStyle Lite Strips) As directed three times a day blood-glucose meter (FreeStyle Lite Meter kit) As directed 3 x/day blood-glucose sensor (DexVHSquared G6 Sensor device) As directed blood-glucose transmitter (Dexcom G6 Transmitter device) As directed blood-glucose,radio commentator,cont (Dexcom G6 Rn Patient Care) As directed cholecalciferol (vitamin D3) 50 mcg PO DAILY donepezil 10 mg PO DAILY finasteride 5 mg PO DAILY insulin pump cart,auto,BT-cntr (Omnipod 5 G6 Intro Kit (Gen 5) subcutaneous cartridge with controller) As directed lancets (FreeStyle Lancets) 4 times a day losartan 50 mg PO DAILY Lyumjev U-100 Insulin (insulin lispro-aabc) Up to 100 units via insulin pump subcut daily; 90 days NS multivitamin 1 tab PO DAILY sertraline 50 mg PO DAILY tamsulosin 0.4 mg PO DAILY Do you need a note to return to daycare/school/sports/work: No HPI HPI odilia: Details: 84 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 FOR HIS LEFT-SIDED PLEURAL EFFUSION WHICH I THOUGHT WAS DUE TO CONGESTIVE HEART FAILURE, HE WAS TAKING FUROSEMIDE 40 MG A DAY FOR 1 WEEK THEN 20 MG A DAY, AND NOW HAS STOPPED SINCE ABOUT 5 DAYS AGO. FEELS FINE AND DOES NOT HAVE ANY SHORTNESS OF BREATH. THERE IS. NO SWELLING AROUND THE ANKLES USE OF ivaps / IS EXCELLENT, USES EVERY NIGHT AND SLEEPS UP TO 7 HOURS, WAKES UP REFRESHED, HE HAS HAD ECHOCARDIOGRAM AND IS GOING TO SEE HIS LINEMAN A CLASS AT [facility],, TOMORROW I HAVE ASKED HIM TO BRING A COPY OF THE ECHOCARDIOGRAM TO ME. [facility] Medical History Pleural effusion Cough SARS-CoV-2 positive Dyspnea on exertion Central sleep apnea ODILIA (obstructive sleep apnea) Retrognathia Overweight Hyponatremia Dyslipidemia Hypertension Diabetic polyneuropathy associated with type 1 diabetes mellitus Mild non proliferative diabetic retinopathy Diabetes type 1, controlled Surgical History History of esophagogastroduodenoscopy (EGD) H/O colonoscopy (~01/09/24) Hx of right inguinal hernia repair Hx of cataract removal with insertion of prosthetic lens Hx of hand surgery Family History Father CVD (cardiovascular disease) Mother Hypertension Maternal Grandmother Diabetes Social History Household Members: [facility] Alcohol intake: current Alcohol intake frequency: does not drink Alcohol type: wine Patient Tobacco Use Status: Never used Tobacco service: No Current occupational status: retired Cognitive needs: No Hearing needs: Yes (b/l hearing aids) Vision needs: Yes (reading glasses) Review of Systems Const Denies body aches, Denies chills, Denies fatigue, Denies fever(s) and Denies headache(s) Eyes Denies blurry vision, Denies irritation, Denies itchy eyes and Denies loss of vision ENT Denies dysphagia, Denies vertigo, Denies headache(s), Denies epistaxis, Denies nasal congestion, Denies nasal discharge, Denies nasal obstruction and Denies sinus pain Card Denies chest pain, Denies rapid heart rate, Denies irregular heart rhythm, Reports dyspnea on exertion (HE FEELS THAT HE IS MORE SHORT OF BREATH THAN USUAL DURING THE PAST 1 WEEK), Denies orthopnea and Denies slow heart rate Resp Reports as per HPI and Reports dyspnea on exertion (HE FEELS THAT HE IS MORE SHORT OF BREATH THAN USUAL DURING THE PAST 1 WEEK) GI Denies bloating, Denies change in bowel habits, Denies change in stool character, Denies dysphagia, Denies heartburn, Reports nausea and Denies vomiting Reports nocturia and Denies urinary incontinence Musc Denies abnormal gait, Denies back pain, Denies myalgias, Denies arthralgias, Denies muscle weakness and Denies stiffness Skin/Breast Reports system reviewed and no additional complaints, except as documented Neuro Denies abnormal gait, Denies vertigo, Denies headache(s), Denies focal weakness, Denies loss of vision, Reports memory loss, Denies restless legs and Denies tremor(s) Psych Reports depression and Reports memory loss Endo Reports no additional complaints, Denies fatigue and Reports other (Insulin-dependent diabetes mellitus) Franklyn/Lymph Reports no additional complaints Aller/Immun Reports no additional complaints and Denies itchy eyes Physical Exam Vital Signs: Last Vital Signs Pulse 55 03/12/25 14:11 BP 138/58 L 03/12/25 14:11 Pulse Ox 96 03/12/25 14:11 Oxygen Delivery Method Room Air 03/12/25 14:11 Generally healthy looking, he is only says moderately overweight Const General: healthy appearing, comfortable, no acute distress, alert and awake Orientation/consciousness: patient oriented x3 HEENT Head: Yes normal to inspection General nose exam: No nasal polyps present and No nasal discharge present Face and sinus: Yes sinuses nontender Mouth: oropharynx abnormals (Tongue is placed back, oropharynx is narrow, Mallampati class 4) Teeth and gingiva: other (RETROGANTHIA of the lower jaw ( overbite ) ) Throat: Yes posterior oropharynx normal Eyes General: appearance normal, both eyes and all related structures Neck Neck: Yes normal visual inspection, Yes no lymphadenopathy, Yes trachea midline, Yes no JVD and Yes other (Neck circumference 16-1/2 inch) Thyroid: Thyroid normal Chest Chest palpation & inspection: normal inspection of the chest, normal palpation of entire chest wall and no tenderness Resp Other: ,CHEST IS SYMMETRICAL PERCUSSION NOTE IS DULL OVER THE LEFT BASE ONLY AND NOT ON THE RT SIDE . BREATH SOUNDS ARE DIMINISHED OVER THE LEFT BASE . RIGHT SIDE IS CLEAR NO CREPITATIONS OR WHEEZES ARE HEARD. Effort & Inspection: normal respiratory effort Auscultation: clear to auscultation bilaterally, no crackles and no wheezes Cardio Palpation: normal PMI Rate: regular rate Rhythm: regular rhythm Heart sounds: no gallops and no murmurs Peripheral pulses: Peripheral pulses 2+ throughout GI Palpation (GI): Soft to palpation, nontender, No hepatosplenomegaly present and no masses Auscultation: normal bowel sounds Back/Spine/Pelvis Thoracic/Lumbar Spine: thoracic and lumbar spine normal to inspection Skin General skin exam: no rashes or lesions noted Neuro General: patient oriented x3 and no focal motor deficits Cranial nerves: Yes CN's II-XII intact bilaterally Extrem General: Yes normal to inspection, Yes no clubbing, cyanosis or edema and Yes no calf tenderness Psych Appearance: grossly normal and well kempt Speech and movement: Normal speech and movement present Results Reviewed Results Reviewed: XRAY CHEST 03/08 IMPRESSION: Persistent although decreased/small to moderate volume left-sided pleural effusion. Mild interstitial lung edema. * MUCH IMPROVED COMPARED TO THE INITIAL IMAGING ON 02/05/25 COMPLIANCE REPORT FOR THE LAST 30 NIGHTS IS EXCELLENT USING 30/30 NIGHTS WITH AVERAGE USE IT PER NIGHT 7 HOURS 20 MINUTES. RESIDUAL AHI ONLY 2.9 Assessment & Plan Assessment & Plan (1) ODILIA (obstructive sleep apnea): Comment: OBSTRUCTIVE SLEEP APNEA, SEVERE, RESPONDING VERY WELL TO THE USE OF CPAP. CURRENTLY USING CPAP WITH ASV MODE AND DOING MUCH BETTER. COMPLIANCE HAS BEEN GOOD . RESIDUAL AHI=2.9 Code(s): G47.33 - Obstructive sleep apnea (adult) (pediatric) Category: Medical Plan: CONTINUE USING ASV/CPAP (2) Central sleep apnea: Comment: HE HAD TREATMENT EMERGENT CENTRAL SLEEP APNEA WITH CENTRAL APNEA INDEX 9.1., AND TOTAL RESIDUAL AHI OF 16. NOW WITH THE USE OF ASV/AUTO MODE ALL THE CENTRAL WELL OBSTRUCTIVE EVENTS WERE ELIMINATED. SYMPTOMATICALLY , HE IS DOING MUCH BETTER WITH THE CURRENT TREATMENT. COMPLIANCE REPORT DOES NOT SHOW ANY RESIDUAL CENTRAL EVENTS Code(s): G47.31 - Primary central sleep apnea Category: Medical Plan: DISCUSSED THE RESULTS WITH HIM AND HE IS HAPPY TO KNOW THAT HIS SLEEP APNEA IS WELL CONTROLLED. ADVISED TO CONTINUE USING AVAPS /CP AT THE CURRENT SETTING. (3) Pleural effusion: Comment: THERE IS MODERATE SIZE PLEURAL EFFUSION ON THE LEFT SIDE, WITH MILD LEUKOCYTOSIS. THIS RAISES POSSIBILITY OF A UNDERLYING PNEUMONIA WITH SECONDARY PLEURAL EFFUSION, IT COULD BE DUE TO CONGESTIVE HEART FAILURE. REPEAT CHEST X-RAY ON 03/08 SHOWS ONLY MINIMAL RESIDUAL EFFUSION. Code(s): J90 - Pleural effusion, not elsewhere classified Category: Medical Plan: THERE IS NO NEED TO TAP THE FLUID. FOR QUESTION OF MILD RIGHT-SIDED CONGESTIVE HEART FAILURE, I THINK IT WILL BE OKAY TO TAKE FUROSEMIDE 20 MG TWICE A DAY WEEK( M, ) ROMANA IS GOING TO SEE HIS LINEMAN A CLASS TOMORROW AND WILL GO OVER THE ECHOCARDIOGRAM RESULTS. Coding Level of Care Code Est Pt Level 3 (06617) Diagnoses ODILIA (obstructive sleep apnea) G47.33 Central sleep apnea G47.31 Pleural effusion J90
--- OUTSIDE RECORDS SUMMARY | 2025-03-12 16:41 | XMS_ITS | Clinical Summary ---
Author Organization 175 [facility] Address [address] [place] [address] Phone Care Team Providers Care Fast Food Shift Supervisor Name Role Phone Moe Cope MD Primary Care Provider +1- [phone] Allergies Active Allergy Reactions Criticality Noted Date [...] asso ciated with type 1 diabetes mellitus ([facility] V24, [facility] V28) 04/01/2023 Overview (08/29/2024): DIABETES HISTORY Diagnosis -- mid 20s, initially managed as type 2 diabetes Treatment -- on oral meds, this was ineffective over a couple of years then started on basal bolus insulin; started insulin pump therapy 2018, currently on Tandem X2/Dexcom Encounters Date Type Department Care Team Description 01/29/2025 11:45 AM EDT Office Visit Orthopedic Surgery [address] [phone] Gisela Paredes MD Surgery follow-up (Primary Dx); Cubital tunnel syndrome, right; Carpal tunnel syndrome of left wrist; Trigger index finger of right hand 01/01/2025 1:00 PM EDT Office Visit Orthopedic Surgery [address] [phone] Marianna Lockhart PA Surgery follow-up (Primary Dx) 12/24/2024 Telephone Orthopedic Surgery [address] [phone] Marianna Lockhart PA 12/24/2024 Telephone Orthopedic Surgery [facility] [address] [phone] Brigette Sanderson 12/20/2024 9:51 AM EDT Anesthesia Event [facility] OR [address] [place] [phone] Priyank Mar DO Dasilva, John E, MD 12/20/2024 8:45 AM EDT - 12/20/2024 10:30 AM EDT Surgery [facility] OR [address] [place] [phone] Gisela Paredes MD RELEASE CARPAL TUNNEL- right; ulnar nerve in-situ decompression/transp osition; right index trigger release [09077 (CPT ) +2 more] 12/20/2024 7:12 AM EDT - 12/20/2024 1:25 PM EDT Hospital Encounter [facility] OR [address] [place] [phone] Gisela Paredes MD Discharge Disposition: Home or Self Care 12/14/2024 11:00 AM EDT Consult Orthopedic Surgery [address] [phone] Gisela Paredes MD Cubital tunnel syndrome, right [...] PM EDT Office Visit Orthopedic Surgery - [place] [address] [phone] Gisela Paredes MD [address] [phone] Health Maintenance Due Date Last [...] - 100 mg/dL 12/20/2024 12:28 PM EDT [facility] POCT Comment RN Notified 12/20/2024 12:28 PM EDT [facility] Blood Capillary blood specimen / Unknown 12/20/2024 12:27 PM EDT 12/20/2024 12:29 PM EDT Gisela Paredes MD LAB POINT OF CARE TE ST DOCKED DEVICE UNSOLICITED RESULTS Final Result [facility] [address] [place] [address], [place] [phone] * TH AN LMA(NO CHARGE) (12/20/2024 10:21 [...] currently active code status orders. Care Teams Fast Food Shift Supervisor Relationship Specialty Start Date End Date Moe Cope MD ALEJANDRINA [facility] [address] [place] [address] [address] [place] [address] PCP - General Internal Medicine 08/28/24
--- OUTSIDE RECORDS SUMMARY | 2025-03-12 16:41 | XMS_ITS | Clinical Summary ---
Author Organization [facility] Address [address] [address] Phone Care Team Providers Care Promotion Writer Name Role Phone Srinivasa Vasquez DO Primary [...] issue has been fixed when Beni contacted [employer] support this morning No adjustments made to [...] after morning meal are variable Happy with [employer] Mobi, having some issues with infusion sets [...] to training on Tandem Mobi with tandem production trainer next week Training was provided on [...] recent lipid panel is available for review [place] LDL goal is <70 Continues on statin [...] unsuccessful, encouraged Beni to reach out to [employer] support Beni will consider the Omnipod 5 [...] monitor for insulin needs for certain meals, Bein struggles with accurate carb counting and higher [...] training and I will reach out to [email or web address] to see if a one-on-one training can [...] Assessment & Plan (09/30/2023 12:51 PM EDT): Bein continues on automated insulin pump system integrated [...] Description 01/28/2025 3:20 PM EDT Office Visit [facility] [address] [place] [address] [place] [address] Mayda Gamino MD Diabetic polyneuropathy associated with [...] Description 05/01/2025 10:00 AM EDT Office Visit [facility] [address] [place] [address] [place] [phone] Tessa Beltran CNP [address] [place] [phone] 08/02/2025 2:40 PM EST Office Visit [facility] [address] [place] [address] [place] [address] Mayda Gamino MD [address] [place] [address] Health Maintenance Due Date Last Done Comments [...] REPLACEMENT [employer] PPO MEDICARE REPLACEMENT Care Teams Promotion Writer Relationship Specialty Start Date End Date Srinivasa Vasquez DO [address] [place] [phone] PCP - General Internal Medicine 11/23/22 Additional Source Comments The information contained in this document represents components of the legal health record. It is not the complete legal health record.[facility]
== END 2025-03-12 14:47 | disposition home or self-care (01) ==
LOC: HO.HPS 14:03
PROVIDERS: PCP Internal Medicine; Visit Provider Internal Medicine
DX: G47.33 Obstructive sleep apnea (adult) (pediatric) (principal); G47.31 Primary central sleep apnea; J90 Pleural effusion, not elsewhere classified
CPT/HCPCS: 99213

== ENCOUNTER → 2025-03-12 14:02 | Outpatient (BNVA) | payer MEDICARE, SELFPAY | PROVIDERS: PCP Internal Medicine; Visit Provider Internal Medicine | DX: G47.33 Obstructive sleep apnea (adult) (pediatric) (principal); Z99.89 Dependence on other enabling machines and devices; G47.31 Primary central sleep apnea; J90 Pleural effusion, not elsewhere classified; E10.42 Type 1 diabetes mellitus with diabetic polyneuropathy; Z96.41 Presence of insulin pump (external) (internal); Z79.4 Long term (current) use of insulin | CPT/HCPCS: 99212 ==

== ENCOUNTER 2025-05-15 12:28 | Outpatient (AMB) | payer MEDICARE, SELFPAY ==
--- OUTSIDE RECORDS SUMMARY | 2025-05-10 10:30 | XMS_ITS | Encounter Summary ---
Author Organization [facility] Address [address] [place] [address] Care Team Providers Care Cash Grain Farmer Name Role Phone Moe Cope MD Primary Care Provider [phone]- [phone] Reason for Referral * Consultation (Routine) - Pending Review Specialty Diagnoses / Procedures Referred By Bishnu grewal Referred To Contact Occupational Therapy Diagnoses Trigger index finger of right hand Cubital tunnel syndrome, left Carpal tunnel syndrome of left wrist Trigger index finger of left hand Gisela Paredes MD [address] [address] Phone: tel: fax: Referral ID Status Reason Start Date Expiration Date Visits Requested Visits Authorized [id number] Pending Review Specialty Services Required 05/10/2025 05/10/2026 1 1 Encounter Details Date Type Department Care Team (Late st Contact Info) Description 05/10/2025 10:30 AM EST Office Visit Orthopedic Surgery - [place] [address] [id number] Gisela Paredes MD [address] [address] Trigger index finger of left hand (Primary Dx); Trigger index finger of right hand; Cubital tunnel syndrome, left; Carpal tunnel syndrome of left wrist Social History Tobacco Use Types Packs/Day Years Used Date Smoking Tobacco: Never Assessed Interpersonal Safety Answer Date Record ed Physical Abuse Unrecognized value 12/20/2024 Verbal Abuse Unrecognized value 12/20/2024 Sex and Gender Information Value Date Recorded Sex Assigned at Male 12/13/2024 2:36 PM EDT Legal Sex Male 5:10 AM EST Gender Identity Not on file Sexual Orientation Not on file documented as of this encounter Progress Notes * Gisela Paredes MD - 05/10/2025 10:30 AM EST Post-op Note (within 90 days of surgical procedure) Procedure: Left index trigger finger Date of surgery: 04/29/2025 Subjective: Patient is not having much discomfort. The finger is a bit stiff but manageable and there is no locking. He does note still some lack of strength on the right side where he had his other surgeries. Objective: Sutures were removed from the left index A1 sarah site. The fingers are all sensate warm and perfused. When he tries to make a fist they are all bit stiff but that index in particular as to be expected. A Band-Aid was applied to the site. On the patient's right side he can make a fist however he has some difficulty bringing the thumb over the small finger. He still has a little bit of firmness of the tissue at the base of the palm. Assessment: 1. Trigger index finger of left hand Ambulatory referral to Occupational Therapy 2. Trigger index finger of right hand Ambulatory referral to Occupational Therapy 3. Cubital tunnel syndrome, left Ambulatory referral to Occupational Therapy 4. Carpal tunnel syndrome of left wrist Ambulatory referral to Occupational Therapy Plan: Patient can work on gentle range of motion I will send him to therapy to help him along in regard to both hands. I advised to keep a Band-Aid over the area of surgery for the next couple of days to let the small suture holes closed up and to protect it a bit longer. I think each week he will continue to improve. I be happy to check him back if there are any other concerns. Follow-up: As needed Gisela Paredes MD documented in this encounter Plan of Treatment Scheduled Referrals Name Type Priority Associated Diagnoses Order Schedule Ambulatory referral to Occupational Therapy Outpatient Referral Routine Trigger index finger of right hand Cubital tunnel syndrome, left Carpal tunnel syndrome of left wrist Trigger index finger of left hand 1 Occurrences starting 05/10/2025 until 05/10/2026 documented as of this encounter Visit Diagnoses Diagnosis Trigger index finger of left hand- Primary Trigger index finger of right hand Cubital tunnel syndrome, left Carpal tunnel syndrome of left wrist documented in this encounter Care Teams Cash Grain Farmer Relationship Specialty Start Date End Date Moe Cope MD [place] VARELA [address] [place] [address] PCP - General Internal Medicine 08/28/24 documented as of this encounter
--- NOTE | 2025-05-15 12:39 | MHC.OFFVIS ---
Intake Visit Reasons: 6M MCI Allergies penicillin V Allergy (Unknown, Verified 03/12/25 14:16) Rash Penicillins (PENICILLINS) Allergy (Unknown, Verified 03/12/25 14:16) UNKNOWN Medication List - Last Reconciled 05/15/25 by Mckayla Marks MD atorvastatin 40 mg PO DAILY blood sugar diagnostic (FreeStyle Lite Strips) As directed three times a day blood-glucose meter (FreeStyle Lite Meter kit) As directed 3 x/day blood-glucose sensor (Dexcom G6 Sensor device) As directed blood-glucose transmitter (Dexcom G6 Transmitter device) As directed blood-glucose,bumper operator,cont (Dexcom G6 Video Game Programmer) As directed cholecalciferol (vitamin D3) 50 mcg PO DAILY donepezil 10 mg PO DAILY finasteride 5 mg PO DAILY insulin pump cart,auto,BT-cntr (Omnipod 5 G6 Intro Kit (Gen 5) subcutaneous cartridge with controller) As directed lancets (FreeStyle Lancets) 4 times a day losartan 50 mg PO BID Lyumjev U-100 Insulin (insulin lispro-aa) Up to 100 units via insulin pump subcut daily; 90 days NS multivitamin 1 tab PO DAILY sertraline 50 mg PO DAILY tamsulosin 0.4 mg PO BID HPI Comments Details: 84 yr man with MCI for 6 monthly f/u. Functioning well and doing okay. Memory stable, still having some short-term memory problems and starts something but does not finish as he gets distracted easily. Forgetful and will misplace things around the house like his phone. Has trouble with multi-step tasks.shelter memory is good. Donepezil helping with focus and follow through. No manic episodes. Memantine caused manic behavior. Sleep is okay, using CPAP. Stress is okay, less marital problems and going to couple's counseling. Taking adult education classes, doing 500-piece jigsaw puzzles, and volunteering. No issues with classes or volunteer work. Goes for walks or hikes few times a week. He has observed some short-term attention span problems, but long-term attention and organization is better and able to follow thru on daily assignments. Better with people's names. Was able to navigate Valarie with hand held device. 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 He had a syncopal episode in June 2022 because of a low sugar of 44. He stays active and enrolls in [employer] learning programs, puzzles. He has attention problems and particularly impaired in name recall. He has a great deal of difficulty recalling people's names but has always had this problem all of his life. He thinks he suffers from ADD but was never evaluated or diagnosed. Had right hand surgery for CTS and trigger finger n end of January 2025. Had left hand trigger finger release on 05/04/25. Doing PT/OT 2/ wk. [facility] Medical History Pleural effusion Cough SARS-CoV-2 positive Dyspnea on exertion Central sleep apnea ODILIA (obstructive sleep apnea) Retrognathia Overweight Hyponatremia Dyslipidemia Hypertension Diabetic polyneuropathy associated with type 1 diabetes mellitus Mild non proliferative diabetic retinopathy Diabetes type 1, controlled Surgical History History of esophagogastroduodenoscopy (EGD) H/O colonoscopy (~01/09/24) Hx of right inguinal hernia repair Hx of cataract removal with insertion of prosthetic lens Hx of hand surgery Family History Father CVD (cardiovascular disease) Mother Hypertension Maternal Grandmother Diabetes Social History Household Members: [facility] Alcohol intake: current Alcohol intake frequency: does not drink Alcohol type: wine Patient Tobacco Use Status: Never used Tobacco service: No Current occupational status: retired Cognitive needs: No Hearing needs: Yes (b/l hearing aids) Vision needs: Yes (reading glasses) Review of Systems Const Details: General/Constitutional:? Change in appetitedenies.? Chillsdenies.? Fatiguedenies.? Feverdenies.? Weight gainadmits.? Weight lossdenies. ???Sleep:? Difficulty getting to sleepdenies.? Difficulty maintaining sleepdenies?.? Urge to move legsdenies.? Teeth grindingdenies.? Shouting or Kicking during sleepdenies.? Abnormal behavior during sleepdenies.? Excessive sleepdenies.? Snoringadmits.? Daytime sleepinessdenies. ???Respiratory:? Shortness of breathadmits.? Chest paindenies.? Coughdenies. ???Cardiovascular:? Chest pain at restdenies.? Chest pain with exertiondenies.? Claudicationdenies.? Dizzinessdenies.? Fluid accumulation in the legsdenies.? Irregular heartbeatdenies.? Palpitationsdenies. ???Gastrointestinal:? Abdominal paindenies.? Constipationdenies.? Diarrheadenies.? Difficulty swallowingdenies.? Heartburndenies.? Nauseadenies.? Rectal bleedingdenies. ???Genitourinary:? Frequent urinationdenies.? Urgencyadmits.? Incontinencebowels urgency..? Erectile Dysfunctionadmits. ???Musculoskeletal:? Neck paindenies.? Back paindenies.? Muscle achesdenies.? Painful jointsdenies.? Sciaticadenies.? Weaknessdenies. ???Neurologic:? Difficulty swallowingdenies.? Balance difficultyadmits.? Coordinationnormal.? Difficulty speakingdenies.? Dizzinessdenies.? Faintingdenies.? Gait abnormalitydenies.? Headachedenies.? Loss of strengthdenies.? Loss of use of extremitydenies.? Low back paindenies.? Memory lossadmits.? Seizuresdenies.? Ticsdenies.? Tingling/Numbnessbilateral hands.? Transient loss of visiondenies.? Tremordenies. ???Psychiatric:? Anxietyadmits.? Auditory/visual hallucinationsdenies.? Delusionsdenies.? Depressed mooddenies.? Stressorsdenies.? Substance abusedenies.? Suicidal thoughtsdenies. Physical Exam Neuro Other: Neurological: Abnormal neurological findings:??MMS 25/30.?Mental Status:??alert and oriented X 3,?Normal attention, orientation, memory and affect.?Cranial Nerves:??Pupils are equal, round and reactive to light. Fundoscopy shows normal disc bilaterally. External occular muscles are intact. Visual whitley are full, no ptosis. Face is symmetrical, no facial weakness or droop. Facial sensations are normal. Tongue protrudes in midline. Palate elevates symmetrically. Shoulder shrugging is normal..?Motor Examination:??Normal muscle tone, bulk and strength,?No atrophy or fasciculations,?No drift of the extended upper extremities,?Deep tendon reflexes are 0+?,?Plantars are flexor?.?Straight Leg Raising:??90 degrees.?Sensory Exam:??Normal light touch, temperature, pinprick, vibration and joint-position sensations?,?Rhomberg sign is absent.?Coordination:??no ataxia,?no titubation,?krnaox-vi-rvnh, glos-vuso-bger test and rapid alternating movements were normal.?Gait Exam:??Within normal limits.?Cerebellar Signs:??Swwglq-kq-frvf and rpaw-ik-ktrw is normal,?no dysdiadochokinesia?.?Extrapyramidal System:??No tremor, rigidity with normal facial expressions,?No bradykinesia, no bradyphrenia. Normal arm swing and posture. No propulsion or retropulsion.?Speech:??Normal,?no dysphasia or dysarthria..? Mini Mental Status Exam: Level of Consciousness:??Alert.?Orientation:??Knows correct year, month, date, day and season,?Knows correct city, county and state. Knows correct location and floor.?Registration:??Able to register 3 objects.?Attention:??Serial 7's performed accurately to 93.?Recall:??Able to recall?2 out of 3 objects.?Language:??Normal spontaneous speech, fluency, repetition,naming, comprehension, reading and writing.?Total Score:??25/30.? Assessment & Plan Assessment & Plan (1) MCI (mild cognitive impairment) with memory loss: Code(s): G31.84 - Mild cognitive impairment of uncertain or unknown etiology Category: Medical (2) ODILIA (obstructive sleep apnea): Comment: OBSTRUCTIVE SLEEP APNEA, SEVERE, RESPONDING VERY WELL TO THE USE OF CPAP.CURRENTLY USING CPAP WITH ASV MODE AND DOING MUCH BETTER. RESIDUAL AHI=2.9 Code(s): G47.33 - Obstructive sleep apnea (adult) (pediatric) Category: Medical Plan Continue current meds Medications: Changed From donepezil 10 mg PO DAILY To donepezil 10 mg PO DAILY 90 tabs 3RF 90 days Coding Level of Care Code Est Pt Level 4 (05091) Diagnoses MCI (mild cognitive impairment) with memory loss G31.84 ODILIA (obstructive sleep apnea) G47.33
--- OUTSIDE RECORDS SUMMARY | 2025-05-15 15:07 | XMS_ITS | Clinical Summary ---
Author Organization [address] [place] [address] Address [address] [place] [address] Phone Care Team Providers Care Twx Operator Name Role Phone Moe Cope MD Primary Care Provider [phone]- [phone] Allergies Active Allergy Reactions Criticality Noted Date [...] grams of Tylenol per day. 30 tablet 5 Active oxyCODONE (ROXICODONE) 5 mg immediate release tablet Take 1 tablet (5 mg total) by mouth every 6 (six) hours if needed for severe pain. Max Daily Amount: 20 mg 12 each 5 Active Additional Information Patient not taking.Reported on 01/29/2025 furosemide (LASIX) 40 mg tablet TAKE 1 TABLET BY MOUTH EVERY DAY FOR CHF FOR 14 DAYS Active Active Problems Problem Noted Date Diagnosed Date Surgery follow-up 04/02/2025 Right carpal tunnel syndrome 10/01/2024 Cubital tunnel syndrome on right 10/01/2024 Cubital tunnel syndrome, right 08/29/2024 Cubital tunnel syndrome, left 08/29/2024 Carpal tunnel syndrome of left wrist 08/29/2024 Trigger index finger of left hand 08/29/2024 Hyperlipidemia 04/04/2023 Primary hypertension 04/04/2023 Diabetic polyneuropathy asso ciated with type 1 diabetes mellitus ([facility] V24, [facility] V28) 04/01/2023 Overview (08/29/2024): DIABETES HISTORY Diagnosis -- mid 20s, initially managed as type 2 diabetes Treatment -- on oral meds, this was ineffective over a couple of years then started on basal bolus insulin; started insulin pump therapy 2018, currently on Tandem X2/Dexcom Encounters Date Type Department Care Team Description 05/10/2025 10:30 AM EST Office Visit Orthopedic Surgery [facility] 175 [facility] [address] [place] [address] Gisela Paredes MD Trigger index finger of left hand (Primary Dx); Trigger index finger of right hand; Cubital tunnel syndrome, left; Carpal tunnel syndrome of left wrist 04/04/2025 Telephone Orthopedic Surgery [facility] [address] [facility] [address] [place] [address] Laura Gomez MA 04/02/2025 1:30 PM EDT Office Visit Orthopedic Surgery - [address] [place] [address] Gisela Paredes MD Trigger index finger of right hand (Primary Dx); Cubital tunnel syndrome, left; Carpal tunnel syndrome of left wrist; Surgery follow-up; Trigger index finger of left hand from Last 3 Months Surgical History Surgery Date Site/Laterality Comments OTHER SURGICAL HISTORY HERNIA REPAIR CARPAL TUNNEL RELEASE 12/20/2024 Right Right open carpal tunnel release and a right ulnar nerve in situ decompression and an index trigger release right Medical History Medical History Date Comments Hypertension Sleep apnea HL (hearing loss) b CABA Diabetes mellitus ([facility] V24, [facility] V28) Cancer ([facility] V24, [facility] V28) skin Social History Tobacco Use Types [...] - - Weight 86.2 kg (190 lb) 04/02/2025 1:35 PM EDT Height 170.2 cm (5' 7 ) 04/02/2025 1:35 PM EDT Body Mass Index 29.76 04/02/2025 1:35 PM EDT Plan of Treatment Health Maintenance Due Date Last Done Comments [...] Annual BMP Blood Test 08/28/2024 COVID-19 Vaccine (11 - Pfizer risk 2024- season) 2025 03/20/2025, 03/07/2024, 11/16/2023, Additional history exists Diabetes: Blood Sugar Control Test (HGBA1C) 10/31/2025 05/02/2025, 11/21/2024, 07/30/2024 Falls Risk Assessment 12/20/2025 12/20/2024 Zoster Vaccines Completed 06/19/2019, 03/07/2019 RSV Immunization Adult Patients Completed 03/25/2023 Influenza Vaccine Completed 03/20/2025, , 03/25/2023, Additional history exists HIB Vaccines Aged Out [...] patient's age to complete this topic Insurance Advance Directives * Full Code - Default [...] currently active code status orders. Care Teams Twx Operator Relationship Specialty Start Date End Date Moe Cope MD [facility] [address] [facility] [id number] PCP - General Internal Medicine 08/28/24
--- OUTSIDE RECORDS SUMMARY | 2025-05-15 15:07 | XMS_ITS | Clinical Summary ---
Author Organization [facility] Address [address] [address] Phone Care Team Providers Care Fretted String Instrument Repairer Name Role Phone Srinivasa Vasquez DO Primary Care Provider Allergies Active Allergy Reactions Criticality Noted Date Comments Penicillins Hives 04/01/2023 Medications amLODIPine (NORVASC) 5 MG tablet Take 5 mg by mouth every morning. Active atorvastatin (LIPITOR) 40 MG tablet Take 40 mg by mouth daily. 023 Active donepeziL (ARICEPT) 10 MG tablet Take 10 mg by mouth every morning. 023 Active finasteride (PROSCAR) 5 mg tablet Take 5 mg by mouth daily. 023 Active hydroCHLOROthiazi de (HYDRODIURIL) 25 MG tablet Take 25 mg by mouth every morning. 023 Active losartan (COZAAR) 50 MG tablet Take 50 mg by mouth 2 (two) times a day. 023 Active pediatric multivit with FA-zinc (CHEWABLE MULTIVIT-A,B,D,E, K,ZN) 1,000-800 unit-mcg Chew as directed Acti ve sertraline (ZOLOFT) 50 MG tablet Take 50 mg by mouth daily. 023 Active tamsulosin (FLOMAX) 0.4 mg Cap Take 0.4 mg by mouth 2 (two) times a day. 023 Active cyanocobalamin, vitamin B-12, 1000 MCG tablet Take 1,000 mcg by mouth daily. Active GLUCOSE BLOOD test strip 1 each by Miscellaneous route as needed. Active FREESTYLE LITE Strp stripsIndications :Diabetes mellitus type 1 1 each by Miscellaneous route 3 (three) times a day before meals. 300 strip 3 025 Active LYUMJEV U-100 INSULIN 100 unit/mL injection vialIndications:I nsulin pump in place,Diabetic polyneuropathy associated with type 1 diabetes mellitus ADMINISTER VIA INSULIN PUMP, 90 UNITS TDD E10.42 Z96.41 90 mL 3 025 Active LYUMJEV U-100 INSULIN 100 unit/mL injection vialIndications:I nsulin pump in place,Diabetic polyneuropathy associated with type 1 diabetes mellitus Administer via insulin pump, 90u TDD E10.42 Z96.41 90 mL 3 024 2024 Discontinued Active Problems Problem Noted Date Diagnosed Date Insulin pump in place 04/04/2023 Assessment & Plan (05/05/2025 8:23 PM EST): Current insulin pump setting Time Basal Rates? Time ICR Time ISF Time Target IOB 12am 0.45u/hr 12am 7 12am 50 12am 110mg/dl 5hrs 4am 0.5 7 40 730 am 0.65 7 40 9 am 1.0 4 40 12 pm 1.0 5 35 5 pm 0.65 5 35 7 pm 0.65 5 40 9 pm 0.55 7.5 50 16.975 Changes made to basal rates to better match up to Auto basal Beni tends to not bolus for snacks, especially bedtime snack due to fear of hypoglycemia, likely why there is significant overnight elevations on the download Encouraged trying to bolus for bedtime snack consistently (any snacking really), starting with a portion of the snack to help build confidence in bolusing for snacks Assessment & Plan (01/28/2025 6:01 PM EDT): Insulin pump data was reviewed today, CGM was reviewed and discussed with Beni Advised to continue to bolus at meals as directed, we discussed the recommendation to dose prior to meals ideally; it appears that the timing of doses may be most impactful on prandial elevations Has continued to be happy with Tandem Mobi, having some issues with CGM reliability with [...] hypoglycemia, reviewed recommended treatment with AID system eBni is encouraged to reach out with hypoglycemia or persistent hyperglycemia for potential insulin [email or web address] Assessment & Plan (07/30/2024 4:15 PM EST): Images from the original note were not included. Reviewed pump data with Beni and this looks reassuring Had some issues with CGM connection over the past several days, this issue has been fixed when Beni contacted [employer] support this morning No adjustments made to [...] 3 months Hyperlipidemia 04/04/2023 Assessment & Plan (05/05/2025 8:23 PM EST): No recent lipid panel is available for review LDL goal is <55 Continues on statin therapy at high intensity Assessment & Plan (01/28/2025 5:57 PM EDT): [...] recent lipid panel is available for review Devine LDL goal is <70 Continues on statin [...] intensity Primary hypertension 04/04/2023 Assessment & Plan (05/05/2025 8:23 PM EST): Blood pressure is very well controlled Continues on regimen which includes ARB Assessment & Plan (01/28/2025 5:56 PM EDT): [...] currently on Tandem X2/Dexcom Assessment & Plan (05/05/2025 8:28 PM EST): Doing well overall on the Tandem Mobi system, Beni is happy with this, though has some questions and concerns about the correction not being strong enough Experiencing hypoglycemic episodes that generally lead to hyperglycemia, likely due to overcorrection of low blood sugar levels with high carbohydrate intake, discussed appropriate low treatment on AID system. A1c level has decreased from the low 8s to 7s, indicating improved glycemic control. Basal/bolus is at 40/60 split, autobasal tends to give more than manual basal rates, largely increasing basal rates throughout the night and day Adjustments made to the basal rates today, advised to monitor blood glucose levels more frequently with adjustments Up to date on eye and foot care Discussed impact of stress on blood sugars Encouraged efforts at balanced, mindful eating Encouraged efforts at increasing physical activity as tolerated Advised to contact office with any questions or concerns. We will follow up in 6 months, Beni will follow up with Dr. Gamino in 3 months. Assessment & Plan (01/28/2025 6:06 PM EDT): [...] unsuccessful, encouraged Beni to reach out to [employer] support Beni will consider the Omnipod 5 [...] training and I will reach out to [employer] to see if a one-on-one training can [...] Encounters Date Type Department Care Team Description 05/09/[address] [place] [address] Mayda Gamino MD Medication Refill 05/07/[address] [place] [address] Amberly Ruiz MA Medication Management 05/02/2025 11:20 AM EDT Office Visit [address] [place] [address] Tessa Beltran CNP Insulin pump in place (Primary Dx); Diabetic polyneuropathy associated with type 1 diabetes mellitus; Hyperlipidemia, unspecified hyperlipidemia type; Primary hypertension 04/22/2025 Telephone [facility] [address] [place] [address] [place] [address] Tessa Beltran CNP Forms & Paperwork 03/25/[address] [place] [address] Amberly Ruiz MA Medication Management 03/21/[address] [place] [address] Amberly Ruiz MA DIABETIC SHOES from Last 3 Months Immunizations Immunization Administration [...] Sign Reading Time Taken Comments Blood Pressure 128/74 05/02/2025 11:18 AM EDT Pulse 63 05/02/2025 11:18 AM EDT Temperature 36.4 C (97.6 F) 09/30/2023 10:32 AM EDT Respiratory Rate - - Oxygen Saturation 99% 05/02/2025 11:18 AM EDT Inhaled Oxygen Concentration - - Weight 89.5 kg (197 lb 6.4 oz) 05/02/2025 11:18 AM EDT Height 172.7 cm (5' 7.99 ) 05/02/2025 11:18 AM E DT Body Mass Index 30.02 05/02/2025 11:18 AM EDT Plan of Treatment Upcoming Encounters Date Type Department Care Team (Late st Contact Info) Description 08/02/2025 2:40 PM EST Office Visit [facility] [address] [place] [address] [place] [address] Mayda Gamino MD [address] [place] [address], [address] [place] [id number] 10/31/2025 11:20 AM EDT Office Visit [facility] [address] [place] [address] [place] [address] Tessa Beltran CNP [address] [place] [address], [address] [place] [id number] [email or web address] Health Maintenance Due Date Last Done Comments Adult Td,Tdap Booster 1940 CREATININE LEVEL 1941 POTASSIUM LEVEL 1941 DEPRESSION SCREENING 1953 PNEUMOCOCCAL VACCINES (50+ years) (1 of 2 - PCV) 1960 DIABETIC EYE EXAM 04/01/2023 COVID-19 VACCINE (2024- season) 2025 03/20/2025, 03/07/2024, 11/16/2023, Additional history exists BLOOD PRESSURE 10/31/2025 05/02/2025 HEMOGLOBIN A1C 10/31/2025 05/02/2025, 05/2 07/2024, 07/30/2024, Additional history exists ZOSTER VACCINES Completed 06/19/2019, 03/07/2019 RSV VACCINE Completed 03/25/2023 INFLUENZA VACCINE Completed 03/20/2025, , 03/25/2023, Additional history exists HEPATITIS A VACCINES Aged Out No long er eligible based on patient's age to complete this topic HIB VACCINES Aged Out No longer eligi ble based on patient's age to complete this topic IPV VACCINES Aged Out No longer eligi ble [...] Associated Diagnosis Comments POCT HEMOGLOBIN A1C Routine 05/02/2025 1 1:36 AM EDT Insulin pump in place from Last 3 Months Results * (ABNORMAL) POCT Hemoglobin A1c (05/02/2025 11:36 AM EDT) Hemoglobin A1c 7.6(A) 4.2 - 5.6 % [employer] [employer] [facility] Other 05/02/2025 11:3 6 AM EDT us Tessa Beltran ELECTRICAL LINE WORKER LAB POCT ENTER/EDIT ORDERABLE S Final Result [employer] [facility] [address] [place] [address], [facility] from Last 3 Months Insurance [employer] PPO MEDICARE REPLACEMENT AETNA PPO MEDICARE REPLACEMENT AETNA PPO MEDICARE REPLACEMENT AETNA PPO MEDICARE REPLACEMENT AETNA PPO MEDICARE REPLACEMENT AETNA PPO MEDICARE REPLACEMENT Care Teams Fretted String Instrument Repairer Relationship Specialty Start Date End Date Srinivasa Vasquez DO [address] [place] [address] PCP - General Internal Medicine 11/23/22 Additional Source Comments The information contained in this document represents components of the legal health record. It is not the complete legal health record.[facility]
== END 2025-05-15 12:52 | disposition home or self-care (01) ==
LOC: HO.HSM 12:29
PROVIDERS: PCP Internal Medicine; Visit Provider Psychiatry & Neurology Neurology
DX: G31.84 Mild cognitive impairment of uncertain or unknown etiology (principal); G47.33 Obstructive sleep apnea (adult) (pediatric)
CPT/HCPCS: 99214

== ENCOUNTER → 2025-05-15 12:28 | Outpatient (BNVA) | payer MEDICARE, SELFPAY | PROVIDERS: PCP Internal Medicine; Visit Provider Psychiatry & Neurology Neurology | DX: G47.33 Obstructive sleep apnea (adult) (pediatric) (principal); Z99.89 Dependence on other enabling machines and devices; G31.84 Mild cognitive impairment of uncertain or unknown etiology | CPT/HCPCS: 99212 ==

== ENCOUNTER 2025-06-11 13:36 | Outpatient (AMB) | payer MEDICARE, SELFPAY ==
[2025-06-11 13:41] VITALS: BP 138/54; PULSE 58; O2SAT 100; BMI 30.3
--- NOTE | 2025-06-11 13:41 | MHC.OFFVIS ---
Vital Signs 06/11/25 13:41 Height 5 ft 8 in Weight 199 lb 8.293 oz BMI 30.3 BP 138/54 L Blood Pressure Location Lt brachial Position Sitting Pulse 58 Pulse Source Pulse Oximeter Pulse Oximetry (%) 100 Oxygen Delivery Method Room Air Intake Visit Reasons: Obstructive sleep apnea Intake Note: pt is here for follow up and states he is feeling good today. 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 Allergies penicillin V Allergy (Unknown, Verified 06/11/25 13:54) Rash Penicillins (PENICILLINS) Allergy (Unknown, Verified 06/11/25 13:54) UNKNOWN Medication List - Last Reconciled 06/11/25 by Mckayla Elizabeth MD atorvastatin 40 mg PO DAILY blood sugar diagnostic (FreeStyle Lite Strips) As directed three times a day blood-glucose meter (FreeStyle Lite Meter kit) As directed 3 x/day blood-glucose sensor (DexVBI Vaccines G6 Sensor device) As directed blood-glucose transmitter (Dexcom G6 Transmitter device) As directed blood-glucose,research subject,cont (Dexcom G6 Grain Blender) As directed cholecalciferol (vitamin D3) 50 mcg PO DAILY donepezil 10 mg PO DAILY 90 days finasteride 5 mg PO DAILY insulin pump cart,auto,BT-cntr (Omnipod 5 G6 Intro Kit (Gen 5) subcutaneous cartridge with controller) As directed lancets (FreeStyle Lancets) 4 times a day losartan 50 mg PO BID Lyumjev U-100 Insulin (insulin lispro-aabc) Up to 100 units via insulin pump subcut daily; 90 days NS multivitamin 1 tab PO DAILY sertraline 50 mg PO DAILY tamsulosin 0.4 mg PO BID Do you need a note to return to daycare/school/sports/work: No HPI HPI Obstructive sleep apnea: Details: 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 He is sleeping much better, does not snore. Wakes up refreshed. And his residual AHI is finally in low range. He is being treated with ASV auto mode , and it is working well. He had treatment emergent central apnea, which was causing lot of residual AHI, and poor sleep quality. [facility] Medical History Pleural effusion Cough SARS-CoV-2 positive Dyspnea on exertion Central sleep apnea ODILIA (obstructive sleep apnea) Retrognathia Overweight Hyponatremia Dyslipidemia Hypertension Diabetic polyneuropathy associated with type 1 diabetes mellitus Mild non proliferative diabetic retinopathy Diabetes type 1, controlled Surgical History History of esophagogastroduodenoscopy (EGD) H/O colonoscopy (~01/09/24) Hx of right inguinal hernia repair Hx of cataract removal with insertion of prosthetic lens Hx of hand surgery Family History Father CVD (cardiovascular disease) Mother Hypertension Maternal Grandmother Diabetes Social History Household Members: Spouse [facility]: [facility] Alcohol intake: current Alcohol intake frequency: does not drink Alcohol type: wine Patient Tobacco Use Status: Never used Tobacco service: No Current occupational status: retired Cognitive needs: No Hearing needs: Yes (b/l hearing aids) Vision needs: Yes (reading glasses) Review of Systems Const Denies body aches, Denies chills, Denies fatigue, Denies fever(s) and Denies headache(s) Eyes Denies blurry vision, Denies irritation, Denies itchy eyes and Denies loss of vision ENT Denies dysphagia, Denies vertigo, Denies headache(s), Denies epistaxis, Denies nasal congestion, Denies nasal discharge, Denies nasal obstruction and Denies sinus pain Card Denies chest pain, Denies rapid heart rate, Denies irregular heart rhythm, Reports dyspnea on exertion (HE FEELS THAT HE IS MORE SHORT OF BREATH THAN USUAL DURING THE PAST 1 WEEK), Denies orthopnea and Denies slow heart rate Resp Reports as per HPI and Reports dyspnea on exertion (HE FEELS THAT HE IS MORE SHORT OF BREATH THAN USUAL DURING THE PAST 1 WEEK) GI Denies bloating, Denies change in bowel habits, Denies change in stool character, Denies dysphagia, Denies heartburn, Reports nausea and Denies vomiting Reports nocturia and Denies urinary incontinence Musc Denies abnormal gait, Denies back pain, Denies myalgias, Denies arthralgias, Denies muscle weakness and Denies stiffness Skin/Breast Reports system reviewed and no additional complaints, except as documented Neuro Denies abnormal gait, Denies vertigo, Denies headache(s), Denies focal weakness, Denies loss of vision, Reports memory loss, Denies restless legs and Denies tremor(s) Psych Reports depression and Reports memory loss Endo Reports no additional complaints, Denies fatigue and Reports other (Insulin-dependent diabetes mellitus) Franklyn/Lymph Reports no additional complaints Aller/Immun Reports no additional complaints and Denies itchy eyes Physical Exam Vital Signs: Last Vital Signs Pulse 58 06/11/25 13:41 BP 138/54 L 06/11/25 13:41 Pulse Ox 100 06/11/25 13:41 Oxygen Delivery Method Room Air 06/11/25 13:41 BMI result Body Mass Index 30.3 Generally healthy looking, he is only says moderately overweight Const General: healthy appearing, comfortable, no acute distress, alert and awake Orientation/consciousness: patient oriented x3 HEENT Head: Yes normal to inspection General nose exam: No nasal polyps present and No nasal discharge present Face and sinus: Yes sinuses nontender Mouth: oropharynx abnormals (Tongue is placed back, oropharynx is narrow, Mallampati class 4) Teeth and gingiva: other (RETROGANTHIA of the lower jaw ( overbite ) ) Throat: Yes posterior oropharynx normal Eyes General: appearance normal, both eyes and all related structures Neck Neck: Yes normal visual inspection, Yes no lymphadenopathy, Yes trachea midline, Yes no JVD and Yes other (Neck circumference 16-1/2 inch) Thyroid: Thyroid normal Chest Chest palpation & inspection: normal inspection of the chest, normal palpation of entire chest wall and no tenderness Resp Other: ,CHEST IS SYMMETRICAL PERCUSSION NOTE IS DULL OVER THE LEFT BASE ONLY AND NOT ON THE RT SIDE . BREATH SOUNDS ARE DIMINISHED OVER THE LEFT BASE . RIGHT SIDE IS CLEAR NO CREPITATIONS OR WHEEZES ARE HEARD. Effort & Inspection: normal respiratory effort Auscultation: clear to auscultation bilaterally, no crackles and no wheezes Cardio Palpation: normal PMI Rate: regular rate Rhythm: regular rhythm Heart sounds: no gallops and no murmurs Peripheral pulses: Peripheral pulses 2+ throughout GI Palpation (GI): Soft to palpation, nontender, No hepatosplenomegaly present and no masses Auscultation: normal bowel sounds Back/Spine/Pelvis Thoracic/Lumbar Spine: thoracic and lumbar spine normal to inspection Skin General skin exam: no rashes or lesions noted Neuro General: patient oriented x3 and no focal motor deficits Cranial nerves: Yes CN's II-XII intact bilaterally Extrem General: Yes normal to inspection, Yes no clubbing, cyanosis or edema and Yes no calf tenderness Psych Appearance: grossly normal and well kempt Speech and movement: Normal speech and movement present Results Reviewed Results Reviewed: Compliance report for the last 30 nights reviewed. He used for 26/30 nights, missed 4 nights because he was traveling to [place] to visit his son and did not take the equipment with him, He uses up to 6 and 1/2 hours every night . Residual AHI only 5.7 which is much better than before. Assessment & Plan Assessment & Plan (1) ODILIA (obstructive sleep apnea): Comment: OBSTRUCTIVE SLEEP APNEA, SEVERE, RESPONDING VERY WELL TO THE USE OF CPAP. CURRENTLY USING CPAP WITH ASV MODE AND DOING MUCH BETTER. RESIDUAL AHI=5.7 Code(s): G47.33 - Obstructive sleep apnea (adult) (pediatric) Category: Medical Plan: Commended for good compliance and advised to continue using the CPAP with ASV auto mode . (2) Central sleep apnea: Comment: HE HAD TREATMENT EMERGENT CENTRAL SLEEP APNEA WITH CENTRAL APNEA INDEX 9.1., AND TOTAL RESIDUAL AHI OF 16. NOW WITH THE USE OF ASV/AUTO MODE ALL THE CENTRAL WELL OBSTRUCTIVE EVENTS WERE ELIMINATED. SYMPTOMATICALLY , HE IS DOING MUCH BETTER WITH THE CURRENT TREATMENT. COMPLIANCE REPORT DOES NOT SHOW ANY RESIDUAL CENTRAL EVENTS, TOTAL SLEEP TIME AHI 5.7, IS A LITTLE HIGHER THAN BEFORE BUT IS STILL ACCEPTABLE. Code(s): G47.31 - Primary central sleep apnea Category: Medical Plan: EXPLAINED THE FINDINGS AND REASSURED HIM. HE WILL CONTINUE TO USE THE CPAP WITH ASV MODE REGULARLY EVERY NIGHT Coding Level of Care Code Est Pt Level 3 (42436) Diagnoses ODILIA (obstructive sleep apnea) G47.33 Central sleep apnea G47.31
--- OUTSIDE RECORDS SUMMARY | 2025-06-11 19:10 | XMS_ITS | Clinical Summary ---
Author Organization [facility] Address [address] [address] Phone Care Team Providers Care Backup Administrative Coordinator Name Role Phone Srinivasa Vasquez DO [...] meals. 300 strip 3 09/28/19 25 Active JAYANT U-100 INSULIN 100 unit/mL injection vialIndications:In sulin pump in place,Diabetic polyneuropathy associated with type 1 diabetes mellitus ADMINISTER VIA INSULIN PUMP, 90 UNITS TDD E10.42 Z96.41 90 mL 3 05/09/20 25 Active Active Problems Problem Noted Date [...] Has continued to be happy with [employer], having some issues with CGM reliability with [...] issue has been fixed when Beni contacted [employer] support this morning No adjustments made to [...] after morning meal are variable Happy with [employer], having some issues with infusion sets [...] to training on Tandem Mobi with tandem ict trainer next week Training was provided on [...] he will also return to meet with eTssa Garrido in 3 months Hyperlipidemia 04/04/2023 Assessment [...] recent lipid panel is available for review [place] LDL goal is <70 Continues on statin [...] unsuccessful, encouraged Beni to reach out to [employer] support Beni will consider the Omnipod 5 [...] has this and will discuss with Tessa Belrtan later this month at follow up visit [...] alternate his visits with me and Tessa Garrdio and is advised to contact us with [...] training and I will reach out to [employer] to see if a one-on-one training can [...] Encounters Date Type Department Care Team Description 06/06/[address] [place] [address] Mayda Gamino MD 05/23/[address] [place] [address] Tessa Beltran CNP Blood sugars erratic (Blood sugars erratic) 05/09/[address] [place] [address] Mayda Gamino MD Medication Refill 05/07/[address] [place] [address] Amberly Ruiz MA Medication Management 05/02/2025 11:20 AM EDT Office Visit [address] [place] [address] Tessa Beltran CNP Insulin pump in place (Primary Dx); Diabetic polyneuropathy associated with type 1 diabetes mellitus; Hyperlipidemia, unspecified hyperlipidemia type; Primary hypertension 04/22/2025 Telephone [facility] [address] [place] [address] [place] [address] Tessa Beltran CNP Forms & Paperwork 03/25/[address] [place] [address] Amberly Ruiz MA Medication Management 03/21/2025 Telephone [facility] [address] [place] [address] Amberly Ruiz MA DIABETIC SHOES from Last [...] Description 08/02/2025 2:40 PM EST Office Visit [facility] [address] [place] [address] [place] [address] Mayda Gamino MD [address] [place] [address], [address] [place] [address] 10/31/2025 11:20 AM EDT Office Visit [facility] [address] [place] [address] Tessa Beltran CNP [address] [place] [address], [address] [place] [address] Health Maintenance Due Date Last Done Comments [...] Hemoglobin A1c 7.6(A) 4.2 - 5.6 % [employer] [facility] Other 05/02/2025 11:3 6 AM EDT us Tessa Beltran PMP CERTIFIED PROJECT MANAGER LAB POCT ENTER/EDIT ORDERABLE S Final Result [facility] [address] [place] [address], [facility] from Last 3 Months Insurance [employer] PPO MEDICARE REPLACEMENT AET[employer] PPO MEDICARE REPLACEMENT AETNA PPO MEDICARE REPLACEMENT AETNA PPO MEDICARE REPLACEMENT A[employer] PPO MEDICARE REPLACEMENT A[employer] PPO MEDICARE REPLACEMENT Care Teams Backup Administrative Coordinator Relationship Specialty Start Date End Date Srinivasa Vasquez DO [address] [place] [id number] PCP - General Internal Medicine 11/23/22 Additional Source Comments The information contained in this document represents components of the legal health record. It is not the complete legal health record.[facility]
--- OUTSIDE RECORDS SUMMARY | 2025-06-11 19:10 | XMS_ITS | Clinical Summary ---
Author Organization [address] [place] [address] Address [address] [place] [address] Phone Care Team Providers Care Mechanical Research Engineer Name Role Phone Moe Cope MD Primary Care Provider [phone] Allergies Active Allergy Reactions Criticality Noted Date [...] ciated with type 1 diabetes mellitus 04/01/2023 Overview (08/29/2024): DIABETES HISTORY Diagnosis -- mid 20s, initially managed as type 2 diabetes Treatment -- on oral meds, this was ineffective over a couple of years then started on basal bolus insulin; started insulin pump therapy 2018, currently on Tandem X2/Dexcom Encounters Date Type Department Care Team Description 05/10/2025 10:30 AM EST Office Visit Orthopedic Surgery [facility] [address] [facility] [address] [place] [address] Gisela Paredes MD Trigger index finger of left hand (Primary Dx); Trigger index finger of right hand; Cubital tunnel syndrome, left; Carpal tunnel syndrome of left wrist 04/04/[address] [facility] [address] [facility] [address] [place] [address] Laura Gomez MA 04/02/2025 1:30 PM EDT Office Visit Orthopedic Surgery - [address] [place] [address] Gisela Paredes MD Trigger index [...] HL (hearing loss) b CABA Diabetes mellitus ([facility] V24, [facility] V28) Cancer ([facility] V24, [facility] V28) skin Social History Tobacco Use Types [...] complete this topic Insurance [employer] MEDICARE ADVANTAGE Advance Directives * [...] currently active code status orders. Care Teams Mechanical Research Engineer Relationship Specialty Start Date End Date Moe Cope MD [facility] [address] [place] [address] [address] [place] [address] PCP - General Internal Medicine 08/28/24
--- OUTSIDE RECORDS SUMMARY | 2025-06-11 19:11 | XMS_ITS | Encounter Summary ---
Author Organization [facility] Address [address] [place] [id number] Phone Care Team Providers Care Station Master Name Role Phone Srinivasa Vasquez DO Primary Care Provider [phone] Encounter Details Date Type Department Care Team (Late st Contact Info) Description 06/06/2025 Telephone [facility] [address] [place] [address] Mayda Gamino MD [address] [facility] [place] [address] [email or web address] Social History Tobacco Use Types Packs/Day Years Used Date Smoking Tobacco: Never Passive Smoke Exposure: Never Smokeless Tobacco: Never Alcohol Use Standard Drinks/Week Comments Yes 0 [...] PM EDT Sexual Orientation Not on file documented as of this encounter Progress Notes * Manuela Patterson CMA - 06/06/2025 3:39 PM EST Agnieszka called back and confirmed that that there will be space in the office tomorrow * Manuela Patterson CMA - 06/06/2025 2:40 PM EST I called left message to to confirm that the office have space between 12:30 -1 pm * Jesse Morrell - 06/06/2025 9:30 AM EST Agnieszka from [facility] states that this pt is one of their pts as well, and that they are trying to help the pt with his insulin pump issues. Caller stated that they are hoping to see the pt in person, and asks if [facility] might have space they could use for this between 12:30 and 1:00 tomorrow. Please contact and advise. Central Support Case Management Social Worker (Please do not reply to this user; this inbox is not monitored.) Thank you. documented in this encounter Plan of Treatment Upcoming Encounters Date Type Department Care Team (Late st Contact Info) Description 08/02/2025 2:40 PM EST Office Visit [facility] [address] [place] [address] [place] [address] Mayda Gamino MD [address] [place] [address], [address] [place] [place] [id number] 10/31/2025 11:20 AM EDT Office Visit [facility] [address] [place] [address] Tessa Beltran CNP [address] [place] [address], [address] [place] [place] [phone] [email or web address] documented as of this encounter Visit Diagnoses Not on filedocumented in this encounter Care Teams Station Master Relationship Specialty Start Date End Date Srinivasa Vasquez DO [address] [place] [phone] PCP - General Internal Medicine 11/23/22 documented as of this encounter Additional Source Comments The information contained in this document represents components of the legal health record. It is not the complete legal health record.[facility]
== END 2025-06-11 13:57 | disposition home or self-care (01) ==
LOC: HO.HPS 13:37
PROVIDERS: PCP Internal Medicine; Visit Provider Internal Medicine
DX: G47.33 Obstructive sleep apnea (adult) (pediatric) (principal); G47.31 Primary central sleep apnea
CPT/HCPCS: 99213

== ENCOUNTER → 2025-06-11 13:36 | Outpatient (BNVA) | payer MEDICARE, SELFPAY | PROVIDERS: PCP Internal Medicine; Visit Provider Internal Medicine | DX: G47.33 Obstructive sleep apnea (adult) (pediatric) (principal); G47.31 Primary central sleep apnea; Z99.89 Dependence on other enabling machines and devices | CPT/HCPCS: 99212 ==

== ENCOUNTER 2025-06-19 11:06 | Outpatient (RCR) | payer MEDICARE, SELFPAY | END 2025-06-19 13:17 | disposition home or self-care (01) | LOC: HO.OT 11:06 | PROVIDERS: PCP Internal Medicine; Visit Provider Orthopaedic Surgery | DX: M65.321 Trigger finger, right index finger (principal); M65.322 Trigger finger, left index finger; G56.22 Lesion of ulnar nerve, left upper limb; G56.02 Carpal tunnel syndrome, left upper limb | CPT/HCPCS: 97110; 97140; 97165 ==